=== PATIENT | male | born 1955 | race Hispanic/Latino ===

== ENCOUNTER 2020-07-13 09:53 | Outpatient (CLI) | payer MEDICARE, SELFPAY ==
--- NOTE | 2020-07-13 14:58 | P.NEURO_ITS ---
Neurology EEG Report General Information Date of Study: 07/13/20 TEST eeg DIAGNOSIS ataxia CONDITION OF RECORDING awake drowsy and sleep EEG NUMBER [id number] CLINICAL HISTORY patient reported he has been having issues with talking walking and dizziness. He is a diabetic % and had blood workup done sodium potassium at [facility] lytes were messed up but those back to normal range and has noted significant improvement in symptomatology. He does have a history of cerebral bleed that affected his l eft arm and left leg EEG DESCRIPTION basic resting occipital frequency consists of large amount of well-organized low to medium voltage 8 to 9 hertz per second alpha admixed with low-voltage 15 to 18 hertz per 2nd beta. Bilateral symmetrical sleep activity seen during sleep. hyperventilation not done. Photic stimulation produced normal drive. No n paroxysmal, nonfocal ,nonlateralizing. IMPRESSION No significant abnormalities no
== END 2020-07-13 09:54 | disposition home or self-care (01) ==
PROVIDERS: PCP Family Medicine; Visit Provider Psychiatry & Neurology Neurology
DX: R27.0 Ataxia, unspecified (principal)
CPT/HCPCS: 95816

== ENCOUNTER 2020-07-17 09:34 | Outpatient (CLI) | payer MEDICARE, SELFPAY ==
--- NOTE | ~2020-07-17 | MR_ITS ---
EXAMINATION: MR brain/brain stem wo con DATE: 07/17/2020 12:05 INDICATION: Ataxia. TECHNIQUE: Magnetic resonance imaging (MRI) of the brain and brainstem was performed without intraven ous contrast. Sequences included sagittal and axial T1-weighted FSE, axial diffusion-weighted FS EPI, axial T2*-weighted GRE, axial T2-weighted FLAIR Propeller, and axial T2-weighted Propeller. Apparent diffusion coefficient (ADC) maps were created. COMPARISON: Brain MRI 07/21/2005, head CT 10/27/2013 FINDINGS: There is a mass of mixed signal intensity with chronic encephalomalacia and old blood produ cts involving right temporal lobe. There is chronic encephalomalacia with blood products in the adjac ent right insula and right lentiform nucleus. There is volume loss and increased T2-weighted signal i ntensity in the marybel on the right, consistent with chronic Wallerian degeneration. There are scattere d areas of nonspecific increased T2-weighted signal intensity in the cerebral white matter. There is a small area of chronic cystic encephalomalacia in the right frontoparietal deep white matter. There is an old lacunar infarct in the left caudate nucleus. There is no acute ischemic infarct. The ventri cles are normal in size. The orbits are normal. There is mild mucosal thickening in the ethmoid sinus es. The mastoid air cells are normal. There is a lipoma in right frontal scalp. IMPRESSION: 1. Chronic ill-defined mass in right temporal lobe, consistent with an arteriovenous malformation. 2. Chronic encephalomalacia with old blood products in the right temporal lobe and adjacent right ins keara and right lentiform nucleus. 3. Old lacunar infarct in left caudate nucleus. 4. Moderate nonspecific cerebral white matter disease, which likely represents chronic small vessel i schemic disease. Reviewed, dictated and finalized at location A. IMPRESSION: 1. Chronic ill-defined mass in right temporal lobe, consistent with an arteriov enous malformation. 2. Chronic encephalomalacia with old blood products in the right temporal lobe and adjacent right insula and right lentiform nucleus. 3. Old lacunar infarct in left caudate nucleus. 4. Moderate nonspecific cerebral white matter disease, which likely represents chronic small vessel ischemic disease.
== END 2020-07-17 09:35 | disposition home or self-care (01) ==
PROVIDERS: PCP Family Medicine; Visit Provider Psychiatry & Neurology Neurology
DX: R27.0 Ataxia, unspecified (principal); R93.0 Abnormal findings on diagnostic imaging of skull and head, not elsewhere classified
CPT/HCPCS: 70551

== ENCOUNTER 2022-02-16 20:32 | Inpatient (IN) | payer MEDICARE, MEDICAID, SELFPAY ==
[2022-02-16] VITALS (10 sets, daily range): BP systolic 163–196; BP diastolic 75–120; PULSE 59–79; RESP 13–23; TEMP 36.5; O2SAT 96–100
--- NOTE | ~2022-02-16 | CT_ITS ---
EXAMINATION: CT brain wo con DATE: 02/20/2022 12:45 INDICATION: Increasing weakness TECHNIQUE: Computed tomography (CT) of the head was performed without intravenous contrast. Sagittal and coronal reconstructions were performed. The mA was adjusted according to patient size. Iterative reconstruction technique was employed. The dose-length product was 605.33 mGy-cm. COMPARISON: head CT dated 10/27/2013 and MRI dated 07/17/2020 FINDINGS: Chronic 2.1 cm calcified mass in the right temporal lobe consistent with an arteriovenous malformatio n. Small regions of chronic encephalomalacia in the adjacent more anterior right temporal lobe and at the posterior insula and right lentiform nucleus where there was previously a small intraparenchymal hematoma. Again seen is asymmetric mild atrophy of the right cerebral peduncle and marybel likely repre senting secondary wallerian degeneration. A couple additional small old lacunar infarcts at the left thalamus and left caudate nucleus. There is moderate scattered white matter hypoattenuation consisten t with chronic small vessel ischemic disease. No acute intracranial hemorrhage, acute infarction or abnormal extra axial fluid collection. Ventricles are normal and symmetric accounting for mild to mod erate age-appropriate diffuse volume loss. 2.4 x 2.1 x 1.0 cm lipoma in the right frontal scalp. No o ther masses identified. The orbits, paranasal sinuses and mastoid air cells are normal. IMPRESSION: 1. No significant change in a 2.1 cm calcified mass in the right temporal lobe most likely representi ng an arteriovenous malformation. 2. Chronic encephalomalacia in the adjacent right temporal lobe, right insula and lentiform nucleus, the latter two at the site of an earlier intraparenchymal hemorrhage. 3. Couple small old lacunar infarcts at the left caudate nucleus and left thalamus. 4. Age-related changes including mild to moderate diffuse volume loss and moderate scattered white ma tter hypoattenuation consistent with chronic small vessel ischemic disease. Reviewed, dictated and finalized at location A. IMPRESSION: 1. No significant change in a 2.1 cm calcified mass in the right temporal lobe most likely representing an arteriovenous malformation. 2. Chronic encephalomalacia in the adjacent right temporal lobe, right insula a nd lentiform nucleus, the latter two at the site of an earlier intraparenchymal hemorrhage. 3. Couple small old lacunar infarcts at the left caudate nucleus and left thala mus. 4. Age-related changes including mild to moderate diffuse volume loss and moder ate scattered white matter hypoattenuation consistent with chronic small vessel ischemic disease.
--- NOTE | ~2022-02-16 | XR_ITS ---
EXAMINATION: XR chest 1V portable DATE: 02/16/2022 23:39 INDICATION: Hyperglycemia. Fall. TECHNIQUE: frontal view of the chest was obtained. COMPARISON: Chest radiograph dated 03/08/2015 FINDINGS: New mild blunting at the left costophrenic and cardiophrenic angles consistent with small left pleura l effusion. No other airspace opacities, pulmonary edema, pneumothorax or right-sided pleural effusio n. Arch size is within normal limits for AP technique. Median sternotomy wires and mediastinal surgic al clips are seen, likely from prior coronary artery bypass grafting. There is also a cardiac valve r epair and a left atrial appendage clip. IMPRESSION: 1. Small left pleural effusion. Reviewed, dictated and finalized at location A.
--- NOTE | ~2022-02-16 | XR_ITS ---
EXAMINATION: XR shoulder LT min 2V, XR shoulder RT min 2V DATE: 02/19/2022 14:24 INDICATION: Generalized bilateral shoulder pain post fall TECHNIQUE: 1. AP internally and externally rotated, AP oblique externally rotated and transscapular Y views of t he left shoulder were obtained. 2. AP internally and externally rotated, AP oblique externally rotated and transscapular Y views of t he right shoulder were obtained. COMPARISON: None FINDINGS: Normal alignment at both shoulders. No fracture.Particular osteoarthritis at both shoulders, mild at the bilateral glenohumeral joints and mild at the right and moderate at the left acromioclavicular j oints. Moderate sized bilateral subacromial spurs. Visualized portions of the upper lungs are clear. Median sternotomy wires and mediastinal surgical clips are seen, likely from prior coronary artery by pass grafting. There has also been prior clipping of the left atrial appendage.. IMPRESSION: Mild to moderate polyarticular osteoarthritis at the bilateral shoulders. No acute osseous abnormalit y. Reviewed, dictated and finalized at location A. IMPRESSION: Mild to moderate polyarticular osteoarthritis at the bilateral shoulders. No ac ewiiaapaayp osseous abnormality.
--- NOTE | ~2022-02-16 | XR_ITS ---
EXAMINATION: XR lumbar spine 2-3V DATE: 02/19/2022 14:24 INDICATION: Low back pain. Fall. TECHNIQUE: 3 views of lumbar spine on 5 radiographs were obtained. COMPARISON: None. FINDINGS: Bone alignment is normal. Vertebral body heights and intervertebral disc heights are normal . There are endplate osteophytes at most levels. There is multilevel mild facet joint osteoarthritis. IMPRESSION: 1. Mild lumbar spondylosis. Reviewed, dictated and finalized at location B. IMPRESSION: 1. Mild lumbar spondylosis.
--- NOTE | ~2022-02-16 | XR_ITS ---
EXAMINATION: XR_CERV2-3V_CR DATE: 02/19/2022 14:24 INDICATION: Neck pain. Fall. TECHNIQUE: 4 views of cervical spine on 7 radiographs were obtained. COMPARISON: None. FINDINGS: The lower cervical spine is not well visualized on the lateral views. Bone alignment is nor mal. Vertebral body heights and intervertebral disc heights are normal. There is moderate to severe u ncovertebral joint osteoarthritis bilaterally at C5-C6 and C6-C7. The facet joints are unremarkable. No central canal stenosis or prevertebral soft tissue swelling. Median sternotomy wires and mediastin al surgical clips are seen, likely from prior coronary artery bypass grafting. There is a closure dev ice in the area of left atrial appendage. IMPRESSION: 1. Mild cervical spondylosis. Reviewed, dictated and finalized at location B.
[2022-02-16 20:53] LABS: Glucose Point of Care > 500 mg/dl (65-105)
--- NOTE | 2022-02-16 21:01 | ECG_ITS ---
Measurements Intervals [place] Rate: 60 P: 100 IA: 251 QRS: 3 QRSD: 112 T: 118 QT: 443 QTc: 444 Interpretive Statements RHYTHM INDETERMINATE LEFT VENTRICULAR HYPERTROPHY AND ST-T CHANGE [VOLTAGE CRITERIA PLUS ST/T ABNORMALITY] ABNORMAL EKG Electronically Signed On 02-17-2022 9:27:29 CDT by Lele Saunders M.D.
[2022-02-16 21:14] LABS: Basophils Absolute Auto 0.1 K/mm3 (0.0-0.1); Basophils Percent Auto 0.7 % (0.2-1.2); Eosinophils Absolute Auto 0.2 K/mm3 (0-0.3); Eosinophils Percent Auto 2.2 % (0-4.4); Hematocrit 34.1 % (42.0-52.0); Hemoglobin 10.7 g/dL (14.0-18.0); Immature Granulocyte Absolute 0.03 K/mm3 (0.00-0.031); Immature Granulocyte Percent A 0.4 % (0-0.5); Lymphocytes Absolute Auto 0.68 K/mm3 (0.9-3.2); Lymphocytes Percent Auto 9.1 % (18.3-44.2); Mean Corpuscular HGB Conc 31.4 g/dl (32-36); Mean Corpuscular Hemoglobin 26.3 pg (26-34); Mean Corpuscular Volume 83.8 fl (80-100); Monocytes Absolute Auto 0.7 K/mm3 (0.1-0.6); Monocytes Percent Auto 8.9 % (2.6-8.5); Neutrophils Absolute Auto 5.9 K/mm3 (1.3-6.7); Neutrophils Percent Auto 78.7 % (45.5-73.1); Platelet Count Result 297 k/mm3 (150-375); Red Blood Count 4.07 M/mm3 (4.6-6.20); Red Cell Distribution Width 14.9 % (11.5-14.5); White Blood Count 7.4 K/mm3 (4.5-10.0)
--- NOTE | 2022-02-16 22:09 | ED.RECABL ---
HPI - Recheck/Abnormal Lab/Rx General Chief Complaint: Recheck/Abnormal Lab/Rx Stated Complaint: High Blood Sugar, High BP, Edema Time Seen by Provider: 02/16/22 22:08 History of Present Illness HPI narrative: Patient is a 66-year-old male with a history of diabetes, CHF, hypertension, hypothyroidism presenting with multiple falls. Patient states that he has had several falls over the last several days. Today he was trembling all over and was unable to hold a glass of water so he came in for evaluation. Patient complains of chronic arthritis pain but denies any new pain. No headache, fevers, chest pain, shortness of breath, abdominal pain, vomiting, diarrhea, dysuria. Endorses chronic leg swelling. States he has been compliant with his Lasix. Related Data Home Medications Medication Instructions Recorded Confirmed atorvastatin 40 mg tablet 80 mg PO HS 03/24/19 02/17/22 carvedilol 25 mg tablet 25 mg PO Q12H 03/24/19 02/17/22 levothyroxine 125 mcg tablet 125 mcg PO DAILY 03/24/19 02/17/22 dulaglutide 1.5 mg/0.5 mL 1.5 mg subcut WEEKLY 01/20/22 02/17/22 subcutaneous pen injector (Trulicity) aspirin 81 mg chewable tablet 81 mg PO HS 02/17/22 02/17/22 escitalopram oxalate 20 mg tablet 20 mg PO DAILY 02/17/22 02/17/22 ferrous sulfate 325 mg (65 mg 325 mg PO EVERY OTHER DAY 02/17/22 02/17/22 iron) tablet furosemide 40 mg tablet 40 mg PO BID 02/17/22 02/17/22 gabapentin 800 mg tablet 800 mg PO QID 02/17/22 02/17/22 ibuprofen 800 mg tablet 800 mg PO TID PRN Mild Pain (Scale 02/17/22 02/17/22 Score 1-4) insulin lispro 100 unit/mL See Rx Instructions .Route .COMPLEX 02/17/22 02/17/22 subcutaneous solution (Humalog U-100 Insulin) lisinopril 30 mg tablet 30 mg PO DAILY 02/17/22 02/17/22 oxycodone-acetaminophen 5 mg-325 1 - 2 tablet PO Q6H PRN Pain 02/17/22 02/17/22 mg tablet (Scale Score 7-10) Allergies Allergy/AdvReac Type Severity Reaction Status Date / Time Gadolinium-Containing Allergy Unknown Vomiting Verified 02/17/22 02:08 Contrast Medi ioversol Allergy Unknown Vomiting Verified 02/17/22 02:08 Review of Systems Review of Systems: All systems reviewed & are unremarkable except as noted in HPI and below PMFSH Past Medical History Medical History (Updated 02/21/22 @ 17:03 by Crystal Aldrich MD) Atrial fibrillation/flutter Paroxysmal, history of DC cardioversion 2013, no longer on anticoagulation due to history of intercranial bleed CAD (coronary artery disease) (~2006) The patient had 3 cardiac stents placed between 2005 and 2012. He had a CABG in 2012 with a Saint Aleksey's ring placed on the mitral valve Cerebral arteriovenous malformation (AVM) Evaluated at [facility] in 1991 and 1997. He had bleeding from the AVM prior to 2005 CHF (congestive heart failure) Echocardiogram 07/2013: Left ventricular hypertrophy with mild dilatation, severe septal hypokinesis, EF 55-60, diastolic dysfunction, dilated left atrium Prior diagnosis of dilated cardiomyopathy CVA (cerebral vascular accident) (~2014) Hemorrhagic CVA 2013. MRI brain 07/2020 performed due to ataxia: Chronic ill-defined mass in the right temporal lobe consistent with AV malformation, chronic encephalomalacia with old blood product in the right temporal lobe and adjacent right insula and right lentiform nucleus, old lacunar infarct in the left caudate nucleus, moderate nonspecific cerebral white matter disease likely representing chronic small-vessel ischemic disease Depression Diabetes mellitus (~2002) uncontrolled with hemoglobin A1c 10.6 01/20/2022 Diabetic nephropathy with proteinuria Diabetic peripheral neuropathy HTN (hypertension) Hypothyroidism (~2009) Myocardial infarction Obstructive sleep apnea Polysomnogram 2014: Moderate obstructive sleep apnea improved with CPAP of 6 Rheumatoid arthritis Seizure disorder Surgical History Surgical History (Updated 02/17/22 @ 04:47 by Anne Bazzi, ) History of appendectomy Hx of CABG
[2022-02-16 22:16] LABS: Beta-Hydroxybutyrate/Acetoacetate 0.09 mmol/L (0.02-0.27)
[2022-02-16 22:32] LABS: Alanine Aminotransferase 16 U/L (6-50); Albumin Level 3.4 g/dL (3.5-5.1); Alkaline Phosphatase 133 U/L (38-126); Anion Gap 9 mmol/L (8-16); Aspartate Amino Transferase 21 U/L (17-59); Bilirubin,Total 0.3 mg/dL (0.2-1.3); Blood Urea Nitrogen 16 mg/dL (9-20); Calcium 8.9 mg/dL (8.4-10.2); Carbon Dioxide 32 mmol/L (22-30); Chloride 96 mmol/L (98-107); Estimated CRCL calculation 36 ml/min; Estimated Glomerular Filt Rate 43; Glucose 571 mg/dL (65-110); Magnesium 2.4 mg/dL (1.6-2.3); Phosphorus 3.5 mg/dL (2.5-4.5); Potassium 2.8 mmol/L (3.4-5.0); Sodium 137 mmol/L (137-145)
[2022-02-16] MEDS: POTASSIUM CHLORIDE INJ 40 MEQ in SODIUM CHLORIDE 0.9% IV 500 ML 130 MEQ IVPB (22:55)
[2022-02-16] MEDS: SODIUM CHLORIDE 0.9% IV 1,000 ML 999 ML IV CONT (22:55)
[2022-02-17] VITALS (29 sets, daily range): BP systolic 155–199; BP diastolic 58–101; PULSE 54–117; RESP 11–22; TEMP 36.5–36.9; O2SAT 95–100; BMI 28.5
[2022-02-17] MEDS: MORPHINE SULFATE (*CRX) 4 MG/ML INJ IV PUSH ×2 (00:10→11:57)
--- NOTE | 2022-02-17 00:44 | ECG_ITS ---
Measurements Intervals [place] Rate: 76 P: MI: 0 QRS: 1 QRSD: 108 T: 116 QT: 428 QTc: 483 Interpretive Statements ATRIAL FIBRILLATION POSSIBLE LEFT VENTRICULAR HYPERTROPHY [VOLTAGE CRITERIA PLUS LAE OR QRS WIDENING] ST DEVIATION AND MODERATE T-WAVE ABNORMALITY, CONSIDER LATERAL ISCHEMIA [-0.1+ mV T- WAVE IN I/aVL/V5/V6] ABNORMAL ECG Electronically Signed On 02-17-2022 9:29:19 CDT by Lele Saunders M.D.
[2022-02-17 01:01] LABS: Glucose Point of Care 363 mg/dl (65-105)
[2022-02-17] MEDS: carvediloL 25 MG TABLET PO ×3 (01:10→20:23)
[2022-02-17] MEDS: POTASSIUM CHLORIDE 20 MEQ TABLET 40 MEQ PO ×3 (01:11→12:26)
[2022-02-17 01:29] LABS: Add Urine Microscopic? YES; Appearance Urine Clear (Clear); Bilirubin Urine Negative (Negative); Blood Urine 1+ (Negative); Color Urine Straw (Yellow); Glucose Urine UA 3+ mg/dL (Negative); Ketones Urine Trace mg/dL (Negative); Leukocyte Esterase Ur Negative LEU/UL (Negative); Nitrate Urine Negative (Negative); Protein Urine 2+ mg/dL (Negative); RBC Urine 0-2 /hpf (0-2); Specific Grav Ur 1.018 (1.001-1.035); Urobilinogen Urine Negative mg/dL (<2.0)
--- NOTE | 2022-02-17 01:57 | PM.IMHP ---
H&P: HPI History of Present Illness Date/Time: 02/17/22 01:57 Chief Complaint: Multiple falls, high blood sugar Narrative: 66-year-old male with past medical history of prior CVA, essential hypertension, congestive heart failure and uncontrolled diabetes mellitus who presented from home after multiple falls. The patient was hospitalized for 3.5 weeks at [facility] approximately 6 weeks ago. It sounds as if the patient was likely having a CHF exacerbation as he stated his weight on admission to the hospital was 223 lb. On discharge he was around 180 lb. He reported multiple falls as the reason for that hospitalization as well. He was discharged to acute rehab for 3 weeks and then was discharged from there to home 3 weeks ago. He reports that for the last week he has had increasing weakness and multiple falls despite using his Rollator walker. He also reports muscle cramps over the last 3 days. And he has been having episodes of shaking so bad that he has been spilling is drink for the last 3 days. He states that he has not been checking his sugars lately. The patient is not the best historian and it sounds like it is been possibly several days since he checked his sugars. His glucose in the ER was 521. He fell on the evening of and struck the right-sided ribs on the table. He decided to come in for evaluation. In triage the patient was noted be hypertensive with blood pressures ranging between 163/75 up to 199/94. The patient had not received his evening Coreg prior to coming to the hospital. He denies any nausea or vomiting. He denies any increased urinary frequency or dysuria. He denies any shortness breath chest pain or palpitations. The patient reports that over the last year he has been having memory issues and his partner has been telling him that he is more forgetful. He is having difficulty recalling recent events more so than his past medical history. He does have some difficulty with word substitution due to his history of prior CVA. He denies any dizziness with standing but states that he simply has been falling because his legs give out. Patient is noted to be edematous in his left hand any reports deficits related to his prior CVA. He denies any cough or congestion. He was afebrile on arrival to the ER. Source of information is review of past medical records and patient report. The patient is a fair to poor historian. Review of Systems Review of Systems: 12 systems were reviewed with pertinent positives and negatives per HPI. Except as documented in the HPI, all other systems were reviewed and are negative. [facility] Past Medical History Medical History (Updated 02/17/22 @ 04:47 by Anne Bazzi, ) Atrial fibrillation/flutter Paroxysmal, history of DC cardioversion 2013, no longer on anticoagulation due to history of intercranial bleed CAD (coronary artery disease) (~2006) The patient had 3 cardiac stents placed between 2005 and 2012. He had a CABG in 2012 with a Saint Aleksey's ring placed on the mitral valve Cerebral arteriovenous malformation (AVM) Evaluated at [facility] in 1991 and 1997. He had bleeding from the AVM prior to 2005 CHF (congestive heart failure) Echocardiogram 07/2013: Left ventricular hypertrophy with mild dilatation, severe septal hypokinesis, EF 55-60, diastolic dysfunction, dilated left atrium Prior diagnosis of dilated cardiomyopathy CVA (cerebral vascular accident) (~2014) Hemorrhagic CVA 2013. MRI brain 07/2020 performed due to ataxia: Chronic ill-defined mass in the right temporal lobe consistent with AV malformation, chronic encephalomalacia with old blood product in the right temporal lobe and adjacent right insula and right lentiform nucleus, old lacunar infarct in the left caudate nucleus, moderate nonspecific cerebral white matter disease likely representing chronic small-vessel ischemic disease Depression Diabetes mellitus (~2002) uncontrolled with hemoglobin
--- NOTE | 2022-02-17 02:01 | ADMGEN ---
This patient, Romero Davis, was admitted to IMU Room 211-01 on 02/17/22 at 0126. Patient/family oriented to hospital policies and general routines including ID bracelet, bed and alarms, visiting hours, pain management, procedures, bathroom and other care routines, personal items, smoking policy, room service/diet, and visiting hours. Information on how to activate the Rapid Response Team has been discussed. Patient/Family are encouraged to report perceived risks to care and to ask questions if they do not understand what they are told or what they should do.
[2022-02-17 02:43] LABS: Troponin I 0.027 ng/mL (0.000-0.034)
[2022-02-17] MEDS: SODIUM CHLORIDE 0.9% IV 1,000 ML 100 ML IV CONT (03:42)
[2022-02-17] MEDS: hydrALAZINE HCL 20 MG/ML VIAL 10 MG IV PUSH (03:42)
[2022-02-17 03:55] LABS: Hematocrit 32.9 % (42.0-52.0); Hemoglobin 10.5 g/dL (14.0-18.0); Mean Corpuscular HGB Conc 31.9 g/dl (32-36); Mean Corpuscular Hemoglobin 26.7 pg (26-34); Mean Corpuscular Volume 83.7 fl (80-100); Platelet Count Result 275 k/mm3 (150-375); Red Blood Count 3.93 M/mm3 (4.6-6.20); White Blood Count 7.4 K/mm3 (4.5-10.0)
[2022-02-17 04:04] LABS: Anion Gap 5 mmol/L (8-16); Blood Urea Nitrogen 14 mg/dL (9-20); Calcium 8.6 mg/dL (8.4-10.2); Carbon Dioxide 32 mmol/L (22-30); Chloride 101 mmol/L (98-107); Estimated CRCL calculation 41 ml/min; Estimated Glomerular Filt Rate 50; Glucose 404 mg/dL (65-110); Potassium 3.1 mmol/L (3.4-5.0); Sodium 138 mmol/L (137-145)
[2022-02-17 04:16] LABS: Troponin I 0.028 ng/mL (0.000-0.034)
[2022-02-17] MEDS: INSULIN ASPART (*BKC) 100 UNITS/ML 12 UNITS SUB-Q (04:34)
[2022-02-17] MEDS: INSULIN GLARGINE (*BKC) 100 UNITS/ML 20 UNITS SUB-Q ×2 (04:34→20:24)
[2022-02-17 06:45] LABS: Glucose Point of Care 183 mg/dl (65-105)
[2022-02-17] MEDS: LEVOTHYROXINE SODIUM 125 MCG TABLET PO (07:38)
[2022-02-17] MEDS: INSULIN ASPART (*BKC) 100 UNITS/ML 7 UNITS SUB-Q ×3 (08:59→17:30)
[2022-02-17] MEDS: ESCITALOPRAM OXALATE 10 MG TABLET 20 MG PO (09:00)
[2022-02-17] MEDS: FERROUS SULFATE 324 MG TABLET PO (09:00)
[2022-02-17] MEDS: lisinopriL 10 MG TABLET 30 MG PO (09:01)
[2022-02-17] MEDS: GABAPENTIN 400 MG CAPSULE 800 MG PO ×3 (09:01→20:24)
[2022-02-17] MEDS: oxyCODONE/ACETAMINOPHEN (*CRX) 5-325 MG TABLET 1 TABLET PO (09:08)
[2022-02-17 09:20] LABS: Glucose Point of Care 83 mg/dl (65-105)
[2022-02-17 09:20] LABS: Glucose Point of Care 88 mg/dl (65-105)
[2022-02-17 12:01] LABS: Glucose Point of Care 97 mg/dl (65-105)
[2022-02-17] MEDS: SODIUM CHLORIDE 0.9% IV 1,000 ML 70 ML IV CONT (15:59)
[2022-02-17] MEDS: LIDOCAINE 5% PATCH 1 PATCH TRANSDERM (15:59)
[2022-02-17] MEDS: oxyCODONE HCL (*CRX) 5 MG TAB IR 10 MG PO (16:32)
[2022-02-17 17:01] LABS: Glucose Point of Care 145 mg/dl (65-105)
[2022-02-17 20:00] LABS: Glucose Point of Care 120 mg/dl (65-105)
[2022-02-17] MEDS: ASPIRIN 81 MG CHEWABLE TABLET PO (20:22)
[2022-02-17] MEDS: ATORVASTATIN 40 MG TABLET 80 MG PO (20:22)
[2022-02-18] VITALS (13 sets, daily range): BP systolic 161–193; BP diastolic 74–82; PULSE 59–88; RESP 14–20; TEMP 36.2–36.7; O2SAT 96–99
[2022-02-18] MEDS: SODIUM CHLORIDE 0.9% IV 1,000 ML 70 ML IV CONT ×2 (06:03→23:42)
[2022-02-18] MEDS: LEVOTHYROXINE SODIUM 125 MCG TABLET PO (06:03)
[2022-02-18] MEDS: lisinopriL 10 MG TABLET 30 MG PO (08:50)
[2022-02-18] MEDS: ESCITALOPRAM OXALATE 10 MG TABLET 20 MG PO (08:50)
[2022-02-18] MEDS: INSULIN ASPART (*BKC) 100 UNITS/ML 7 UNITS SUB-Q ×2 (08:51→12:45)
[2022-02-18] MEDS: carvediloL 25 MG TABLET PO ×2 (08:51→21:19)
[2022-02-18] MEDS: GABAPENTIN 400 MG CAPSULE 800 MG PO ×4 (08:51→21:19)
[2022-02-18] MEDS: LIDOCAINE 5% PATCH 1 PATCH TRANSDERM (08:52)
[2022-02-18 09:04] LABS: Glucose Point of Care 111 mg/dl (65-105)
--- NOTE | 2022-02-18 09:44 | PM.IMPN ---
Progress Note: A&P Assessment and Plan (1) Hyperosmolar hyperglycemic state (HHS): Code(s): E11.00 - Type 2 diabetes mellitus with hyperosmolarity without nonketotic hyperglycemic-hyperosmolar coma (NKHHC) Status: Acute Assessment and Plan: Resolved (2) Type 2 diabetes mellitus with hyperglycemia, with long-term current use of insulin: Code(s): E11.65 - Type 2 diabetes mellitus with hyperglycemia; Z79.4 - [facility] (current) use of insulin Status: Acute Assessment and Plan: Chronically uncontrolled. A1c was greater than 10 in December. Patient's goal A1c is 8 due to history of hypoglycemia unaware. (3) Hypothyroidism (acquired): Code(s): E03.9 - Hypothyroidism, unspecified Status: Acute Assessment and Plan: Continue home levothyroxine (4) Uncontrolled hypertension: Code(s): I10 - Essential (primary) hypertension Status: Acute Assessment and Plan: Continue home medications, monitor (5) Acute hypokalemia: Code(s): E87.6 - Hypokalemia Status: Acute Assessment and Plan: Worsened with insulin administration, will replete and recheck again today (6) Atrial flutter with rapid ventricular response: Code(s): I48.92 - Unspecified atrial flutter Status: Acute Assessment and Plan: Stable, rate controlled (7) Acute kidney injury: Code(s): N17.9 - Acute kidney failure, unspecified Status: Acute Assessment and Plan: Resolved, discontinue fluids (8) Ischemic cardiomyopathy: Code(s): I25.5 - Ischemic cardiomyopathy Status: Acute Assessment and Plan: Monitor fluid balance closely. Continue Coreg and lisinopril. (9) Memory loss: Code(s): R41.3 - Other amnesia Status: Acute Assessment and Plan: Sounds as if the patient is developing some symptoms of dementia. He would benefit from a more complete neuro cognitive evaluation as outpatient. The patient likely has some (10) Paroxysmal atrial fibrillation with RVR: Code(s): I48.0 - Paroxysmal atrial fibrillation Status: Acute Assessment and Plan: Will replace patient's potassium and continue home Coreg. Patient did have a transient episode of bradycardia lasting only about 30 seconds after he arrived to the IMU. The patient was asymptomatic. Plan DVT prophylaxis with SCDs GI prophylaxis not indicated Code status full code Subjective Date/time seen: 02/18/22 09:44 Interval history: No overnight events noted. No chest pain or shortness of breath. No nausea, vomiting or diarrhea. No fevers or chills. Patient is complaining of some pain from his fall. He also has a muscle spasm of his left leg. Review of Systems Review of Systems: 12 point review of systems was assessed and was negative except as noted in the HPI Exam Narrative: General: No acute distress, alert and oriented per baseline HEENT: Atraumatic, normocephalic, mucous membranes moist CV: Regular rate and rhythm, S1, S2 Lungs: Clear to auscultation bilaterally, no rales or crackles noted, no wheezes, good air entry Abdomen: Soft, nontender, nondistended Extremities: Normal to inspection Skin: No rashes noted, no lesions or wounds seen Psych: Euthymic, normal affect Objective Data Vital Signs Vital Signs: Vital Signs - 24 hr 02/17/22 09:59 02/17/22 11:54 02/17/22 12:00 Temperature 98.4 F Pulse Rate 64 62 Respiratory Rate 16 Blood Pressure 160/76 H Pulse Oximetry 100 Oxygen Delivery Room Air Fraction of Inspired Oxygen 02/17/22 12:00 02/17/22 10:00 02/17/22 14:00 Temperature Pulse Rate 62 73 60 Respiratory Rate 16 Blood Pressure Pulse Oximetry 100 Oxygen Delivery Room Air Fraction of Inspired Oxygen 02/17/22 16:00 02/17/22 16:00 02/17/22 16:00 Temperature 98.4 F Pulse Rate 74 82 Respiratory Rate 16 Blood Pressure 159/73 H Pulse Oxi
[2022-02-18 10:09] LABS: Basophils Percent Auto 0.6 % (0.2-1.2); Eosinophils Absolute Auto 0.3 K/mm3 (0-0.3); Eosinophils Percent Auto 4.3 % (0-4.4); Hematocrit 33.6 % (42.0-52.0); Hemoglobin 10.7 g/dL (14.0-18.0); Immature Granulocyte Absolute 0.03 K/mm3 (0.00-0.031); Immature Granulocyte Percent A 0.4 % (0-0.5); Lymphocytes Absolute Auto 0.92 K/mm3 (0.9-3.2); Lymphocytes Percent Auto 12.7 % (18.3-44.2); Mean Corpuscular HGB Conc 31.8 g/dl (32-36); Mean Corpuscular Hemoglobin 26.3 pg (26-34); Mean Corpuscular Volume 82.6 fl (80-100); Mean Platelet Volume 11.6 fl (7.4-10.4); Monocytes Absolute Auto 0.6 K/mm3 (0.1-0.6); Monocytes Percent Auto 8.5 % (2.6-8.5); Neutrophils Absolute Auto 5.4 K/mm3 (1.3-6.7); Neutrophils Percent Auto 73.5 % (45.5-73.1); Platelet Count Result 285 k/mm3 (150-375); Red Blood Count 4.07 M/mm3 (4.6-6.20); Red Cell Distribution Width 15.3 % (11.5-14.5); White Blood Count 7.3 K/mm3 (4.5-10.0)
[2022-02-18] MEDS: oxyCODONE HCL (*CRX) 5 MG TAB IR 10 MG PO ×2 (10:27→21:16)
[2022-02-18 10:40] LABS: Alanine Aminotransferase 13 U/L (6-50); Albumin Level 3.3 g/dL (3.5-5.1); Alkaline Phosphatase 98 U/L (38-126); Anion Gap 8 mmol/L (8-16); Aspartate Amino Transferase 22 U/L (17-59); Bilirubin,Total 0.3 mg/dL (0.2-1.3); Blood Urea Nitrogen 11 mg/dL (9-20); Calcium 8.8 mg/dL (8.4-10.2); Carbon Dioxide 29 mmol/L (22-30); Chloride 103 mmol/L (98-107); Estimated CRCL calculation 44 ml/min; Estimated Glomerular Filt Rate 55; Glucose 91 mg/dL (65-110); Potassium 2.7 mmol/L (3.4-5.0); Sodium 140 mmol/L (137-145)
[2022-02-18] MEDS: POTASSIUM CHLORIDE 20 MEQ TABLET 60 MEQ PO (10:57)
[2022-02-18] MEDS: POTASSIUM CHLORIDE INJ 40 MEQ in SODIUM CHLORIDE 0.9% IV 500 ML 130 MEQ IVPB (11:50)
[2022-02-18 12:01] LABS: Glucose Point of Care 95 mg/dl (65-105)
[2022-02-18 15:11] LABS: Anion Gap 7 mmol/L (8-16); Blood Urea Nitrogen 12 mg/dL (9-20); Calcium 8.1 mg/dL (8.4-10.2); Carbon Dioxide 29 mmol/L (22-30); Chloride 104 mmol/L (98-107); Estimated CRCL calculation 44 ml/min; Estimated Glomerular Filt Rate 55; Glucose 73 mg/dL (65-110); Potassium 3.3 mmol/L (3.4-5.0); Sodium 140 mmol/L (137-145)
[2022-02-18] MEDS: POTASSIUM CHLORIDE 20 MEQ TABLET 40 MEQ PO (16:36)
[2022-02-18] MEDS: hydrALAZINE HCL 20 MG/ML VIAL 10 MG IV PUSH (17:05)
[2022-02-18 17:26] LABS: Glucose Point of Care 81 mg/dl (65-105)
[2022-02-18] MEDS: CYCLOBENZAPRINE HCL 5 MG TABLET PO (18:09)
[2022-02-18 20:37] LABS: Glucose Point of Care 132 mg/dl (65-105)
[2022-02-18] MEDS: ASPIRIN 81 MG CHEWABLE TABLET PO (21:09)
[2022-02-18] MEDS: ATORVASTATIN 40 MG TABLET 80 MG PO (21:20)
[2022-02-18] MEDS: INSULIN GLARGINE (*BKC) 100 UNITS/ML 20 UNITS SUB-Q (21:24)
[2022-02-19] VITALS (11 sets, daily range): BP systolic 140–215; BP diastolic 60–81; PULSE 60–92; RESP 16–18; TEMP 36.4–36.8; O2SAT 91–98
--- NOTE | 2022-02-19 00:40 | PC.NURSE ---
Romero Davis was transferred from room 211 to room 245 on 02/19/22 at 0010.
[2022-02-19] MEDS: HYDROcodone/acetaminophen (*CRX) 5-325 MG TABLET 1 TAB PO ×2 (01:15→05:55)
[2022-02-19 05:49] LABS: Basophils Percent Auto 0.7 % (0.2-1.2); Eosinophils Absolute Auto 0.4 K/mm3 (0-0.3); Eosinophils Percent Auto 6.7 % (0-4.4); Hematocrit 30.4 % (42.0-52.0); Hemoglobin 9.4 g/dL (14.0-18.0); Immature Granulocyte Absolute 0.02 K/mm3 (0.00-0.031); Immature Granulocyte Percent A 0.3 % (0-0.5); Lymphocytes Absolute Auto 1.06 K/mm3 (0.9-3.2); Lymphocytes Percent Auto 17.4 % (18.3-44.2); Mean Corpuscular HGB Conc 30.9 g/dl (32-36); Mean Corpuscular Hemoglobin 26.6 pg (26-34); Mean Corpuscular Volume 86.1 fl (80-100); Mean Platelet Volume 11.6 fl (7.4-10.4); Monocytes Absolute Auto 0.8 K/mm3 (0.1-0.6); Neutrophils Absolute Auto 3.8 K/mm3 (1.3-6.7); Neutrophils Percent Auto 61.9 % (45.5-73.1); Platelet Count Result 245 k/mm3 (150-375); Red Blood Count 3.53 M/mm3 (4.6-6.20); Red Cell Distribution Width 15.9 % (11.5-14.5); White Blood Count 6.1 K/mm3 (4.5-10.0)
[2022-02-19] MEDS: LEVOTHYROXINE SODIUM 125 MCG TABLET PO (05:55)
[2022-02-19] MEDS: hydrALAZINE HCL 20 MG/ML VIAL 10 MG IV PUSH (05:55)
[2022-02-19 06:05] LABS: Alanine Aminotransferase 11 U/L (6-50); Albumin Level 2.8 g/dL (3.5-5.1); Alkaline Phosphatase 85 U/L (38-126); Anion Gap 4 mmol/L (8-16); Aspartate Amino Transferase 18 U/L (17-59); Bilirubin,Total 0.2 mg/dL (0.2-1.3); Blood Urea Nitrogen 14 mg/dL (9-20); Calcium 8.4 mg/dL (8.4-10.2); Carbon Dioxide 26 mmol/L (22-30); Chloride 109 mmol/L (98-107); Estimated CRCL calculation 49 ml/min; Estimated Glomerular Filt Rate 50; Glucose 64 mg/dL (65-110); Potassium 3.2 mmol/L (3.4-5.0); Sodium 139 mmol/L (137-145)
[2022-02-19 08:45] LABS: Glucose Point of Care 62 mg/dl (65-105)
[2022-02-19] MEDS: carvediloL 25 MG TABLET PO ×2 (09:14→21:15)
[2022-02-19] MEDS: GABAPENTIN 400 MG CAPSULE 800 MG PO ×4 (09:14→21:15)
[2022-02-19] MEDS: ESCITALOPRAM OXALATE 10 MG TABLET 20 MG PO (09:14)
[2022-02-19] MEDS: lisinopriL 10 MG TABLET 30 MG PO (09:15)
[2022-02-19] MEDS: POTASSIUM CHLORIDE 20 MEQ TABLET 40 MEQ PO (09:15)
[2022-02-19 10:14] LABS: Glucose Point of Care 128 mg/dl (65-105)
[2022-02-19 12:05] LABS: Glucose Point of Care 194 mg/dl (65-105)
[2022-02-19] MEDS: INSULIN ASPART (*BKC) 100 UNITS/ML 7 UNITS SUB-Q (12:13)
[2022-02-19] MEDS: oxyCODONE HCL (*CRX) 5 MG TAB IR 10 MG PO ×3 (12:54→21:17)
--- NOTE | 2022-02-19 13:28 | PM.IMPN ---
Progress Note: A&P Assessment and Plan (1) Hyperosmolar hyperglycemic state (HHS): Code(s): E11.00 - Type 2 diabetes mellitus with hyperosmolarity without nonketotic hyperglycemic-hyperosmolar coma (NKHHC) Status: Acute Assessment and Plan: Hyperglycemic on admission in 500s He uses insulin pump at home. Reviewed his home he has used pump for several weeks now. Likely pump He is going to follow-up with his doctor of nursing practice later this month. He has been switched to Lantus and this probe. Hypoglycemic this morning adjust dose as needed. Plan to send him home on Lantus and lispro and follow-up with the doctor of nursing practice to adjust his pump Pump setting reviewed his basal rate is 18 units per day With bolus of 4-6 units per meal History of hypoglycemia unawareness Plan for Dexcom with his new doctor of nursing practice. (2) Type 2 diabetes mellitus with hyperglycemia, with long-term current use of insulin: Code(s): E11.65 - Type 2 diabetes mellitus with hyperglycemia; Z79.4 - exterminator termite (current) use of insulin Status: Acute Assessment and Plan: Chronically uncontrolled. A1c was greater than 10 in December. Patient's goal A1c is 8 due to history of hypoglycemia unaware. (3) Hypothyroidism (acquired): Code(s): E03.9 - Hypothyroidism, unspecified Status: Acute Assessment and Plan: Continue home levothyroxine (4) Uncontrolled hypertension: Code(s): I10 - Essential (primary) hypertension Status: Acute Assessment and Plan: Continue home medications, monitor (5) Acute hypokalemia: Code(s): E87.6 - Hypokalemia Status: Acute Assessment and Plan: Replace (6) Atrial flutter with rapid ventricular response: Code(s): I48.92 - Unspecified atrial flutter Status: Acute Assessment and Plan: Stable, rate controlled (7) Acute kidney injury: Code(s): N17.9 - Acute kidney failure, unspecified Status: Acute Assessment and Plan: Resolved, discontinue fluids (8) Ischemic cardiomyopathy: Code(s): I25.5 - Ischemic cardiomyopathy Status: Acute Assessment and Plan: Monitor fluid balance closely. Continue Coreg and lisinopril. (9) Memory loss: Code(s): R41.3 - Other amnesia Status: Acute Assessment and Plan: Sounds as if the patient is developing some symptoms of dementia. He would benefit from a more complete neuro cognitive evaluation as outpatient. The patient likely has some dementia (10) Paroxysmal atrial fibrillation with RVR: Code(s): I48.0 - Paroxysmal atrial fibrillation Status: Acute Assessment and Plan: Will replace patient's potassium and continue home Coreg. Patient did have a transient episode of bradycardia lasting only about 30 seconds after he arrived to the IMU. The patient was asymptomatic. Plan Fall: Prior to admission. Shoulder pain with get x-rays Back pain to get x-rays PT OT to evaluate Prophylaxis with SCDs GI prophylaxis not indicated Code status full code Subjective Date/time seen: 02/19/22 13:28 Interval history: No overnight events noted. Complains of shortness in is back and is both shoulder. He had a fall before he came to the hospital. Review of Systems Review of Systems: All systems reviewed & are unremarkable except as noted in HPI and below Exam Narrative: General: No acute distress, alert and oriented per baseline HEENT: Atraumatic, normocephalic, mucous membranes moist CV: Regular rate and rhythm, S1, S2 Lungs: Clear to auscultation bilaterally, no rales or crackles noted, no wheezes, good air entry Abdomen: Soft, nontender, nondistended Extremities: Normal to inspection 1+ edema bilateral lower extremity noted Skin: No rashes noted, no lesions or wounds seen Psych: Euthymic, normal affect Objective Data Vital Signs Vital Signs: Vital Signs - 24 hr 02/18/22 16:00 02/18/22
--- NOTE | 2022-02-19 15:04 | PCOTNOTE ---
Assisted patient back to bed before lunch. Was going to attempt to complete additional interventions for OT session this PM, as patient reported his pain 10/10 and was unwilling to participate more at that time. Later, when attempted to see patient, patient unavailable - in x-ray. Will continue OT plan of care as appropriate.
[2022-02-19] MEDS: INSULIN ASPART (*BKC) 100 UNITS/ML SUB-Q (17:36)
[2022-02-19 17:51] LABS: Glucose Point of Care 175 mg/dl (65-105)
[2022-02-19] MEDS: ASPIRIN 81 MG CHEWABLE TABLET PO (21:16)
[2022-02-19] MEDS: ATORVASTATIN 40 MG TABLET 80 MG PO (21:17)
[2022-02-19] MEDS: INSULIN GLARGINE (*BKC) 100 UNITS/ML 15 UNITS SUB-Q (21:35)
[2022-02-19 21:50] LABS: Glucose Point of Care 201 mg/dl (65-105)
[2022-02-20] VITALS (16 sets, daily range): BP systolic 137–168; BP diastolic 57–86; PULSE 51–84; RESP 16–20; TEMP 36.4–37.2; O2SAT 95–100; BMI 10.0
[2022-02-20] MEDS: LEVOTHYROXINE SODIUM 125 MCG TABLET PO (05:29)
[2022-02-20 06:08] LABS: Basophils Percent Auto 0.5 % (0.2-1.2); Eosinophils Absolute Auto 0.3 K/mm3 (0-0.3); Eosinophils Percent Auto 5.1 % (0-4.4); Hematocrit 27.8 % (42.0-52.0); Hemoglobin 8.7 g/dL (14.0-18.0); Immature Granulocyte Absolute 0.03 K/mm3 (0.00-0.031); Immature Granulocyte Percent A 0.5 % (0-0.5); Lymphocytes Absolute Auto 0.98 K/mm3 (0.9-3.2); Lymphocytes Percent Auto 14.8 % (18.3-44.2); Mean Corpuscular HGB Conc 31.3 g/dl (32-36); Mean Corpuscular Hemoglobin 26.2 pg (26-34); Mean Corpuscular Volume 83.7 fl (80-100); Mean Platelet Volume 11.8 fl (7.4-10.4); Monocytes Absolute Auto 0.9 K/mm3 (0.1-0.6); Neutrophils Absolute Auto 4.3 K/mm3 (1.3-6.7); Neutrophils Percent Auto 65.1 % (45.5-73.1); Platelet Count Result 225 k/mm3 (150-375); Red Blood Count 3.32 M/mm3 (4.6-6.20); Red Cell Distribution Width 15.9 % (11.5-14.5); White Blood Count 6.6 K/mm3 (4.5-10.0)
[2022-02-20 06:20] LABS: Alanine Aminotransferase 10 U/L (6-50); Albumin Level 2.7 g/dL (3.5-5.1); Alkaline Phosphatase 76 U/L (38-126); Anion Gap 3 mmol/L (8-16); Aspartate Amino Transferase 15 U/L (17-59); Bilirubin,Total 0.3 mg/dL (0.2-1.3); Blood Urea Nitrogen 17 mg/dL (9-20); Calcium 8.2 mg/dL (8.4-10.2); Carbon Dioxide 26 mmol/L (22-30); Chloride 105 mmol/L (98-107); Estimated CRCL calculation 44 ml/min; Estimated Glomerular Filt Rate 43; Glucose 163 mg/dL (65-110); Potassium 3.8 mmol/L (3.4-5.0); Sodium 134 mmol/L (137-145)
[2022-02-20 08:50] LABS: Glucose Point of Care 147 mg/dl (65-105)
[2022-02-20] MEDS: INSULIN ASPART (*BKC) 100 UNITS/ML SUB-Q ×3 (09:07→17:40)
[2022-02-20] MEDS: GABAPENTIN 400 MG CAPSULE 800 MG PO ×4 (09:07→21:03)
[2022-02-20] MEDS: ESCITALOPRAM OXALATE 10 MG TABLET 20 MG PO (09:08)
[2022-02-20] MEDS: LIDOCAINE 5% PATCH 1 PATCH TRANSDERM (09:08)
[2022-02-20] MEDS: carvediloL 25 MG TABLET PO ×2 (09:12→21:04)
[2022-02-20] MEDS: lisinopriL 10 MG TABLET 30 MG PO (09:12)
[2022-02-20] MEDS: oxyCODONE HCL (*CRX) 5 MG TAB IR 10 MG PO (09:16)
[2022-02-20] MEDS: hydrALAZINE HCL 20 MG/ML VIAL 10 MG IV PUSH (09:16)
[2022-02-20 13:20] LABS: Glucose Point of Care 147 mg/dl (65-105)
--- NOTE | 2022-02-20 13:35 | PC.NURSE ---
On 02/20/22, the student, [Kimberli Walter], provided care and completed [facility] documentation on this patient. I have reviewed the student's documentation and agree with the findings.
--- NOTE | 2022-02-20 14:38 | PM.IMPN ---
Progress Note: A&P Assessment and Plan (1) Hyperosmolar hyperglycemic state (HHS): Code(s): E11.00 - Type 2 diabetes mellitus with hyperosmolarity without nonketotic hyperglycemic-hyperosmolar coma (NKHHC) Status: Acute Assessment and Plan: Hyperglycemic on admission in 500s He uses insulin pump at home. Reviewed his home he has used pump for several weeks now. Likely pump He is going to follow-up with his orchard worker later this month. He has been switched to Lantus and this probe. Hypoglycemic this morning adjust dose as needed. Plan to send him home on Lantus and lispro and follow-up with the orchard worker to adjust his pump Pump setting reviewed his basal rate is 18 units per day With bolus of 4-6 units per meal History of hypoglycemia unawareness Plan for Dexcom with his new orchard worker. (2) Type 2 diabetes mellitus with hyperglycemia, with long-term current use of insulin: Code(s): E11.65 - Type 2 diabetes mellitus with hyperglycemia; Z79.4 - joint terminal attack controller (current) use of insulin Status: Acute Assessment and Plan: Chronically uncontrolled. A1c was greater than 10 in December. Patient's goal A1c is 8 due to history of hypoglycemia unaware. (3) Hypothyroidism (acquired): Code(s): E03.9 - Hypothyroidism, unspecified Status: Acute Assessment and Plan: Continue home levothyroxine (4) Uncontrolled hypertension: Code(s): I10 - Essential (primary) hypertension Status: Acute Assessment and Plan: Continue home medications, monitor (5) Acute hypokalemia: Code(s): E87.6 - Hypokalemia Status: Acute Assessment and Plan: Replace (6) Atrial flutter with rapid ventricular response: Code(s): I48.92 - Unspecified atrial flutter Status: Acute Assessment and Plan: Stable, rate controlled (7) Acute kidney injury: Code(s): N17.9 - Acute kidney failure, unspecified Status: Acute Assessment and Plan: Resolved, discontinue fluids (8) Ischemic cardiomyopathy: Code(s): I25.5 - Ischemic cardiomyopathy Status: Acute Assessment and Plan: Monitor fluid balance closely. Continue Coreg and lisinopril. (9) Memory loss: Code(s): R41.3 - Other amnesia Status: Acute Assessment and Plan: Sounds as if the patient is developing some symptoms of dementia. He would benefit from a more complete neuro cognitive evaluation as outpatient. The patient likely has some dementia (10) Paroxysmal atrial fibrillation with RVR: Code(s): I48.0 - Paroxysmal atrial fibrillation Status: Acute Assessment and Plan: continue home Coreg. Patient did have a transient episode of bradycardia lasting only about 30 seconds after he arrived to the IMU. The patient was asymptomatic. Plan Fall: Prior to admission. Shoulder pain x-rays with arthritis, no acute fracture dislocation Back pain with arthritis no acute fracture dislocation PT OT to evaluate. Now agreeable for rehab placement Prophylaxis with SCDs GI prophylaxis not indicated Code status full code Subjective Date/time seen: 02/20/22 14:38 Interval history: feels tired. Did not work with therapy today. Weakness on right side noted by the nursing staff. With there is also increased pain associated. No facial asymmetry Review of Systems Review of Systems: All systems reviewed & are unremarkable except as noted in HPI and below Exam Narrative: General: No acute distress, alert and oriented at baseline tired looking HEENT: Atraumatic, normocephalic, mucous membranes moist CV: Regular rate and rhythm, S1, S2 Lungs: diminished breath sounds to auscultation bilaterally, no rales or crackles noted, no wheezes, good air entry Abdomen: Soft, nontender, nondistended Extremities: Normal to inspection 1+ edema bilateral lower extremity noted Skin: No rashes noted, no lesions or wounds
--- NOTE | 2022-02-20 14:46 | PCOTNOTE ---
Attempted to see patient twice this date. First attempt, patient was sleeping soundly and did not disturb. Second attempt, patient was with physical therapy.
--- NOTE | 2022-02-20 15:54 | PCSTNOTE ---
Please refer to the Bedside Swallow Evaluation in the EMR. Please note, silent aspiration cannot be ruled out at bedside.
[2022-02-20 17:19] LABS: Glucose Point of Care 131 mg/dl (65-105)
[2022-02-20] MEDS: ASPIRIN 81 MG CHEWABLE TABLET PO (21:03)
[2022-02-20] MEDS: ATORVASTATIN 40 MG TABLET 80 MG PO (21:03)
[2022-02-20] MEDS: INSULIN GLARGINE (*BKC) 100 UNITS/ML 7 UNITS SUB-Q (21:45)
[2022-02-20 21:54] LABS: Glucose Point of Care 95 mg/dl (65-105)
[2022-02-21] VITALS (11 sets, daily range): BP systolic 143–178; BP diastolic 59–92; PULSE 61–91; RESP 14–20; TEMP 36.5–37.2; O2SAT 96–100
[2022-02-21 05:56] LABS: Basophils Percent Auto 0.5 % (0.2-1.2); Eosinophils Absolute Auto 0.2 K/mm3 (0-0.3); Hematocrit 27.8 % (42.0-52.0); Hemoglobin 8.6 g/dL (14.0-18.0); Immature Granulocyte Absolute 0.02 K/mm3 (0.00-0.031); Immature Granulocyte Percent A 0.3 % (0-0.5); Lymphocytes Percent Auto 12.2 % (18.3-44.2); Mean Corpuscular HGB Conc 30.9 g/dl (32-36); Mean Corpuscular Hemoglobin 26.5 pg (26-34); Mean Corpuscular Volume 85.5 fl (80-100); Mean Platelet Volume 11.8 fl (7.4-10.4); Monocytes Absolute Auto 0.8 K/mm3 (0.1-0.6); Monocytes Percent Auto 12.8 % (2.6-8.5); Neutrophils Absolute Auto 4.7 K/mm3 (1.3-6.7); Neutrophils Percent Auto 71.2 % (45.5-73.1); Platelet Count Result 217 k/mm3 (150-375); Red Blood Count 3.25 M/mm3 (4.6-6.20); Red Cell Distribution Width 15.9 % (11.5-14.5); White Blood Count 6.6 K/mm3 (4.5-10.0)
[2022-02-21 06:04] LABS: Alanine Aminotransferase 9 U/L (6-50); Albumin Level 2.6 g/dL (3.5-5.1); Alkaline Phosphatase 70 U/L (38-126); Anion Gap 8 mmol/L (8-16); Aspartate Amino Transferase 15 U/L (17-59); Bilirubin,Total 0.4 mg/dL (0.2-1.3); Blood Urea Nitrogen 16 mg/dL (9-20); Calcium 8.2 mg/dL (8.4-10.2); Carbon Dioxide 26 mmol/L (22-30); Chloride 103 mmol/L (98-107); Estimated CRCL calculation 46 ml/min; Estimated Glomerular Filt Rate 47; Glucose 111 mg/dL (65-110); Magnesium 2.1 mg/dL (1.6-2.3); Potassium 3.7 mmol/L (3.4-5.0); Sodium 137 mmol/L (137-145)
[2022-02-21] MEDS: LEVOTHYROXINE SODIUM 125 MCG TABLET PO (06:23)
[2022-02-21 08:43] LABS: Glucose Point of Care 115 mg/dl (65-105)
[2022-02-21] MEDS: INSULIN ASPART (*BKC) 100 UNITS/ML SUB-Q ×3 (09:29→18:00)
[2022-02-21] MEDS: oxyCODONE HCL (*CRX) 5 MG TAB IR 10 MG PO ×2 (09:30→20:30)
[2022-02-21] MEDS: GABAPENTIN 400 MG CAPSULE 800 MG PO ×4 (09:30→20:29)
[2022-02-21] MEDS: carvediloL 25 MG TABLET PO ×2 (09:31→20:29)
[2022-02-21] MEDS: FERROUS SULFATE 324 MG TABLET PO (09:32)
[2022-02-21] MEDS: lisinopriL 10 MG TABLET 30 MG PO (09:32)
[2022-02-21] MEDS: ESCITALOPRAM OXALATE 10 MG TABLET 20 MG PO (09:32)
[2022-02-21] MEDS: FUROSEMIDE 40 MG TABLET PO (10:11)
[2022-02-21 11:59] LABS: Glucose Point of Care 171 mg/dl (65-105)
--- NOTE | 2022-02-21 13:08 | PC.NURSE ---
On 02/21/22, the student, [Lin Carnes], provided care and completed [facility] documentation on this patient. I have reviewed the student's documentation and agree with the findings.
--- NOTE | 2022-02-21 13:50 | PC.NURSE ---
On 02/21/22, the student, [Kenia Peter], provided care and completed [facility] documentation on this patient. I have reviewed the student's documentation and agree with the findings.
--- NOTE | 2022-02-21 15:47 | PM.IMPN ---
Progress Note: A&P Assessment and Plan (1) Hyperosmolar hyperglycemic state (HHS): Code(s): E11.00 - Type 2 diabetes mellitus with hyperosmolarity without nonketotic hyperglycemic-hyperosmolar coma (NKHHC) Status: Acute Assessment and Plan: Hyperglycemic on admission in 500s He uses insulin pump at home. Reviewed his home he has used pump for several weeks now. Likely pump He is going to follow-up with his finishing range feeder later this month. He has been switched to Lantus and this probe. Hypoglycemic this morning adjust dose as needed. Plan to send him home on Lantus and lispro and follow-up with the finishing range feeder to adjust his pump Pump setting reviewed his basal rate is 18 units per day With bolus of 4-6 units per meal History of hypoglycemia unawareness Plan for Dexcom with his new finishing range feeder At follow-up. (2) Type 2 diabetes mellitus with hyperglycemia, with long-term current use of insulin: Code(s): E11.65 - Type 2 diabetes mellitus with hyperglycemia; Z79.4 - halfway (current) use of insulin Status: Acute Assessment and Plan: Chronically uncontrolled. A1c was greater than 10 in December. Patient's goal A1c is 8 due to history of hypoglycemia unaware. (3) Hypothyroidism (acquired): Code(s): E03.9 - Hypothyroidism, unspecified Status: Acute Assessment and Plan: Continue home levothyroxine (4) Uncontrolled hypertension: Code(s): I10 - Essential (primary) hypertension Status: Acute Assessment and Plan: Continue home medications, monitor (5) Acute hypokalemia: Code(s): E87.6 - Hypokalemia Status: Acute Assessment and Plan: Replace (6) Atrial flutter with rapid ventricular response: Code(s): I48.92 - Unspecified atrial flutter Status: Acute Assessment and Plan: Stable, rate controlled (7) Acute kidney injury: Code(s): N17.9 - Acute kidney failure, unspecified Status: Acute Assessment and Plan: Resolved, discontinue fluids (8) Ischemic cardiomyopathy: Code(s): I25.5 - Ischemic cardiomyopathy Status: Acute Assessment and Plan: Monitor fluid balance closely. Continue Coreg and lisinopril. (9) Memory loss: Code(s): R41.3 - Other amnesia Status: Acute Assessment and Plan: Sounds as if the patient is developing some symptoms of dementia. He would benefit from a more complete neuro cognitive evaluation as outpatient. The patient likely has some dementia (10) Paroxysmal atrial fibrillation with RVR: Code(s): I48.0 - Paroxysmal atrial fibrillation Status: Acute Assessment and Plan: continue home Coreg. Patient did have a transient episode of bradycardia lasting only about 30 seconds after he arrived to the IMU. The patient was asymptomatic. Plan rheumatoid arthritis: Follow-up with supervisor type photography as an outpatient after discharge for further evaluation management. Fall: Prior to admission. Shoulder pain x-rays with arthritis, no acute fracture dislocation Back pain with arthritis no acute fracture dislocation PT OT to evaluate. Now agreeable for rehab placement Prophylaxis with SCDs GI prophylaxis not indicated Code status full code Subjective Date/time seen: 02/21/22 15:47 Interval history: Complains of soreness in both pains. He has diagnosis rheumatoid arthritis. He has not followed up with Flight Instructor. No other complaints. He is planned to go to rehab facility from here. Review of Systems Review of Systems: All systems reviewed & are unremarkable except as noted in HPI and below Exam Narrative: General: No acute distress, alert and oriented at baseline tired looking HEENT: Atraumatic, normocephalic, mucous membranes moist CV: Regular rate and rhythm, S1, S2 Lungs: diminished breath sounds to auscultation bilaterally, no rales or crackles noted, no wheezes, good air entr
[2022-02-21 17:10] LABS: Glucose Point of Care 146 mg/dl (65-105)
[2022-02-21] MEDS: ATORVASTATIN 40 MG TABLET 80 MG PO (20:29)
[2022-02-21] MEDS: ASPIRIN 81 MG CHEWABLE TABLET PO (20:30)
[2022-02-21] MEDS: INSULIN GLARGINE (*BKC) 100 UNITS/ML 15 UNITS SUB-Q (20:33)
[2022-02-21 22:25] LABS: Glucose Point of Care 175 mg/dl (65-105)
[2022-02-22] VITALS (10 sets, daily range): BP systolic 130–177; BP diastolic 52–76; PULSE 67–94; RESP 15–20; TEMP 36.6–36.9; O2SAT 95–98
[2022-02-22] MEDS: LEVOTHYROXINE SODIUM 125 MCG TABLET PO (05:47)
[2022-02-22 05:50] LABS: Basophils Percent Auto 0.3 % (0.2-1.2); Eosinophils Absolute Auto 0.3 K/mm3 (0-0.3); Eosinophils Percent Auto 4.7 % (0-4.4); Hematocrit 26.8 % (42.0-52.0); Hemoglobin 8.4 g/dL (14.0-18.0); Immature Granulocyte Absolute 0.02 K/mm3 (0.00-0.031); Immature Granulocyte Percent A 0.3 % (0-0.5); Lymphocytes Absolute Auto 0.75 K/mm3 (0.9-3.2); Lymphocytes Percent Auto 12.6 % (18.3-44.2); Mean Corpuscular HGB Conc 31.3 g/dl (32-36); Mean Corpuscular Hemoglobin 26.7 pg (26-34); Mean Corpuscular Volume 85.1 fl (80-100); Mean Platelet Volume 11.9 fl (7.4-10.4); Monocytes Absolute Auto 0.8 K/mm3 (0.1-0.6); Monocytes Percent Auto 13.9 % (2.6-8.5); Neutrophils Absolute Auto 4.1 K/mm3 (1.3-6.7); Neutrophils Percent Auto 68.2 % (45.5-73.1); Platelet Count Result 218 k/mm3 (150-375); Red Blood Count 3.15 M/mm3 (4.6-6.20); Red Cell Distribution Width 15.8 % (11.5-14.5)
[2022-02-22 06:03] LABS: Alanine Aminotransferase 9 U/L (6-50); Albumin Level 2.7 g/dL (3.5-5.1); Alkaline Phosphatase 71 U/L (38-126); Anion Gap 12 mmol/L (8-16); Aspartate Amino Transferase 17 U/L (17-59); Bilirubin,Total 0.3 mg/dL (0.2-1.3); Blood Urea Nitrogen 21 mg/dL (9-20); Carbon Dioxide 26 mmol/L (22-30); Chloride 101 mmol/L (98-107); Estimated CRCL calculation 45 ml/min; Estimated Glomerular Filt Rate 47; Glucose 151 mg/dL (65-110); Potassium 3.4 mmol/L (3.4-5.0); Sodium 139 mmol/L (137-145)
[2022-02-22 08:51] LABS: Glucose Point of Care 133 mg/dl (65-105)
[2022-02-22] MEDS: INSULIN ASPART (*BKC) 100 UNITS/ML SUB-Q ×3 (09:33→17:17)
[2022-02-22] MEDS: GABAPENTIN 400 MG CAPSULE 800 MG PO ×4 (09:35→21:02)
[2022-02-22] MEDS: FUROSEMIDE 40 MG TABLET PO (09:35)
[2022-02-22] MEDS: carvediloL 25 MG TABLET PO ×2 (09:35→21:02)
[2022-02-22] MEDS: ESCITALOPRAM OXALATE 10 MG TABLET 20 MG PO (09:35)
[2022-02-22] MEDS: lisinopriL 10 MG TABLET 30 MG PO (09:36)
[2022-02-22] MEDS: LIDOCAINE 5% PATCH 1 PATCH TRANSDERM (09:36)
[2022-02-22] MEDS: oxyCODONE HCL (*CRX) 5 MG TAB IR 10 MG PO ×2 (09:37→21:01)
[2022-02-22] MEDS: hydrALAZINE HCL 20 MG/ML VIAL 10 MG IV PUSH (09:52)
[2022-02-22 12:04] LABS: Glucose Point of Care 161 mg/dl (65-105)
--- NOTE | 2022-02-22 15:02 | PM.IMPN ---
Progress Note: A&P Assessment and Plan (1) Hyperosmolar hyperglycemic state (HHS): Code(s): E11.00 - Type 2 diabetes mellitus with hyperosmolarity without nonketotic hyperglycemic-hyperosmolar coma (NKHHC) Status: Acute Assessment and Plan: Hyperglycemic on admission in 500s He uses insulin pump at home. Reviewed his home he has used pump for several weeks now. Likely pump He is going to follow-up with his change lead later this month. He has been switched to Lantus and this probe. Hypoglycemic this morning adjust dose as needed. Plan to send him home on Lantus and lispro and follow-up with the change lead to adjust his pump. Currently at 15 units Lantus at bedtime and 5 units t.i.d. with meal NovoLog Pump setting reviewed his basal rate is 18 units per day With bolus of 4-6 units per meal History of hypoglycemia unawareness Plan for Dexcom with his new change lead At follow-up. (2) Type 2 diabetes mellitus with hyperglycemia, with long-term current use of insulin: Code(s): E11.65 - Type 2 diabetes mellitus with hyperglycemia; Z79.4 - [facility] (current) use of insulin Status: Acute Assessment and Plan: Chronically uncontrolled. A1c was greater than 10 in December. Patient's goal A1c is 8 due to history of hypoglycemia unaware. (3) Hypothyroidism (acquired): Code(s): E03.9 - Hypothyroidism, unspecified Status: Acute Assessment and Plan: Continue home levothyroxine (4) Uncontrolled hypertension: Code(s): I10 - Essential (primary) hypertension Status: Acute Assessment and Plan: Continue home medications, monitor (5) Acute hypokalemia: Code(s): E87.6 - Hypokalemia Status: Acute Assessment and Plan: Replace (6) Atrial flutter with rapid ventricular response: Code(s): I48.92 - Unspecified atrial flutter Status: Acute Assessment and Plan: Stable, rate controlled (7) Acute kidney injury: Code(s): N17.9 - Acute kidney failure, unspecified Status: Acute Assessment and Plan: Resolved, discontinue fluids (8) Ischemic cardiomyopathy: Code(s): I25.5 - Ischemic cardiomyopathy Status: Acute Assessment and Plan: Monitor fluid balance closely. Continue Coreg and lisinopril. (9) Memory loss: Code(s): R41.3 - Other amnesia Status: Acute Assessment and Plan: Sounds as if the patient is developing some symptoms of dementia. He would benefit from a more complete neuro cognitive evaluation as outpatient. The patient likely has some dementia (10) Paroxysmal atrial fibrillation with RVR: Code(s): I48.0 - Paroxysmal atrial fibrillation Status: Acute Assessment and Plan: continue home Coreg. Patient did have a transient episode of bradycardia lasting only about 30 seconds after he arrived to the IMU. The patient was asymptomatic. Plan rheumatoid arthritis: Follow-up with yard hand as an outpatient after discharge for further evaluation management. Fall: Prior to admission. Shoulder pain x-rays with arthritis, no acute fracture dislocation Back pain with arthritis no acute fracture dislocation PT OT to evaluate. Now agreeable for rehab placement. Await insurance authorization Prophylaxis with SCDs GI prophylaxis not indicated Code status full code Subjective Date/time seen: 02/22/22 15:02 Interval history: No overnight events. Patient feels better. Pain is better. No chest pain or shortness of breath. Still awaiting insurance authorization for rehab placement Review of Systems Review of Systems: All systems reviewed & are unremarkable except as noted in HPI and below Exam Narrative: General: No acute distress, alert and oriented at baseline tired looking HEENT: Atraumatic, normocephalic, mucous membranes moist CV: Regular rate and rhythm, S1, S2 Lungs: diminished breath sounds to ausc
[2022-02-22 17:17] LABS: Glucose Point of Care 148 mg/dl (65-105)
[2022-02-22] MEDS: ASPIRIN 81 MG CHEWABLE TABLET PO (21:01)
[2022-02-22] MEDS: ATORVASTATIN 40 MG TABLET 80 MG PO (21:02)
[2022-02-22] MEDS: INSULIN GLARGINE (*BKC) 100 UNITS/ML 15 UNITS SUB-Q (21:06)
[2022-02-22 22:08] LABS: Glucose Point of Care 163 mg/dl (65-105)
[2022-02-23 02:00] VITALS: BP 132/43; PULSE 60; RESP 12; TEMP 36.4; O2SAT 94
[2022-02-23 03:00] VITALS: PULSE 60; RESP 12; O2SAT 94
[2022-02-23 05:27] LABS: Basophils Percent Auto 0.5 % (0.2-1.2); Eosinophils Absolute Auto 0.3 K/mm3 (0-0.3); Eosinophils Percent Auto 4.7 % (0-4.4); Hematocrit 27.1 % (42.0-52.0); Hemoglobin 8.4 g/dL (14.0-18.0); Immature Granulocyte Absolute 0.02 K/mm3 (0.00-0.031); Immature Granulocyte Percent A 0.3 % (0-0.5); Lymphocytes Absolute Auto 0.89 K/mm3 (0.9-3.2); Lymphocytes Percent Auto 15.3 % (18.3-44.2); Mean Corpuscular Hemoglobin 26.3 pg (26-34); Mean Platelet Volume 11.3 fl (7.4-10.4); Monocytes Absolute Auto 0.7 K/mm3 (0.1-0.6); Monocytes Percent Auto 12.8 % (2.6-8.5); Neutrophils Absolute Auto 3.9 K/mm3 (1.3-6.7); Neutrophils Percent Auto 66.4 % (45.5-73.1); Platelet Count Result 243 k/mm3 (150-375); Red Blood Count 3.19 M/mm3 (4.6-6.20); Red Cell Distribution Width 15.3 % (11.5-14.5); White Blood Count 5.8 K/mm3 (4.5-10.0)
[2022-02-23 05:46] LABS: Alanine Aminotransferase 10 U/L (6-50); Albumin Level 2.7 g/dL (3.5-5.1); Alkaline Phosphatase 77 U/L (38-126); Anion Gap 7 mmol/L (8-16); Aspartate Amino Transferase 18 U/L (17-59); Bilirubin,Total 0.2 mg/dL (0.2-1.3); Blood Urea Nitrogen 22 mg/dL (9-20); Calcium 8.1 mg/dL (8.4-10.2); Carbon Dioxide 26 mmol/L (22-30); Chloride 102 mmol/L (98-107); Estimated CRCL calculation 45 ml/min; Estimated Glomerular Filt Rate 47; Glucose 153 mg/dL (65-110); Magnesium 2.2 mg/dL (1.6-2.3); Potassium 3.6 mmol/L (3.4-5.0); Sodium 135 mmol/L (137-145)
[2022-02-23 05:54] VITALS: BP 147/71; PULSE 78; RESP 12; TEMP 36.5; O2SAT 95
[2022-02-23] MEDS: LEVOTHYROXINE SODIUM 125 MCG TABLET PO (06:18)
[2022-02-23 08:32] LABS: Glucose Point of Care 119 mg/dl (65-105)
[2022-02-23] MEDS: carvediloL 25 MG TABLET PO (09:37)
[2022-02-23] MEDS: lisinopriL 10 MG TABLET 30 MG PO (09:37)
[2022-02-23] MEDS: ESCITALOPRAM OXALATE 10 MG TABLET 20 MG PO (09:38)
[2022-02-23] MEDS: FERROUS SULFATE 324 MG TABLET PO (09:38)
[2022-02-23] MEDS: INSULIN ASPART (*BKC) 100 UNITS/ML SUB-Q ×2 (09:39→12:09)
[2022-02-23] MEDS: FUROSEMIDE 40 MG TABLET PO (09:40)
[2022-02-23] MEDS: GABAPENTIN 400 MG CAPSULE 800 MG PO ×2 (10:13→14:25)
--- NOTE | 2022-02-23 10:48 | PM.IMPN ---
Progress Note: A&P Assessment and Plan (1) Hyperosmolar hyperglycemic state (HHS): Code(s): E11.00 - Type 2 diabetes mellitus with hyperosmolarity without nonketotic hyperglycemic-hyperosmolar coma (NKHHC) Status: Acute Assessment and Plan: Hyperglycemic on admission in 500s He uses insulin pump at home. Reviewed his home he has used pump for several weeks now. Likely pump He is going to follow-up with his blanket cutting machine operator later this month. He has been switched to Lantus and this probe. Hypoglycemic this morning adjust dose as needed. Plan to send him home on Lantus and lispro and follow-up with the blanket cutting machine operator to adjust his pump. Currently at 15 units Lantus at bedtime and 5 units t.i.d. with meal NovoLog Pump setting reviewed his basal rate is 18 units per day With bolus of 4-6 units per meal History of hypoglycemia unawareness Plan for Dexcom with his new blanket cutting machine operator At follow-up. (2) Type 2 diabetes mellitus with hyperglycemia, with long-term current use of insulin: Code(s): E11.65 - Type 2 diabetes mellitus with hyperglycemia; Z79.4 - prison (current) use of insulin Status: Acute Assessment and Plan: Chronically uncontrolled. A1c was greater than 10 in December. Patient's goal A1c is 8 due to history of hypoglycemia unaware. (3) Hypothyroidism (acquired): Code(s): E03.9 - Hypothyroidism, unspecified Status: Acute Assessment and Plan: Continue home levothyroxine (4) Uncontrolled hypertension: Code(s): I10 - Essential (primary) hypertension Status: Acute Assessment and Plan: Continue home medications, monitor (5) Acute hypokalemia: Code(s): E87.6 - Hypokalemia Status: Acute Assessment and Plan: Replace (6) Atrial flutter with rapid ventricular response: Code(s): I48.92 - Unspecified atrial flutter Status: Acute Assessment and Plan: Stable, rate controlled (7) Acute kidney injury: Code(s): N17.9 - Acute kidney failure, unspecified Status: Acute Assessment and Plan: Resolved, discontinue fluids (8) Ischemic cardiomyopathy: Code(s): I25.5 - Ischemic cardiomyopathy Status: Acute Assessment and Plan: Monitor fluid balance closely. Continue Coreg and lisinopril. (9) Memory loss: Code(s): R41.3 - Other amnesia Status: Acute Assessment and Plan: Sounds as if the patient is developing some symptoms of dementia. He would benefit from a more complete neuro cognitive evaluation as outpatient. The patient likely has some dementia (10) Paroxysmal atrial fibrillation with RVR: Code(s): I48.0 - Paroxysmal atrial fibrillation Status: Acute Assessment and Plan: continue home Coreg. Patient did have a transient episode of bradycardia lasting only about 30 seconds after he arrived to the IMU. The patient was asymptomatic. Plan Rheumatoid arthritis: Follow-up with fuel quality tech as an outpatient after discharge for further evaluation management. Fall: Prior to admission. Shoulder pain x-rays with arthritis, no acute fracture dislocation Back pain with arthritis no acute fracture dislocation PT OT to evaluate. Now agreeable for rehab placement. Await insurance authorization Prophylaxis with SCDs GI prophylaxis not indicated Code status full code Subjective Date/time seen: 02/23/22 10:48 Interval history: no new complaints. Right shoulder pain Which is chronic. Blood sugar reviewed. Awaiting insurance authorization for rehab placement. Review of Systems Review of Systems: All systems reviewed & are unremarkable except as noted in HPI and below Exam Narrative: General: No acute distress, alert and oriented at baseline tired looking HEENT: Atraumatic, normocephalic, mucous membranes moist CV: Regular rate and rhythm, S1, S2 Lungs: diminished breath sounds to auscultation bilaterally, no rales
--- NOTE | 2022-02-23 11:24 | PM.DS ---
DS: Admitting Diagnosis Discharge Date 02/23/2022 Admitting Diagnosis hyperglycemia DS: Discharge Diagnosis Discharge Diagnosis (1) Hyperosmolar hyperglycemic state (HHS): Code(s): E11.00 - Type 2 diabetes mellitus with hyperosmolarity without nonketotic hyperglycemic-hyperosmolar coma (NKHHC) Status: Acute (2) Type 2 diabetes mellitus with hyperglycemia, with long-term current use of insulin: Code(s): E11.65 - Type 2 diabetes mellitus with hyperglycemia; Z79.4 - termite inspector (current) use of insulin Status: Acute (3) Hypothyroidism (acquired): Code(s): E03.9 - Hypothyroidism, unspecified Status: Acute (4) Uncontrolled hypertension: Code(s): I10 - Essential (primary) hypertension Status: Acute (5) Acute hypokalemia: Code(s): E87.6 - Hypokalemia Status: Acute (6) Atrial flutter with rapid ventricular response: Code(s): I48.92 - Unspecified atrial flutter Status: Acute (7) Acute kidney injury: Code(s): N17.9 - Acute kidney failure, unspecified Status: Acute (8) Ischemic cardiomyopathy: Code(s): I25.5 - Ischemic cardiomyopathy Status: Acute (9) Memory loss: Code(s): R41.3 - Other amnesia Status: Acute (10) Paroxysmal atrial fibrillation with RVR: Code(s): I48.0 - Paroxysmal atrial fibrillation Status: Acute DS: Summary Hospital Course Hospital Course: # Hyperosmolar hyperglycemic state (HHS): Hyperglycemic on admission in 500s He uses insulin pump at home.? Reviewed his home pump and he has not used pump for several weeks now.? Likely pump failure. He is going to follow-up with his cement conveyor operator later this month.? He has been switched to Lantus and novolog. adjusted dose durin the hospital stay. he will go on lantus 15 units daily and novolog 5 units tid withe meals. History of hypoglycemia unawareness Plan for Dexcom with his new cement conveyor operator? At follow-up. # Type 2 diabetes mellitus with hyperglycemia, with long-term current use of insulin: Chronically uncontrolled.? A1c was greater than 10 in December.? Patient's goal A1c is 8 due to history of hypoglycemia unaware. # Hypothyroidism (acquired): Continue home levothyroxine # Uncontrolled hypertension: Continue home medications, monitor # Acute hypokalemia: Replace # Atrial flutter with rapid ventricular response: Stable, rate controlled # Acute kidney injury: Resolved, discontinue fluids # Ischemic cardiomyopathy: Monitor fluid balance closely.? Continue Coreg and lisinopril. # Memory loss: Sounds as if the patient is developing some symptoms of dementia.? He would benefit from a more complete neuro cognitive evaluation as outpatient.? The patient likely has some dementia # Paroxysmal atrial fibrillation with RVR: continue home Coreg.? Patient did have a transient episode of bradycardia lasting only about 30 seconds after he arrived to the IMU.? The patient was asymptomatic. # Rheumatoid arthritis:? Follow-up with pl sql programmer as an outpatient after discharge for further evaluation management. # Fall:? Prior to admission. # Shoulder pain? x-rays? with arthritis, no acute fracture dislocation # Back pain with arthritis no acute fracture dislocation PT OT to evaluate.? Now agreeable for rehab placement.? Await insurance authorization # Prophylaxis with SCDs # GI prophylaxis not indicated # Code status full code Time Spent with Patient Time attestation: Total time spent providing and/or coordinating discharge services:45 mins Exam Narrative: General: No acute distress, alert and oriented at baseline tired looking HEENT: Atraumatic, normocephalic, mucous membranes moist CV: Regular rate and rhythm, S1, S2 Lungs: diminished breath sounds to auscultation bilaterally, no rales or crackles noted, no wheezes, good air entry Abdomen: Soft, nontender, nondistended Extremities: Normal to inspection 1+ edema bilater
[2022-02-23 12:07] LABS: Glucose Point of Care 162 mg/dl (65-105)
[2022-02-23 12:40] LABS: EDCOVIDSCREEN Positive (Negative)
[2022-02-23 13:49] LABS: SARS-CoV-2 RNA PCR Negative
[2022-02-23 13:55] VITALS: BP 158/74; PULSE 68; RESP 16; TEMP 36.4; O2SAT 99
[2022-02-23 16:43] LABS: Glucose Point of Care 161 mg/dl (65-105)
== END 2022-02-23 16:45 | DRG 637 ==
LOC: ANHED 22:24 → ANHIMU 02-17 01:28 → ANH2MED 02-19 02:10
PROVIDERS: Emergency Medicine; Student in an Organized Health Care Education/Training Program; Admitting Provider Internal Medicine; Emergency Provider Emergency Medicine; PCP Family Medicine; Visit Provider Internal Medicine
DX: E11.00 Type 2 diabetes mellitus with hyperosmolarity without nonketotic hyperglycemic-hyperosmolar coma (NKHHC) (principal); Q28.2 Arteriovenous malformation of cerebral vessels; I43 Cardiomyopathy in diseases classified elsewhere; I48.92 Unspecified atrial flutter; N17.9 Acute kidney failure, unspecified; I50.32 Chronic diastolic (congestive) heart failure; Z20.822 Contact with and (suspected) exposure to COVID-19; I11.0 Hypertensive heart disease with heart failure; I48.0 Paroxysmal atrial fibrillation; E11.65 Type 2 diabetes mellitus with hyperglycemia; E11.649 Type 2 diabetes mellitus with hypoglycemia without coma; E11.40 Type 2 diabetes mellitus with diabetic neuropathy, unspecified; E03.9 Hypothyroidism, unspecified; E87.6 Hypokalemia; F32.A Depression, unspecified; F03.90 Unspecified dementia, unspecified severity, without behavioral disturbance, psychotic disturbance, mood disturbance, and anxiety; G47.33 Obstructive sleep apnea (adult) (pediatric); I69.328 Other speech and language deficits following cerebral infarction; I25.10 Atherosclerotic heart disease of native coronary artery without angina pectoris; I25.2 Old myocardial infarction; M06.9 Rheumatoid arthritis, unspecified; R29.6 Repeated falls; W19.XXXA Unspecified fall, initial encounter; Z79.4 Long term (current) use of insulin; Z96.41 Presence of insulin pump (external) (internal); Z90.49 Acquired absence of other specified parts of digestive tract; Z87.891 Personal history of nicotine dependence; Z95.1 Presence of aortocoronary bypass graft; Z79.82 Long term (current) use of aspirin; Z91.81 History of falling
CPT/HCPCS: 36415; 70450; 71045; 72040; 72100; 73030; 80048; 80053; 81001; 82010; 82948; 83735; 84100; 84484; 85025; 85027; 87426; 92610; 93005; 94660; 96361; 96365; 96366; 96368; 96375; 96376; 97110; 97116; 97161; 97165; 97530; 97535; 99285; A9270; C9803; G0378; J0131; J0360; J1815; J2270; J3480; J7030; J7040; U0003; U0005

== ENCOUNTER 2022-09-04 18:04 | Observation (INO) | payer MEDICARE, MEDICAID, SELFPAY ==
[2022-09-04] VITALS (17 sets, daily range): BP systolic 151–177; BP diastolic 78–114; PULSE 65–134; RESP 14–24; TEMP 36.3–37; O2SAT 95–100; BMI 25.4
--- NOTE | ~2022-09-04 | CT_ITS ---
EXAMINATION: CT brain wo con DATE: 09/04/2022 19:41 INDICATION: ams, noncompliance with meds . TECHNIQUE: Computed tomography (CT) of the head was performed without intravenous contrast. The mA wa s adjusted according to patient size. Iterative reconstruction technique was employed. The dose-lengt h product was 605.33 mGy-cm. COMPARISON: 02/20/2022. FINDINGS: No acute intracranial hemorrhage or extra-axial fluid collection. No hydrocephalus, mass, or herniation. No acute ischemic infarct. Unremarkable dural venous sinus attenuation. No acute osseous abnormality. The aerated spaces are clear. Moderate atrophy and chronic white matter change. Atherosclerotic intracranial calcification. Chronic encephalomalacia in the right temporal lobe, right insula, and right lentiform nucleus. Chronic left basal ganglia and left thalamic lacunar infarcts. Stable 2.1 cm focus of coarse calcification in the right temporal lobe, possible AVM. Right frontal scalp lipoma, stable. IMPRESSION: No acute intracranial process. Reviewed, dictated and finalized at location K.
--- NOTE | ~2022-09-04 | XR_ITS ---
EXAMINATION: XR chest 2V Exam Date/Time: 09/04/2022 19:30 CDT HISTORY: not taking meds, elev BNP Comparison: 02/16/2022, 03/08/2015. RESULT: Lines, tubes, and devices: Intact sternotomy wires. Atrial occlusion device. Cardiac valve replaceme nt. Mediastinal vascular clips. Lungs and pleura: Segmental left lower lobe airspace disease. Subsegmental right medial basal opacit ies. Mild bilateral costophrenic angle blunting. Diffuse reticular opacities with indistinct vessels. Cardiomediastinal silhouette: Stable. Other: No acute osseous or upper abdominal finding. IMPRESSION: Bilateral lobe airspace disease may represent atelectasis, edema, or the consolidation of pneumonia. Small left pleural effusion. Interstitial edema. Reviewed, dictated and finalized at location K. IMPRESSION: Bilateral lobe airspace disease may represent atelectasis, edema, or the consol idation of pneumonia. Small left pleural effusion. Interstitial edema.
--- NOTE | 2022-09-04 18:27 | ECG_ITS ---
Measurements Intervals [place] Rate: 132 P: [place]: 0 QRS: -6 QRSD: 90 T: 102 QT: 302 QTc: 449 Interpretive Statements ATRIAL FLUTTER/TACHYCARDIA WITH RAPID VENTRICULAR RESPONSE DELAYED PRECORDIAL R/S TRANSITION LEFT VENTRICULAR HYPERTROPHY AND ST-T CHANGE BASELINE ARTIFACT- I, II, AVR, V6 ABNORMAL ECG COMPARED TO ECG 02/17/2022 00:49:27 HEART RATE HAS INCREASED Electronically Signed On 09-04-2022 18:47:16 CDT by Gustavo Gavin D.O.
--- NOTE | 2022-09-04 18:27 | ED.RECABL ---
HPI - Recheck/Abnormal Lab/Rx General Chief Complaint: Recheck/Abnormal Lab/Rx <OSMAN Muhammad Last Filed: 09/04/22 20:34> Stated Complaint: noncompliant with meds <OSMAN Muhammad Last Filed: 09/04/22 20:34> Time Seen by Provider: 09/04/22 18:26 <OSMAN Muhammad Last Filed: 09/04/22 20:34> Source: patient and old records reviewed <OSMAN Muhammad Last Filed: 09/04/22 20:34> Mode of arrival: EMS <OSMAN Muhammad Last Filed: 09/04/22 20:34> Limitations: no limitations <OSMAN Muhammad Last Filed: 09/04/22 20:34> History of Present Illness HPI narrative: Patient is a 66 y/o male, with PMH of AFIB, CAD s/p CABG, 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 Patient reports he has not been taking any of his home medications for the last few days. When asked why he has not been taking his medications, he reports because I am stupid. He states his home health care worker came to his house today and noted his blood pressure to be elevated. EMS was then called. Patient denies any chest pain or shortness of breath currently. Denies abdominal pain, nausea, vomiting, headache, weakness. He does report residual left-sided weakness of his left arm and leg due to a previous CVA. <OSMAN Muhammad Last Filed: 09/04/22 20:34> Related Data Home Medications: Home Medications Medication Instructions Recorded Confirmed atorvastatin 40 mg tablet 80 mg PO HS 03/24/19 04/17/22 carvedilol 25 mg tablet 25 mg PO Q12H 03/24/19 04/17/22 levothyroxine 125 mcg tablet 125 mcg PO DAILY 03/24/19 04/17/22 dulaglutide 1.5 mg/0.5 mL 1.5 mg subcut WEEKLY 01/20/22 04/17/22 subcutaneous pen injector (Trulicity) aspirin 81 mg chewable tablet 81 mg PO HS 02/17/22 04/17/22 escitalopram oxalate 20 mg tablet 20 mg PO DAILY 02/17/22 04/17/22 ferrous sulfate 325 mg (65 mg 325 mg PO EVERY OTHER DAY 02/17/22 04/17/22 iron) tablet gabapentin 800 mg tablet 800 mg PO QID 02/17/22 04/17/22 lisinopril 30 mg tablet 30 mg PO DAILY 02/17/22 04/17/22 oxycodone-acetaminophen 5 mg-325 1 - 2 tablet PO Q6H PRN Pain 02/17/22 04/17/22 mg tablet (Scale Score 7-10) <Dora Taylor PA-C - Last Filed: 09/04/22 20:34> Allergies/Adverse Reactions: Allergies Allergy/AdvReac Type Severity Reaction Status Date / Time Gadolinium-Containing Allergy Unknown Vomiting Verified 07/29/22 14:25 Contrast Medi ioversol Allergy Unknown Vomiting Verified 07/29/22 14:25 <Dora Taylor PA-C - Last Filed: 09/04/22 20:34> Review of Systems Review of Systems: CONSTITUTIONAL: Denies fever, chills, or sweats. CARDIOVASCULAR: Denies chest pain, palpitations, or edema. RESPIRATORY: Denies cough or dyspnea. GASTROINTESTINAL: Denies abdominal pain, nausea, vomiting. GENITOURINARY: Denies dysuria or hematuria. SKIN: Denies rash or itching. MUSCULOSKELETAL: Denies back pain, joint pain, or myalgia. NEUROLOGIC: Denies headache, numbness, or weakness. <Dora Taylor PA-C - Last Filed: 09/04/22 20:34> All systems reviewed & are unremarkable except as noted in HPI and below <Dora Taylor PA-C - Last Filed: 09/04/22 20:34> [facility] Past Medical History Medical History: Medical History Anemia Atrial fibrillation/flutter Paroxysmal, history of DC cardioversion 2013, no longer on anticoagulation due to history of intercranial bleed CAD (coronary artery disease) (~2006) The patient had 3 cardiac stents placed between 2005 and 2012. He had a CABG in 2012 with a Saint Aleksey's ring placed on the mitral valve Cerebral arteriovenous malformation (AVM) Evaluated at [facility] in 1991 and 1997. He had bleeding from the AVM prior to 2005 CHF (congestive heart failure) Echocardiogram 07/2013: Left ventricular
[2022-09-04 18:50] LABS: Basophils Percent Auto 0.6 % (0.2-1.2); Eosinophils Absolute Auto 0.1 K/mm3 (0-0.3); Eosinophils Percent Auto 2.1 % (0-4.4); Hematocrit 33.9 % (42.0-52.0); Hemoglobin 10.6 g/dL (14.0-18.0); Immature Granulocyte Absolute 0.02 K/mm3 (0.00-0.031); Immature Granulocyte Percent A 0.3 % (0-0.5); Lymphocytes Absolute Auto 0.76 K/mm3 (0.9-3.2); Lymphocytes Percent Auto 11.5 % (18.3-44.2); Mean Corpuscular HGB Conc 31.3 g/dl (32-36); Mean Corpuscular Hemoglobin 25.5 pg (26-34); Mean Corpuscular Volume 81.5 fl (80-100); Mean Platelet Volume 12.2 fl (7.4-10.4); Monocytes Absolute Auto 0.5 K/mm3 (0.1-0.6); Neutrophils Absolute Auto 5.1 K/mm3 (1.3-6.7); Neutrophils Percent Auto 77.5 % (45.5-73.1); Platelet Count Result 236 k/mm3 (150-375); Red Blood Count 4.16 M/mm3 (4.6-6.20); Red Cell Distribution Width 16.4 % (11.5-14.5); White Blood Count 6.6 K/mm3 (4.5-10.0)
[2022-09-04 19:00] LABS: Alanine Aminotransferase 21 U/L (6-50); Albumin Level 3.7 g/dL (3.5-5.1); Alkaline Phosphatase 118 U/L (38-126); Anion Gap 6 mmol/L (8-16); Aspartate Amino Transferase 23 U/L (17-59); Bilirubin,Total 0.6 mg/dL (0.2-1.3); Blood Urea Nitrogen 16 mg/dL (9-20); Calcium 8.8 mg/dL (8.4-10.2); Carbon Dioxide 25 mmol/L (22-30); Chloride 108 mmol/L (98-107); Estimated CRCL calculation 42 ml/min; Estimated Glomerular Filt Rate 47; Glucose 147 mg/dL (65-110); Magnesium 2.5 mg/dL (1.6-2.3); Potassium 3.7 mmol/L (3.4-5.0); Sodium 139 mmol/L (137-145)
[2022-09-04] MEDS: METOPROLOL TARTRATE INJ 5 MG/5 ML VIAL IV PUSH (19:05)
[2022-09-04] MEDS: SODIUM CHLORIDE 0.9% IV 1,000 ML 999 ML IV CONT (19:15)
[2022-09-04 19:17] LABS: NT Pro B Type Natriuretic Pept 27200 pg/mL (19.9-100); Troponin I 0.048 ng/mL (0.000-0.034)
--- NOTE | 2022-09-04 19:24 | ECG_ITS ---
Measurements Intervals [place] Rate: 72 P: [place]: 0 QRS: 3 QRSD: 92 T: 85 QT: 404 QTc: 442 Interpretive Statements ATRIAL FLUTTER/TACHYCARDIA DELAYED PRECORDIAL R/S TRANSITION LEFT VENTRICULAR HYPERTROPHY WITH ST-T CHANGE BASELINE ARTIFACT- I, II, AVR, V2 ABNORMAL ECG COMPARED TO ECG 09/04/2022 18:38:47 HEART RATE HAS DECREASED Electronically Signed On 09-05-2022 10:07:21 CDT by Gustavo Gavin D.O.
[2022-09-04] MEDS: FUROSEMIDE INJ 40 MG/4 ML VIAL IV PUSH (19:54)
--- NOTE | 2022-09-04 20:25 | PC.NURSE ---
At 1920 patients fluids were discontinued by EDP due to elevated BNP
[2022-09-04] MEDS: carvediloL 12.5 MG TABLET PO (20:27)
--- NOTE | 2022-09-04 21:42 | PM.IMHP ---
H&P: HPI History of Present Illness Date/Time: 09/04/22 21:42 Chief Complaint: Uncontrolled hypertension Narrative: This is a 66-year-old male with past medical history significant for hypertension, dyslipidemia, type 2 diabetes mellitus, hypothyroidism, hypertension, atrial flutter, congestive heart failure, obstructive sleep apnea, rheumatoid arthritis, seizure disorder. Patient was brought to the emergency room due to uncontrolled blood pressure he confesses to not taking his medications not been compliant with his medications and home health nurse checked his vitals noted that his blood pressure was elevated which prompted coming to the emergency room. In the emergency room patient denies any shortness of breath, palpitations, chest pain, PND, orthopnea, leg swelling, pedal swelling, abdominal pain, nausea, vomiting, no headaches, no vision changes, no fevers no rigors no chills. Preliminary workup was significant for a brain natriuretic peptide 27,200, creatinine 1.5. In emergency room patient was found to have atrial flutter with rapid ventricular response which responded to single dose of metoprolol. An EKG was reported as: EKG ATRIAL FLUTTER/TACHYCARDIA WITH RAPID VENTRICULAR RESPONSE DELAYED PRECORDIAL R/S TRANSITION LEFT VENTRICULAR HYPERTROPHY AND ST-T CHANGE? BASELINE ARTIFACT- I, II, AVR, V6 ABNORMAL ECG COMPARED TO ECG 02/17/2022 00:49:27 HEART RATE HAS INCREASED EXAMINATION:? XR chest 2V Exam Date/Time:? 09/04/2022 19:30 CDT HISTORY: not taking meds, elev BNP ? Comparison:? 02/16/2022, 03/08/2015. RESULT: Lines, tubes, and devices:? Intact sternotomy wires. Atrial occlusion device. Cardiac valve replacement. Mediastinal vascular clips. Lungs and pleura:? Segmental left lower lobe airspace disease. Subsegmental right medial basal opacities. Mild bilateral costophrenic angle blunting. Diffuse reticular opacities with indistinct vessels. Cardiomediastinal silhouette:? Stable. Other:? No acute osseous or upper abdominal finding. ? IMPRESSION: Bilateral lobe airspace disease may represent atelectasis, edema, or the consolidation of pneumonia. Small left pleural effusion. Interstitial edema. EXAMINATION: CT brain wo con DATE: 09/04/2022 19:41 INDICATION: ams, noncompliance with meds . TECHNIQUE: Computed tomography (CT) of the head was performed without intravenous contrast. The mA was adjusted according to patient size. Iterative reconstruction technique was employed. The dose-length product was 605.33 mGy-cm. COMPARISON: 02/20/2022. FINDINGS: No acute intracranial hemorrhage or extra-axial fluid collection. No hydrocephalus, mass, or herniation. No acute ischemic infarct. Unremarkable dural venous sinus attenuation. No acute osseous abnormality. The? aerated spaces are clear. Moderate atrophy and chronic white matter change. Atherosclerotic intracranial calcification. Chronic encephalomalacia in the right temporal lobe, right insula, and right lentiform nucleus. Chronic left basal ganglia and left thalamic lacunar infarcts. Stable 2.1 cm focus of coarse calcification in the right temporal lobe, possible AVM. Right frontal scalp lipoma, stable. IMPRESSION:? No acute intracranial process. Patient is been admitted for further evaluation management and treatment Review of Systems Review of Systems: I am here because I do not take my medication and my blood pressure has been high Constitutional: Constitutional: Denies chills, Denies fatigue, Denies fever(s), Denies lethargy, Denies malaise, Denies night sweats, Denies poor appetite and Denies weakness Eyes: Eyes: Denies change in vision ENT: Denies dysphagia, Denies vertigo, Denies dizziness, Denies nasal congestion, Denies nasal discharge and Denies odynophagia Cardiovascular: Cardiovascular: Denies chest pain, Denies pedal edema, Denies irregular heart rhythm, Denies leg edema and Denies palpitations Respiratory: Respiratory: Denies cough
--- NOTE | 2022-09-04 23:35 | ADMGEN ---
This patient, Romero Davis, was admitted to IMU Room 214-01 at 2330. Patient/family oriented to hospital policies and general routines including ID bracelet, bed and alarms, visiting hours, pain management, procedures, bathroom and other care routines, personal items, smoking policy, room service/diet, and visiting hours. Information on how to activate the Rapid Response Team has been discussed. Patient/Family are encouraged to report perceived risks to care and to ask questions if they do not understand what they are told or what they should do.
[2022-09-05] VITALS (17 sets, daily range): BP systolic 129–176; BP diastolic 69–104; PULSE 49–105; RESP 18–20; TEMP 35.5–36.4; O2SAT 94–100; BMI 26.6
--- NOTE | 2022-09-05 | ECHO_ITS ---
Patient Info Name: Romero Davis Age: 66 years : 1955 Gender: Male Ht: 68 in Wt: 167 lbs BSA: 1.92 m2 HR: 68 bpm BP: 152 / 94 mmHg Heart Rhythm: Atrial Fibrillation Exam Date: 09/05/2022 10:42 AM Exam Location: [facility] Patient Status: Inpatient Admit Date: 09/04/2022 Staff Ordering Physician: Dora Taylor PA-C Physicians Assistant: Tiara Pena RDCS Attending Provider: Debra Chamorro MD Exam Type: CA echo dop color flow w con Study Info Indications - Elevated bnp Complete two-dimensional, color flow and Doppler transthoracic echocardiogram is performed with contrast to opacify the left ventricle and to improve the deliniation of the left ventricle endocardial borders. Contrast/Agitated Saline Contrast/Ag. Saline: Definity Amount: 3.00 ml Administered By: Tiara Pena RDCS Summary 1. Left ventricular enlargement with severe systolic dysfunction. 2. Severe left atrial enlargement. 3. Mitral valve annuloplasty with mild residual MR. 4. Normal aortic valve. 5. Atrial fibrillation. Left Ventricle Left ventricular chamber dimension is moderately enlarged. Left ventricular systolic function is severely reduced, estimated at 30-35%. The left ventricular diastolic function is indeterminate. Right Ventricle Right ventricular chamber dimension is mildly enlarged. Left Atria Left atrial chamber dimension is severely enlarged. Right Atria Right atrial chamber dimension is mildly enlarged. Aortic Valve The aortic valve is normal. Pulmonic Valve The pulmonic valve is normal. Mitral Valve The annuloplasty ring prosthetic mitral valve leaflefts are Empty. There is mild regurgitation of the annuloplasty ring prosthetic mitral valve. Tricuspid Valve The tricuspid valve leaflets are normal. Pericardium/Pleural The pericardium appears normal. Aorta The aortic root size at the sinus of Valsalva is normal. Left Ventricular Outflow Tract Name Value Normal LVOT 2D LVOT Diameter 2.40 cm LVOT Doppler LVOT Peak Gradient 1 mmHg LVOT Mean Gradient 1 mmHg LVOT VTI 10.33 cm LVOT VTI/AV VTI Ratio 0.53 LVOT Stroke Volume 46.68 ml LVOT CO 2.71 l/min LVOT CI 1.41 L/min/m2 Pulmonic Valve Name Value Normal RVOT Doppler RVOT Peak Gradient 2 mmHg PV Doppler PV Peak Gradient 5 mmHg Mitral Valve Name Value Normal MV Doppler MV P
[2022-09-05] MEDS: cefTRIAXone 2 GM/NS 100 ML 2 GM/100 ML BAG IVPB ×2 (01:18→12:15)
[2022-09-05] MEDS: ENOXAPARIN 80 MG/0.8 ML SYRINGE 77 MG SUB-Q (01:26)
--- NOTE | 2022-09-05 08:06 | PM.IMPN ---
Progress Note: A&P Assessment and Plan (1) Atrial flutter with rapid ventricular response: Code(s): I48.92 - Unspecified atrial flutter Status: Acute Assessment and Plan: Restart carvedilol History of atrial fibrillation paroxysmal in the past Lovenox therapeutic dose however is not on anticoagulation due to history of brain bleed will stop therapeutic dose Cardiology consult (2) Elevated troponin: Code(s): R77.8 - Other specified abnormalities of plasma proteins Status: Acute Assessment and Plan: Reorder her troponin this morning Chest pain-free EKG reviewed (3) Acute exacerbation of CHF (congestive heart failure): Qualifiers: Heart failure type: combined systolic and diastolic Qualified Code(s): I50.43 - Acute on chronic combined systolic (congestive) and diastolic (congestive) heart failure Code(s): I50.9 - Heart failure, unspecified Status: Acute Assessment and Plan: Diuresis with Lasix 40 mg IV b.i.d. Echocardiogram in a.m. 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 WBC count is normal. Empirically started on Rocephin and Zithromax Cultures in progress Chest x-ray bilateral lobe airspace disease which may represent atelectasis, edema, consolidation of pneumonia small left pleural effusion and interstitial [place] [id number] no prior levels available Plan CKD stage 3 creatinine stable History of CVA hemorrhagic 2013 related to AV malformation Diabetic neuropathy Hypertension Hypothyroidism Obstructive sleep apnea on CPAP Moderate arthritis Paroxysmal atrial fibrillation history of cardioversion in 2013 no longer on anticoagulation due to intracranial bleed in the past Coronary artery disease status post stents in 2005 and 2012. Status post CABG in 2012 Saint Aleksey string placed in mitral valve Seizure disorder DVT prophylaxis on Lovenox Subjective Date/time seen: 09/05/22 08:06 Interval history: Chart reviewed. Presented with high blood pressure. Been noncompliant with his medication. No chest pain or shortness of breath. Was noted to be tachycardic in 110s to 130s arrival to the ED. EKG showed atrial flutter/tachycardia with rapid ventricular response. currently in sinus rhythm Review of Systems Review of Systems: All systems reviewed & are unremarkable except as noted in HPI and below Exam Narrative: GENERAL: Chronically ill appearing, well-nourished, non-toxic, in no acute distress. HEAD: Normocephalic, atraumatic. ENT: Dentures in place. NECK: Supple. No adenopathy, no masses. RESPIRATORY: Airway patent, respirations nonlabored, course breath sound bilaterally no wheezes CARDIOVASCULAR: Intermittently tachycardic with irregular rhythm without murmurs, rubs, or gallops. Peripheral pulses 2+ and equal bilaterally. ABDOMINAL: Soft, nontender, nondistended, no hepatosplenomegaly. Normoactive BS. MUSCULOSKELETAL: Moves all extremities. Strength/ROM intact without gross deformities.? Trace pedal edema bilaterally, nontender. SKIN: Warm, dry, normal color. No rashes.? Small scabbed wounds to left lower leg.? No signs of bleeding or drainage. NEURO: A&O X2-3, Speech clear. Cranial nerves II-XII grossly intact. Steady gait. No ataxic mov
--- NOTE | 2022-09-05 08:08 | ECG_ITS ---
Measurements Intervals [place] Rate: 86 P: 87 MT: 231 QRS: 195 QRSD: 111 T: 80 QT: 370 QTc: 445 Interpretive Statements ATRIAL FLUTTER/TACHYCARDIA WITH VARIABLE BLOCK LIMB LEAD REVERSAL INTRAVENTRICULAR CONDUCTION DELAY DELAYED PRECORDIAL R/S TRANSITION POSSIBLE LEFT VENTRICULAR HYPERTROPHY BASELINE ARTIFACT- I, II, III, AVL, AVF, V1, V4 ABNORMAL ECG COMPARED TO ECG 09/04/2022 19:24:33 NO SIGNIFICANT CHANGES Electronically Signed On 09-05-2022 8:37:54 CDT by Gustavo Gavin D.O.
[2022-09-05 08:35] LABS: Glucose Point of Care 105 mg/dl (65-105)
[2022-09-05 08:57] LABS: Troponin I 0.154 ng/mL (0.000-0.034)
[2022-09-05] MEDS: GABAPENTIN 300 MG CAPSULE PO ×2 (09:13→16:47)
[2022-09-05] MEDS: ESCITALOPRAM OXALATE 10 MG TABLET 20 MG PO (09:13)
[2022-09-05] MEDS: carvediloL 25 MG TABLET PO ×2 (09:13→21:55)
[2022-09-05] MEDS: lisinopriL 10 MG TABLET 30 MG PO (09:14)
[2022-09-05] MEDS: HYDROXYCHLOROQUINE SULFATE 200 MG TABLET 400 MG PO (09:14)
[2022-09-05] MEDS: FUROSEMIDE INJ 40 MG/4 ML VIAL IV PUSH ×2 (09:40→21:49)
[2022-09-05] MEDS: PERFLUTREN LIPID MICROSPHERES 1.5 ML VIAL DILUTED TO 10 ML TOTAL VOLUME IV PUSH (11:15)
--- NOTE | 2022-09-05 12:38 | PC.NURSE ---
Bedside glucose of 155. Per the MAR, pt has two orders for insulin. insulin 4units TID with meals and insulin 5 units TID with meals. Notified MD Yuval regarding order clarification. Per , pt to receive 4units TID with meals NOT 5units with meals.
[2022-09-05] MEDS: INSULIN ASPART (*BKC) 100 UNITS/ML SUB-Q ×2 (12:42→16:47)
[2022-09-05 14:14] LABS: Glucose Point of Care 155 mg/dl (65-105)
[2022-09-05 15:11] LABS: Troponin I 0.111 ng/mL (0.000-0.034)
--- NOTE | 2022-09-05 15:30 | PM.CNCAR ---
Assessment and Plan Assessment and plan (1) Atrial flutter with rapid ventricular response: Code(s): I48.92 - Unspecified atrial flutter <RAFA Oneill - Last Filed: 09/05/22 17:28> Status: Acute <RAFA Oneill - Last Filed: 09/05/22 17:28> Assessment and Plan: History of persistent atrial flutter also with history Maze procedure and ligation of the left atrial appendage. He had atrial fibrillation with rapid ventricular response noted on telemetry earlier today. Currently, he is in normal sinus rhythm. Continue Coreg. Continue to monitor on telemetry. He is not on anticoagulation because of history of hemorrhagic stroke, he also has a history of ligation of his left atrial appendage. Cardiology will follow on an as-needed basis. Please call with questions. <RAFA Oneill - Last Filed: 09/05/22 17:28> (2) Elevated troponin: Code(s): R77.8 - Other specified abnormalities of plasma proteins <RAFA Oneill - Last Filed: 09/05/22 17:28> Status: Acute <RAFA Oneill - Last Filed: 09/05/22 17:28> Assessment and Plan: Probably secondary to tachycardia and hypertension. He denies having any chest pain. No ischemic workup is recommended at this time. <RAFA Oneill - Last Filed: 09/05/22 17:28> (3) Acute exacerbation of CHF (congestive heart failure): Qualifiers: Heart failure type: combined systolic and diastolic Qualified Code(s): I50.43 - Acute on chronic combined systolic (congestive) and diastolic (congestive) heart failure <RAFA Oneill - Last Filed: 09/05/22 17:28> Code(s): I50.9 - Heart failure, unspecified <RAFA Oneill - Last Filed: 09/05/22 17:28> Status: Acute <RAFA Oneill - Last Filed: 09/05/22 17:28> Assessment and Plan: he has a history of heart failure but does not have any signs or symptoms of decompensated heart failure on exam currently. Echocardiogram is pending. <RAFA Oneill - Last Filed: 09/05/22 17:28> (4) Hypertensive urgency: Code(s): I16.0 - Hypertensive urgency <RAFA Oneill - Last Filed: 09/05/22 17:28> Status: Acute <RAFA Oneill - Last Filed: 09/05/22 17:28> Assessment and Plan: Secondary to medication noncompliance. Blood pressure remains above goal but is better controlled. He may require additional antihypertensive added to his regimen. <RAFA Oneill - Last Filed: 09/05/22 17:28> (5) Noncompliance with medication regimen: Code(s): Z91.148 - Patient's other noncompliance with medication regimen for other reason <RAFA Oneill - Last Filed: 09/05/22 17:28> Status: Acute <RAFA Oneill - Last Filed: 09/05/22 17:28> Assessment and Plan: Medication compliance encouraged. <RAFA Oneill - Last Filed: 09/05/22 17:28> Assessment and Plan: Attending addendum: I agree with the above documentation and plan of care as outlined. <Sunny Kaur MD - Last Filed: 09/05/22 17:42> History of Present Illness History of Present Illness Consult date/time: 09/05/22 15:30 <RAFA Oneill - Last Filed: 09/05/22 17:28> Requesting physician: Clinton Barakat MD <RAFA Oneill - Last Filed: 09/05/22 17:28> Consult reason: atrial fibrillation <RAFA Oneill - Last Filed: 09/05/22 17:28> Reason For Visit: Aflutter w/RVR,CHF Exacerbation,Elev Trop,Med nonc <RAFA Oneill - Last Filed: 09/05/22 17:28> Narrative: Mr. Davis is a 58-year-old male with coronary artery disease (history of TN in 2006, status post stenting and subsequent CABG in 2012 at a hospital in [place]). He also has atrial fibrillation status post Maze procedure and ligation of left atrial appendage. He is also status post mitral ring repair in 2013. This is a patient who wa
[2022-09-05 17:06] LABS: Glucose Point of Care 150 mg/dl (65-105)
[2022-09-05] MEDS: INSULIN GLARGINE (*BKC) 100 UNITS/ML 15 UNITS SUB-Q (17:48)
[2022-09-05 19:46] LABS: Glucose Point of Care 118 mg/dl (65-105)
[2022-09-05] MEDS: ATORVASTATIN 40 MG TABLET 80 MG PO (21:48)
[2022-09-05] MEDS: ASPIRIN 81 MG CHEWABLE TABLET PO (21:48)
[2022-09-06] VITALS (14 sets, daily range): BP systolic 124–137; BP diastolic 67–82; PULSE 61–69; RESP 16–21; TEMP 36.1–36.4; O2SAT 97–100
[2022-09-06] MEDS: cefTRIAXone 2 GM/NS 100 ML 2 GM/100 ML BAG IVPB ×2 (02:09→13:15)
[2022-09-06 03:54] LABS: Basophils Absolute Auto 0.1 K/mm3 (0.0-0.1); Basophils Percent Auto 1.2 % (0.2-1.2); Eosinophils Absolute Auto 0.3 K/mm3 (0-0.3); Eosinophils Percent Auto 5.7 % (0-4.4); Hematocrit 31.4 % (42.0-52.0); Immature Granulocyte Absolute 0.01 K/mm3 (0.00-0.031); Immature Granulocyte Percent A 0.2 % (0-0.5); Lymphocytes Absolute Auto 0.86 K/mm3 (0.9-3.2); Mean Corpuscular HGB Conc 31.8 g/dl (32-36); Mean Corpuscular Hemoglobin 25.8 pg (26-34); Mean Corpuscular Volume 80.9 fl (80-100); Mean Platelet Volume 11.9 fl (7.4-10.4); Monocytes Absolute Auto 0.5 K/mm3 (0.1-0.6); Monocytes Percent Auto 9.5 % (2.6-8.5); Neutrophils Absolute Auto 3.4 K/mm3 (1.3-6.7); Neutrophils Percent Auto 66.4 % (45.5-73.1); Platelet Count Result 220 k/mm3 (150-375); Red Blood Count 3.88 M/mm3 (4.6-6.20); Red Cell Distribution Width 15.9 % (11.5-14.5); White Blood Count 5.1 K/mm3 (4.5-10.0)
[2022-09-06 04:41] LABS: Alanine Aminotransferase 16 U/L (6-50); Albumin Level 2.9 g/dL (3.5-5.1); Alkaline Phosphatase 87 U/L (38-126); Anion Gap 5 mmol/L (8-16); Aspartate Amino Transferase 21 U/L (17-59); Bilirubin,Total 0.3 mg/dL (0.2-1.3); Blood Urea Nitrogen 18 mg/dL (9-20); Calcium 8.1 mg/dL (8.4-10.2); Carbon Dioxide 30 mmol/L (22-30); Chloride 103 mmol/L (98-107); Estimated CRCL calculation 35 ml/min; Estimated Glomerular Filt Rate 40; Glucose 88 mg/dL (65-110); Potassium 3.1 mmol/L (3.4-5.0); Sodium 138 mmol/L (137-145)
--- NOTE | 2022-09-06 04:51 | PC.NURSE ---
This patient, Romero Davis, was transferred to [facility] on 09/06/22 at 0451. Personal belongings sent with patient. Report given to August . Appropriate documentation sent with patient.
--- NOTE | 2022-09-06 05:00 | ADMGEN ---
This patient, Romero Davis, was admitted to Medical Room 251-01. Patient/family oriented to hospital policies and general routines including ID bracelet, bed and alarms, visiting hours, pain management, procedures, bathroom and other care routines, personal items, smoking policy, room service/diet, and visiting hours. Information on how to activate the Rapid Response Team has been discussed. Patient/Family are encouraged to report perceived risks to care and to ask questions if they do not understand what they are told or what they should do.
[2022-09-06] MEDS: LEVOTHYROXINE SODIUM 125 MCG TABLET PO (05:41)
[2022-09-06 07:47] LABS: Glucose Point of Care 167 mg/dl (65-105)
[2022-09-06] MEDS: POTASSIUM CHLORIDE 20 MEQ TABLET 40 MEQ PO (08:41)
[2022-09-06 08:42] LABS: Glucose Point of Care 77 mg/dl (65-105)
[2022-09-06 08:42] LABS: Glucose Point of Care 73 mg/dl (65-105)
[2022-09-06] MEDS: ESCITALOPRAM OXALATE 10 MG TABLET 20 MG PO (08:54)
[2022-09-06] MEDS: HYDROXYCHLOROQUINE SULFATE 200 MG TABLET 400 MG PO (08:54)
[2022-09-06] MEDS: lisinopriL 10 MG TABLET 30 MG PO (08:58)
[2022-09-06] MEDS: carvediloL 25 MG TABLET PO ×2 (08:59→22:19)
[2022-09-06] MEDS: GABAPENTIN 300 MG CAPSULE PO ×3 (08:59→17:05)
[2022-09-06] MEDS: FUROSEMIDE INJ 40 MG/4 ML VIAL IV PUSH (08:59)
[2022-09-06 11:35] LABS: Glucose Point of Care 162 mg/dl (65-105)
[2022-09-06] MEDS: INSULIN ASPART (*BKC) 100 UNITS/ML SUB-Q ×2 (11:46→17:07)
--- NOTE | 2022-09-06 13:47 | PM.IMPN ---
Progress Note: A&P Assessment and Plan (1) Atrial flutter with rapid ventricular response: Code(s): I48.92 - Unspecified atrial flutter Status: Acute Assessment and Plan: Restart carvedilol History of atrial fibrillation paroxysmal in the past Lovenox therapeutic dose however is not on anticoagulation due to history of brain bleed will stop therapeutic dose Cardiology consulted Appreciate the recommendation (2) Elevated troponin: Code(s): R77.8 - Other specified abnormalities of plasma proteins Status: Acute Assessment and Plan: Reorder troponin elevated but remained flat Chest pain-free EKG reviewed (3) Acute exacerbation of CHF (congestive heart failure): Qualifiers: Heart failure type: combined systolic and diastolic Qualified Code(s): I50.43 - Acute on chronic combined systolic (congestive) and diastolic (congestive) heart failure Code(s): I50.9 - Heart failure, unspecified Status: Acute Assessment and Plan: Diuresis with Lasix 40 mg IV b.i.d. was switched to oral diuretic today Echocardiogram pending Daily Strict intake and output (4) Rheumatoid arthritis without rheumatoid factor, multiple sites: Code(s): M06.09 - Rheumatoid arthritis without rheumatoid factor, multiple sites Status: Acute Assessment and Plan: Follow-up in outpatient setting Stable (5) Type 2 diabetes mellitus with hyperglycemia, with long-term current use of insulin: Code(s): E11.65 - Type 2 diabetes mellitus with hyperglycemia; Z79.4 - [facility] (current) use of insulin Status: Acute Assessment and Plan: Accu-Cheks AC and HS Insulin sliding scale Restart home meds (6) Community acquired pneumonia: Code(s): J18.9 - Pneumonia, unspecified organism Status: Acute Assessment and Plan: Possible pneumonia. WBC count is normal. Empirically started on Rocephin and Zithromax will continue same. Cultures in progress Chest x-ray bilateral lobe airspace disease which may represent atelectasis, edema, consolidation of pneumonia small left pleural effusion and interstitial 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 Status post CABG in 2013 Saint Aleksey string placed in mitral valve Seizure disorder DVT prophylaxis on Lovenox Subjective Date/time seen: 09/06/22 13:47 Interval history: No overnight events. Telemetry reviewed. Denies any shortness of breath or chest pain. Review of Systems Review of Systems: All systems reviewed & are unremarkable except as noted in HPI and below Exam Narrative: GENERAL: Chronically ill appearing, well-nourished, non-toxic, in no acute distress. HEAD: Normocephalic, atraumatic. ENT: Dentures in place. NECK: Supple. No adenopathy, no masses. RESPIRATORY: Airway patent, respirations nonlabored, course breath sound bilaterally no wheezes CARDIOVASCULAR: Rate controlled irregular rhythm without murmurs, rubs, or gallops. Peripheral pulses 2+ and equal bilaterally. ABDOMINAL: Soft, nontender, nondistended, no hepatosplenomegaly. Normoactive BS. MUSCULOSKELETAL: Moves all extremities. Strength/ROM intact without gross deformities.? Trace pedal edema bilaterally, nontender. SKIN: Warm, dry, normal color. No rashes.? Small scabbed wounds to left lower leg.? No signs of bleeding or drainage. NEURO: A&O X2-3, Speech clear. Cranial nerves II-XII grossly intact. Steady gait. No ataxic movements.? Able to move all extremities, but weakness of left arm and leg noted, which patient reports is chronic from previou
[2022-09-06 16:40] LABS: Glucose Point of Care 131 mg/dl (65-105)
[2022-09-06] MEDS: INSULIN GLARGINE (*BKC) 100 UNITS/ML 12 UNITS SUB-Q (17:06)
[2022-09-06 22:14] LABS: Glucose Point of Care 83 mg/dl (65-105)
[2022-09-06] MEDS: ATORVASTATIN 40 MG TABLET 80 MG PO (22:19)
[2022-09-06] MEDS: ASPIRIN 81 MG CHEWABLE TABLET PO (22:19)
[2022-09-07] VITALS (10 sets, daily range): BP systolic 111–153; BP diastolic 67–78; PULSE 61–63; RESP 18–21; TEMP 36.1–36.8; O2SAT 95–100
[2022-09-07] MEDS: cefTRIAXone 2 GM/NS 100 ML 2 GM/100 ML BAG IVPB ×2 (01:38→12:42)
[2022-09-07] MEDS: LEVOTHYROXINE SODIUM 125 MCG TABLET PO (05:41)
[2022-09-07 05:45] LABS: Basophils Absolute Auto 0.1 K/mm3 (0.0-0.1); Eosinophils Absolute Auto 0.3 K/mm3 (0-0.3); Eosinophils Percent Auto 4.8 % (0-4.4); Hematocrit 31.1 % (42.0-52.0); Hemoglobin 9.5 g/dL (14.0-18.0); Immature Granulocyte Absolute 0.02 K/mm3 (0.00-0.031); Immature Granulocyte Percent A 0.3 % (0-0.5); Lymphocytes Absolute Auto 0.94 K/mm3 (0.9-3.2); Lymphocytes Percent Auto 15.7 % (18.3-44.2); Mean Corpuscular HGB Conc 30.5 g/dl (32-36); Mean Corpuscular Hemoglobin 25.2 pg (26-34); Mean Corpuscular Volume 82.5 fl (80-100); Mean Platelet Volume 12.4 fl (7.4-10.4); Monocytes Absolute Auto 0.5 K/mm3 (0.1-0.6); Monocytes Percent Auto 8.9 % (2.6-8.5); Neutrophils Absolute Auto 4.1 K/mm3 (1.3-6.7); Neutrophils Percent Auto 69.3 % (45.5-73.1); Platelet Count Result 207 k/mm3 (150-375); Red Blood Count 3.77 M/mm3 (4.6-6.20); Red Cell Distribution Width 15.7 % (11.5-14.5)
[2022-09-07 06:02] LABS: Alanine Aminotransferase 17 U/L (6-50); Alkaline Phosphatase 87 U/L (38-126); Anion Gap 5 mmol/L (8-16); Aspartate Amino Transferase 24 U/L (17-59); Bilirubin,Total 0.3 mg/dL (0.2-1.3); Blood Urea Nitrogen 21 mg/dL (9-20); Calcium 8.1 mg/dL (8.4-10.2); Carbon Dioxide 30 mmol/L (22-30); Chloride 103 mmol/L (98-107); Estimated CRCL calculation 35 ml/min; Estimated Glomerular Filt Rate 40; Glucose 81 mg/dL (65-110); Magnesium 2.1 mg/dL (1.6-2.3); Potassium 3.5 mmol/L (3.4-5.0); Sodium 138 mmol/L (137-145)
[2022-09-07 08:06] LABS: Glucose Point of Care 71 mg/dl (65-105)
[2022-09-07] MEDS: carvediloL 25 MG TABLET PO (08:34)
[2022-09-07] MEDS: GABAPENTIN 300 MG CAPSULE PO ×3 (08:35→16:56)
[2022-09-07] MEDS: ESCITALOPRAM OXALATE 10 MG TABLET 20 MG PO (08:35)
[2022-09-07] MEDS: HYDROXYCHLOROQUINE SULFATE 200 MG TABLET 400 MG PO (08:35)
[2022-09-07] MEDS: lisinopriL 10 MG TABLET 30 MG PO (08:35)
[2022-09-07] MEDS: FUROSEMIDE 40 MG TABLET PO (08:36)
[2022-09-07 11:32] LABS: Glucose Point of Care 164 mg/dl (65-105)
[2022-09-07] MEDS: INSULIN ASPART (*BKC) 100 UNITS/ML SUB-Q (11:52)
--- NOTE | 2022-09-07 12:21 | PM.DS ---
DS: Admitting Diagnosis Discharge Date 09/07/2022 Admitting Diagnosis shortness of breath DS: Discharge Diagnosis Discharge Diagnosis (1) Atrial flutter with rapid ventricular response: Code(s): I48.92 - Unspecified atrial flutter Status: Acute (2) Elevated troponin: Code(s): R77.8 - Other specified abnormalities of plasma proteins Status: Acute (3) Acute exacerbation of CHF (congestive heart failure): Qualifiers: Heart failure type: combined systolic and diastolic Qualified Code(s): I50.43 - Acute on chronic combined systolic (congestive) and diastolic (congestive) heart failure Code(s): I50.9 - Heart failure, unspecified Status: Acute (4) Rheumatoid arthritis without rheumatoid factor, multiple sites: Code(s): M06.09 - Rheumatoid arthritis without rheumatoid factor, multiple sites Status: Acute (5) Type 2 diabetes mellitus with hyperglycemia, with long-term current use of insulin: Code(s): E11.65 - Type 2 diabetes mellitus with hyperglycemia; Z79.4 - prison (current) use of insulin Status: Acute (6) Community acquired pneumonia: Code(s): J18.9 - Pneumonia, unspecified organism Status: Acute DS: Summary Hospital Course Hospital Course: # Atrial flutter with rapid ventricular response: He has been noncompliant with his medications. Restarted his usual home medication. Restart carvedilol History of atrial fibrillation paroxysmal in the past Lovenox therapeutic dose however is not on anticoagulation due to history of brain bleed will stop therapeutic dose Cardiology consulted Appreciate the recommendation. 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 Rate controlled by the time of discharge # elevated troponin: Reorder troponin elevated but remained flat Chest pain-free EKG reviewed # acute on chronic combined systolic and diastolic congestive heart failure: He was started on diuresis with Lasix IV which was switched to oral Echocardiogram follow-up as an outpatient Daily Strict intake and output # rheumatoid arthritis: Follow-up in outpatient setting Stable #Type 2 diabetes mellitus with hyperglycemia, with long-term current use of insulin: Accu-Cheks AC and HS Insulin sliding scale Restart home meds # community acquired pneumonia: Possible pneumonia.? WBC count is normal. Empirically started on Rocephin and Zithromax will continue same. Cultures in progress Chest x-ray bilateral lobe airspace disease which may represent atelectasis, edema, consolidation of pneumonia small left pleural effusion and interstitial [place] [address] no prior levels available Complete antibiotics as an outpatient basis oral # cKD stage 3 creatinine stable # history of CVA hemorrhagic 2013 related to AV malformation # diabetic neuropathy # hypertension # hypothyroidism # obstructive sleep apnea on CPAP # Paroxysmal atrial fibrillation history of cardioversion in 2013 no longer on anticoagulation due to intracranial bleed in the past # coronary artery disease status post stents in 2005 and 2012.? Status post CABG in 2012 # saint Aleksey string placed in mitral valve # seizure disorder # dVT prophylaxis on Lovenox Time Spent with Patient Time attestation: Total time spent providing and/or coordinating discharge services: 40 minutes Exam Narrative: GENERAL: Chronically ill appearing, well-nourished, non-toxic, in no acute distress. HEAD: Normocephalic, atraumatic. ENT: Dentures in place. NECK: Supple. No adenopathy, no masses. RESPIRATORY: Airway patent, respirations nonlabored, course breath sound bilaterally no wheezes CARDIOVASCULAR: Rate controlled irregular rhythm without murmurs, rubs, or gallops. Peripheral pulses 2+ and equal bilaterally. ABDOMINAL: Soft, nontender, nondistended, no hepatosplenomegaly. Normoactive BS. MUSCULOSKELET
[2022-09-07 17:04] LABS: Glucose Point of Care 84 mg/dl (65-105)
== END 2022-09-07 18:10 | disposition home health service (06) ==
LOC: ANHED 20:19 → ANHIMU 09-05 08:03 → ANH2MED 09-07 12:21 → ANHIMU 09-08 14:26
PROVIDERS: Admitting Provider Internal Medicine; Emergency Provider Physician Assistant; PCP Family Medicine; Visit Provider Internal Medicine
DX: I48.92 Unspecified atrial flutter (principal); R77.8 Other specified abnormalities of plasma proteins; I11.0 Hypertensive heart disease with heart failure; I50.43 Acute on chronic combined systolic (congestive) and diastolic (congestive) heart failure; M06.9 Rheumatoid arthritis, unspecified; E11.65 Type 2 diabetes mellitus with hyperglycemia; J18.9 Pneumonia, unspecified organism; I16.0 Hypertensive urgency; R00.0 Tachycardia, unspecified; Z91.148 Patient's other noncompliance with medication regimen for other reason; R79.89 Other specified abnormal findings of blood chemistry; R41.82 Altered mental status, unspecified; E03.9 Hypothyroidism, unspecified; I25.10 Atherosclerotic heart disease of native coronary artery without angina pectoris; I69.359 Hemiplegia and hemiparesis following cerebral infarction affecting unspecified side; D64.9 Anemia, unspecified; R94.31 Abnormal electrocardiogram [ECG] [EKG]; Z95.1 Presence of aortocoronary bypass graft; F32.A Depression, unspecified; E11.21 Type 2 diabetes mellitus with diabetic nephropathy; R80.9 Proteinuria, unspecified; G62.9 Polyneuropathy, unspecified; R70.0 Elevated erythrocyte sedimentation rate; I25.2 Old myocardial infarction; G47.33 Obstructive sleep apnea (adult) (pediatric); Z99.89 Dependence on other enabling machines and devices; R56.9 Unspecified convulsions; Z87.891 Personal history of nicotine dependence; Z79.85 Long-term (current) use of injectable non-insulin antidiabetic drugs; Z79.4 Long term (current) use of insulin; Z79.82 Long term (current) use of aspirin; Z79.891 Long term (current) use of opiate analgesic
CPT/HCPCS: 36415; 70450; 71046; 80053; 82948; 83735; 83880; 84484; 85025; 87040; 93005; 93306; 96361; 96365; 96366; 96368; 96372; 96375; 96376; 97161; 97165; 99285; A9270; C8929; G0378; J0456; J0696; J1650; J1815; J1940; J7030; Q9957

== ENCOUNTER 2022-09-10 15:47 | Inpatient (IN) | payer MEDICARE, MEDICAID, SELFPAY ==
--- NOTE | ~2022-09-10 | CT_ITS ---
EXAMINATION: CT abdomen pelvis wo con DATE: 09/10/2022 21:56 INDICATION: Nausea vomiting and diarrhea, abdominal pain x3 days TECHNIQUE: Computed tomography (CT) of the abdomen and pelvis was performed without intravenous contr ast. Automated exposure control and iterative reconstruction technique were employed. The dose-length product was 588.41 mGy-cm. COMPARISON: None. FINDINGS: Lower thorax: Coronary artery calcification. Cardiomegaly. Interlobular septal thickening. Bilateral dependent atelectasis. Moderate bilateral effusions. Liver: Normal. Biliary/Gallbladder: Gallbladder is normal. No bile duct dilation. Pancreas: No mass or duct dilation. Spleen: Granulomas calcifications. Adrenals:No mass. Kidneys: No mass, stone, or hydronephrosis. GI tract: Loops of mildly dilated small bowel in the left upper abdomen, no interloop fluid or pneuma tosis. Transition point in the left upper abdomen (axial image 72/203). The rectum is dilated to 6.1 cm by formed stool, without significant wall thickening or surrounding inflammatory change. Appendix not visualized, likely surgically absent Mesentery/Peritoneum: No ascites, mass, or free air. Retroperitoneum: No mass. Atherosclerotic abdominal aortic and/or arterial calcifications. Pelvis: Mild wall thickening in a partially distended urinary bladder likely due to outlet compromise . Prostate enlargement. Soft Tissues: Soft tissues and body wall unremarkable. Bones: No acute osseous finding. IMPRESSION: Pulmonary edema. Moderate bilateral pleural effusions. Mild proximal small bowel dilation, transition point in the left upper quadrant, likely representing early or partial small bowel obstruction. Feca l impaction. No CT evidence of nephrolithiasis or obstructive uropathy. ... Reviewed, dictated and finalized at location K. IMPRESSION: Pulmonary edema. Moderate bilateral pleural effusions. Mild proximal small salty l dilation, transition point in the left upper quadrant, likely representing ea rly or partial small bowel obstruction. Fecal impaction. No CT evidence of neph rolithiasis or obstructive uropathy. ...
--- NOTE | ~2022-09-10 | XR_ITS ---
EXAM: XR abdomen/kub 1V DATE: 09/10/2022 18:00 HISTORY: abdominal pain . COMPARISON: None available. FINDINGS: Emphysematous and senescent change. Streaky bibasilar scarring. Subsegmental left basilar atelectasis/consolidation. Atrial occlusion device. Intact sternotomy wires. Cardiac valve replacemen t. Normal bowel gas pattern. No organomegaly. No abnormal abdominal calcification. Regional bones and soft tissues normal for age. IMPRESSION: No radiographic evidence of obstruction or ileus. Left basilar atelectasis/consolidation, with small left pleural effusion Reviewed, dictated and finalized at location K. IMPRESSION: No radiographic evidence of obstruction or ileus. Left basilar atel ectasis/consolidation, with small left pleural effusion
[2022-09-10 15:47] VITALS: BP 165/96; PULSE 104; RESP 20; TEMP 36.8; O2SAT 98
[2022-09-10] MEDS: DICYCLOMINE HCL INJ 20 MG/2 ML VIAL IM (16:18)
[2022-09-10 16:26] LABS: Basophils Absolute Auto 0.1 K/mm3 (0.0-0.1); Basophils Percent Auto 0.8 % (0.2-1.2); Eosinophils Absolute Auto 0.3 K/mm3 (0-0.3); Hematocrit 32.4 % (42.0-52.0); Hemoglobin 9.9 g/dL (14.0-18.0); Immature Granulocyte Absolute 0.02 K/mm3 (0.00-0.031); Immature Granulocyte Percent A 0.3 % (0-0.5); Lymphocytes Absolute Auto 0.58 K/mm3 (0.9-3.2); Mean Corpuscular HGB Conc 30.6 g/dl (32-36); Mean Corpuscular Hemoglobin 25.7 pg (26-34); Mean Corpuscular Volume 84.2 fl (80-100); Mean Platelet Volume 11.8 fl (7.4-10.4); Monocytes Absolute Auto 0.5 K/mm3 (0.1-0.6); Monocytes Percent Auto 8.3 % (2.6-8.5); Neutrophils Percent Auto 77.6 % (45.5-73.1); Platelet Count Result 235 k/mm3 (150-375); Red Blood Count 3.85 M/mm3 (4.6-6.20); Red Cell Distribution Width 16.2 % (11.5-14.5); White Blood Count 6.5 K/mm3 (4.5-10.0)
[2022-09-10 16:32] LABS: Alanine Aminotransferase 25 U/L (6-50); Albumin Level 3.5 g/dL (3.5-5.1); Alkaline Phosphatase 101 U/L (38-126); Anion Gap 4 mmol/L (8-16); Aspartate Amino Transferase 25 U/L (17-59); Bilirubin,Total 0.4 mg/dL (0.2-1.3); Blood Urea Nitrogen 27 mg/dL (9-20); Calcium 8.5 mg/dL (8.4-10.2); Carbon Dioxide 31 mmol/L (22-30); Chloride 108 mmol/L (98-107); Estimated CRCL calculation 43 ml/min; Estimated Glomerular Filt Rate 40; Glucose 152 mg/dL (65-110); Lipase 302 U/L (23-300); Potassium 4.3 mmol/L (3.4-5.0); Sodium 143 mmol/L (137-145)
--- NOTE | 2022-09-10 17:33 | ED.ABDPAIN ---
HPI - Abdominal Pain General Chief Complaint: Abdominal Pain <Juarez Mercedes MD - Last Filed: 09/10/22 19:12> Stated Complaint: asthma <Juarez Mercedes MD - Last Filed: 09/10/22 19:12> History of Present Illness HPI narrative: Patient is a 66-year-old male who presents ER with abdominal pain. Periumbilical. No radiation. Aching in nature. Ongoing for 3 days. Denies any diarrhea or constipation. Normal bowel movements with normal flatus. Denies abdominal distention. No fevers or chills or sweats. Patient recently admitted and treated for congestive heart failure. No orthopnea or increased edema. <Juarez Mercedes MD - Last Filed: 09/10/22 19:12> Related Data Home Medications: Home Medications Medication Instructions Recorded Confirmed atorvastatin 40 mg tablet 80 mg PO HS 03/24/19 09/05/22 carvedilol 25 mg tablet 25 mg PO Q12H 03/24/19 09/05/22 levothyroxine 125 mcg tablet 125 mcg PO DAILY 03/24/19 09/05/22 dulaglutide 1.5 mg/0.5 mL 1.5 mg subcut WEEKLY 01/20/22 09/05/22 subcutaneous pen injector (Trulicity) aspirin 81 mg chewable tablet 81 mg PO HS 02/17/22 09/05/22 escitalopram oxalate 20 mg tablet 20 mg PO DAILY 02/17/22 09/05/22 ferrous sulfate 325 mg (65 mg 325 mg PO EVERY OTHER DAY 02/17/22 09/05/22 iron) tablet lisinopril 30 mg tablet 30 mg PO DAILY 02/17/22 09/05/22 oxycodone-acetaminophen 5 mg-325 1 - 2 tablet PO Q6H PRN Pain 02/17/22 09/05/22 mg tablet (Scale Score 7-10) gabapentin 300 mg capsule 300 mg PO TID 09/05/22 09/05/22 <Juarez Mercedes MD - Last Filed: 09/10/22 19:12> Allergies/Adverse Reactions: Allergies Allergy/AdvReac Type Severity Reaction Status Date / Time Gadolinium-Containing Allergy Unknown Vomiting Verified 07/29/22 14:25 Contrast Medi ioversol Allergy Unknown Vomiting Verified 07/29/22 14:25 <Juarez Mercedes MD - Last Filed: 09/10/22 19:12> [facility] Past Medical History Medical History: Medical History Anemia Atrial fibrillation/flutter Paroxysmal, history of DC cardioversion 2013, no longer on anticoagulation due to history of intercranial bleed CAD (coronary artery disease) (~2006) The patient had 3 cardiac stents placed between 2005 and 2012. He had a CABG in 2012 with a Saint Aleksey's ring placed on the mitral valve Cerebral arteriovenous malformation (AVM) Evaluated at [facility] in 1991 and 1997. He had bleeding from the AVM prior to 2005 CHF (congestive heart failure) Echocardiogram 07/2013: Left ventricular hypertrophy with mild dilatation, severe septal hypokinesis, EF 55-60, diastolic dysfunction, dilated left atrium Prior diagnosis of dilated cardiomyopathy CVA (cerebral vascular accident) (~2014) Hemorrhagic CVA 2013. MRI brain 07/2020 performed due to ataxia: Chronic ill-defined mass in the right temporal lobe consistent with AV malformation, chronic encephalomalacia with old blood product in the right temporal lobe and adjacent right insula and right lentiform nucleus, old lacunar infarct in the left caudate nucleus, moderate nonspecific cerebral white matter disease likely representing chronic small-vessel ischemic disease Depression Diabetes mellitus (~2002) uncontrolled with hemoglobin A1c 10.6 01/20/2022 Diabetic nephropathy with proteinuria Diabetic peripheral neuropathy ESR raised HTN (hypertension) Hypothyroidism (~2009) Myocardial infarction Obstructive sleep apnea Polysomnogram 2013: Moderate obstructive sleep apnea improved with CPAP of 6 Rheumatoid arthritis Seizure disorder <Juarez Mercedes MD - Last Filed: 09/10/22 19:12> Surgical History Surgical History: Surgical History History of appendectomy Hx of CABG (~2013) 3 vessel CABG with placement of a Saint Aleksey's ring on the mitral valve <Juarez Mercedes MD - Last Filed: 09/10/22 19:12> Family History Family History:
--- NOTE | 2022-09-10 17:59 | PC.NURSE ---
Patient aware of the need for urine. patient states he does not need to urinate at this time and made aware of letting RN know when he does.
[2022-09-10 19:52] LABS: Appearance Urine Clear (Clear); Bacteria Urine None Seen /hpf; Bilirubin Urine Negative (Negative); Blood Urine 1+ (Negative); Color Urine Yellow (Yellow); Glucose Urine UA Trace mg/dL (Negative); Hyaline Casts Urine Present /lpf; Ketones Urine Negative (Negative); Leukocyte Esterase Ur Negative LEU/UL (Negative); Nitrate Urine Negative (Negative); Protein Urine 3+ mg/dL (Negative); RBC Urine 21-50 /hpf (0-2); Specific Grav Ur 1.024 (1.001-1.035); Squamous Epithelial Cell Urine None seen /hpf (Few); WBC Urine 0-5 /hpf
[2022-09-10 19:53] LABS: Add Urine Microscopic? YES
[2022-09-10 22:20] VITALS: BP 180/87; PULSE 79; RESP 18; O2SAT 97
--- NOTE | 2022-09-10 23:58 | PM.IMHP ---
H&P: HPI History of Present Illness Date/Time: 09/10/22 23:58 Chief Complaint: 66 years old male with past medical history of CHF AFib not on anticoagulation due to intracranial bleed diabetes mellitus recent pneumonia was recently admitted to the hospital for CHF exacerbation and pneumonia patient presented with abdominal pain mainly periumbilical area worsening gradually dull in nature aggravated with food CT scan of the abdomen concern for partial bowel obstruction patient failed conservative management in the ER patient will be admitted for further evaluation and treatment of partial bowel obstruction surgery was consulted Review of Systems Review of Systems: Twelve system review negative except above [facility] Past Medical History Medical History Anemia Atrial fibrillation/flutter Paroxysmal, history of DC cardioversion 2013, no longer on anticoagulation due to history of intercranial bleed CAD (coronary artery disease) (~2006) The patient had 3 cardiac stents placed between 2005 and 2012. He had a CABG in 2012 with a Saint Aleksey's ring placed on the mitral valve Cerebral arteriovenous malformation (AVM) Evaluated at [place] in 1991 and 1997. He had bleeding from the AVM prior to 2005 CHF (congestive heart failure) Echocardiogram 07/2013: Left ventricular hypertrophy with mild dilatation, severe septal hypokinesis, EF 55-60, diastolic dysfunction, dilated left atrium Prior diagnosis of dilated cardiomyopathy CVA (cerebral vascular accident) (~2014) Hemorrhagic CVA 2013. MRI brain 07/2020 performed due to ataxia: Chronic ill-defined mass in the right temporal lobe consistent with AV malformation, chronic encephalomalacia with old blood product in the right temporal lobe and adjacent right insula and right lentiform nucleus, old lacunar infarct in the left caudate nucleus, moderate nonspecific cerebral white matter disease likely representing chronic small-vessel ischemic disease Depression Diabetes mellitus (~2002) uncontrolled with hemoglobin A1c 10.6 01/20/2022 Diabetic nephropathy with proteinuria Diabetic peripheral neuropathy ESR raised HTN (hypertension) Hypothyroidism (~2009) Myocardial infarction Obstructive sleep apnea Polysomnogram 2013: Moderate obstructive sleep apnea improved with CPAP of 6 Rheumatoid arthritis Seizure disorder Surgical History Surgical History History of appendectomy Hx of CABG (~2013) 3 vessel CABG with placement of a Saint Aleksey's ring on the mitral valve Family History Family History Other Cerebrovascular accident Depression Diabetes mellitus Family history of aortic aneurysm Family history of atrial fibrillation Family history of congestive heart failure Hypertension Social History Social History Social History: Patient lives with his life partner of 17 years. He does not have any children. He ambulates with a rolling walker. He smoked 1-1.5 packs of cigarettes per day from the age of 14 until age 58. Code status: Full code Surrogate decision maker: John (spouse) Smoking packs per day: 1.5 Smoking cigarettes per day: 30.0 Years smoked: 44 Smoking pack-years: 66.00 Smoking status: Former smoker Second hand tobacco smoke exposure: No Smoking end date: 05/04/15 Alcohol intake: never Substance use: former Substance use type: marijuana Last use: 1971 Lack of Transportation: No Lack of Food: Never True Current Housing: I Have Housing Concerned About Future Housing: No Difficulty Paying Gas/Electric Bills: No Difficulty Paying for Meds: No Currently Unemployed: No Education: High School Diploma/GED Difficulty w/ Childcare or Family Care: No Gender identity (if verbalized by the patient): Male Spiritua
[2022-09-11] VITALS (10 sets, daily range): BP systolic 151–188; BP diastolic 66–83; PULSE 61–64; RESP 14–18; TEMP 36.5–36.8; O2SAT 97–100; BMI 27.5
--- NOTE | 2022-09-11 00:46 | PC.NURSE ---
Patient pulled NG tube out at this time
[2022-09-11 01:07] LABS: Glucose Point of Care 101 mg/dl (65-105)
--- NOTE | 2022-09-11 01:29 | ADMGEN ---
This patient, Romero Davis, was admitted to 2 Medical Room 256-. Patient/family oriented to hospital policies and general routines including ID bracelet, bed and alarms, visiting hours, pain management, procedures, bathroom and other care routines, personal items, smoking policy, room service/diet, and visiting hours. Information on how to activate the Rapid Response Team has been discussed. Patient/Family are encouraged to report perceived risks to care and to ask questions if they do not understand what they are told or what they should do.
[2022-09-11 06:05] LABS: Basophils Percent Auto 0.6 % (0.2-1.2); Eosinophils Absolute Auto 0.4 K/mm3 (0-0.3); Eosinophils Percent Auto 5.1 % (0-4.4); Hematocrit 30.6 % (42.0-52.0); Hemoglobin 9.4 g/dL (14.0-18.0); Immature Granulocyte Absolute 0.01 K/mm3 (0.00-0.031); Immature Granulocyte Percent A 0.1 % (0-0.5); Lymphocytes Absolute Auto 0.73 K/mm3 (0.9-3.2); Lymphocytes Percent Auto 10.7 % (18.3-44.2); Mean Corpuscular HGB Conc 30.7 g/dl (32-36); Mean Corpuscular Hemoglobin 25.8 pg (26-34); Mean Corpuscular Volume 83.8 fl (80-100); Mean Platelet Volume 11.8 fl (7.4-10.4); Monocytes Absolute Auto 0.5 K/mm3 (0.1-0.6); Monocytes Percent Auto 7.3 % (2.6-8.5); Neutrophils Absolute Auto 5.2 K/mm3 (1.3-6.7); Neutrophils Percent Auto 76.2 % (45.5-73.1); Platelet Count Result 221 k/mm3 (150-375); Red Blood Count 3.65 M/mm3 (4.6-6.20); Red Cell Distribution Width 16.1 % (11.5-14.5); White Blood Count 6.9 K/mm3 (4.5-10.0)
[2022-09-11 06:20] LABS: Alanine Aminotransferase 21 U/L (6-50); Alkaline Phosphatase 89 U/L (38-126); Anion Gap 2 mmol/L (8-16); Aspartate Amino Transferase 21 U/L (17-59); Bilirubin,Total 0.3 mg/dL (0.2-1.3); Blood Urea Nitrogen 22 mg/dL (9-20); Calcium 8.2 mg/dL (8.4-10.2); Carbon Dioxide 31 mmol/L (22-30); Chloride 109 mmol/L (98-107); Estimated CRCL calculation 41 ml/min; Estimated Glomerular Filt Rate 50; Glucose 142 mg/dL (65-110); Potassium 3.8 mmol/L (3.4-5.0); Sodium 142 mmol/L (137-145)
[2022-09-11 06:31] LABS: Glucose Point of Care 134 mg/dl (65-105)
[2022-09-11] MEDS: FUROSEMIDE INJ 40 MG/4 ML VIAL IV PUSH ×2 (08:18→17:38)
[2022-09-11 08:21] LABS: Glucose Point of Care 108 mg/dl (65-105)
[2022-09-11] MEDS: LIDOCAINE 5% PATCH 1 PATCH TRANSDERM (08:21)
[2022-09-11] MEDS: hydrALAZINE HCL 20 MG/ML VIAL 10 MG IV PUSH (08:26)
[2022-09-11] MEDS: PANTOPRAZOLE SODIUM IV 40 MG VIAL IV PUSH ×2 (08:32→20:00)
--- NOTE | 2022-09-11 11:11 | PM.CNGS ---
Assessment and Plan Assessment and plan (1) SBO (small bowel obstruction): Code(s): K56.609 - Unspecified intestinal obstruction, unspecified as to partial versus complete obstruction Status: Acute Assessment and Plan: CT reviewed and suggests possible early or partial small bowel obstruction and a fecal impaction. Patient is having some bowel function and his abdominal exam is benign. No peritoneal signs. No longer having any abdominal pain and not even any tenderness on exam. No evidence of a high-grade obstruction or indication for urgent surgical intervention. Will start clear liquids and advance diet as tolerated. Will start giving some enemas and continue to monitor. (2) Impacted stool in rectum: Code(s): K56.41 - Fecal impaction Status: Acute Assessment and Plan: Will start giving some enemas. He has a fecal impaction with a fair amount of stool throughout his colon on the CT. Would likely benefit from a bowel regimen on discharge to avoid constipation. (3) Chronic renal failure (CRF), stage 3 (moderate): Code(s): N18.30 - Chronic kidney disease, stage 3 unspecified Status: Acute (4) CHF (congestive heart failure): Code(s): I50.9 - Heart failure, unspecified Status: Acute (5) Paroxysmal A-fib: Code(s): I48.0 - Paroxysmal atrial fibrillation Status: Acute (6) Rheumatoid arthritis without rheumatoid factor, multiple sites: Code(s): M06.09 - Rheumatoid arthritis without rheumatoid factor, multiple sites Status: Acute (7) Type 2 diabetes mellitus with hyperglycemia, with long-term current use of insulin: Code(s): E11.65 - Type 2 diabetes mellitus with hyperglycemia; Z79.4 - long term care pharmacist (current) use of insulin Status: Acute Plan I have discussed the patient's case and plan of care with Dr. Gutierrez. Thank you for allowing us to see the patient in consultation and we will continue to follow along with you. History of Present Illness Consult details Consult date: 09/11/22 Reason for consult: other (Small bowel obstruction) Requesting physician: Max Molina MD Narrative: This is a 66-year-old man with multiple medical problems who presented to the ER yesterday with complaints of abdominal pain. He was recently discharged from the hospital on 09/07/2022, when he was treated for congestive heart failure. His abdominal pain has been going on a few days and is aching in nature. He describes this as periumbilical and right mid abdominal pain. No nausea, vomiting, or any other complaints. In the ER, labs showed a normal white blood cell count. He had a KUB that showed no evidence of an obstruction or ileus. He had a CT scan of the abdomen and pelvis that showed a fecal impaction, pulmonary edema, moderate bilateral pleural effusions, and mild proximal small-bowel dilation with a transition point in the left upper quadrant likely representing early or partial small bowel obstruction. The patient was admitted to the hospitalist service. There was an NG tube ordered, but he does not have one in place this morning. He states he pulled it out when they tried to place it. Per nursing, he has had 1 small bowel movement this morning. Our service has been consulted for the possible small bowel obstruction. His only previous abdominal surgery is an open appendectomy. He denies any previous bowel obstructions in the past. He denies any abdominal pain, nausea, vomiting, or bloating today. He is passing flatus. At this time, he endorses having a fall at home and thinks he may have hit his abdomen causing some soreness that he relates to his abdominal pain that he felt yesterday. No other complaints at this time. Review of Systems Review of Systems: All systems reviewed & are unremarkable except as noted in HPI and below [facility] Past Medical History Medical History Anemia Atrial fibrillation/flutt
[2022-09-11 11:57] LABS: Glucose Point of Care 248 mg/dl (65-105)
[2022-09-11] MEDS: INSULIN ASPART (*BKC) 100 UNITS/ML SUB-Q ×3 (12:15→17:37)
--- NOTE | 2022-09-11 14:06 | PM.IMCN ---
HPI Data of Consult Consult date: 09/11/22 Requesting Physician: Trena Beard MD Primary Care Provider: Amari Egan, Consult Narrative Narrative: Romero Davis is a 66 year old male [facility] Past Medical History Medical History Anemia Atrial fibrillation/flutter Paroxysmal, history of DC cardioversion 2013, no longer on anticoagulation due to history of intercranial bleed CAD (coronary artery disease) (~2006) The patient had 3 cardiac stents placed between 2005 and 2012. He had a CABG in 2012 with a Saint Aleksey's ring placed on the mitral valve Cerebral arteriovenous malformation (AVM) Evaluated at [place] in 1991 and 1997. He had bleeding from the AVM prior to 2005 CHF (congestive heart failure) Echocardiogram 07/2013: Left ventricular hypertrophy with mild dilatation, severe septal hypokinesis, EF 55-60, diastolic dysfunction, dilated left atrium Prior diagnosis of dilated cardiomyopathy CVA (cerebral vascular accident) (~2014) Hemorrhagic CVA 2013. MRI brain 07/2020 performed due to ataxia: Chronic ill-defined mass in the right temporal lobe consistent with AV malformation, chronic encephalomalacia with old blood product in the right temporal lobe and adjacent right insula and right lentiform nucleus, old lacunar infarct in the left caudate nucleus, moderate nonspecific cerebral white matter disease likely representing chronic small-vessel ischemic disease Depression Diabetes mellitus (~2002) uncontrolled with hemoglobin A1c 10.6 01/20/2022 Diabetic nephropathy with proteinuria Diabetic peripheral neuropathy ESR raised HTN (hypertension) Hypothyroidism (~2009) Myocardial infarction Obstructive sleep apnea Polysomnogram 2013: Moderate obstructive sleep apnea improved with CPAP of 6 Rheumatoid arthritis Seizure disorder Surgical History Surgical History History of appendectomy Hx of CABG (~2013) 3 vessel CABG with placement of a Saint Aleksey's ring on the mitral valve Family History Family History Other Cerebrovascular accident Depression Diabetes mellitus Family history of aortic aneurysm Family history of atrial fibrillation Family history of congestive heart failure Hypertension Social History Social History Social History: Patient lives with his life partner of 17 years. He does not have any children. He ambulates with a rolling walker. He smoked 1-1.5 packs of cigarettes per day from the age of 14 until age 58. Code status: Full code Surrogate decision maker: John (spouse) Smoking packs per day: 1.5 Smoking cigarettes per day: 30.0 Years smoked: 44 Smoking pack-years: 66.00 Smoking status: Former smoker Second hand tobacco smoke exposure: No Smoking end date: 05/04/15 Alcohol intake: former Substance use: former Substance use type: marijuana Last use: 1971 Lack of Transportation: No Lack of Food: Never True Current Housing: I Have Housing Concerned About Future Housing: No Difficulty Paying Gas/Electric Bills: No Difficulty Paying for Meds: No Currently Unemployed: No Education: High School Diploma/GED Difficulty w/ Childcare or Family Care: No Gender identity (if verbalized by the patient): Male Spiritual care concerns: No Meds Home Medications and Allergies Home Medications Medication Instructions Recorded Confirmed Type atorvastatin 40 mg tablet 80 mg PO HS 03/24/19 09/11/22 History carvedilol 25 mg tablet 25 mg PO Q12H 03/24/19 09/11/22 History levothyroxine 125 mcg tablet 125 mcg PO DAILY 03/24/19 09/11/22 History dulaglutide 1.5 mg/0.5 mL 1.5 mg subcut WEEKLY 01/20/22 09/11/22 History subcutaneous pen injector (Trulicity) aspirin 81 mg chewable tablet 81 mg PO HS 02/17
--- NOTE | 2022-09-11 14:06 | PM.IMPN ---
Progress Note: A&P Assessment and Plan (1) SBO (small bowel obstruction): Code(s): K56.609 - Unspecified intestinal obstruction, unspecified as to partial versus complete obstruction Status: Acute Assessment and Plan: CT abdomen pelvis suggest possible early small-bowel obstruction and fecal impaction. Surgery consulted And did not believe the patient would require surgical intervention at this time. Recommended patient advance diet as tolerated. No plan to give IV hydration due patient has history of CHF and currently has CHF exacerbation with pleural effusion and pulmonary edema monitor closely for fluid overload General surgery ordering Fleet enemas to possible help patient have bowel movement. Patient no longer having abdominal pain. (2) CHF (congestive heart failure): Code(s): I50.9 - Heart failure, unspecified Status: Acute Assessment and Plan: Complicated decision as patient also have bowel obstruction patient has pulmonary edema and bilateral pleural effusion will start diuresis as tolerated by blood pressure (3) Anemia: Code(s): D64.9 - Anemia, unspecified Status: Chronic Assessment and Plan: Workup as outpatient (4) Rheumatoid arthritis without rheumatoid factor, multiple sites: Code(s): M06.09 - Rheumatoid arthritis without rheumatoid factor, multiple sites Status: Chronic Assessment and Plan: Resume home medication (5) Paroxysmal A-fib: Code(s): I48.0 - Paroxysmal atrial fibrillation Status: Chronic Assessment and Plan: Patient not on anti colic ablation due to history of brain bleed pending home medication reconciliation (6) Hyperlipidemia LDL goal <70: Code(s): E78.5 - Hyperlipidemia, unspecified Status: Chronic Assessment and Plan: Continue home medication (7) Type 2 diabetes mellitus with hyperglycemia, with long-term current use of insulin: Code(s): E11.65 - Type 2 diabetes mellitus with hyperglycemia; Z79.4 - [facility]ent[facility] (current) use of insulin Status: Chronic Assessment and Plan: Hypoglycemic protocol, Insulin sliding scale (8) Chronic renal failure (CRF), stage 3 (moderate): Code(s): N18.30 - Chronic kidney disease, stage 3 unspecified Status: Chronic Assessment and Plan: Avoid nephrotoxic medication stable (9) Impacted stool in rectum: Code(s): K56.41 - Fecal impaction Status: Acute Assessment and Plan: Laxative for started Subjective Date/time seen: 09/11/22 14:06 Interval history: Patient doing well today and states that his abdominal pain has resolved. Patient has no complaints at this time. He denies chest pain, shortness a breath, nausea, vomiting, lower extremity swelling, cough, body aches and chills. Patient recently admitted due to CHF exacerbation. Patient has no signs of acute exacerbation at this time. Review of Systems Review of Systems: All systems reviewed & are unremarkable except as noted in HPI and below Exam Narrative: GENERAL: Comfortable, no acute distress HENMT: moist mucous membranes EYES: EOM intact b/l NECK: no lymphadenopathy RESPIRATORY: clear to auscultation CARDIO: RRR GI: soft, nontender, bowel sounds present SKIN: no rashes EXTREMITIES: no edema, redness or tenderness Objective Data Vital Signs Vital Signs: Vital Signs - 24 hr 09/10/22 15:47 09/10/22 22:20 09/11/22 01:34 Temperature 98.3 F 97.7 F Pulse Rate 104 H 79 63 Respiratory Rate 20 18 18 Blood Pressure 165/96 H 180/87 H 188/82 H Pulse Oximetry 98 97 100 Oxygen Delivery 09/11/22 04:00 09/11/22 08:43 09/11/22 08:20 Temperature Pulse Rate 63 63 Respiratory Rate 14 Blood Pressure 183/81 H Pulse Oximetry 97 Oxygen Delivery Room Air 09/11/22 08:00 09/11/22 12:00 09/11/22 13:17 Temperature 97.9 F Pulse Rate 62 63 64 Respiratory Rate 18 Blood Pressure 163/66 H Puls
[2022-09-11 17:20] LABS: Glucose Point of Care 121 mg/dl (65-105)
[2022-09-11] MEDS: BISACODYL 10 MG SUPPOSITORY RECTAL (17:38)
[2022-09-11] MEDS: INSULIN GLARGINE (*BKC) 100 UNITS/ML 15 UNITS SUB-Q (17:39)
[2022-09-11 20:33] LABS: Glucose Point of Care 88 mg/dl (65-105)
[2022-09-12] VITALS: PULSE 63
[2022-09-12 04:00] VITALS: PULSE 63
[2022-09-12 05:15] VITALS: BP 153/71; PULSE 61; RESP 18; TEMP 37; O2SAT 100
[2022-09-12 05:24] LABS: Basophils Absolute Auto 0.1 K/mm3 (0.0-0.1); Basophils Percent Auto 0.8 % (0.2-1.2); Eosinophils Absolute Auto 0.4 K/mm3 (0-0.3); Eosinophils Percent Auto 6.5 % (0-4.4); Hematocrit 32.5 % (42.0-52.0); Hemoglobin 10.2 g/dL (14.0-18.0); Lymphocytes Absolute Auto 0.98 K/mm3 (0.9-3.2); Lymphocytes Percent Auto 16.3 % (18.3-44.2); Mean Corpuscular HGB Conc 31.4 g/dl (32-36); Mean Corpuscular Hemoglobin 25.9 pg (26-34); Mean Corpuscular Volume 82.5 fl (80-100); Mean Platelet Volume 11.7 fl (7.4-10.4); Monocytes Absolute Auto 0.8 K/mm3 (0.1-0.6); Monocytes Percent Auto 12.6 % (2.6-8.5); Neutrophils Absolute Auto 3.8 K/mm3 (1.3-6.7); Neutrophils Percent Auto 63.8 % (45.5-73.1); Platelet Count Result 250 k/mm3 (150-375); Red Blood Count 3.94 M/mm3 (4.6-6.20); Red Cell Distribution Width 15.7 % (11.5-14.5)
[2022-09-12 05:52] LABS: Alanine Aminotransferase 18 U/L (6-50); Albumin Level 3.2 g/dL (3.5-5.1); Alkaline Phosphatase 80 U/L (38-126); Anion Gap 4 mmol/L (8-16); Aspartate Amino Transferase 19 U/L (17-59); Bilirubin,Total 0.6 mg/dL (0.2-1.3); Blood Urea Nitrogen 17 mg/dL (9-20); Calcium 8.3 mg/dL (8.4-10.2); Carbon Dioxide 32 mmol/L (22-30); Chloride 102 mmol/L (98-107); Estimated CRCL calculation 44 ml/min; Estimated Glomerular Filt Rate 55; Glucose 52 mg/dL (65-110); Sodium 138 mmol/L (137-145)
[2022-09-12 05:58] LABS: Glucose Point of Care 48 mg/dl (65-105)
[2022-09-12] MEDS: DEXTROSE 50% 25 GM/50 ML SYRINGE IV PUSH (05:59)
[2022-09-12 06:22] LABS: Glucose Point of Care 119 mg/dl (65-105)
[2022-09-12 08:00] VITALS: PULSE 62
[2022-09-12 08:04] LABS: Glucose Point of Care 69 mg/dl (65-105)
[2022-09-12] MEDS: PANTOPRAZOLE SODIUM IV 40 MG VIAL IV PUSH (08:30)
[2022-09-12] MEDS: FUROSEMIDE INJ 40 MG/4 ML VIAL IV PUSH (08:32)
[2022-09-12] MEDS: POTASSIUM CHLORIDE 20 MEQ PACKET (FOR LIQUID) 60 MEQ PO (08:32)
[2022-09-12 10:20] VITALS: BMI 27.5
--- NOTE | 2022-09-12 10:32 | P.CDI_ITS ---
CDI Query Clarification Request Documented history of CHF. CHF noted in the assessment and plan. Patient receiving IV Lasix. Furosemide is listed as a home medication. Abdominal CT on 09/10 notes Pulmonary edema Please specify type and acuity of heart failure if known. * Acute * Chronic * Acute on Chronic * Unknown * Systolic * Diastolic * Combined Systolic and Diastolic * Unknown
--- NOTE | 2022-09-12 11:23 | PC.NURSE ---
Patient refusing suppository this AM. Educated pt and notified provider. Bowel movement yesterday 09/11/22. Blood glucose 69 @ Breakfast, held scheduled 5 units of novolog.
--- NOTE | 2022-09-12 11:59 | PM.PNGS ---
Progress Note: A&P Assessment and Plan (1) SBO (small bowel obstruction): Code(s): K56.609 - Unspecified intestinal obstruction, unspecified as to partial versus complete obstruction Status: Acute Assessment and Plan: resolved, exam completely benign, roman diet, no acute surgical issues, will s/o, call c ?s, issues (2) Impacted stool in rectum: Code(s): K56.41 - Fecal impaction Status: Acute Assessment and Plan: cont bowel regimen, good result c enema Subjective Subjective Date/Time Seen: 09/12/22 11:59 feels good, +bowel fxn, no abd pain Review of Systems Review of Systems: All systems reviewed & are unremarkable except as noted in HPI and below Exam Const: General: cooperative, comfortable and no acute distress Resp: Auscultation: clear to auscultation bilaterally Cardio: Rate: regular rate Rhythm: regular rhythm GI: Inspection: normal to inspection and non-distended GI Palp: No abdominal tenderness, Yes Soft to palpation, No Tenderness to palpation present (GI), No Guarding due to palpation present (GI) and No Rigid due to palpation Objective Data Vital Signs Vital Signs: Vital Signs - 24 hr 09/11/22 12:00 09/11/22 13:17 09/11/22 16:00 Temperature 36.6 C Pulse Rate 63 64 63 Respiratory Rate 18 Blood Pressure 163/66 H Pulse Oximetry 99 Oxygen Delivery 09/11/22 18:07 09/11/22 20:50 09/11/22 20:00 Temperature 36.8 C Pulse Rate 63 61 63 Respiratory Rate 14 17 Blood Pressure 162/83 H 151/74 H Pulse Oximetry 97 100 Oxygen Delivery 09/12/22 00:00 09/12/22 04:00 09/12/22 05:15 Temperature 37.0 C Pulse Rate 63 63 61 Respiratory Rate 18 Blood Pressure 153/71 H Pulse Oximetry 100 Oxygen Delivery 09/12/22 08:00 09/12/22 08:00 Temperature Pulse Rate 62 Respiratory Rate Blood Pressure Pulse Oximetry Oxygen Delivery Room Air Intake/Output Intake/Output: Intake & Output 09/09/22 09/10/22 09/11/22 09/12/22 23:59 23:59 23:59 23:59 Intake Total 2590 540 Output Total 1700 300 Balance 890 240 Meds/Results Medications: Active Medications Generic Name Dose Route Start Last Admin Trade Name Freq PRN Reason Stop Dose Admin Bisacodyl 10 mg 09/11/22 14:55 09/12/22 08:31 Bisacodyl 10 Mg Suppository RECTAL Not Given QAM MARTA Dextrose 12.5 gm 09/10/22 23:57 09/12/22 05:59 Dextrose 50% 25 Gm/50 Ml Syringe IV PUSH 12.5 gm PRN PRN Administration Hypoglycemia Protocol Furosemide 40 mg 09/11/22 09:00 09/12/22 08:32 Furosemide Inj 40 Mg/4 Ml Vial IV PUSH 40 mg BID MARTA Administration Glucagon 1 mg 09/10/22 23:57 Glucagon For Inj 1 Mg Vial IM PRN PRN Hypoglycemia Protocol Hydralazine HCl 10 mg 09/10/22 23:56 09/11/22 08:26 Hydralazine Hcl 20 Mg/Ml Vial IV PUSH 10 mg Q6H PRN Administration Hypertension Dextrose 1,000 mls @ 100 mls/hr 09/10/22 23:57 Dextrose 5% 1,000 Ml IVPB PRN PRN Hypoglycemia Protocol Insulin Aspart 3 - 6 units 09/11/22 08:00 09/12/22 08:23 Insulin Aspart (*Bkc) 100 Units/Ml SUB-Q Not Given TIDWM [facility] Protocol Insulin Aspart 1 - 3 units 09/11/22 21:00 09/11/22 20:00 Insulin Aspart (*Bkc) 100 Units/Ml SUB-Q Not Given HS [facility] Protocol Insulin Aspart 5 units 09/11/22 08:00 09/12/22 08:23 Insulin Aspart (*Bkc) 100 Units/Ml SUB-Q Not Given TIDWM [facility] Insulin Glargine 15 units 09/11/22 18:00 09/11/22 17:39 Insulin Glargine (*Bkc) 100 Units/Ml SUB-Q 15 units QPM MARTA Administration Lidocaine 1 patch 09/11/22 09:00 09/12/22 08:31 Lidocaine 5% Patch TRANSDERM Not Given DAILY [facility] Miscellaneous Information 0 each 09/11/22 00:01 Lidocaine Patch - Please Add Application Site To Order XX 10/11/22 00:00 CLARIFY MARTA Morphine Sulfate 2 mg 09/10/22 23:56 Morphine Sulfate (*Crx) 2 Mg/Ml Inj IV PUSH Q4H PRN For p
[2022-09-12 12:00] VITALS: PULSE 77
[2022-09-12 12:05] LABS: Glucose Point of Care 101 mg/dl (65-105)
--- NOTE | 2022-09-12 12:34 | PM.DS ---
DS: Admitting Diagnosis Discharge Date 09/12/22 Admitting Diagnosis partial small-bowel obstruction DS: Discharge Diagnosis Discharge Diagnosis (1) SBO (small bowel obstruction): Code(s): K56.609 - Unspecified intestinal obstruction, unspecified as to partial versus complete obstruction Status: Acute Assessment and Plan: CT abdomen pelvis suggest possible early small-bowel obstruction and fecal impaction. Surgery consulted and did not believe the patient would require surgical intervention at this time. Patient's diet advanced as tolerated and doing well. No plan to give IV hydration due patient has history of CHF and currently has CHF exacerbation with pleural effusion and pulmonary edema monitor closely for fluid overload Patient had bowel movement with Fleet enema. Patient no longer having abdominal pain. (2) CHF (congestive heart failure): Code(s): I50.9 - Heart failure, unspecified Status: Acute Assessment and Plan: Complicated decision as patient also have bowel obstruction patient has pulmonary edema and bilateral pleural effusion will start diuresis as tolerated by blood pressure CHF type: chronic systolic failure (3) Anemia: Code(s): D64.9 - Anemia, unspecified Status: Chronic Assessment and Plan: Workup as outpatient (4) Rheumatoid arthritis without rheumatoid factor, multiple sites: Code(s): M06.09 - Rheumatoid arthritis without rheumatoid factor, multiple sites Status: Chronic Assessment and Plan: Resume home medication (5) Paroxysmal A-fib: Code(s): I48.0 - Paroxysmal atrial fibrillation Status: Chronic Assessment and Plan: Patient not on anti colic ablation due to history of brain bleed pending home medication reconciliation (6) Hyperlipidemia LDL goal <70: Code(s): E78.5 - Hyperlipidemia, unspecified Status: Chronic Assessment and Plan: Continue home medication (7) Type 2 diabetes mellitus with hyperglycemia, with long-term current use of insulin: Code(s): E11.65 - Type 2 diabetes mellitus with hyperglycemia; Z79.4 - jail (current) use of insulin Status: Chronic Assessment and Plan: Hypoglycemic protocol, Insulin sliding scale (8) Chronic renal failure (CRF), stage 3 (moderate): Code(s): N18.30 - Chronic kidney disease, stage 3 unspecified Status: Chronic Assessment and Plan: Avoid nephrotoxic medication stable (9) Impacted stool in rectum: Code(s): K56.41 - Fecal impaction Status: Acute Assessment and Plan: Laxative for started DS: Summary Hospital Course Hospital Course: 66-year-old male with a past medical history of CHF, AFib not on anticoagulation due to intracranial bleed, diabetes, and recently had a hospital stay for CHF exacerbation pneumonia that presented to the ED on 09/10/2022 due to abdominal pain in the periumbilical area. CT abdomen pelvis concern for partial bowel obstruction. General surgery consulted on patient. General surgery did not find it a a surgical case and would like patient to advance his diet as tolerated as well as getting Fleet enemas to aid patient and having bowel movement. On day of discharge patient did have bowel movement and abdominal pain has resolved. Per General surgery patient is okay to discharge. Patient with labs and vital signs stable and medically cleared for discharge. Time Spent with Patient Time attestation: Total time spent providing and/or coordinating discharge services: Exam Narrative: GENERAL: Comfortable, no acute distress HENMT: moist mucous membranes EYES: EOM intact b/l NECK: no lymphadenopathy RESPIRATORY: clear to auscultation CARDIO: RRR GI: soft, nontender, bowel sounds present SKIN: no rashes EXTREMITIES: no edema, redness or tenderness DS: Data Data Completed and Pending Labs on day of discharge: Labs from last 24 hours 09/01
--- NOTE | 2022-09-12 14:08 | PCDIET ---
Consult for dietitian: Pt with questions about food choices. Per coding educator, pt was questioning why he couldn't have a muffin at breakfast on consistent carb diet. When I visited, he denied any questions. Please call if any other issues. Lucie Musa RD LDN
== END 2022-09-12 15:35 | disposition home health service (06) | DRG 388 ==
LOC: ANHED 23:53 → ANH2MED 09-11 00:39
PROVIDERS: Admitting Provider Internal Medicine; Emergency Provider Emergency Medicine; PCP Family Medicine; Visit Provider Internal Medicine Critical Care Medicine
DX: K56.41 Fecal impaction (principal); Q28.2 Arteriovenous malformation of cerebral vessels; I13.0 Hypertensive heart and chronic kidney disease with heart failure and stage 1 through stage 4 chronic kidney disease, or unspecified chronic kidney disease; I50.22 Chronic systolic (congestive) heart failure; D64.9 Anemia, unspecified; M06.09 Rheumatoid arthritis without rheumatoid factor, multiple sites; I48.0 Paroxysmal atrial fibrillation; E78.5 Hyperlipidemia, unspecified; E11.65 Type 2 diabetes mellitus with hyperglycemia; E11.22 Type 2 diabetes mellitus with diabetic chronic kidney disease; N18.9 Chronic kidney disease, unspecified; E11.42 Type 2 diabetes mellitus with diabetic polyneuropathy; G47.33 Obstructive sleep apnea (adult) (pediatric); G40.909 Epilepsy, unspecified, not intractable, without status epilepticus; E03.9 Hypothyroidism, unspecified; Z79.4 Long term (current) use of insulin; I25.2 Old myocardial infarction; Z95.1 Presence of aortocoronary bypass graft; Z90.49 Acquired absence of other specified parts of digestive tract; Z87.891 Personal history of nicotine dependence; Z79.82 Long term (current) use of aspirin; Z86.73 Personal history of transient ischemic attack (TIA), and cerebral infarction without residual deficits
CPT/HCPCS: 36415; 74018; 74176; 80053; 81001; 82948; 83690; 85025; 96372; 99285; A9270; C9113; J0360; J0500; J1815; J1940

== ENCOUNTER 2022-09-17 14:40 | Emergency (ER) | payer MEDICARE, MEDICAID, SELFPAY ==
[2022-09-17] VITALS (7 sets, daily range): BP systolic 125–155; BP diastolic 75–88; PULSE 51–56; RESP 12–18; TEMP 36.3; O2SAT 100
--- NOTE | ~2022-09-17 | XR_ITS ---
EXAMINATION: XR chest 1V portable DATE: 09/17/2022 15:09 INDICATION: Cough. TECHNIQUE: A single frontal view of the chest was obtained on 2 radiographs. COMPARISON: Chest 2 views 09/04/2022, CT abdomen and pelvis 09/10/2022 FINDINGS: There is a small left pleural effusion. There are airspace opacities in the perihilar regio ns. No pneumothorax. Cardiomegaly is noted. There are changes of heart valve replacement. There is a closure device at left atrial appendage. IMPRESSION: 1. Airspace opacities in the perihilar regions, likely mild pulmonary edema. 2. Small left pleural effusion. 3. Cardiomegaly. Reviewed, dictated and finalized at location A.
--- NOTE | 2022-09-17 14:47 | ECG_ITS ---
Measurements Intervals [place] Rate: 55 P: [place]: 0 QRS: 8 QRSD: 97 T: 79 QT: 466 QTc: 449 Interpretive Statements ATRIAL FLUTTER/TACHYCARDIA WITH SLOW VENTRICULAR RESPONSE POSSIBLE LEFT VENTRICULAR HYPERTROPHY BORDERLINE ST-T WAVE ABNORMALITY- HIGH LATERAL LEADS ABNORMAL ECG COMPARED TO ECG 09/05/2022 08:30:38 HEART RATE HAS DECREASED Electronically Signed On 09-17-2022 15:23:17 CDT by Gustavo Gavin D.O.
--- NOTE | 2022-09-17 14:56 | ED.ARRPALP ---
HPI - Arrhythmia/Palpitations General Chief Complaint: Arrhythmia/Palpitations Stated Complaint: low heart rate Time Seen by Provider: 09/17/22 14:33 History of Present Illness HPI narrative: Patient is a 66-year-old male with a history of hypertension, CAD, hyperlipidemia, diabetes, hypothyroidism, A-fib not on anticoagulation due to hemorrhagic stroke presenting with low heart rate. Patient states that he was in his normal state of health today when his home health nurse came and visited and checked his vitals. She noted that his heart rate was low in the 40s to 50s so EMS was called. Patient denies any complaints at this time. States that he would not be here if she had not checked his heart rate. States that he thinks he needs a pacemaker. He denies any lightheadedness, shortness of breath, chest pain, new numbness or weakness, vomiting, leg swelling. Related Data Home Medications Medication Instructions Recorded Confirmed atorvastatin 40 mg tablet 80 mg PO HS 03/24/19 09/11/22 carvedilol 25 mg tablet 25 mg PO Q12H 03/24/19 09/11/22 levothyroxine 125 mcg tablet 125 mcg PO DAILY 03/24/19 09/11/22 dulaglutide 1.5 mg/0.5 mL 1.5 mg subcut WEEKLY 01/20/22 09/11/22 subcutaneous pen injector (Trulicity) aspirin 81 mg chewable tablet 81 mg PO HS 02/17/22 09/11/22 escitalopram oxalate 20 mg tablet 20 mg PO DAILY 02/17/22 09/11/22 ferrous sulfate 325 mg (65 mg 325 mg PO EVERY OTHER DAY 02/17/22 09/11/22 iron) tablet lisinopril 30 mg tablet 30 mg PO DAILY 02/17/22 09/11/22 oxycodone-acetaminophen 5 mg-325 1 - 2 tablet PO Q6H PRN Pain 02/17/22 09/11/22 mg tablet (Scale Score 7-10) gabapentin 300 mg capsule 300 mg PO TID 09/05/22 09/11/22 amlodipine 10 mg tablet 10 mg PO DAILY 09/11/22 09/11/22 aripiprazole 2 mg tablet 2 mg PO DAILY 09/11/22 09/11/22 ondansetron HCl 8 mg tablet 8 mg PO TID PRN Nausea And Vomiting 09/11/22 09/11/22 potassium chloride 10 mEq 10 meq PO DAILY 09/11/22 09/11/22 tablet,extended release Allergies Allergy/AdvReac Type Severity Reaction Status Date / Time Gadolinium-Containing Allergy Unknown Vomiting Verified 07/29/22 14:25 Contrast Medi ioversol Allergy Unknown Vomiting Verified 07/29/22 14:25 Review of Systems Review of Systems: All systems reviewed & are unremarkable except as noted in HPI and below PMFSH Past Medical History Medical History Anemia Atrial fibrillation/flutter Paroxysmal, history of DC cardioversion 2013, no longer on anticoagulation due to history of intercranial bleed CAD (coronary artery disease) (~2006) The patient had 3 cardiac stents placed between 2005 and 2012. He had a CABG in 2012 with a Saint Aleksey's ring placed on the mitral valve Cerebral arteriovenous malformation (AVM) Evaluated at [place] in 1991 and 1997. He had bleeding from the AVM prior to 2005 CHF (congestive heart failure) Echocardiogram 07/2013: Left ventricular hypertrophy with mild dilatation, severe septal hypokinesis, EF 55-60, diastolic dysfunction, dilated left atrium Prior diagnosis of dilated cardiomyopathy CVA (cerebral vascular accident) (~2014) Hemorrhagic CVA 2013. MRI brain 07/2020 performed due to ataxia: Chronic ill-defined mass in the right temporal lobe consistent with AV malformation, chronic encephalomalacia with old blood product in the right temporal lobe and adjacent right insula and right lentiform nucleus, old lacunar infarct in the left caudate nucleus, moderate nonspecific cerebral white matter disease likely representing chronic small-vessel ischemic disease Depression Diabetes mellitus (~2002) uncontrolled with hemoglobin A1c 10.6 01/20/2022 Diabetic nephropathy with proteinuria Diabetic peripheral neuropathy ESR raised HTN (hypertension) Hypothyroidism (~2009) Myocardial infarction Obstructive sleep apnea Polysomnogram 2014: Moderate obstructive sleep apnea improved with CPAP of 6 Rheumatoid arthritis Seizure
[2022-09-17 16:11] LABS: Basophils Absolute Auto 0.1 K/mm3 (0.0-0.1); Basophils Percent Auto 0.8 % (0.2-1.2); Eosinophils Absolute Auto 0.3 K/mm3 (0-0.3); Eosinophils Percent Auto 4.8 % (0-4.4); Hematocrit 31.5 % (42.0-52.0); Hemoglobin 9.5 g/dL (14.0-18.0); Immature Granulocyte Absolute 0.01 K/mm3 (0.00-0.031); Immature Granulocyte Percent A 0.2 % (0-0.5); Lymphocytes Absolute Auto 0.68 K/mm3 (0.9-3.2); Lymphocytes Percent Auto 10.8 % (18.3-44.2); Mean Corpuscular HGB Conc 30.2 g/dl (32-36); Mean Corpuscular Hemoglobin 25.3 pg (26-34); Mean Corpuscular Volume 83.8 fl (80-100); Mean Platelet Volume 12.1 fl (7.4-10.4); Monocytes Absolute Auto 0.5 K/mm3 (0.1-0.6); Monocytes Percent Auto 8.5 % (2.6-8.5); Neutrophils Absolute Auto 4.7 K/mm3 (1.3-6.7); Neutrophils Percent Auto 74.9 % (45.5-73.1); Platelet Count Result 217 k/mm3 (150-375); Red Blood Count 3.76 M/mm3 (4.6-6.20); Red Cell Distribution Width 15.9 % (11.5-14.5); White Blood Count 6.3 K/mm3 (4.5-10.0)
[2022-09-17 16:20] LABS: Prothrombin Time 13.3 Seconds (11.1-14.7)
[2022-09-17 16:21] LABS: Partial Thromboplastin Time 28.4 SECONDS (22.3-36.8)
[2022-09-17 16:30] LABS: Alanine Aminotransferase 16 U/L (6-50); Albumin Level 3.7 g/dL (3.5-5.1); Alkaline Phosphatase 108 U/L (38-126); Anion Gap 4 mmol/L (8-16); Aspartate Amino Transferase 20 U/L (17-59); Bilirubin,Total 0.3 mg/dL (0.2-1.3); Blood Urea Nitrogen 25 mg/dL (9-20); Calcium 8.4 mg/dL (8.4-10.2); Carbon Dioxide 28 mmol/L (22-30); Chloride 107 mmol/L (98-107); Estimated CRCL calculation 41 ml/min; Estimated Glomerular Filt Rate 50; Glucose 193 mg/dL (65-110); Magnesium 2.4 mg/dL (1.6-2.3); Potassium 4.5 mmol/L (3.4-5.0); Sodium 139 mmol/L (137-145)
[2022-09-17 16:41] LABS: NT Pro B Type Natriuretic Pept 9370 pg/mL (19.9-100); Troponin I 0.015 ng/mL (0.000-0.034)
--- NOTE | 2022-09-17 16:51 | ECG_ITS ---
Measurements Intervals [place] Rate: 57 P: [place]: 0 QRS: 14 QRSD: 105 T: 72 QT: 460 QTc: 451 Interpretive Statements ATRIAL FLUTTER/TACHYCARDIA WITH SLOW VENTRICULAR RESPONSE POSSIBLE LEFT VENTRICULAR HYPERTROPHY BORDERLINE ST-T WAVE ABNORMALITY- HIGH LATERAL LEADS BASELINE ARTIFACT- I, II, III, AVR, AVL, AVF, V1-V2 ABNORMAL ECG COMPARED TO ECG 09/17/2022 14:52:49 NO SIGNIFICANT CHANGES Electronically Signed On 09-17-2022 20:49:23 CDT by Gustavo Gavin D.O.
[2022-09-17 19:29] LABS: Troponin I 0.013 ng/mL (0.000-0.034)
== END 2022-09-17 20:41 | disposition home or self-care (01) ==
PROVIDERS: Emergency Provider Emergency Medicine; PCP Family Medicine
DX: I48.92 Unspecified atrial flutter (principal); R00.1 Bradycardia, unspecified; I25.10 Atherosclerotic heart disease of native coronary artery without angina pectoris; E78.5 Hyperlipidemia, unspecified; I11.0 Hypertensive heart disease with heart failure; I50.9 Heart failure, unspecified; E11.9 Type 2 diabetes mellitus without complications; E03.9 Hypothyroidism, unspecified; I48.19 Other persistent atrial fibrillation; Z86.73 Personal history of transient ischemic attack (TIA), and cerebral infarction without residual deficits; Z87.891 Personal history of nicotine dependence
CPT/HCPCS: 36415; 71045; 80053; 83735; 83880; 84484; 85025; 85610; 85730; 93005; 99284

== ENCOUNTER 2022-10-18 10:20 | Emergency (ER) | payer MEDICARE, MEDICAID, SELFPAY ==
--- NOTE | ~2022-10-18 | CT_ITS ---
EXAMINATION: CT abdomen pelvis wo con DATE: 10/18/2022 13:36 INDICATION: Hematuria. Multiple falls for past 2 days. TECHNIQUE: Computed tomography (CT) of the abdomen and pelvis was performed without intravenous contr ast. Automated exposure control and iterative reconstruction technique were employed. Exam dose: 512 .04 mGy-cm total exam DLP. COMPARISON: 09/10/2022 CT abdomen pelvis FINDINGS: Status post sternotomy/mitral valve replacement. Prominent cardiomegaly. No pericardial eff usion. Small bilateral pleural effusions, left greater than right. There is associated predominantly depende nt bilateral lower lobe atelectasis, left greater than right. Probable small calcified granuloma of the middle lobe. Calcified splenic granulomas. The liver, gallbladder, bile ducts, pancreas, pancreatic duct and spleen are otherwise unremarkable. Normal morphology of the adrenal glands. No renal mass lesion or urinary tract calculus or hydroureteronephrosis is detected. The urinary blad arely is unremarkable. Mild prostate enlargement. Bilateral vas deferens difference calcifications are noted, suggesting diabetes. Bilateral fat-containing inguinal hernias. Small fat-containing umbilical hernia. There is atherosclerotic calcification but normal caliber of the abdominal aorta and iliac and femora l arteries. No abdominal aortic aneurysm. No intraperitoneal or retroperitoneal or pelvic mass lesion or adenopathy or ascites. There is a prominent amount of fecal material in the rectum and colon but no bowel obstruction is rhina dent. No evidence of appendicitis. Degenerative changes of the thoracic and lumbar spine including severe degenerative disc disease and slight retrolisthesis at L5-S1. No suspicious osteolytic or osteoblastic lesions are noted. IMPRESSION: No urinary tract calculus or mass lesion or obstruction is identified Mild prostate enlargement Bilateral vas deference calcifications, suggesting diabetes Bilateral fat-containing inguinal hernias, small fat-containing umbilical hernia. Status post sternotomy and mitral valve replacement Small bilateral pleural effusions and bilateral lower lobe dependent atelectasis, left greater than r ight Reviewed, dictated and finalized at [facility]. Reviewed, dictated and finalized at [facility]. IMPRESSION: No urinary tract calculus or mass lesion or obstruction is identif ied Mild prostate enlargement Bilateral vas deference calcifications, suggesting diabetes Bilateral fat-containing inguinal hernias, small fat-containing umbilical herni a. Status post sternotomy and mitral valve replacement Small bilateral pleural effusions and bilateral lower lobe dependent atelectasi s, left greater than right
--- NOTE | ~2022-10-18 | CT_ITS ---
EXAMINATION: CT brain wo con DATE: 10/18/2022 10:58 INDICATION: Multiple falls over past 2 days. Weakness. Left hemiparesis from prior cerebrovascular ac cident. TECHNIQUE: Computed tomography (CT) of the head was performed without intravenous contrast. The mA wa s adjusted according to patient size. Iterative reconstruction technique was employed. Exam dose: 60 5.33 mGy-cm total exam DLP. COMPARISON: 09/04/2022 CT brain 07/17/2020 MRI brain/brainstem 10/27/2013 CT brain FINDINGS: There is prominent calcification of the dominant left vertebral artery, vertebrobasilar tor tuosity. Prominent bilateral carotid siphon internal carotid artery calcifications. Prominent right temporal lobe calcification reportedly associated with arteriovenous malformation. En cephalomalacia at right insula and lentiform nucleus consistent with prior cerebrovascular accident a nd/or hematomas. Chronic left colonic lacunar infarct. There is nonspecific diminished attenuation of the cerebral white matter, likely due to chronic small vessel ischemic changes. There is moderate central and cortical cerebral and cerebellar atrophy. No intracranial mass lesion or hemorrhage, midline shift or mass effect effect is evident. No subdura l or epidural hematoma is detected. No fracture or bone destruction of the cranial vault is noted. The mastoid air cells and paranasal sinuses are well aerated. IMPRESSION: No skull fracture or acute intracranial finding or significant change since 09/04/2022 Reviewed, dictated and finalized at [facility]. Reviewed, dictated and finalized at [facility]. IMPRESSION: No skull fracture or acute intracranial finding or significant krista nge since 09/04/2022
[2022-10-18 10:19] VITALS: BP 117/71; PULSE 62; RESP 20; TEMP 36.6; O2SAT 97
[2022-10-18 10:26] VITALS: PULSE 57
--- NOTE | 2022-10-18 10:55 | ED.GENADULT ---
HPI - General Adult General Chief complaint: Weakness Stated complaint: weakness History of Present Illness HPI narrative: 67-year-old male presented the emergency department for evaluation of generalized weakness has been worsening over the last few days. Patient states he has had frequent falls. Patient denies any injuries from these falls. Patient does have a prior history of CVA with some left-sided deficit. Patient denies any new focal weakness. Patient states he does live at home and does have multiple caregivers including a who helps take care of him. Patient reports he has had decreased p.o. intake but states he is still being provided food but this does not feel like he wants to eat. Patient is requesting food here. Related Data Home Medications Medication Instructions Recorded Confirmed atorvastatin 40 mg tablet 80 mg PO HS 03/24/19 09/11/22 carvedilol 25 mg tablet 25 mg PO Q12H 03/24/19 09/11/22 levothyroxine 125 mcg tablet 125 mcg PO DAILY 03/24/19 09/11/22 dulaglutide 1.5 mg/0.5 mL 1.5 mg subcut WEEKLY 01/20/22 09/11/22 subcutaneous pen injector (Trulicity) aspirin 81 mg chewable tablet 81 mg PO HS 02/17/22 09/11/22 escitalopram oxalate 20 mg tablet 20 mg PO DAILY 02/17/22 09/11/22 ferrous sulfate 325 mg (65 mg 325 mg PO EVERY OTHER DAY 02/17/22 09/11/22 iron) tablet lisinopril 30 mg tablet 30 mg PO DAILY 02/17/22 09/11/22 oxycodone-acetaminophen 5 mg-325 1 - 2 tablet PO Q6H PRN Pain 02/17/22 09/11/22 mg tablet (Scale Score 7-10) gabapentin 300 mg capsule 300 mg PO TID 09/05/22 09/11/22 amlodipine 10 mg tablet 10 mg PO DAILY 09/11/22 09/11/22 aripiprazole 2 mg tablet 2 mg PO DAILY 09/11/22 09/11/22 ondansetron HCl 8 mg tablet 8 mg PO TID PRN Nausea And Vomiting 09/11/22 09/11/22 potassium chloride 10 mEq 10 meq PO DAILY 09/11/22 09/11/22 tablet,extended release Allergies Allergy/AdvReac Type Severity Reaction Status Date / Time Gadolinium-Containing Allergy Unknown Vomiting Verified 10/18/22 10:28 Contrast Medi ioversol Allergy Unknown Vomiting Verified 10/18/22 10:28 Review of Systems Review of Systems: All systems reviewed & are unremarkable except as noted in HPI and below PMFSH Past Medical History Medical History Anemia Atrial fibrillation/flutter Paroxysmal, history of DC cardioversion 2013, no longer on anticoagulation due to history of intercranial bleed CAD (coronary artery disease) (~2006) The patient had 3 cardiac stents placed between 2005 and 2012. He had a CABG in 2012 with a Saint Aleksey's ring placed on the mitral valve Cerebral arteriovenous malformation (AVM) Evaluated at [place] in 1991 and 1997. He had bleeding from the AVM prior to 2005 CHF (congestive heart failure) Echocardiogram 07/2013: Left ventricular hypertrophy with mild dilatation, severe septal hypokinesis, EF 55-60, diastolic dysfunction, dilated left atrium Prior diagnosis of dilated cardiomyopathy CVA (cerebral vascular accident) (~2014) Hemorrhagic CVA 2013. MRI brain 07/2020 performed due to ataxia: Chronic ill-defined mass in the right temporal lobe consistent with AV malformation, chronic encephalomalacia with old blood product in the right temporal lobe and adjacent right insula and right lentiform nucleus, old lacunar infarct in the left caudate nucleus, moderate nonspecific cerebral white matter disease likely representing chronic small-vessel ischemic disease Depression Diabetes mellitus (~2002) uncontrolled with hemoglobin A1c 10.6 01/20/2022 Diabetic nephropathy with proteinuria Diabetic peripheral neuropathy ESR raised HTN (hypertension) Hypothyroidism (~2009) Myocardial infarction Obstructive sleep apnea Polysomnogram 2014: Moderate obstructive sleep apnea improved with CPAP of 6 Rheumatoid arthritis Seizure disorder Surgical History Surgical History History of appende
--- NOTE | 2022-10-18 11:11 | PC.NURSE ---
report received from Patty SUTHERLAND
[2022-10-18 11:31] LABS: Basophils Absolute Auto 0.1 K/mm3 (0.0-0.1); Basophils Percent Auto 0.6 % (0.2-1.2); Eosinophils Absolute Auto 0.2 K/mm3 (0-0.3); Eosinophils Percent Auto 2.7 % (0-4.4); Hematocrit 31.9 % (42.0-52.0); Hemoglobin 9.9 g/dL (14.0-18.0); Immature Granulocyte Absolute 0.02 K/mm3 (0.00-0.031); Immature Granulocyte Percent A 0.2 % (0-0.5); Lymphocytes Absolute Auto 0.72 K/mm3 (0.9-3.2); Lymphocytes Percent Auto 8.9 % (18.3-44.2); Mean Corpuscular Hemoglobin 25.3 pg (26-34); Mean Corpuscular Volume 81.4 fl (80-100); Mean Platelet Volume 12.1 fl (7.4-10.4); Monocytes Absolute Auto 0.9 K/mm3 (0.1-0.6); Monocytes Percent Auto 11.2 % (2.6-8.5); Neutrophils Absolute Auto 6.2 K/mm3 (1.3-6.7); Neutrophils Percent Auto 76.4 % (45.5-73.1); Platelet Count Result 216 k/mm3 (150-375); Red Blood Count 3.92 M/mm3 (4.6-6.20); Red Cell Distribution Width 15.7 % (11.5-14.5); White Blood Count 8.1 K/mm3 (4.5-10.0)
[2022-10-18 11:42] LABS: Alanine Aminotransferase 38 U/L (6-50); Albumin Level 3.7 g/dL (3.5-5.1); Alkaline Phosphatase 120 U/L (38-126); Anion Gap 5 mmol/L (8-16); Aspartate Amino Transferase 161 U/L (17-59); Bilirubin,Total 0.3 mg/dL (0.2-1.3); Blood Urea Nitrogen 24 mg/dL (9-20); Calcium 8.4 mg/dL (8.4-10.2); Carbon Dioxide 28 mmol/L (22-30); Chloride 107 mmol/L (98-107); Estimated CRCL calculation 33 ml/min; Estimated Glomerular Filt Rate 31; Glucose 108 mg/dL (65-110); Potassium 4.2 mmol/L (3.4-5.0); Sodium 140 mmol/L (137-145)
[2022-10-18 12:08] VITALS: BP 135/86; PULSE 66
[2022-10-18] MEDS: SODIUM CHLORIDE 0.9% IV 1,000 ML 999 ML IV CONT (12:23)
[2022-10-18 12:31] VITALS: BP 147/69; PULSE 83
[2022-10-18 12:34] VITALS: BP 148/81; PULSE 78
[2022-10-18 12:59] LABS: INR 1.1; Prothrombin Time 14.3 Seconds (11.1-14.7)
[2022-10-18 13:09] LABS: Appearance Urine Cloudy (Clear); Bacteria Urine None Seen /hpf; Bilirubin Urine Negative (Negative); Blood Urine 2+ (Negative); Calcium Oxalate Crystals Urine Present /hpf; Color Urine Yellow (Yellow); Glucose Urine UA Trace mg/dL (Negative); Ketones Urine Negative (Negative); Leukocyte Esterase Ur Negative LEU/UL (Negative); Nitrate Urine Negative (Negative); Protein Urine 3+ mg/dL (Negative); RBC Urine 21-50 /hpf (0-2); Specific Grav Ur 1.019 (1.001-1.035); Squamous Epithelial Cell Urine None seen /hpf (Few); WBC Urine 0-5 /hpf
[2022-10-18 13:10] LABS: Add Urine Microscopic? YES
--- NOTE | 2022-10-18 15:44 | PC.NURSE ---
Called patient's contact John at [phone] at this time. 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
== END 2022-10-18 16:31 | disposition home or self-care (01) ==
PROVIDERS: Emergency Provider Emergency Medicine; PCP Family Medicine
DX: N17.9 Acute kidney failure, unspecified (principal); R53.1 Weakness; I25.10 Atherosclerotic heart disease of native coronary artery without angina pectoris; I50.9 Heart failure, unspecified; I11.0 Hypertensive heart disease with heart failure; E11.42 Type 2 diabetes mellitus with diabetic polyneuropathy; E11.21 Type 2 diabetes mellitus with diabetic nephropathy; I48.0 Paroxysmal atrial fibrillation; G40.909 Epilepsy, unspecified, not intractable, without status epilepticus; I25.2 Old myocardial infarction; D64.9 Anemia, unspecified; E03.9 Hypothyroidism, unspecified; G47.33 Obstructive sleep apnea (adult) (pediatric); M06.9 Rheumatoid arthritis, unspecified; Z95.1 Presence of aortocoronary bypass graft; Z87.891 Personal history of nicotine dependence; Z79.82 Long term (current) use of aspirin; Z79.85 Long-term (current) use of injectable non-insulin antidiabetic drugs; Z79.4 Long term (current) use of insulin
CPT/HCPCS: 36415; 70450; 74176; 80053; 81001; 85025; 85610; 85730; 96360; 99284; J7030

== ENCOUNTER 2022-10-31 18:37 | Emergency (ER) | payer MEDICARE, MEDICAID, SELFPAY ==
--- NOTE | ~2022-10-31 | XR_ITS ---
EXAMINATION: XR chest 2V Exam Date/Time: 10/31/2022 19:00 CDT HISTORY: weakness Comparison: 09/17/2022. RESULT: Lines, tubes, and devices: Atrial occlusion device. Cardiac valve replacement. Intact median sternot annemarie wires. Lungs and pleura: Subsegmental left mid and lower lung opacities. Mild left lateral costophrenic ang le blunting. Cardiomediastinal silhouette: Stable. Other: No acute osseous or upper abdominal finding. IMPRESSION: Left lower lung atelectasis/consolidation. Small left pleural effusion. Reviewed, dictated and finalized at [facility].
--- NOTE | ~2022-10-31 | XR_ITS ---
EXAM: XR wrist RT min 3V DATE: 10/31/2022 19:34 HISTORY: fall w/ wrist trauma . COMPARISON: None available. FINDINGS: Decreased mineralization. No acute fracture or dislocation. No lytic or blastic lesion. Sc apholunate widening. Large subchondral geode in the distal radius. Scattered subchondral cysts throug hout the carpal bones. Scattered osteoarthritic type joint changes. No erosion or periosteal change. Soft tissues within normal limits. IMPRESSION: Scapholunate widening, indicating scapholunate ligament injury of uncertain age. Reviewed, dictated and finalized at [facility]. IMPRESSION: Scapholunate widening, indicating scapholunate ligament injury of u ncertain age.
[2022-10-31 18:35] VITALS: BP 157/80; PULSE 60; RESP 14; TEMP 36.4; O2SAT 97
[2022-10-31 18:42] VITALS: PULSE 60
--- NOTE | 2022-10-31 18:49 | ECG_ITS ---
Measurements Intervals [place] Rate: 58 P: RI: 0 QRS: 0 QRSD: 104 T: 68 QT: 472 QTc: 466 Interpretive Statements ATRIAL FLUTTER/TACHYCARDIA WITH SLOW VENTRICULAR RESPONSE POSSIBLE LEFT VENTRICULAR HYPERTROPHY WITH ST-T CHANGE BASELINE ARTIFACT- I, II, III, AVR, AVF, V4 ABNORMAL ECG COMPARED TO ECG 09/17/2022 18:04:01 NO SIGNIFICANT CHANGES Electronically Signed On 11-01-2022 7:23:15 CDT by Gustavo Gavin D.O.
[2022-10-31 19:02] LABS: Basophils Absolute Auto 0.1 K/mm3 (0.0-0.1); Basophils Percent Auto 0.6 % (0.2-1.2); Eosinophils Absolute Auto 0.4 K/mm3 (0-0.3); Eosinophils Percent Auto 4.8 % (0-4.4); Immature Granulocyte Absolute 0.03 K/mm3 (0.00-0.031); Immature Granulocyte Percent A 0.4 % (0-0.5); Lymphocytes Absolute Auto 0.61 K/mm3 (0.9-3.2); Lymphocytes Percent Auto 7.2 % (18.3-44.2); Mean Corpuscular HGB Conc 31.3 g/dl (32-36); Mean Corpuscular Hemoglobin 24.9 pg (26-34); Mean Corpuscular Volume 79.8 fl (80-100); Mean Platelet Volume 11.7 fl (7.4-10.4); Monocytes Absolute Auto 0.7 K/mm3 (0.1-0.6); Monocytes Percent Auto 7.9 % (2.6-8.5); Neutrophils Absolute Auto 6.7 K/mm3 (1.3-6.7); Neutrophils Percent Auto 79.1 % (45.5-73.1); Platelet Count Result 207 k/mm3 (150-375); Red Blood Count 4.01 M/mm3 (4.6-6.20); Red Cell Distribution Width 15.9 % (11.5-14.5); White Blood Count 8.5 K/mm3 (4.5-10.0)
[2022-10-31 19:17] LABS: Alanine Aminotransferase 18 U/L (6-50); Albumin Level 3.7 g/dL (3.5-5.1); Alkaline Phosphatase 127 U/L (38-126); Anion Gap 6 mmol/L (8-16); Aspartate Amino Transferase 29 U/L (17-59); Bilirubin,Total 0.4 mg/dL (0.2-1.3); Blood Urea Nitrogen 21 mg/dL (9-20); Calcium 8.8 mg/dL (8.4-10.2); Carbon Dioxide 29 mmol/L (22-30); Chloride 106 mmol/L (98-107); Estimated CRCL calculation 38 ml/min; Estimated Glomerular Filt Rate 38; Glucose 167 mg/dL (65-110); Potassium 4.2 mmol/L (3.4-5.0); Sodium 141 mmol/L (137-145)
--- NOTE | 2022-10-31 19:23 | ED.WEAKNESS ---
HPI - Weakness General Chief complaint: Weakness Stated complaint: generalized weaknessx 3 months fallx2 today Time Seen by Provider: 10/31/22 18:52 History of Present Illness HPI Narrative: 67-year-ol patient with history of CVA, A-fib, presents with fall. He has history of multiple falls, he states that over the last year, he has felt rubbery and he does use a walker at home. He is here today because he fell twice today, landed on outstretched hands. Denies any head trauma or pain anywhere other than slightly to his right wrist where he landed. Unable to be on blood thinners due to prior hemorrhagic stroke. Related Data Home Medications Medication Instructions Recorded Confirmed atorvastatin 40 mg tablet 80 mg PO HS 03/24/19 09/11/22 carvedilol 25 mg tablet 25 mg PO Q12H 03/24/19 09/11/22 levothyroxine 125 mcg tablet 125 mcg PO DAILY 03/24/19 09/11/22 dulaglutide 1.5 mg/0.5 mL 1.5 mg subcut WEEKLY 01/20/22 09/11/22 subcutaneous pen injector (Trulicity) aspirin 81 mg chewable tablet 81 mg PO HS 02/17/22 09/11/22 escitalopram oxalate 20 mg tablet 20 mg PO DAILY 02/17/22 09/11/22 ferrous sulfate 325 mg (65 mg 325 mg PO EVERY OTHER DAY 02/17/22 09/11/22 iron) tablet lisinopril 30 mg tablet 30 mg PO DAILY 02/17/22 09/11/22 oxycodone-acetaminophen 5 mg-325 1 - 2 tablet PO Q6H PRN Pain 02/17/22 09/11/22 mg tablet (Scale Score 7-10) gabapentin 300 mg capsule 300 mg PO TID 09/05/22 09/11/22 amlodipine 10 mg tablet 10 mg PO DAILY 09/11/22 09/11/22 aripiprazole 2 mg tablet 2 mg PO DAILY 09/11/22 09/11/22 ondansetron HCl 8 mg tablet 8 mg PO TID PRN Nausea And Vomiting 09/11/22 09/11/22 potassium chloride 10 mEq 10 meq PO DAILY 09/11/22 09/11/22 tablet,extended release Allergies Allergy/AdvReac Type Severity Reaction Status Date / Time Gadolinium-Containing Allergy Unknown Vomiting Verified 10/18/22 10:28 Contrast Medi ioversol Allergy Unknown Vomiting Verified 10/18/22 10:28 [facility] Past Medical History Medical History Anemia Atrial fibrillation/flutter Paroxysmal, history of DC cardioversion 2013, no longer on anticoagulation due to history of intercranial bleed CAD (coronary artery disease) (~2006) The patient had 3 cardiac stents placed between 2005 and 2012. He had a CABG in 2012 with a Saint Aleksey's ring placed on the mitral valve Cerebral arteriovenous malformation (AVM) Evaluated at [place] in 1991 and 1997. He had bleeding from the AVM prior to 2005 CHF (congestive heart failure) Echocardiogram 07/2013: Left ventricular hypertrophy with mild dilatation, severe septal hypokinesis, EF 55-60, diastolic dysfunction, dilated left atrium Prior diagnosis of dilated cardiomyopathy CVA (cerebral vascular accident) (~2014) Hemorrhagic CVA 2013. MRI brain 07/2020 performed due to ataxia: Chronic ill-defined mass in the right temporal lobe consistent with AV malformation, chronic encephalomalacia with old blood product in the right temporal lobe and adjacent right insula and right lentiform nucleus, old lacunar infarct in the left caudate nucleus, moderate nonspecific cerebral white matter disease likely representing chronic small-vessel ischemic disease Depression Diabetes mellitus (~2002) uncontrolled with hemoglobin A1c 10.6 01/20/2022 Diabetic nephropathy with proteinuria Diabetic peripheral neuropathy ESR raised HTN (hypertension) Hypothyroidism (~2009) Myocardial infarction Obstructive sleep apnea Polysomnogram 2013: Moderate obstructive sleep apnea improved with CPAP of 6 Rheumatoid arthritis Seizure disorder Surgical History Surgical History History of appendectomy Hx of CABG (~2013) 3 vessel CABG with placement of a Saint Aleksey's ring on the mitral valve Family History Family History Other Cerebrovascular accident Depression Diabetes mellitus Family
[2022-10-31 20:17] VITALS: BP 153/64; PULSE 60; RESP 12; O2SAT 99
[2022-10-31 21:41] LABS: Appearance Urine Clear (Clear); Bacteria Urine None Seen /hpf; Bilirubin Urine Negative (Negative); Blood Urine Negative (Negative); Color Urine Yellow (Yellow); Glucose Urine UA 1+ mg/dL (Negative); Ketones Urine Negative (Negative); Leukocyte Esterase Ur Negative LEU/UL (Negative); Need Manual Microscopic Reviewed; Nitrate Urine Negative (Negative); Non Pathogenic Casts >20; Protein Urine 3+ mg/dL (Negative); RBC Urine 0-2 /hpf (0-2); Specific Grav Ur 1.019 (1.001-1.035); Squamous Epithelial Cell Urine None seen /hpf (Few); WBC Urine 0-5 /hpf
[2022-10-31 21:42] LABS: Add Urine Microscopic? YES
[2022-10-31 23:07] VITALS: BP 156/62; PULSE 60; RESP 12; TEMP 36.7; O2SAT 96
--- NOTE | 2022-10-31 23:48 | PC.NURSE ---
Contacted the patient's life partner who said he will come get the patient.
[2022-11-01 00:44] VITALS: BP 159/67; PULSE 61; RESP 12; TEMP 36.6; O2SAT 97
== END 2022-11-01 00:45 | disposition home or self-care (01) ==
PROVIDERS: Emergency Medicine; Emergency Provider Emergency Medicine; PCP Family Medicine
DX: M25.531 Pain in right wrist (principal); I48.91 Unspecified atrial fibrillation; I25.10 Atherosclerotic heart disease of native coronary artery without angina pectoris; I11.0 Hypertensive heart disease with heart failure; I50.9 Heart failure, unspecified; I25.2 Old myocardial infarction; Z86.73 Personal history of transient ischemic attack (TIA), and cerebral infarction without residual deficits; Z87.891 Personal history of nicotine dependence; W19.XXXA Unspecified fall, initial encounter
CPT/HCPCS: 36415; 71046; 73110; 80053; 81001; 85025; 93005; 99284

== ENCOUNTER 2022-11-14 20:06 | Inpatient (IN) | payer MEDICARE, MEDICAID, SELFPAY ==
--- NOTE | ~2022-11-14 | XR_ITS ---
Portable chest x-ray Comparison: 11/14/2022 Clinical History: PICC line placement Findings: Right-sided PICC line is present, tip in the SVC. Possible minimal pulmonary edema pattern . Probable small left pleural effusion. Cardiomediastinal silhouette is stable status post mitral va lve replacement. Bones and soft tissues are unremarkable. Impression: Right-sided PICC line in satisfactory position. Old minimal pulmonary edema and small left pleural effusion. Status post mitral valve replacement. Reviewed, dictated and finalized at location . Impression: Right-sided PICC line in satisfactory position. Old minimal pulmonary edema and small left pleural effusion. Status post mitral valve replacement.
--- NOTE | ~2022-11-14 | US_ITS ---
EXAMINATION: US venous doppler [facility] DATE: 11/14/2022 21:32 INDICATION: Lower limb edema. TECHNIQUE: Grayscale ultrasound images without and with compression and Doppler ultrasound images of the bilateral lower extremity veins were obtained. COMPARISON: None. FINDINGS: The visualized portions of right common femoral vein, profunda (deep) femoral vein, femoral vein, pop liteal vein, peroneal veins, posterior tibial veins, and greater saphenous vein outflow are patent. The visualized portions of left common femoral vein, profunda femoral vein, femoral vein, popliteal v ein, peroneal veins, posterior tibial veins, and greater saphenous vein outflow are patent. IMPRESSION: 1. No deep venous thrombosis. Reviewed, dictated and finalized at location E.
--- NOTE | ~2022-11-14 | XR_ITS ---
EXAMINATION: XR chest 1V DATE: 11/14/2022 20:49 INDICATION: Congestive heart failure. TECHNIQUE: A single frontal view of the chest was obtained. COMPARISON: Chest 2 views 10/31/2022 FINDINGS: There is a small left pleural effusion. There are airspace opacities at left lung base. No pneumothorax. Cardiomegaly is noted. There are changes of heart valve replacement. There is a closure device at left atrial appendage. IMPRESSION: 1. Stable small left pleural effusion. 2. Stable airspace opacities at left lung base, consistent with atelectasis versus pneumonia. 3. Cardiomegaly. Reviewed, dictated and finalized at location E. IMPRESSION: 1. Stable small left pleural effusion. 2. Stable airspace opacities at left lung base, consistent with atelectasis wilian deni pneumonia. 3. Cardiomegaly.
[2022-11-14 20:11] VITALS: BP 147/56; PULSE 59; RESP 20; TEMP 36.6; O2SAT 99
--- NOTE | 2022-11-14 20:14 | ECG_ITS ---
Measurements Intervals [place] Rate: 63 P: AR: 0 QRS: -6 QRSD: 106 T: 14 QT: 443 QTc: 457 Interpretive Statements ATRIAL FLUTTER/TACHYCARDIA WITH NORMAL VENTRICULAR RESPONSE DELAYED PRECORDIAL R/S TRANSITION LEFT VENTRICULAR HYPERTROPHY WITH ST-T CHANGE BORDERLINE T WAVE ABNORMALITY- INFERIOR LEADS BASELINE ARTIFACT- I, II, III, AVR, AVL, AVF, V1-V6 ABNORMAL ECG COMPARED TO ECG 10/31/2022 18:45:13 HEART RATE HAS INCREASED Electronically Signed On 11-14-2022 20:41:39 CDT by Gustavo Gavin D.O.
[2022-11-14 20:29] LABS: Basophils Absolute Auto 0.1 K/mm3 (0.0-0.1); Basophils Percent Auto 0.6 % (0.2-1.2); Eosinophils Absolute Auto 0.4 K/mm3 (0-0.3); Eosinophils Percent Auto 4.8 % (0-4.4); Hematocrit 31.9 % (42.0-52.0); Hemoglobin 9.8 g/dL (14.0-18.0); Immature Granulocyte Absolute 0.03 K/mm3 (0.00-0.031); Immature Granulocyte Percent A 0.4 % (0-0.5); Lymphocytes Absolute Auto 0.64 K/mm3 (0.9-3.2); Lymphocytes Percent Auto 8.1 % (18.3-44.2); Mean Corpuscular HGB Conc 30.7 g/dl (32-36); Mean Corpuscular Volume 81.4 fl (80-100); Monocytes Absolute Auto 0.6 K/mm3 (0.1-0.6); Monocytes Percent Auto 7.2 % (2.6-8.5); Neutrophils Absolute Auto 6.2 K/mm3 (1.3-6.7); Neutrophils Percent Auto 78.9 % (45.5-73.1); Platelet Count Result 225 k/mm3 (150-375); Red Blood Count 3.92 M/mm3 (4.6-6.20); Red Cell Distribution Width 16.6 % (11.5-14.5); White Blood Count 7.9 K/mm3 (4.5-10.0)
[2022-11-14 20:44] LABS: Alanine Aminotransferase 16 U/L (6-50); Albumin Level 3.9 g/dL (3.5-5.1); Alkaline Phosphatase 125 U/L (38-126); Anion Gap 5 mmol/L (8-16); Aspartate Amino Transferase 21 U/L (17-59); Bilirubin,Total 0.3 mg/dL (0.2-1.3); Blood Urea Nitrogen 34 mg/dL (9-20); Calcium 8.8 mg/dL (8.4-10.2); Carbon Dioxide 28 mmol/L (22-30); Chloride 107 mmol/L (98-107); Estimated CRCL calculation 40 ml/min; Estimated Glomerular Filt Rate 38; Glucose 214 mg/dL (65-110); Potassium 4.5 mmol/L (3.4-5.0); Sodium 140 mmol/L (137-145)
[2022-11-14 20:52] LABS: NT Pro B Type Natriuretic Pept 6890 pg/mL (19.9-100)
--- NOTE | 2022-11-14 21:06 | ED.GENADULT ---
HPI - General Adult General Chief complaint: Weakness <Ana Bautista PA-C - Last Filed: 11/14/22 22:54> Stated complaint: pedal edema, weakness <Ana Bautista PA-C - Last Filed: 11/14/22 22:54> Time Seen by Provider: 11/14/22 20:20 <Ana Bautista PA-C - Last Filed: 11/14/22 22:54> History of Present Illness HPI narrative: 67 y/o M with a history of CHF, atrial fibrillation/flutter, hypertension, hyperlipidemia, insulin-dependent type 2 diabetes, hemorrhagic CVA with left-sided deficits reports for evaluation for bilateral lower extremity edema worsening over the past few weeks. Patient states his lower extremities have been slowly becoming more edematous, however he came into the ED today due to inability to ambulate secondary to the edema. States he cannot walk because it feels like he is walking with tree trunks . He denies leg pain, chest pain or shortness of breath, abdominal pain, nausea or vomiting, fever, cough or congestion. He has been taking 80 mg of Lasix daily and has not missed any doses. He is not anticoagulated secondary to prior hemorrhagic CVA. <Ana Bautista PA-C - Last Filed: 11/14/22 22:54> Related Data Home medications: Home Medications Medication Instructions Recorded Confirmed atorvastatin 40 mg tablet 80 mg PO DAILY 03/24/19 11/15/22 carvedilol 25 mg tablet 25 mg PO Q12H 03/24/19 11/15/22 levothyroxine 125 mcg tablet 125 mcg PO DAILY 03/24/19 11/15/22 dulaglutide 1.5 mg/0.5 mL 1.5 mg subcut WEEKLY 01/20/22 11/15/22 [facility] aspirin 81 mg chewable tablet 81 mg PO DAILY 02/17/22 11/15/22 escitalopram oxalate 20 mg tablet 20 mg PO DAILY 02/17/22 11/15/22 lisinopril 30 mg tablet 30 mg PO DAILY 02/17/22 11/15/22 oxycodone-acetaminophen 5 mg-325 1 - 2 tablet PO Q6H PRN Pain 02/17/22 11/15/22 mg tablet gabapentin 300 mg capsule 300 mg PO TID 09/05/22 11/15/22 amlodipine 10 mg tablet 10 mg PO DAILY 09/11/22 11/15/22 aripiprazole 2 mg tablet 2 mg PO DAILY 09/11/22 11/15/22 potassium chloride 10 mEq 10 meq PO DAILY 09/11/22 11/15/22 tablet,extended release furosemide 40 mg tablet 40 mg PO BID 11/15/22 11/15/22 <Ana Bautista PA-C - Last Filed: 11/14/22 22:54> Allergies/adverse reactions: Allergies Allergy/AdvReac Type Severity Reaction Status Date / Time Gadolinium-Containing Allergy Unknown Vomiting Verified 10/18/22 10:28 Contrast Medi ioversol Allergy Unknown Vomiting Verified 10/18/22 10:28 <Ana Bautista PA-C - Last Filed: 11/14/22 22:54> Review of Systems Review of Systems: CONSTITUTIONAL: Denies fever, chills EYES: Denies visual changes, redness, or discharge. ENT: Denies rhinorrhea, congestion, sore throat, or otalgia. CARDIOVASCULAR: See HPI RESPIRATORY: Denies cough or dyspnea. GASTROINTESTINAL: Denies abdominal pain, nausea, vomiting, or diarrhea. GENITOURINARY: Denies dysuria or hematuria. SKIN: Denies rash or itching. MUSCULOSKELETAL: Denies back pain, joint pain, or myalgia. NEUROLOGIC: Denies headache, numbness, dizziness, or weakness. PSYCHIATRIC: Denies anxiety or depression. <Ana Bautista PA-C - Last Filed: 11/14/22 22:54> [facility] Past Medical History Medical History: Medical History (Updated 11/14/22 @ 23:51 by Debra Chamorro MD) Anemia Atrial fibrillation/flutter Paroxysmal, history of DC cardioversion 2013, no longer on anticoagulation due to history of intercranial bleed CAD (coronary artery disease) (~2006) The patient had 3 cardiac stents placed between 2005 and 2012. He had a CABG in 2012 with a Saint Aleksey's ring placed on the mitral valve Cerebral arteriovenous malformation (AVM) Evaluated at [place] in 1991 and 1997. He had bleeding from the AVM prior to 2005 CHF (congestive heart failure) Echocardiogram 07/2013: Left ventricular hypertrophy with mild dilatation, severe septal hypokinesis, EF 55-60, diastolic dysfunction, dilated left atrium P
[2022-11-14 21:19] LABS: Troponin I < 0.012 ng/mL (0.000-0.034)
[2022-11-14] MEDS: FUROSEMIDE INJ 40 MG/4 ML VIAL IV PUSH (22:10)
[2022-11-14 22:13] VITALS: BP 148/64; PULSE 60; RESP 15; O2SAT 100
[2022-11-14 22:22] LABS: Appearance Urine Clear (Clear); Bacteria Urine None Seen /hpf; Bilirubin Urine Negative (Negative); Blood Urine Negative (Negative); Color Urine Yellow (Yellow); Glucose Urine UA Trace mg/dL (Negative); Ketones Urine Negative (Negative); Leukocyte Esterase Ur Negative LEU/UL (Negative); Need Manual Microscopic Reviewed; Nitrate Urine Negative (Negative); Protein Urine 3+ mg/dL (Negative); RBC Urine 0-2 /hpf (0-2); Specific Grav Ur 1.015 (1.001-1.035); Squamous Epithelial Cell Urine None seen /hpf (Few); WBC Urine 0-5 /hpf
[2022-11-14 22:24] LABS: Add Urine Microscopic? YES
--- NOTE | 2022-11-14 23:07 | PM.IMHP ---
H&P: HPI History of Present Illness Date/Time: 11/14/22 23:07 Chief Complaint: Worsening bilateral lower extremity Narrative: This is a 67-year-old male with past medical history significant for congestive heart failure, chronic kidney disease, type 2 diabetes mellitus, peripheral neuropathy, atrial fibrillation, obstructive sleep apnea, rheumatoid arthritis. Patient presents to the emergency room due to worsening bilateral lower extremity has become difficult for him to ambulate he usually uses a Rollator walker. Patient denies any falls, no shortness of breath, no cough, no sputum production, no fevers, no rigors, no chills, no chest pain, no palpitations, no nausea, no vomiting no abdominal pain, no diarrhea. Preliminary workup was significant for BNP upwards 6000, a chest x-ray was significant for infiltrates. EXAMINATION: US venous doppler LE BI DATE: 11/14/2022 21:32 INDICATION: Lower limb edema. TECHNIQUE: Grayscale ultrasound images without and with compression and Doppler ultrasound images of the bilateral lower extremity veins were obtained. COMPARISON: None. FINDINGS: The visualized portions of right common femoral vein, profunda (deep) femoral vein, femoral vein, popliteal vein, peroneal veins, posterior tibial veins, and greater saphenous vein outflow are patent. The visualized portions of left common femoral vein, profunda femoral vein, femoral vein, popliteal vein, peroneal veins, posterior tibial veins, and greater saphenous vein outflow are patent. IMPRESSION: 1.? No deep venous thrombosis. EXAMINATION: XR chest 1V DATE: 11/14/2022 20:49 INDICATION: Congestive heart failure. TECHNIQUE: A single frontal view of the chest was obtained. COMPARISON: Chest 2 views 10/31/2022 FINDINGS: There is a small left pleural effusion. There are airspace opacities at left lung base. No pneumothorax. Cardiomegaly is noted. There are changes of heart valve replacement. There is a closure device at left atrial appendage. IMPRESSION: 1. Stable small left pleural effusion. 2. Stable airspace opacities at left lung base, consistent with atelectasis versus pneumonia. 3. Cardiomegaly. PATIENT IS BEING ADMITTED FOR FURTHER EVALUATION MANAGEMENT AND TREATMENT. Review of Systems Review of Systems: Worsening bilateral lower extremity edema, difficulty ambulating. Constitutional: Constitutional: Denies chills, Denies fatigue, Denies fever(s), Denies frequent falls, Denies malaise, Denies poor appetite and Denies weakness Eyes: Eyes: Denies change in vision ENT: Denies dysphagia and Denies odynophagia Cardiovascular: Cardiovascular: Denies chest pain, Reports leg edema, Denies radiating jaw, neck or arm pain, Denies palpitations, Denies dyspnea on exertion, Denies orthopnea and Denies paroxysmal nocturnal dyspnea Respiratory: Respiratory: Denies chest congestion, Denies cough and Denies excessive phlegm production Gastrointestinal: Gastrointestinal: Denies abdominal pain, Denies dyspepsia, Denies heartburn, Denies diarrhea, Denies nausea and Denies vomiting Genitourinary: Genitourinary: Denies dysuria Musculoskeletal: Musculoskeletal: Denies back pain and Denies myalgias Integumentary/Breasts: Skin/Breast: Denies rash Neurologic: Denies focal weakness and Denies Sensory deficit (Neuro) Psychiatric: Psychiatric: Reports no additional psychiatric complaints and Reports as per HPI Endocrine: Endocrine: Denies cold intolerance, Denies flushing, Denies heat intolerance, Denies polyphagia, Denies polydipsia and Denies palpitations Hematologic/Lymphatic: Hematologic/Lymphatic: Reports no additional hematologic/lymphatic complaints and Reports as per HPI Allergic/Immunologic: Allergic/Immunologic: Reports no additional allergic/immunologic complaints and Reports as per HPI PMFSH Past Medical History Medical History (Updated 11/14/22 @ 23:51 by Debra Chamorro MD) Anemia Atrial fibrillation/flutter Paroxysma
[2022-11-15] VITALS (12 sets, daily range): BP systolic 140–173; BP diastolic 57–88; PULSE 55–78; RESP 16–18; TEMP 35.5–36.8; O2SAT 97–100
[2022-11-15] MEDS: VANCOMYCIN 1,250 MG/NS 250 ML 1,250 MG/250 ML BAG 166.67 MG IVPB ×2 (00:07→02:08)
[2022-11-15] MEDS: AZITHROMYCIN 500 MG/NS 250 ML 500 MG/250 ML BAG 250 MG IVPB ×2 (00:07→20:45)
--- NOTE | 2022-11-15 01:52 | ADMGEN ---
This patient, Romero Davis, was admitted to Medical Room 341-01 at 0045. Patient/family oriented to hospital policies and general routines including ID bracelet, bed and alarms, visiting hours, pain management, procedures, bathroom and other care routines, personal items, smoking policy, room service/diet, and visiting hours. Information on how to activate the Rapid Response Team has been discussed. Patient/Family are encouraged to report perceived risks to care and to ask questions if they do not understand what they are told or what they should do.
[2022-11-15 02:26] LABS: Glucose Point of Care 115 mg/dl (65-105)
[2022-11-15 06:44] LABS: Estimated CRCL calculation 42 ml/min; Estimated Glomerular Filt Rate 40
[2022-11-15 08:17] LABS: Glucose Point of Care 98 mg/dl (65-105)
[2022-11-15] MEDS: FUROSEMIDE INJ 40 MG/4 ML VIAL IV PUSH ×2 (09:06→20:45)
[2022-11-15 12:17] LABS: Glucose Point of Care 191 mg/dl (65-105)
--- NOTE | 2022-11-15 13:26 | PM.IMPN ---
Progress Note: A&P Assessment and Plan (1) Acute exacerbation of CHF (congestive heart failure): Qualifiers: Heart failure type: combined systolic and diastolic Qualified Code(s): I50.43 - Acute on chronic combined systolic (congestive) and diastolic (congestive) heart failure Code(s): I50.9 - Heart failure, unspecified Status: Acute Assessment and Plan: Admit to IMU Aggressive diuresis Daily intake and output Daily weights Free water restriction Supportive care Continue to monitor (2) Lung infiltrate: Code(s): R91.8 - Other nonspecific abnormal finding of lung field Status: Acute Assessment and Plan: Patient started on vancomycin cefepime and Zithromax Recent admission and discharge from the hospital Cultures in progress (3) CAD (coronary artery disease): Onset Date: ~2006 Code(s): I25.10 - Atherosclerotic heart disease of [place] coronary artery without angina pectoris Status: Acute Assessment and Plan: Chest pain-free Continue home meds Continue to monitor (4) Unstable gait: Code(s): R26.81 - Unsteadiness on feet Status: Acute Assessment and Plan: PT OT Up with assistance (5) Chronic renal failure (CRF), stage 3 (moderate): Code(s): N18.30 - Chronic kidney disease, stage 3 unspecified Status: Chronic Assessment and Plan: Continue to monitor BUN and creatinine Daily BMP (6) Obstructive sleep apnea: Code(s): G47.33 - Obstructive sleep apnea (adult) (pediatric) Status: Acute Assessment and Plan: Continue CPAP (7) Rheumatoid arthritis without rheumatoid factor, multiple sites: Code(s): M06.09 - Rheumatoid arthritis without rheumatoid factor, multiple sites Status: Chronic Assessment and Plan: Continue hydroxychloroquine (8) Paroxysmal A-fib: Code(s): I48.0 - Paroxysmal atrial fibrillation Status: Chronic Assessment and Plan: Rate controlled Plan 11/15/2022: 67-year-old with past medical history of CHF atrial fibrillation/flutter hypertension hyperlipidemia 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 Was not able to ambulate because of edema. He takes Lasix regularly has not missed a dose. Not on anticoagulation secondary to prior hemorrhagic CVA. He has underlying CKD stage 3 peripheral neuropathy obstructive sleep apnea rheumatoid arthritis. Workup with BNP more than 6000. History of ligation of the left atrial appendage. Combined systolic and diastolic congestive heart failure. 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 Diabetic neuropathy. History of cardioversion in 2013. Coronary artery disease status post stents in 2005 and 2012. Status post CABG in 2012. Saint Aleksey string placed in mitral valve/seizure disorder. Obstructive sleep apnea on CPAP. Subjective Date/time seen: 11/15/22 13:26 Interval history: 67-year-old with past medical history of CHF atrial fibrillation/flutter hypertension hyperlipidemia 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 Was not able to ambulate because of edema. He takes Lasix regularly has not missed a dose. Not on anticoagulation secondary to prior hemorrhagic CVA. He has underlying CKD stage 3 peripheral neuropathy obstructive sleep apnea rheumatoid arthritis. Workup with BNP more than 6000. History of ligation of the left atrial appendage. Combined systolic and diastolic congestive heart failure. 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 Diabetic neuropathy. History of cardioversion in 2013. Coronary artery disease status post stents in 2005 and
[2022-11-15 16:13] LABS: Hemoglobin A1C 7.5 % (<5.7)
[2022-11-15 17:02] LABS: Glucose Point of Care 192 mg/dl (65-105)
[2022-11-15 23:22] LABS: Glucose Point of Care 197 mg/dl (65-105)
[2022-11-16] VITALS (12 sets, daily range): BP systolic 136–166; BP diastolic 56–67; PULSE 58–79; RESP 16–18; TEMP 36.6–36.9; O2SAT 96–100
[2022-11-16 06:15] LABS: Basophils Absolute Auto 0.1 K/mm3 (0.0-0.1); Basophils Percent Auto 0.8 % (0.2-1.2); Eosinophils Absolute Auto 0.6 K/mm3 (0-0.3); Eosinophils Percent Auto 7.4 % (0-4.4); Hematocrit 30.9 % (42.0-52.0); Hemoglobin 9.7 g/dL (14.0-18.0); Immature Granulocyte Absolute 0.02 K/mm3 (0.00-0.031); Immature Granulocyte Percent A 0.3 % (0-0.5); Lymphocytes Absolute Auto 0.73 K/mm3 (0.9-3.2); Lymphocytes Percent Auto 9.7 % (18.3-44.2); Mean Corpuscular HGB Conc 31.4 g/dl (32-36); Mean Corpuscular Volume 79.6 fl (80-100); Mean Platelet Volume 11.8 fl (7.4-10.4); Monocytes Absolute Auto 0.9 K/mm3 (0.1-0.6); Monocytes Percent Auto 11.5 % (2.6-8.5); Neutrophils Absolute Auto 5.3 K/mm3 (1.3-6.7); Neutrophils Percent Auto 70.3 % (45.5-73.1); Platelet Count Result 224 k/mm3 (150-375); Red Blood Count 3.88 M/mm3 (4.6-6.20); White Blood Count 7.6 K/mm3 (4.5-10.0)
[2022-11-16 06:25] LABS: Alanine Aminotransferase 15 U/L (6-50); Albumin Level 3.2 g/dL (3.5-5.1); Alkaline Phosphatase 97 U/L (38-126); Anion Gap 6 mmol/L (8-16); Aspartate Amino Transferase 20 U/L (17-59); Bilirubin,Total 0.3 mg/dL (0.2-1.3); Blood Urea Nitrogen 29 mg/dL (9-20); Calcium 8.6 mg/dL (8.4-10.2); Carbon Dioxide 30 mmol/L (22-30); Chloride 102 mmol/L (98-107); Estimated CRCL calculation 45 ml/min; Estimated Glomerular Filt Rate 43; Glucose 113 mg/dL (65-110); Magnesium 1.9 mg/dL (1.6-2.3); Potassium 3.4 mmol/L (3.4-5.0); Sodium 138 mmol/L (137-145)
[2022-11-16 08:02] LABS: Glucose Point of Care 124 mg/dl (65-105)
[2022-11-16] MEDS: FUROSEMIDE INJ 40 MG/4 ML VIAL IV PUSH ×2 (09:03→21:08)
--- NOTE | 2022-11-16 11:54 | PM.IMPN ---
Progress Note: A&P Assessment and Plan (1) Acute exacerbation of CHF (congestive heart failure): Qualifiers: Heart failure type: combined systolic and diastolic Qualified Code(s): I50.43 - Acute on chronic combined systolic (congestive) and diastolic (congestive) heart failure Code(s): I50.9 - Heart failure, unspecified Status: Acute (2) Lung infiltrate: Code(s): R91.8 - Other nonspecific abnormal finding of lung field Status: Acute (3) CAD (coronary artery disease): Onset Date: ~2006 Code(s): I25.10 - Atherosclerotic heart disease of [place] coronary artery without angina pectoris Status: Acute (4) Unstable gait: Code(s): R26.81 - Unsteadiness on feet Status: Acute (5) Chronic renal failure (CRF), stage 3 (moderate): Code(s): N18.30 - Chronic kidney disease, stage 3 unspecified Status: Chronic (6) Obstructive sleep apnea: Code(s): G47.33 - Obstructive sleep apnea (adult) (pediatric) Status: Acute (7) Rheumatoid arthritis without rheumatoid factor, multiple sites: Code(s): M06.09 - Rheumatoid arthritis without rheumatoid factor, multiple sites Status: Chronic (8) Paroxysmal A-fib: Code(s): I48.0 - Paroxysmal atrial fibrillation Status: Chronic Plan 11/15/2022: 67-year-old with past medical history of CHF atrial fibrillation/flutter hypertension hyperlipidemia 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 Was not able to ambulate because of edema. He takes Lasix regularly has not missed a dose. Not on anticoagulation secondary to prior hemorrhagic CVA. He has underlying CKD stage 3 peripheral neuropathy obstructive sleep apnea rheumatoid arthritis. Workup with BNP more than 6000. History of ligation of the left atrial appendage. Combined systolic and diastolic congestive heart failure. 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 Diabetic neuropathy. History of cardioversion in 2013. Coronary artery disease status post stents in 2005 and 2012. Status post CABG in 2012. Saint Aleksey string placed in mitral valve/seizure disorder. Obstructive sleep apnea on CPAP. 11/16/2022: 67-year-old with past medical history of CHF atrial fibrillation/flutter hypertension hyperlipidemia 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 Was not able to ambulate because of edema. He takes Lasix regularly has not missed a dose. Not on anticoagulation secondary to prior hemorrhagic CVA. He has underlying CKD stage 3 peripheral neuropathy obstructive sleep apnea rheumatoid arthritis. Workup with BNP more than 6000. History of ligation of the left atrial appendage. Combined systolic and diastolic congestive heart failure. 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 Diabetic neuropathy. History of cardioversion in 2013. Coronary artery disease status post stents in 2005 and 2012. Status post CABG in 2012. Saint Aleksey string placed in mitral valve/seizure disorder. Obstructive sleep apnea on CPAP. Renal failure stable. Continue IV diuresis as ordered. Will stop vancomycin IV Subjective Date/time seen: 11/16/22 11:54 Interval history: 67-year-old with past medical history of CHF atrial fibrillation/flutter hypertension hyperlipidemia 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 Was not able to ambulate because of edema. He takes Lasix regularly has not missed a dose. Not on anticoagulation secondary to prior hemorrhagic CVA. He has underlying CKD stage 3 peripheral neuropathy obst
[2022-11-16 12:07] LABS: Glucose Point of Care 183 mg/dl (65-105)
[2022-11-16] MEDS: INSULIN ASPART (*BKC) 100 UNITS/ML SUB-Q ×2 (12:59→17:39)
[2022-11-16] MEDS: HYDROXYCHLOROQUINE SULFATE 200 MG TABLET 400 MG PO (13:02)
[2022-11-16] MEDS: ARIPiprazole 2 MG TABLET PO ×2 (13:02→13:06)
[2022-11-16] MEDS: lisinopriL 10 MG TABLET 30 MG PO (13:05)
[2022-11-16] MEDS: GABAPENTIN 300 MG CAPSULE PO ×2 (13:06→17:38)
[2022-11-16] MEDS: ASPIRIN 81 MG CHEWABLE TABLET PO (13:06)
[2022-11-16 14:41] LABS: Glucose Point of Care 146 mg/dl (65-105)
[2022-11-16 17:15] LABS: Glucose Point of Care 172 mg/dl (65-105)
[2022-11-16 20:47] LABS: Glucose Point of Care 140 mg/dl (65-105)
[2022-11-16] MEDS: AZITHROMYCIN 500 MG/NS 250 ML 500 MG/250 ML BAG 250 MG IVPB (21:07)
[2022-11-16] MEDS: carvediloL 25 MG TABLET PO (21:13)
[2022-11-17] VITALS (12 sets, daily range): BP systolic 141–170; BP diastolic 64–68; PULSE 53–79; RESP 16–20; TEMP 36.5–37.1; O2SAT 98–100
--- NOTE | 2022-11-17 | ECHOL_ITS ---
Patient Info Name: Romero Davis Age: 67 years : 1955 Gender: Male Ht: 66 in Wt: 233 lbs BSA: 2.27 m2 HR: 57 bpm BP: 170 / 68 mmHg Technical Quality: Good Exam Date: 11/17/2022 3:22 PM Site Location: 68 Exam Location: [facility] Patient Status: Inpatient Admit Date: 11/16/2022 Staff Ordering Physician: Clinton Barakat MD [employer] Operator: Ruby Unger RDCS Attending Provider: Debra Chamorro MD Exam Type: CA echo limited Study Info Indications - BACTEREMIA - CHECK VALVES R/O VEGETATIONS Limited two-dimensional transthoracic echocardiogram is performed. Summary 1. Limited echo performed in the setting of CHF and bacteremia. Mild LV enlargement, moderate LVH, moderate global LV systolic dysfunction, ejection fraction about 35-40%. Moderate to severe left atrial enlargement. Mitral valve annuloplasty with trivial to mild residual mitral regurgitation. Normal aortic, tricuspid valve structure. Consider SHOAIB if clinical suspicion of endocarditis. Left Ventricle Left ventricular chamber dimension is mildly enlarged. Left ventricular systolic function is moderately reduced, estimated at 35-40%. There is moderately increased left ventricular wall thickness. Right Ventricle Right ventricular chamber dimension is normal. Right ventricular systolic function is normal. Left Atria Left atrial chamber dimension is moderately enlarged. Right Atria Right atrial chamber dimension is normal. Aortic Valve The aortic valve is normal. There is no aortic valve stenosis. Pulmonic Valve The pulmonic valve is normal. Mitral Valve There is mild regurgitation of the annuloplasty ring prosthetic mitral valve. Tricuspid Valve The tricuspid valve leaflets are normal. Pericardium/Pleural The pericardium appears normal. Aorta The aortic root size at the sinus of Valsalva is normal. Report Signatures
[2022-11-17 00:08] LABS: Vancomycin Trough 18.6 ug/mL (10.0-20.0)
[2022-11-17] MEDS: LEVOTHYROXINE SODIUM 125 MCG TABLET PO (05:51)
[2022-11-17 06:03] LABS: Basophils Absolute Auto 0.1 K/mm3 (0.0-0.1); Basophils Percent Auto 0.6 % (0.2-1.2); Eosinophils Absolute Auto 0.5 K/mm3 (0-0.3); Eosinophils Percent Auto 5.6 % (0-4.4); Hematocrit 31.7 % (42.0-52.0); Hemoglobin 10.1 g/dL (14.0-18.0); Immature Granulocyte Absolute 0.02 K/mm3 (0.00-0.031); Immature Granulocyte Percent A 0.2 % (0-0.5); Lymphocytes Absolute Auto 0.93 K/mm3 (0.9-3.2); Lymphocytes Percent Auto 10.8 % (18.3-44.2); Mean Corpuscular HGB Conc 31.9 g/dl (32-36); Mean Corpuscular Hemoglobin 25.4 pg (26-34); Mean Corpuscular Volume 79.6 fl (80-100); Mean Platelet Volume 11.6 fl (7.4-10.4); Monocytes Absolute Auto 1.1 K/mm3 (0.1-0.6); Monocytes Percent Auto 12.5 % (2.6-8.5); Neutrophils Percent Auto 70.3 % (45.5-73.1); Platelet Count Result 222 k/mm3 (150-375); Red Blood Count 3.98 M/mm3 (4.6-6.20); Red Cell Distribution Width 15.9 % (11.5-14.5); White Blood Count 8.6 K/mm3 (4.5-10.0)
[2022-11-17 06:23] LABS: Alanine Aminotransferase 14 U/L (6-50); Albumin Level 3.5 g/dL (3.5-5.1); Alkaline Phosphatase 106 U/L (38-126); Anion Gap 6 mmol/L (8-16); Aspartate Amino Transferase 18 U/L (17-59); Bilirubin,Total 0.3 mg/dL (0.2-1.3); Blood Urea Nitrogen 27 mg/dL (9-20); Calcium 8.7 mg/dL (8.4-10.2); Carbon Dioxide 28 mmol/L (22-30); Chloride 103 mmol/L (98-107); Estimated CRCL calculation 42 ml/min; Estimated Glomerular Filt Rate 40; Glucose 111 mg/dL (65-110); Potassium 3.1 mmol/L (3.4-5.0); Sodium 137 mmol/L (137-145)
[2022-11-17 08:13] LABS: Glucose Point of Care 115 mg/dl (65-105)
[2022-11-17] MEDS: lisinopriL 10 MG TABLET 30 MG PO (08:58)
[2022-11-17] MEDS: ASPIRIN 81 MG CHEWABLE TABLET PO (08:58)
[2022-11-17] MEDS: POTASSIUM CHLORIDE 10 MEQ ER TABLET PO (08:58)
[2022-11-17] MEDS: ESCITALOPRAM OXALATE 10 MG TABLET 20 MG PO (08:58)
[2022-11-17] MEDS: ATORVASTATIN 40 MG TABLET 80 MG PO (08:59)
[2022-11-17] MEDS: HYDROXYCHLOROQUINE SULFATE 200 MG TABLET 400 MG PO (08:59)
[2022-11-17] MEDS: carvediloL 25 MG TABLET PO ×2 (08:59→20:47)
[2022-11-17] MEDS: amLODIPine BESYLATE 5 MG TABLET 10 MG PO (08:59)
[2022-11-17] MEDS: GABAPENTIN 300 MG CAPSULE PO ×3 (09:00→17:02)
[2022-11-17] MEDS: FUROSEMIDE 20 MG TABLET 60 MG PO ×2 (09:00→17:02)
[2022-11-17] MEDS: INSULIN ASPART (*BKC) 100 UNITS/ML SUB-Q ×3 (09:02→17:52)
[2022-11-17] MEDS: POTASSIUM CHLORIDE 20 MEQ ER TABLET 40 MEQ PO (09:05)
[2022-11-17 12:17] LABS: Glucose Point of Care 161 mg/dl (65-105)
--- NOTE | 2022-11-17 13:18 | PCPTNOTE ---
On 11/17/22, the student, NEVA Yeung, provided care and completed [facility] documentation on this patient. I have reviewed the student's documentation and agree with the findings.
--- NOTE | 2022-11-17 14:54 | PM.IMPN ---
Progress Note: A&P Assessment and Plan (1) Acute exacerbation of CHF (congestive heart failure): Qualifiers: Heart failure type: combined systolic and diastolic Qualified Code(s): I50.43 - Acute on chronic combined systolic (congestive) and diastolic (congestive) heart failure Code(s): I50.9 - Heart failure, unspecified Status: Acute (2) Lung infiltrate: Code(s): R91.8 - Other nonspecific abnormal finding of lung field Status: Acute (3) CAD (coronary artery disease): Onset Date: ~2006 Code(s): I25.10 - Atherosclerotic heart disease of [place] coronary artery without angina pectoris Status: Acute (4) Unstable gait: Code(s): R26.81 - Unsteadiness on feet Status: Acute (5) Chronic renal failure (CRF), stage 3 (moderate): Code(s): N18.30 - Chronic kidney disease, stage 3 unspecified Status: Chronic (6) Obstructive sleep apnea: Code(s): G47.33 - Obstructive sleep apnea (adult) (pediatric) Status: Acute (7) Rheumatoid arthritis without rheumatoid factor, multiple sites: Code(s): M06.09 - Rheumatoid arthritis without rheumatoid factor, multiple sites Status: Chronic (8) Paroxysmal A-fib: Code(s): I48.0 - Paroxysmal atrial fibrillation Status: Chronic Plan 11/15/2022: 67-year-old with past medical history of CHF atrial fibrillation/flutter hypertension hyperlipidemia 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 Was not able to ambulate because of edema. He takes Lasix regularly has not missed a dose. Not on anticoagulation secondary to prior hemorrhagic CVA. He has underlying CKD stage 3 peripheral neuropathy obstructive sleep apnea rheumatoid arthritis. Workup with BNP more than 6000. History of ligation of the left atrial appendage. Combined systolic and diastolic congestive heart failure. 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 Diabetic neuropathy. History of cardioversion in 2013. Coronary artery disease status post stents in 2005 and 2012. Status post CABG in 2012. Saint Aleksey string placed in mitral valve/seizure disorder. Obstructive sleep apnea on CPAP. 11/16/2022: 67-year-old with past medical history of CHF atrial fibrillation/flutter hypertension hyperlipidemia 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 Was not able to ambulate because of edema. He takes Lasix regularly has not missed a dose. Not on anticoagulation secondary to prior hemorrhagic CVA. He has underlying CKD stage 3 peripheral neuropathy obstructive sleep apnea rheumatoid arthritis. Workup with BNP more than 6000. History of ligation of the left atrial appendage. Combined systolic and diastolic congestive heart failure. 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 Diabetic neuropathy. History of cardioversion in 2013. Coronary artery disease status post stents in 2005 and 2012. Status post CABG in 2012. Saint Aleksey string placed in mitral valve/seizure disorder. Obstructive sleep apnea on CPAP. Renal failure stable. Continue IV diuresis as ordered. Will stop vancomycin IV 11/17/2022: 67-year-old with past medical history of CHF atrial fibrillation/flutter hypertension hyperlipidemia 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 Was not able to ambulate because of edema. He takes Lasix regularly has not missed a dose. Not on anticoagulation secondary to prior hemorrhagic CVA. He has underlying CKD stage 3 peripheral neuropathy obstructive sleep apnea rheumatoid arthritis. Workup with
[2022-11-17 17:29] LABS: Glucose Point of Care 194 mg/dl (65-105)
[2022-11-18] VITALS (10 sets, daily range): BP systolic 119–138; BP diastolic 59–69; PULSE 56–110; RESP 16–18; TEMP 36.8–36.9; O2SAT 98–100
[2022-11-18 06:01] LABS: Basophils Absolute Auto 0.1 K/mm3 (0.0-0.1); Basophils Percent Auto 0.6 % (0.2-1.2); Eosinophils Absolute Auto 0.4 K/mm3 (0-0.3); Eosinophils Percent Auto 4.5 % (0-4.4); Hemoglobin 9.6 g/dL (14.0-18.0); Immature Granulocyte Absolute 0.04 K/mm3 (0.00-0.031); Immature Granulocyte Percent A 0.5 % (0-0.5); Lymphocytes Absolute Auto 0.83 K/mm3 (0.9-3.2); Lymphocytes Percent Auto 10.2 % (18.3-44.2); Mean Corpuscular Volume 80.7 fl (80-100); Monocytes Absolute Auto 1.1 K/mm3 (0.1-0.6); Neutrophils Absolute Auto 5.8 K/mm3 (1.3-6.7); Neutrophils Percent Auto 71.2 % (45.5-73.1); Platelet Count Result 211 k/mm3 (150-375); Red Blood Count 3.84 M/mm3 (4.6-6.20); Red Cell Distribution Width 16.2 % (11.5-14.5); White Blood Count 8.2 K/mm3 (4.5-10.0)
[2022-11-18 06:07] LABS: Alanine Aminotransferase 15 U/L (6-50); Albumin Level 3.4 g/dL (3.5-5.1); Alkaline Phosphatase 94 U/L (38-126); Anion Gap 6 mmol/L (8-16); Aspartate Amino Transferase 20 U/L (17-59); Bilirubin,Total 0.4 mg/dL (0.2-1.3); Blood Urea Nitrogen 32 mg/dL (9-20); Calcium 8.6 mg/dL (8.4-10.2); Carbon Dioxide 28 mmol/L (22-30); Chloride 103 mmol/L (98-107); Estimated CRCL calculation 36 ml/min; Estimated Glomerular Filt Rate 33; Glucose 133 mg/dL (65-110); Magnesium 2.2 mg/dL (1.6-2.3); Potassium 3.4 mmol/L (3.4-5.0); Sodium 137 mmol/L (137-145)
[2022-11-18] MEDS: LEVOTHYROXINE SODIUM 125 MCG TABLET PO (06:51)
[2022-11-18 08:18] LABS: Glucose Point of Care 126 mg/dl (65-105)
[2022-11-18] MEDS: ATORVASTATIN 40 MG TABLET 80 MG PO (09:38)
[2022-11-18] MEDS: HYDROXYCHLOROQUINE SULFATE 200 MG TABLET 400 MG PO (09:38)
[2022-11-18] MEDS: ESCITALOPRAM OXALATE 10 MG TABLET 20 MG PO (09:38)
[2022-11-18] MEDS: ARIPiprazole 2 MG TABLET PO (09:38)
[2022-11-18] MEDS: GABAPENTIN 300 MG CAPSULE PO ×3 (09:39→17:42)
[2022-11-18] MEDS: carvediloL 25 MG TABLET PO ×2 (09:39→20:42)
[2022-11-18] MEDS: ASPIRIN 81 MG CHEWABLE TABLET PO (09:39)
[2022-11-18] MEDS: POTASSIUM CHLORIDE 10 MEQ ER TABLET PO (09:39)
[2022-11-18] MEDS: INSULIN ASPART (*BKC) 100 UNITS/ML SUB-Q ×3 (09:39→17:42)
[2022-11-18] MEDS: amLODIPine BESYLATE 5 MG TABLET 10 MG PO (09:39)
[2022-11-18 12:01] LABS: Glucose Point of Care 184 mg/dl (65-105)
[2022-11-18 12:26] LABS: Vancomycin Trough 19.7 ug/mL (10.0-20.0)
[2022-11-18 17:09] LABS: Glucose Point of Care 143 mg/dl (65-105)
[2022-11-18 21:10] LABS: Glucose Point of Care 142 mg/dl (65-105)
[2022-11-19 04:40] VITALS: BP 157/70; PULSE 55; RESP 18; TEMP 37; O2SAT 99
[2022-11-19] MEDS: LEVOTHYROXINE SODIUM 125 MCG TABLET PO (05:21)
[2022-11-19 05:54] LABS: Basophils Percent Auto 0.5 % (0.2-1.2); Eosinophils Absolute Auto 0.6 K/mm3 (0-0.3); Eosinophils Percent Auto 7.8 % (0-4.4); Hematocrit 28.9 % (42.0-52.0); Immature Granulocyte Absolute 0.02 K/mm3 (0.00-0.031); Immature Granulocyte Percent A 0.3 % (0-0.5); Lymphocytes Absolute Auto 0.82 K/mm3 (0.9-3.2); Lymphocytes Percent Auto 10.9 % (18.3-44.2); Mean Corpuscular HGB Conc 31.1 g/dl (32-36); Mean Corpuscular Volume 80.3 fl (80-100); Mean Platelet Volume 11.8 fl (7.4-10.4); Monocytes Percent Auto 12.6 % (2.6-8.5); Neutrophils Absolute Auto 5.1 K/mm3 (1.3-6.7); Neutrophils Percent Auto 67.9 % (45.5-73.1); Platelet Count Result 191 k/mm3 (150-375); Red Cell Distribution Width 15.9 % (11.5-14.5); White Blood Count 7.5 K/mm3 (4.5-10.0)
[2022-11-19 06:09] LABS: Alanine Aminotransferase 21 U/L (6-50); Albumin Level 3.2 g/dL (3.5-5.1); Alkaline Phosphatase 86 U/L (38-126); Anion Gap 7 mmol/L (8-16); Aspartate Amino Transferase 26 U/L (17-59); Bilirubin,Total 0.2 mg/dL (0.2-1.3); Blood Urea Nitrogen 41 mg/dL (9-20); Calcium 8.3 mg/dL (8.4-10.2); Carbon Dioxide 27 mmol/L (22-30); Chloride 103 mmol/L (98-107); Estimated CRCL calculation 35 ml/min; Estimated Glomerular Filt Rate 31; Glucose 137 mg/dL (65-110); Magnesium 2.3 mg/dL (1.6-2.3); Potassium 3.3 mmol/L (3.4-5.0); Sodium 137 mmol/L (137-145)
[2022-11-19 08:41] LABS: Glucose Point of Care 153 mg/dl (65-105)
[2022-11-19] MEDS: ASPIRIN 81 MG CHEWABLE TABLET PO (08:58)
[2022-11-19 08:59] VITALS: PULSE 68
[2022-11-19] MEDS: POTASSIUM CHLORIDE 10 MEQ ER TABLET PO (08:59)
[2022-11-19] MEDS: HYDROXYCHLOROQUINE SULFATE 200 MG TABLET 400 MG PO (08:59)
[2022-11-19] MEDS: carvediloL 25 MG TABLET PO ×2 (08:59→21:02)
[2022-11-19] MEDS: GABAPENTIN 300 MG CAPSULE PO ×3 (08:59→17:47)
[2022-11-19] MEDS: ARIPiprazole 2 MG TABLET PO (08:59)
[2022-11-19 09:00] VITALS: PULSE 68; RESP 18; O2SAT 99
[2022-11-19] MEDS: ATORVASTATIN 40 MG TABLET 80 MG PO (09:00)
[2022-11-19] MEDS: amLODIPine BESYLATE 5 MG TABLET 10 MG PO (09:00)
[2022-11-19] MEDS: ESCITALOPRAM OXALATE 10 MG TABLET 20 MG PO (09:01)
[2022-11-19] MEDS: INSULIN ASPART (*BKC) 100 UNITS/ML SUB-Q ×4 (09:01→17:48)
[2022-11-19 12:14] LABS: Glucose Point of Care 201 mg/dl (65-105)
[2022-11-19 12:22] LABS: Vancomycin Trough 22.1 ug/mL (10.0-20.0)
[2022-11-19 14:16] VITALS: BP 118/54; PULSE 56; RESP 18; TEMP 37; O2SAT 100
--- NOTE | 2022-11-19 15:39 | PM.IMPN ---
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 Was not able to ambulate because of edema. Saint Aleksey string placed in mitral valve/seizure disorder. He takes Lasix regularly has not missed a dose. Workup with BNP more than 6000. History of ligation of the left atrial appendage. Combined systolic and diastolic congestive heart failure. IV Lasix b.i.d. initiated. (2) CAD (coronary artery disease): Onset Date: ~2006 Code(s): I25.10 - Atherosclerotic heart disease of [place] coronary artery without angina pectoris Status: Acute Assessment and Plan: Coronary artery disease status post stents in 2005 and 2012. Status post CABG in 2013. (3) Unstable gait: Code(s): R26.81 - Unsteadiness on feet Status: Acute Assessment and Plan: Patient has history of CVA and has not had a stable gait since then. Gait worsened once his lower extremity edema began. (4) Chronic renal failure (CRF), stage 3 (moderate): Code(s): N18.30 - Chronic kidney disease, stage 3 unspecified Status: Chronic Assessment and Plan: Continue to monitor. (5) Obstructive sleep apnea: Code(s): G47.33 - Obstructive sleep apnea (adult) (pediatric) Status: Acute Assessment and Plan: CPAP provided if patient does not bring 1 from home. (6) Paroxysmal A-fib: Code(s): I48.0 - Paroxysmal atrial fibrillation Status: Chronic Assessment and Plan: Rate controlled. History of cardioversion in 2013. (7) Positive blood cultures: Code(s): R78.81 - Bacteremia Status: Acute Assessment and Plan: patient had blood cultures drawn on arrival. Blood cultures came back positive for MRSA and Staph epidermis. Vancomycin was started. Echocardiogram ( TTE ) see did not reveal any vegetations on his valves. Etiology of bacteremia is unknown. Given patient's history of mitral valve replacement Cardiology consulted for SHOAIB. Repeat blood cultures on 11/17/2022 No growth to date. He will need IV antibiotics at home. Will consult care coordination. Subjective Date/time seen: 11/19/22 15:39 Interval history: According to the nurse that has been with the patient for several days his lower extremity edema has massively improved. Patient does have chronic gait instability due to previous CVA. He has been working with PT and OT and he states that he is getting much better. His plans to continue working with PT and OT at home. I would like to rule out endocarditis before patient can be discharged. Cardiology consulted for SHOAIB. he will need IV antibiotics at home and care coordination will be consulted for this. Review of Systems Review of Systems: All systems reviewed & are unremarkable except as noted in HPI and below Exam Narrative: GENERAL: Comfortable, no acute distress HENMT: moist mucous membranes EYES: EOM intact b/l NECK: no lymphadenopathy RESPIRATORY: clear to auscultation CARDIO: Irregular rhythm rate controlled GI: soft, nontender, bowel sounds present SKIN: no rashes EXTREMITIES: no edema, redness or tenderness Objective Data Vital Signs Vital Signs: Vital Signs - 24 hr 11/18/22 16:00 11/18/22 20:38 11/18/22 20:42 Temperature 98.4 F Pulse Rate 56 L 57 L 57 L Respiratory Rate 16 Blood Pressure 119/69 Pulse Oxim
[2022-11-19 17:21] LABS: Glucose Point of Care 138 mg/dl (65-105)
[2022-11-19] MEDS: VANCOMYCIN 1,000 MG/NS 250 ML 1,000 MG/250 ML BAG 250 MG IVPB (17:47)
[2022-11-19 21:02] VITALS: BP 130/52; PULSE 55; RESP 16; TEMP 37.1; O2SAT 100
[2022-11-19] MEDS: diphenhydrAMINE HCl CAP 25 MG CAPSULE PO (21:02)
[2022-11-19 21:24] LABS: Glucose Point of Care 133 mg/dl (65-105)
[2022-11-20] VITALS (15 sets, daily range): BP systolic 137–178; BP diastolic 51–80; PULSE 54–77; RESP 12–20; TEMP 36.6–37.2; O2SAT 96–100
[2022-11-20] MEDS: diphenhydrAMINE HCl CAP 25 MG CAPSULE PO ×3 (01:01→18:07)
[2022-11-20] MEDS: LEVOTHYROXINE SODIUM 125 MCG TABLET PO (04:59)
[2022-11-20 05:52] LABS: Basophils Percent Auto 0.6 % (0.2-1.2); Eosinophils Absolute Auto 0.6 K/mm3 (0-0.3); Eosinophils Percent Auto 8.1 % (0-4.4); Hematocrit 27.6 % (42.0-52.0); Hemoglobin 8.7 g/dL (14.0-18.0); Immature Granulocyte Absolute 0.03 K/mm3 (0.00-0.031); Immature Granulocyte Percent A 0.4 % (0-0.5); Lymphocytes Absolute Auto 0.75 K/mm3 (0.9-3.2); Lymphocytes Percent Auto 10.6 % (18.3-44.2); Mean Corpuscular HGB Conc 31.5 g/dl (32-36); Mean Corpuscular Hemoglobin 25.2 pg (26-34); Mean Platelet Volume 11.4 fl (7.4-10.4); Monocytes Absolute Auto 0.8 K/mm3 (0.1-0.6); Monocytes Percent Auto 11.9 % (2.6-8.5); Neutrophils Absolute Auto 4.8 K/mm3 (1.3-6.7); Neutrophils Percent Auto 68.4 % (45.5-73.1); Platelet Count Result 185 k/mm3 (150-375); Red Blood Count 3.45 M/mm3 (4.6-6.20); White Blood Count 7.1 K/mm3 (4.5-10.0)
[2022-11-20 06:04] LABS: Alanine Aminotransferase 19 U/L (6-50); Albumin Level 3.2 g/dL (3.5-5.1); Alkaline Phosphatase 92 U/L (38-126); Anion Gap 5 mmol/L (8-16); Aspartate Amino Transferase 23 U/L (17-59); Bilirubin,Total 0.2 mg/dL (0.2-1.3); Blood Urea Nitrogen 39 mg/dL (9-20); Calcium 8.4 mg/dL (8.4-10.2); Carbon Dioxide 25 mmol/L (22-30); Chloride 108 mmol/L (98-107); Estimated CRCL calculation 35 ml/min; Estimated Glomerular Filt Rate 31; Glucose 99 mg/dL (65-110); Potassium 3.4 mmol/L (3.4-5.0); Sodium 138 mmol/L (137-145)
[2022-11-20 08:27] LABS: Glucose Point of Care 101 mg/dl (65-105)
--- NOTE | 2022-11-20 09:03 | PM.CNCAR ---
Assessment and Plan Assessment and plan (1) Positive blood cultures: Code(s): R78.81 - Bacteremia Status: Acute Assessment and Plan: Multiple cultures positive for Staph epidermidis. Reasonable given his previous cardiac history of valve replacement to pursue SHOAIB. Will keep NPO and schedule SHOAIB for later today. He has no contraindication to transesophageal echocardiogram. (2) CAD (coronary artery disease): Onset Date: ~2006 Code(s): I25.10 - Atherosclerotic heart disease of [place] coronary artery without angina pectoris Status: Acute Assessment and Plan: Continue aspirin, statin, carvedilol, lisinopril and encouraged compliance (3) CHF (congestive heart failure): Code(s): I50.9 - Heart failure, unspecified Status: Acute Assessment and Plan: Continue diuresis. Potassium is low and will replace with additional 40 mEq potassium chloride p.o. x1 (4) Ischemic cardiomyopathy: Code(s): I25.5 - Ischemic cardiomyopathy Status: Acute Assessment and Plan: Moderate by most recent echo with EF of 35-40% History of Present Illness History of Present Illness Consult date/time: 11/20/22 09:03 Requesting physician: Madai Allred PA-C Consult reason: Other (Bacteremia, evaluate for transesophageal echocardiogram) Reason For Visit: CHF exacerbation Narrative: Date of service 11/20/2022 Reason consultation: Bacteremia, evaluate for SHOAIB Requesting provider: Madai Allred History: Patient is a 67-year-old malewith coronary artery disease (history of NH in 2006, status post stenting and subsequent CABG in 2013 at a hospital in [place]).? He also has atrial fibrillation status post Maze procedure and ligation of left atrial appendage.? He is also status post mitral ring repair in 2013. Came to hospital because of shortness of breath. Blood cultures were also drawn which were positive for Staph epidermidis. These were multiple cultures however. Patient does have history of mitral ring is detailed above in due to bacteremia, transesophageal echocardiogram was ordered. Standard TTE was ordered as detailed below but with poor echocardiographic windows. No obvious vegetation was seen however. Patient does have LV dysfunction. He currently denies any chest pain, shortness of breath, syncope, presyncope, paroxysmal nocturnal dyspnea, orthopnea, palpitations. He did have significant lower extremity swelling whenever he was brought to the hospital but this has since improved with diuresis. His no trouble swallowing no history of GI bleeding. Review of Systems Review of Systems: All systems reviewed & are unremarkable except as noted in HPI and below Constitutional: Constitutional: Denies body ache(s) Eyes: Eyes: Denies blurry vision ENT: Reports Normal hearing present Cardiovascular: Cardiovascular: Denies chest pain and Reports leg edema Respiratory: Respiratory: Denies dyspnea Gastrointestinal: Gastrointestinal: Denies abdominal pain Genitourinary: Genitourinary: Denies hematuria Musculoskeletal: Musculoskeletal: Denies back pain Integumentary/Breasts: Skin/Breast: Denies skin pain Neurologic: Denies Abnormal speech present Psychiatric: Psychiatric: Denies behavioral changes Endocrine: Endocrine: Denies excessive sweating Hematologic/Lymphatic: Hematologic/Lymphatic: Denies easy bleeding Allergic/Immunologic: Allergic/Immunologic: Denies GI upset with certain foods PMFSH Past Medical History Medical History Anemia Atrial fibrillation/flutter Paroxysmal, history of [place] cardioversion 2013, no longer on anticoagulation due to history of intercranial bleed CAD (coronary artery disease) (~2006) The patient had 3 cardiac stents placed between 2005 and 2012. He had a CABG in 2012 with a Saint Aleksey's ring placed on the mitral valve Cerebral arteriovenous malformation (AVM) Evaluated at [facility]
--- NOTE | 2022-11-20 09:54 | WPDMODSED ---
Moderate Sedation Note-Pt Data Patient Data Diagnosis: Bacteremia, mitral valve repair Present Complaint: bacteremia, mitral valve repair Procedure to be performed/Plan: multiplanar transesophageal echocardiography color-flow pulse-wave Doppler moderate sedation Allergies Allergy/AdvReac Type Severity Reaction Status Date / Time Gadolinium-Containing AdvReac Unknown Vomiting Verified 11/15/22 07:19 Contrast Medi ioversol AdvReac Unknown Vomiting Verified 11/15/22 07:19 Home Medications Medication Instructions Recorded Confirmed Type atorvastatin 40 mg tablet 80 mg PO DAILY 03/24/19 11/15/22 History carvedilol 25 mg tablet 25 mg PO Q12H 03/24/19 11/15/22 History levothyroxine 125 mcg tablet 125 mcg PO DAILY 03/24/19 11/15/22 History dulaglutide 1.5 mg/0.5 mL 1.5 mg subcut WEEKLY 01/20/22 11/15/22 History subcutaneous pen injector (Trulicity) aspirin 81 mg chewable tablet 81 mg PO DAILY 02/17/22 11/15/22 History escitalopram oxalate 20 mg tablet 20 mg PO DAILY 02/17/22 11/15/22 History lisinopril 30 mg tablet 30 mg PO DAILY 02/17/22 11/15/22 History oxycodone-acetaminophen 5 mg-325 1 - 2 tablet PO Q6H PRN Pain 02/17/22 11/15/22 History mg tablet insulin aspart U-100 100 unit/mL 5 unit (0.05 mL) subcut TIDWM #10 02/21/22 11/15/22 Rx subcutaneous solution (Novolog mL U-100 Insulin aspart) hydroxychloroquine 200 mg tablet 400 mg PO DAILY #180 tabs 07/29/22 11/15/22 Rx (Plaquenil) gabapentin 300 mg capsule 300 mg PO TID 09/05/22 11/15/22 History amlodipine 10 mg tablet 10 mg PO DAILY 09/11/22 11/15/22 History aripiprazole 2 mg tablet 2 mg PO DAILY 09/11/22 11/15/22 History potassium chloride 10 mEq 10 meq PO DAILY 09/11/22 11/15/22 History tablet,extended release furosemide 40 mg tablet 40 mg PO BID 11/15/22 11/15/22 History Current Medications: Active Medications Amlodipine Besylate (Amlodipine Besylate 5 Mg Tablet) 10 mg PO DAILY MARTA Last Admin: 11/19/22 09:00 Dose: 10 mg Aripiprazole (Aripiprazole 2 Mg Tablet) 2 mg PO DAILY [facility] Last Admin: 11/19/22 08:59 Dose: 2 mg Aspirin (Aspirin 81 Mg Chewable Tablet) 81 mg PO DAILY [facility] Last Admin: 11/19/22 08:58 Dose: 81 mg Atorvastatin Calcium (Atorvastatin 40 Mg Tablet) 80 mg PO DAILY [facility] Last Admin: 11/19/22 09:00 Dose: 80 mg Carvedilol (Carvedilol 25 Mg Tablet) 25 mg PO Q12HR [facility] Last Admin: 11/19/22 21:02 Dose: 25 mg Dextrose (Dextrose 50% 25 Gm/50 Ml Syringe) 12.5 gm IV PUSH PRN PRN; Protocol PRN Reason: Hypoglycemia Diphenhydramine HCl (Diphenhydramine Hcl Cap 25 Mg Capsule) 25 mg PO Q4H PRN PRN Reason: Itching Last Admin: 11/20/22 04:58 Dose: 25 mg Escitalopram Oxalate (Escitalopram Oxalate 10 Mg Tablet) 20 mg PO DAILY [facility] Last Admin: 11/19/22 09:01 Dose: 20 mg Furosemide (Furosemide 20 Mg Tablet) 60 mg PO BID [facility] Last Admin: 11/17/22 17:02 Dose: 60 mg Gabapentin (Gabapentin 300 Mg Capsule) 300 mg PO TID [facility] Last Admin: 11/19/22 17:47 Dose: 300 mg Glucagon (Glucagon For Inj 1 Mg Vial) 1 mg IM PRN PRN; Protocol PRN Reason: Hypoglycemia Glucose (Glucose Oral Gel 15 Gm Of Glucse In 37.5 Gm Tube) 15 gm PO PRN PRN; Protocol PRN Reason: Hypoglycemia Hydroxychloroquine Sulfate (Hydroxychloroquine Sulfate 200 Mg Tablet) 400 mg PO DAILY [facility] Last Admin: 11/19/22 08:59 Dose: 400 mg Dextrose (Dextrose 5% 1,000 Ml) 1,000 mls @ 100 mls/hr IVPB PRN PRN; Protocol PRN Reason: Hypoglycemia Vancomycin HCl (Vancomycin 1,000 Mg/Ns 250 Ml) 1,000 mg in 250 mls @ 250 mls/hr IVPB Q24H [facility] Last Admin: 11/19/22 17:47 Dose: 250 mls/hr Insulin Aspart (Insulin Aspart (*Bkc) 100 Units/Ml) 2 - 5 units SUB-Q TIDWM [facility]; Protocol Last Admin: 11/19/22 17:48 Dose: Not Given Insulin Aspart (Insulin Aspart (*Bkc) 100 Units/Ml) 5 units SUB-Q TIDWM [facility] Last Admin: 11/19/22 17:48 Dose: 5 units Levothyroxine Sodium (Levothyroxine Sodium 125 Mcg Tablet) 125 mcg PO DAILY@0630 [facility] Last Admin: 11/20/22 04:59 D
--- NOTE | 2022-11-20 10:15 | P.PCNTEE_ITS ---
SHOAIB TransEsophageal Echocardiogram Date of procedure: 11/20/22 Procedure Type: 1. Multiplanar transesophageal echocardiography with color-flow Doppler 2. moderate sedation Diagnosis: bacteremia, mitral valve repair Indications: bacteremia and previous mitral valve repair Image Quality: good Findings: after discussing the risks, benefits alternatives of the procedure patient agreeable via verbal and written informed consent. Risks discussed included septal rupture perforation, adverse reaction to anesthesia, , surgery, bleeding pain infection, sore throat. After establishing continuous playground monitor, pulse oxygenation serial blood pressure assessments, time-out was taken and procedure was started. Procedure start time 9:57 a.m. Procedure stop time 10:15 a.m. Complications: None Blood loss: None A total of 3 mg of Versed and 50 mcg of fentanyl were given in divided dosages. Medications were administered and patient was monitored by Ruby Conteh RN findings: Mild left ventricular enlargement with [id number] reduction of ejection fraction of around 40%. Normal right ventricular size and function. mild right atrial enlargement. Severe left atrial enlargement. Left atrial appendage has been previously ligated. Atrial septum is intact without color flow evidence of shunting. Aortic root measures 3.3 cm at the sinus of Valsalva. No pericardial effusion. Previous mitral valve repair /annuloplasty ring noted with still significant mitral regurgitation which is at least moderate. Aortic valve is trileaflet and trivial aortic insufficiency. Tricuspid valve is normal with out vegetation. Mild tricuspid regurgitation. Pulmonic valve is not well visualized but is grossly normal without significant pulmonic insufficiency. No clear evidence of masses or hypermobile structures to correlate with vegetation or endocarditis. Conclusions: 1. Mild left ventricular enlargement with ejection fraction 40% 2. Mild right atrial enlargement and severe left atrial enlargement 3. Previous mitral valve repair / annuloplasty ring is noted with moderate residual mitral regurgitation. No obvious vegetation is seen. 4. Mild tricuspid regurgitation but valve is otherwise normal without obvious vegetation. 5. Normal appearance of the aortic valve without obvious vegetation in the pulmonic valve is not well visualized but is grossly normal. 6. Moderate sedation
[2022-11-20] MEDS: ATORVASTATIN 40 MG TABLET 80 MG PO (11:07)
[2022-11-20] MEDS: ESCITALOPRAM OXALATE 10 MG TABLET 20 MG PO (11:08)
[2022-11-20] MEDS: POTASSIUM CHLORIDE 10 MEQ ER TABLET PO (11:08)
[2022-11-20] MEDS: carvediloL 25 MG TABLET PO ×2 (11:08→21:36)
[2022-11-20] MEDS: ASPIRIN 81 MG CHEWABLE TABLET PO (11:09)
[2022-11-20] MEDS: ARIPiprazole 2 MG TABLET PO (11:09)
[2022-11-20] MEDS: HYDROXYCHLOROQUINE SULFATE 200 MG TABLET 400 MG PO (11:09)
[2022-11-20] MEDS: amLODIPine BESYLATE 5 MG TABLET 10 MG PO (11:09)
--- NOTE | 2022-11-20 12:41 | PM.DS ---
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 Was not able to ambulate because of edema. Saint Aleksey string placed in mitral valve/seizure disorder. He takes Lasix regularly has not missed a dose. Workup with BNP more than 6000. History of ligation of the left atrial appendage. Combined systolic and diastolic congestive heart failure. IV Lasix b.i.d. initiated. (2) CAD (coronary artery disease): Onset Date: ~2006 Code(s): I25.10 - Atherosclerotic heart disease of [place] coronary artery without angina pectoris Status: Acute Assessment and Plan: Coronary artery disease status post stents in 2005 and 2012. Status post CABG in 2013. (3) Unstable gait: Code(s): R26.81 - Unsteadiness on feet Status: Acute Assessment and Plan: Patient has history of CVA and has not had a stable gait since then. Gait worsened once his lower extremity edema began. (4) Chronic renal failure (CRF), stage 3 (moderate): Code(s): N18.30 - Chronic kidney disease, stage 3 unspecified Status: Chronic (5) Obstructive sleep apnea: Code(s): G47.33 - Obstructive sleep apnea (adult) (pediatric) Status: Acute Assessment and Plan: CPAP provided if patient does not bring 1 from home. (6) Paroxysmal A-fib: Code(s): I48.0 - Paroxysmal atrial fibrillation Status: Chronic Assessment and Plan: Rate controlled. History of cardioversion in 2013. (7) Positive blood cultures: Code(s): R78.81 - Bacteremia Status: Acute Assessment and Plan: patient had blood cultures drawn on arrival. Blood cultures came back positive for MRSA and Staph epidermis. Vancomycin was started. Echocardiogram ( TTE ) see did not reveal any vegetations on his valves. Etiology of bacteremia is unknown. Given patient's history of mitral valve replacement Cardiology consulted for JOSE. Repeat blood cultures on 11/17/2022 No growth to date. He will need IV antibiotics at home. Will consult care coordination. DS: Summary Hospital Course Hospital Course: This is a 67-year-old with a past medical history of CHF, CKD, diabetes, peripheral neuropathy, AFib, SYEDA, rheumatoid arthritis who presented to the ED on 11/14/2022 with chief complaint of worsening bilateral lower extremity edema, difficulty ambulating and dyspnea. BNP was elevated at 6000 and chest x-ray significant for infiltrates. Bilateral lower extremity ultrasound negative for DVT. Patient was aggressively diuresed, daily intake and outputs, daily weights and water restriction initiated. He was found to have a lung infiltrate and was started on vancomycin cefepime azithromycin. Blood cultures were drawn. Antibiotics were discontinued the next day due to infiltrate likely being more related to his CHF. The next day patient's blood culture came back positive for Gram-positive clusters and vancomycin was restarted. Blood cultures became positive for Staph epidermidis MRSA. He does have a history of mitral valve repair and echocardiogram (TTE) was performed not revealing any vegetations. Jose ordered to rule out endocarditis. Jose did not reveal any vegetations on the heart. Unable to determine the [facility]
[2022-11-20 12:46] LABS: Glucose Point of Care 206 mg/dl (65-105)
[2022-11-20] MEDS: GABAPENTIN 300 MG CAPSULE PO ×2 (13:07→17:19)
[2022-11-20] MEDS: INSULIN ASPART (*BKC) 100 UNITS/ML SUB-Q ×3 (13:07→17:41)
[2022-11-20] MEDS: POTASSIUM CHLORIDE 20 MEQ ER TABLET 40 MEQ PO (13:07)
--- NOTE | 2022-11-20 16:28 | PM.IMPN ---
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 Was not able to ambulate because of edema. Saint Aleksey string placed in mitral valve/seizure disorder. He takes Lasix regularly has not missed a dose. Workup with BNP more than 6000. History of ligation of the left atrial appendage. Combined systolic and diastolic congestive heart failure. IV Lasix b.i.d. initiated on admission and discontinued on 11/18/2022 due to ELIZABETH. (2) Positive blood cultures: Code(s): R78.81 - Bacteremia Status: Acute Assessment and Plan: patient had blood cultures drawn on arrival. Blood cultures came back positive for MRSA and Staph epidermis. Vancomycin was started. Echocardiogram ( TTE ) see did not reveal any vegetations on his valves. Etiology of bacteremia is unknown. Given patient's history of mitral valve replacement Cardiology consulted for SHOAIB. Repeat blood cultures on 11/17/2022 No growth to date. He will need IV antibiotics at home. Will consult care coordination. Antibiotics to be continued through 12/01/2022 (3) CAD (coronary artery disease): Onset Date: ~2006 Code(s): I25.10 - Atherosclerotic heart disease of [place] coronary artery without angina pectoris Status: Acute Assessment and Plan: Coronary artery disease status post stents in 2005 and 2012. Status post CABG in 2013. (4) Unstable gait: Code(s): R26.81 - Unsteadiness on feet Status: Acute Assessment and Plan: Patient has history of CVA and has not had a stable gait since then. Gait worsened once his lower extremity edema began. Working with PT and OT (5) Chronic renal failure (CRF), stage 3 (moderate): Code(s): N18.30 - Chronic kidney disease, stage 3 unspecified Status: Chronic Assessment and Plan: Continue to monitor. (6) Obstructive sleep apnea: Code(s): G47.33 - Obstructive sleep apnea (adult) (pediatric) Status: Acute Assessment and Plan: CPAP provided if patient does not bring 1 from home. (7) Paroxysmal A-fib: Code(s): I48.0 - Paroxysmal atrial fibrillation Status: Chronic Assessment and Plan: Rate controlled. History of cardioversion in 2013. Subjective Date/time seen: 11/20/22 16:28 Interval history: Patient and exam bed doing. He has no new complaints and feeling back to himself. He is ambulating better and continued work with PT and OT. Currently still waiting on home health approval and PICC line to be placed. likely plan for discharge tomorrow. Review of Systems Review of Systems: All systems reviewed & are unremarkable except as noted in HPI and below Exam Narrative: GENERAL: Comfortable, no acute distress HENMT: moist mucous membranes EYES: EOM intact b/l NECK: no lymphadenopathy RESPIRATORY: clear to auscultation CARDIO: Irregular rhythm rate controlled GI: soft, nontender, bowel sounds present SKIN: no rashes EXTREMITIES: no edema, redness or tenderness Objective Data Vital Signs Vital Signs: Vital Signs - 24 hr 11/19/22 21:02 11/19/22 21:02 11/20/22 04:09 Temperature 98.7 F 98.9 F Pulse Rate 55 L 55 L 59 L Respiratory Rate 16 16 Blood Pressure 130/52 L 149/51 H Pulse Oximetry 100 100 Oxygen Delivery Oxygen Flow Rate 11/20/22 09:37 11/20/22 09:45 11/20/22 10:20 Temper
[2022-11-20 17:52] LABS: Glucose Point of Care 115 mg/dl (65-105)
[2022-11-20] MEDS: VANCOMYCIN 1,000 MG/NS 250 ML 1,000 MG/250 ML BAG 250 MG IVPB (18:01)
[2022-11-20 20:52] LABS: Glucose Point of Care 83 mg/dl (65-105)
[2022-11-21 07:20] LABS: Basophils Absolute Auto 0.1 K/mm3 (0.0-0.1); Basophils Percent Auto 0.7 % (0.2-1.2); Eosinophils Absolute Auto 0.6 K/mm3 (0-0.3); Eosinophils Percent Auto 8.7 % (0-4.4); Hematocrit 27.3 % (42.0-52.0); Hemoglobin 8.4 g/dL (14.0-18.0); Immature Granulocyte Absolute 0.02 K/mm3 (0.00-0.031); Immature Granulocyte Percent A 0.3 % (0-0.5); Lymphocytes Absolute Auto 0.65 K/mm3 (0.9-3.2); Lymphocytes Percent Auto 9.5 % (18.3-44.2); Mean Corpuscular HGB Conc 30.8 g/dl (32-36); Mean Corpuscular Hemoglobin 24.9 pg (26-34); Mean Corpuscular Volume 80.8 fl (80-100); Mean Platelet Volume 12.5 fl (7.4-10.4); Monocytes Absolute Auto 0.7 K/mm3 (0.1-0.6); Neutrophils Absolute Auto 4.9 K/mm3 (1.3-6.7); Neutrophils Percent Auto 70.8 % (45.5-73.1); Platelet Count Result 208 k/mm3 (150-375); Red Blood Count 3.38 M/mm3 (4.6-6.20); Red Cell Distribution Width 16.1 % (11.5-14.5); White Blood Count 6.9 K/mm3 (4.5-10.0)
[2022-11-21 07:30] VITALS: O2SAT 99
[2022-11-21 07:46] LABS: Alanine Aminotransferase 18 U/L (6-50); Albumin Level 3.1 g/dL (3.5-5.1); Alkaline Phosphatase 88 U/L (38-126); Anion Gap 11 mmol/L (8-16); Aspartate Amino Transferase 25 U/L (17-59); Bilirubin,Total 0.2 mg/dL (0.2-1.3); Blood Urea Nitrogen 36 mg/dL (9-20); Calcium 8.3 mg/dL (8.4-10.2); Carbon Dioxide 21 mmol/L (22-30); Chloride 106 mmol/L (98-107); Estimated CRCL calculation 40 ml/min; Estimated Glomerular Filt Rate 38; Glucose 117 mg/dL (65-110); Potassium 3.7 mmol/L (3.4-5.0); Sodium 138 mmol/L (137-145)
[2022-11-21 08:08] VITALS: PULSE 63
[2022-11-21] MEDS: ASPIRIN 81 MG CHEWABLE TABLET PO (08:08)
[2022-11-21] MEDS: ARIPiprazole 2 MG TABLET PO (08:08)
[2022-11-21] MEDS: carvediloL 25 MG TABLET PO (08:08)
[2022-11-21] MEDS: ATORVASTATIN 40 MG TABLET 80 MG PO (08:08)
[2022-11-21] MEDS: amLODIPine BESYLATE 5 MG TABLET 10 MG PO (08:08)
[2022-11-21 08:13] LABS: Glucose Point of Care 108 mg/dl (65-105)
[2022-11-21] MEDS: diphenhydrAMINE HCl CAP 25 MG CAPSULE PO (08:13)
[2022-11-21] MEDS: POTASSIUM CHLORIDE 10 MEQ ER TABLET PO (08:13)
[2022-11-21] MEDS: HYDROXYCHLOROQUINE SULFATE 200 MG TABLET 400 MG PO (08:13)
[2022-11-21] MEDS: GABAPENTIN 300 MG CAPSULE PO ×3 (08:13→17:34)
[2022-11-21] MEDS: ESCITALOPRAM OXALATE 10 MG TABLET 20 MG PO (08:13)
[2022-11-21] MEDS: INSULIN ASPART (*BKC) 100 UNITS/ML SUB-Q ×2 (09:31→12:44)
--- NOTE | 2022-11-21 10:22 | VASCRN ---
Order received for: picc line insertion After review of the chart and the patient assessment, patient is not a candidate for the following reason(s): I spoke with Madai Allred PA-C re: GFR below 45. Yelena thinks this is an acute kidney injury and should continue to improve and wants picc placed for discharge home on IV vancomycin for 10 more days. Provider notified:Madai Allerd PA-C
[2022-11-21 11:51] LABS: Glucose Point of Care 121 mg/dl (65-105)
[2022-11-21 14:00] VITALS: BP 152/65; PULSE 100; RESP 16; TEMP 36.4; O2SAT 61
[2022-11-21 16:59] LABS: Glucose Point of Care 154 mg/dl (65-105)
[2022-11-21] MEDS: CENTRAL LINE FLUSH 10 ML IV PUSH (17:13)
[2022-11-21 18:48] LABS: Vancomycin Trough 18.1 ug/mL (10.0-20.0)
--- NOTE | 2022-11-25 09:41 | PC.NURSE ---
Blood cultures from 7/17 are negative.
== END 2022-11-21 17:56 | disposition home or self-care (01) | DRG 291 ==
LOC: ANHED 20:24 → ANH3MED 11-15 00:06
PROVIDERS: Emergency Medicine; Internal Medicine; Internal Medicine Cardiovascular Disease; Admitting Provider Internal Medicine; Emergency Provider Physician Assistant; PCP Family Medicine; Visit Provider Internal Medicine Critical Care Medicine
PROC: B24BZZ4 Ultrasonography of Heart with Aorta, Transesophageal (ICD-10-PCS; CPT 93312; principal; 2022-11-20 09:30)
DX: I13.0 Hypertensive heart and chronic kidney disease with heart failure and stage 1 through stage 4 chronic kidney disease, or unspecified chronic kidney disease (principal); I50.43 Acute on chronic combined systolic (congestive) and diastolic (congestive) heart failure; Q28.2 Arteriovenous malformation of cerebral vessels; R78.81 Bacteremia; I69.354 Hemiplegia and hemiparesis following cerebral infarction affecting left non-dominant side; B95.62 Methicillin resistant Staphylococcus aureus infection as the cause of diseases classified elsewhere; B95.7 Other staphylococcus as the cause of diseases classified elsewhere; E11.22 Type 2 diabetes mellitus with diabetic chronic kidney disease; E11.42 Type 2 diabetes mellitus with diabetic polyneuropathy; E78.5 Hyperlipidemia, unspecified; E03.9 Hypothyroidism, unspecified; F32.A Depression, unspecified; G47.33 Obstructive sleep apnea (adult) (pediatric); G40.909 Epilepsy, unspecified, not intractable, without status epilepticus; I48.0 Paroxysmal atrial fibrillation; I25.2 Old myocardial infarction; I25.10 Atherosclerotic heart disease of native coronary artery without angina pectoris; I25.5 Ischemic cardiomyopathy; M06.9 Rheumatoid arthritis, unspecified; N18.30 Chronic kidney disease, stage 3 unspecified; Z95.4 Presence of other heart-valve replacement; Z90.49 Acquired absence of other specified parts of digestive tract; Z95.1 Presence of aortocoronary bypass graft; Z95.5 Presence of coronary angioplasty implant and graft; Z99.89 Dependence on other enabling machines and devices; Z79.4 Long term (current) use of insulin; Z79.82 Long term (current) use of aspirin; Z87.891 Personal history of nicotine dependence
CPT/HCPCS: 36415; 36569; 71045; 80053; 80202; 81001; 82565; 82948; 83036; 83735; 83880; 84484; 85025; 87040; 87077; 87081; 87186; 93005; 93308; 93312; 93320; 93325; 93970; 96366; 96375; 96376; 97110; 97116; 97161; 97165; 97530; 97535; 99285; A9270; C1751; G0378; J0456; J0696; J1815; J1940; J2250; J3010; J3370; J7040

== ENCOUNTER 2022-11-22 16:09 | Observation (INO) | payer MEDICARE, MEDICAID, SELFPAY ==
[2022-11-22] VITALS (13 sets, daily range): BP systolic 154–176; BP diastolic 67–81; PULSE 58–61; RESP 11–20; TEMP 36.6–36.7; O2SAT 97–100; BMI 27.6
--- NOTE | ~2022-11-22 | XR_ITS ---
XR humerus LT 11/23/2022 13:25 INDICATION: Left arm pain after multiple falls PROCEDURE: 2 views left humerus COMPARISON: No prior studies for comparison. FINDINGS: Fracture, dislocation or subluxation is not identified. The soft tissues appear within norm al limits. No foreign bodies are identified. IMPRESSION: 1: NO ACUTE BONE OR JOINT ABNORMALITY IDENTIFIED. Reviewed, dictated and finalized at location A.
--- NOTE | ~2022-11-22 | XR_ITS ---
XR chest PICC line 11/23/2022 13:26 Indication: PICC line placement Procedure: AP portable chest Comparison: Comparison to multiple prior studies sequentially, with oldest reviewed study dated 11/14. Findings: Status post median sternotomy for CABG. Cardiomegaly. There is a prosthetic aortic valve. T here is mild interstitial edema. Small left pleural effusion. Impression: 1: Mild interstitial edema with small left pleural effusion. Reviewed, dictated and finalized at location A. Impression: 1: Mild interstitial edema with small left pleural effusion.
--- NOTE | ~2022-11-22 | XR_ITS ---
EXAMINATION: XR chest 1V portable DATE: 11/27/2022 15:44 INDICATION: Increasing cough and congestion TECHNIQUE: frontal view of the chest was obtained. COMPARISON: Chest radiograph dated 11/23/2022 FINDINGS: Resolution of prior opacities in the right upper lung zone. Decreasing opacities left lower lung zone with persistent blunting at the left costophrenic angle consistent with a residual small left pleura l effusion. No pneumothorax or right-sided pleural effusion. Cardiomegaly. Median sternotomy wires a nd mediastinal surgical clips are seen, likely from prior coronary artery bypass grafting. Mitral bao ve repair. Left atrial appendage clip. Right upper extremity peripherally inserted central venous cat heter (PICC) tip at the superior cavoatrial junction. IMPRESSION: 1. Persistent small left pleural effusion with decreasing opacities in the left lower lung zone which could represent improving atelectasis or pneumonia. 2. Cardiomegaly. Reviewed, dictated and finalized at location A.
--- NOTE | ~2022-11-22 | XR_ITS ---
EXAMINATION: XR chest 2V Exam Date/Time: 11/22/2022 18:05 CDT HISTORY: CHF exacerbation Comparison: 11/21/2022 and 10/31/2022. RESULT: Lines, tubes, and devices: Right upper extremity PICC terminating in the inferior right atrium. Atri al occlusion device. Cardiac valve replacement. Mediastinal surgical clips. Intact sternotomy wires. Lungs and pleura: Mild diffuse interstitial pattern. Unchanged mild left costophrenic angle blunting . Streaky bibasilar atelectasis/scar. Cardiomediastinal silhouette: Stable. Cardiomegaly Other: No acute osseous or upper abdominal finding. IMPRESSION: The right upper extremity PICC terminates in the inferior right atrium, consider retracting by 7 cm. Mild interstitial edema. Small left pleural effusion versus chronic pleural parenchymal scarring. Reviewed, dictated and finalized at [facility]. IMPRESSION: The right upper extremity PICC terminates in the inferior right atrium, conside r retracting by 7 cm. Mild interstitial edema. Small left pleural effusion versus chronic pleural par enchymal scarring.
--- NOTE | ~2022-11-22 | XR_ITS ---
XR chest 1V portable 11/23/2022 11:11 Indication: PICC line placement. Procedure: AP portable chest Comparison: 11/22/2022 Findings: Interval retraction of right subclavian PICC line, now coiled in the subclavian vein. Statu s post median sternotomy for CABG. Moderate cardiomegaly. Small left pleural effusion. Impression: 1: PICC line coiled in the right subclavian vein. 2: Small left pleural effusion. Reviewed, dictated and finalized at location A. Impression: 1: PICC line coiled in the right subclavian vein. 2: Small left pleural effusion.
--- NOTE | 2022-11-22 16:46 | ECG_ITS ---
Measurements Intervals [place] Rate: 52 P: IN: 0 QRS: 9 QRSD: 106 T: 32 QT: 471 QTc: 439 Interpretive Statements ATRIAL FIBRILLATION WITH SLOW VENTRICULAR RESPONSE BORDERLINE ST-T WAVE ABNORMALITY- HIGH LAT LEADS BASELINE ARTIFACT- I, II, III, AVF ABNORMAL ECG COMPARED TO ECG 11/14/2022 20:27:16 ATRIAL FIBRILLATION NOW PRESENT Electronically Signed On 11-22-2022 21:58:25 CDT by Gustavo Gavin D.O.
--- NOTE | 2022-11-22 16:48 | ED.GENADULT ---
HPI - General Adult General Chief complaint: Extremity Injury, Upper Stated complaint: R arm pain x 1 week Time Seen by Provider: 11/22/22 16:30 History of Present Illness HPI narrative: 67M h/o CHF, CAD s/p CABG, CVA with left sided residual weakness presented with whole body weakness. Per patient, he was just discharged from the hospital two days ago, attempted to ambulate, however felt weak all over, and fell when attempting to use his walker. Presented to the ED for further evaluation. Denied chest pain, fevers/chills, headstrike, LOC, shortness of breath, abdominal pain, dysuria, diarrhea, sick contacts. Related Data Home Medications Medication Instructions Recorded Confirmed atorvastatin 40 mg tablet 80 mg PO DAILY 03/24/19 11/15/22 carvedilol 25 mg tablet 25 mg PO Q12H 03/24/19 11/15/22 levothyroxine 125 mcg tablet 125 mcg PO DAILY 03/24/19 11/15/22 dulaglutide 1.5 mg/0.5 mL 1.5 mg subcut WEEKLY 01/20/22 11/15/22 subcutaneous pen injector (Trulicity) aspirin 81 mg chewable tablet 81 mg PO DAILY 02/17/22 11/15/22 escitalopram oxalate 20 mg tablet 20 mg PO DAILY 02/17/22 11/15/22 lisinopril 30 mg tablet 30 mg PO DAILY 02/17/22 11/15/22 oxycodone-acetaminophen 5 mg-325 1 - 2 tablet PO Q6H PRN Pain 02/17/22 11/15/22 mg tablet gabapentin 300 mg capsule 300 mg PO TID 09/05/22 11/15/22 amlodipine 10 mg tablet 10 mg PO DAILY 09/11/22 11/15/22 aripiprazole 2 mg tablet 2 mg PO DAILY 09/11/22 11/15/22 potassium chloride 10 mEq 10 meq PO DAILY 09/11/22 11/15/22 tablet,extended release furosemide 40 mg tablet 40 mg PO BID 11/15/22 11/15/22 Allergies Allergy/AdvReac Type Severity Reaction Status Date / Time Gadolinium-Containing AdvReac Unknown Vomiting Verified 11/15/22 07:19 Contrast Medi ioversol AdvReac Unknown Vomiting Verified 11/15/22 07:19 Review of Systems Review of Systems: See HPI PMFSH Past Medical History Medical History Anemia Atrial fibrillation/flutter Paroxysmal, history of DC cardioversion 2013, no longer on anticoagulation due to history of intercranial bleed CAD (coronary artery disease) (~2006) The patient had 3 cardiac stents placed between 2005 and 2012. He had a CABG in 2012 with a Saint Aleksey's ring placed on the mitral valve Cerebral arteriovenous malformation (AVM) Evaluated at [facility] in 1991 and 1997. He had bleeding from the AVM prior to 2005 CHF (congestive heart failure) Echocardiogram 07/2013: Left ventricular hypertrophy with mild dilatation, severe septal hypokinesis, EF 55-60, diastolic dysfunction, dilated left atrium Prior diagnosis of dilated cardiomyopathy CVA (cerebral vascular accident) (~2014) Hemorrhagic CVA 2013. MRI brain 07/2020 performed due to ataxia: Chronic ill-defined mass in the right temporal lobe consistent with AV malformation, chronic encephalomalacia with old blood product in the right temporal lobe and adjacent right insula and right lentiform nucleus, old lacunar infarct in the left caudate nucleus, moderate nonspecific cerebral white matter disease likely representing chronic small-vessel ischemic disease Depression Diabetes mellitus (~2002) uncontrolled with hemoglobin A1c 10.6 01/20/2022 Diabetic nephropathy with proteinuria Diabetic peripheral neuropathy ESR raised HTN (hypertension) Hypothyroidism (~2009) Myocardial infarction Obstructive sleep apnea Polysomnogram 2013: Moderate obstructive sleep apnea improved with CPAP of 6 Rheumatoid arthritis Seizure disorder Surgical History Surgical History History of appendectomy Hx of CABG (~2013) 3 vessel CABG with placement of a Saint Aleksey's ring on the mitral valve Family History Family History Other Cerebrovascular accident Depression Diabetes mellitus Family history of aortic aneurysm Family history of atrial fibrillatio
[2022-11-22 17:13] LABS: Basophils Absolute Auto 0.1 K/mm3 (0.0-0.1); Basophils Percent Auto 0.7 % (0.2-1.2); Eosinophils Absolute Auto 0.6 K/mm3 (0-0.3); Hematocrit 28.8 % (42.0-52.0); Hemoglobin 8.9 g/dL (14.0-18.0); Immature Granulocyte Absolute 0.01 K/mm3 (0.00-0.031); Immature Granulocyte Percent A 0.1 % (0-0.5); Lymphocytes Absolute Auto 0.56 K/mm3 (0.9-3.2); Mean Corpuscular HGB Conc 30.9 g/dl (32-36); Mean Corpuscular Hemoglobin 25.1 pg (26-34); Mean Corpuscular Volume 81.1 fl (80-100); Mean Platelet Volume 11.8 fl (7.4-10.4); Monocytes Absolute Auto 0.7 K/mm3 (0.1-0.6); Monocytes Percent Auto 9.4 % (2.6-8.5); Neutrophils Absolute Auto 5.2 K/mm3 (1.3-6.7); Neutrophils Percent Auto 73.8 % (45.5-73.1); Platelet Count Result 226 k/mm3 (150-375); Red Blood Count 3.55 M/mm3 (4.6-6.20); Red Cell Distribution Width 15.9 % (11.5-14.5)
[2022-11-22 17:34] LABS: Anion Gap 8 mmol/L (8-16); Blood Urea Nitrogen 34 mg/dL (9-20); Calcium 8.8 mg/dL (8.4-10.2); Carbon Dioxide 25 mmol/L (22-30); Chloride 109 mmol/L (98-107); Estimated CRCL calculation 42 ml/min; Estimated Glomerular Filt Rate 40; Glucose 202 mg/dL (65-110); Potassium 4.3 mmol/L (3.4-5.0); Sodium 142 mmol/L (137-145)
[2022-11-22 17:43] LABS: NT Pro B Type Natriuretic Pept 8250 pg/mL (19.9-100)
[2022-11-22 17:46] LABS: Troponin I < 0.012 ng/mL (0.000-0.034)
[2022-11-22 18:51] LABS: Appearance Urine Clear (Clear); Bacteria Urine None Seen /hpf; Bilirubin Urine Negative (Negative); Color Urine Yellow (Yellow); Glucose Urine UA Trace mg/dL (Negative); Ketones Urine Negative (Negative); Leukocyte Esterase Ur Negative LEU/UL (Negative); Nitrate Urine Negative (Negative); Protein Urine 3+ mg/dL (Negative); RBC Urine 0-2 /hpf (0-2); Specific Grav Ur 1.013 (1.001-1.035); Squamous Epithelial Cell Urine None seen /hpf (Few); Urobilinogen Urine 0.2 mg/dL (<2.0); WBC Urine 0-5 /hpf
[2022-11-22 18:59] LABS: Add Urine Microscopic? YES
--- NOTE | 2022-11-22 20:19 | ADMGEN ---
This patient, Romero Davis, was admitted to Medical Room 244-. Patient/family oriented to hospital policies and general routines including ID bracelet, bed and alarms, visiting hours, pain management, procedures, bathroom and other care routines, personal items, smoking policy, room service/diet, and visiting hours. Information on how to activate the Rapid Response Team has been discussed. Patient/Family are encouraged to report perceived risks to care and to ask questions if they do not understand what they are told or what they should do.
--- NOTE | 2022-11-22 20:49 | PM.IMHP ---
H&P: HPI History of Present Illness Date/Time: 11/22/22 20:49 Chief Complaint: Weakness Narrative: This is a 67-year-old male patient to resides with his partner. The patient was just discharged from this hospital on 11/20/2022. The patient had been treated for acute exacerbation of CHF. The patient stated that he is just been too weak and that he fell again and feels that he is not able to care for himself home. He has a history of coronary artery disease status post CABG and a CVA that has affected his left side. The patient attempted to ambulate today and felt very weak all over and he fell while using his walker. The patient denies any fever chills. His H&H is 8.9 and 28.8 which is his baseline. His creatinine is 1.7 which is his baseline as well. His blood sugars to 202. BNP is 8250. Chest x-ray was read as the followingThe right upper extremity PICC terminates in the inferior right atrium, consider retracting by 7 cm. Mild interstitial edema. Small left pleural effusion versus chronic pleural parenchymal scarring. The patient is being admitted to observation status on the date of service is 11/22/2022. Review of Systems Review of Systems: All systems reviewed & are unremarkable except as noted in HPI and below Constitutional: Constitutional: Reports as per HPI and Reports no additional constitutional complaints Eyes: Eyes: Reports as per HPI and Reports no additional eye complaints ENT: Reports system reviewed and no additional complaints, except as documented and Reports Normal hearing present Cardiovascular: Cardiovascular: Reports no additional cardiovascular complaints Respiratory: Respiratory: Reports no additional respiratory complaints and Reports no additional respiratory complaints Gastrointestinal: Gastrointestinal: Reports as per HPI and Reports no additional gastrointestinal complaints Musculoskeletal: Musculoskeletal: Reports no additional musculoskeletal complaints Integumentary/Breasts: Skin/Breast: Reports system reviewed and no additional complaints, except as docu and Reports as per HPI Neurologic: Reports system reviewed and no additional complaints, except as documented, Reports as per HPI and Reports Normal hearing present Psychiatric: Psychiatric: Reports no additional psychiatric complaints and Reports as per HPI Endocrine: Endocrine: Reports no additional endocrine complaints Hematologic/Lymphatic: Hematologic/Lymphatic: Reports no additional hematologic/lymphatic complaints Allergic/Immunologic: Allergic/Immunologic: Reports no additional allergic/immunologic complaints [facility] Past Medical History Medical History (Updated 11/22/22 @ 23:56 by Jerri Lyon NP) Anemia Atrial fibrillation/flutter Paroxysmal, history of DC cardioversion 2013, no longer on anticoagulation due to history of intercranial bleed CAD (coronary artery disease) (~2006) The patient had 3 cardiac stents placed between 2005 and 2012. He had a CABG in 2012 with a Saint Aleksey's ring placed on the mitral valve Cerebral arteriovenous malformation (AVM) Evaluated at [facility] in 1991 and 1997. He had bleeding from the AVM prior to 2005 CHF (congestive heart failure) Echocardiogram 07/2013: Left ventricular hypertrophy with mild dilatation, severe septal hypokinesis, EF 55-60, diastolic dysfunction, dilated left atrium Prior diagnosis of dilated cardiomyopathy CVA (cerebral vascular accident) (~2014) Hemorrhagic CVA 2013. MRI brain 07/2020 performed due to ataxia: Chronic ill-defined mass in the right temporal lobe consistent with AV malformation, chronic encephalomalacia with old blood product in the right temporal lobe and adjacent right insula and right lentiform nucleus, old lacunar infarct in the left caudate nucleus, moderate nonspecific cerebral white matter disease likely representing chronic small-vessel ischemic disease Depression Diabetes mellitus (~2002) uncontrolled with hemoglobin A1c 10.6 01/20/2022 Diab
--- NOTE | 2022-11-23 00:31 | PCRCNOTE ---
Pt refused CPAP says he has not worn his at home in a long time and does not feel like he needs one here
[2022-11-23] MEDS: VANCOMYCIN 1,250 MG/NS 250 ML 1,250 MG/250 ML BAG 166.67 MG IVPB (03:27)
[2022-11-23 06:00] VITALS: BP 166/83; PULSE 79; RESP 20; TEMP 36.6; O2SAT 97
[2022-11-23 06:02] LABS: Basophils Absolute Auto 0.1 K/mm3 (0.0-0.1); Basophils Percent Auto 0.8 % (0.2-1.2); Eosinophils Absolute Auto 0.6 K/mm3 (0-0.3); Eosinophils Percent Auto 8.6 % (0-4.4); Hematocrit 27.8 % (42.0-52.0); Hemoglobin 8.5 g/dL (14.0-18.0); Immature Granulocyte Absolute 0.01 K/mm3 (0.00-0.031); Immature Granulocyte Percent A 0.2 % (0-0.5); Lymphocytes Absolute Auto 0.72 K/mm3 (0.9-3.2); Lymphocytes Percent Auto 11.1 % (18.3-44.2); Mean Corpuscular HGB Conc 30.6 g/dl (32-36); Mean Corpuscular Hemoglobin 24.9 pg (26-34); Mean Corpuscular Volume 81.5 fl (80-100); Mean Platelet Volume 11.2 fl (7.4-10.4); Monocytes Absolute Auto 0.7 K/mm3 (0.1-0.6); Monocytes Percent Auto 10.8 % (2.6-8.5); Neutrophils Absolute Auto 4.5 K/mm3 (1.3-6.7); Neutrophils Percent Auto 68.5 % (45.5-73.1); Platelet Count Result 223 k/mm3 (150-375); Red Blood Count 3.41 M/mm3 (4.6-6.20); Red Cell Distribution Width 16.1 % (11.5-14.5); White Blood Count 6.5 K/mm3 (4.5-10.0)
[2022-11-23 06:12] LABS: Alanine Aminotransferase 18 U/L (6-50); Albumin Level 3.3 g/dL (3.5-5.1); Alkaline Phosphatase 95 U/L (38-126); Anion Gap 7 mmol/L (8-16); Aspartate Amino Transferase 22 U/L (17-59); Bilirubin,Total 0.2 mg/dL (0.2-1.3); Blood Urea Nitrogen 28 mg/dL (9-20); Calcium 8.6 mg/dL (8.4-10.2); Carbon Dioxide 25 mmol/L (22-30); Chloride 111 mmol/L (98-107); Estimated CRCL calculation 34 ml/min; Estimated Glomerular Filt Rate 40; Glucose 84 mg/dL (65-110); Magnesium 2.2 mg/dL (1.6-2.3); Potassium 3.7 mmol/L (3.4-5.0); Sodium 143 mmol/L (137-145)
[2022-11-23] MEDS: LEVOTHYROXINE SODIUM 125 MCG TABLET PO (06:26)
[2022-11-23 08:33] LABS: Glucose Point of Care 95 mg/dl (65-105)
[2022-11-23] MEDS: POTASSIUM CHLORIDE 10 MEQ ER TABLET PO (09:34)
[2022-11-23 09:35] VITALS: PULSE 76
[2022-11-23] MEDS: carvediloL 25 MG TABLET PO (09:35)
[2022-11-23] MEDS: ARIPiprazole 2 MG TABLET PO (09:35)
[2022-11-23] MEDS: ATORVASTATIN 40 MG TABLET 80 MG PO (09:35)
[2022-11-23] MEDS: amLODIPine BESYLATE 5 MG TABLET 10 MG PO (09:35)
[2022-11-23] MEDS: HYDROXYCHLOROQUINE SULFATE 200 MG TABLET 400 MG PO (09:37)
[2022-11-23] MEDS: FUROSEMIDE 40 MG TABLET PO ×2 (09:37→17:33)
[2022-11-23] MEDS: lisinopriL 10 MG TABLET 30 MG PO (09:37)
[2022-11-23] MEDS: ASPIRIN 81 MG CHEWABLE TABLET PO (09:37)
[2022-11-23] MEDS: ESCITALOPRAM OXALATE 10 MG TABLET 20 MG PO (09:37)
[2022-11-23] MEDS: GABAPENTIN 300 MG CAPSULE PO ×3 (09:37→17:33)
--- NOTE | 2022-11-23 10:49 | PM.IMPN ---
Progress Note: A&P Assessment and Plan (1) Unstable gait: Code(s): R26.81 - Unsteadiness on feet Status: Acute Assessment and Plan: PT OT evaluation greatly be appreciated. clinical coordinator consult was greatly be appreciated. The patient stated that he is going to rehab in the past and has not like most of the nursing homes. However the patient was just discharged 2 days ago and is now complaining of weakness and feels that he cannot take care of himself at home. Patient refusing to go to senior care/ rehab. Patient was denied by all home health agencies. His only option would be to return home if he will not go to rehab facility. He is alert oriented and medically capable of making decisions for himself. (2) Positive blood cultures: Code(s): R78.81 - Bacteremia Status: Acute Assessment and Plan: The patient was discharged on vancomycin IV. However it is recommended that his PICC line be pulled back 7 cm. Vascular was called out to the hospital and his PICC line was evaluated , new PICC line had to be placed. Continue IV vancomycin through 12/01/2022 (3) Obstructive sleep apnea: Code(s): G47.33 - Obstructive sleep apnea (adult) (pediatric) Status: Acute Assessment and Plan: Continue with CPAP with home settings. (4) CAD (coronary artery disease): Onset Date: ~2006 Code(s): I25.10 - Atherosclerotic heart disease of [place] coronary artery without angina pectoris Status: Acute Assessment and Plan: Continue with aspirin Coreg and atorvastatin. (5) Anemia: Code(s): D64.9 - Anemia, unspecified Status: Chronic Assessment and Plan: The patient is at his baseline. (6) Paroxysmal A-fib: Code(s): I48.0 - Paroxysmal atrial fibrillation Status: Chronic Assessment and Plan: The patient was noted to be in AFib with slow ventricular response on the EKG today. Continue with Coreg (7) Type 2 diabetes mellitus with hyperglycemia, with long-term current use of insulin: Code(s): E11.65 - Type 2 diabetes mellitus with hyperglycemia; Z79.4 - exterminator (current) use of insulin Status: Chronic Assessment and Plan: Accu-Cheks AC and HS with sliding scale insulin. (8) CHF (congestive heart failure): Code(s): I50.9 - Heart failure, unspecified Status: Acute Assessment and Plan: Continue lisinopril, Coreg, and Lasix. (9) Hypothyroidism: Onset Date: ~2009 Code(s): E03.9 - Hypothyroidism, unspecified Status: Acute Assessment and Plan: Continue with levothyroxine and check thyroid level. Subjective Date/time seen: 11/23/22 10:49 Interval history: Patient admitted back into the hospital due to progressive weakness and inability to walk as well as having a fall at home. It was explained to the patient last time use admitted that it was [place] for him to be placed into rehab but he refused at that time. Patient stated that he will not be going to a senior care for rehab and if that is his only option he will return home once again. I explained to him that this is very dangerous and could lead to more severe injury such as hip fracture , although patient stated he does not care. Exam Narrative: GENERAL: Comfortable, no acute distress HENMT: moist mucous membranes EYES: EOM intact b/l NECK: no lymphadenopathy RESPIRATORY: clear to auscultation CARDIO: RRR GI: soft, nontender, bowel sounds present SKIN: no rashes EXTREMITIES: no edema, redness or tenderness Objective Data Vital Signs Vital Signs: Vital Signs - 24 hr 11/22/22 16:09 11/22/22 17:02 11/22/22 17:08 Temperature 97.8 F Pulse Rate 61 Respiratory Rate 14 15 13 Blood Pressure 157/72 H 176/74 H Pulse Oximetry 100 100 Oxygen Delivery Room Air 11/22/22 17:15 11/22/22 17:17 11/22/22 17:30 Temperature Pulse Rate Respiratory Rate 15 14 B
[2022-11-23 11:11] VITALS: O2SAT 99
[2022-11-23 12:11] LABS: Glucose Point of Care 165 mg/dl (65-105)
[2022-11-23 14:02] VITALS: BP 132/67; PULSE 55; RESP 16; TEMP 36.4; O2SAT 100
[2022-11-23] MEDS: FUROSEMIDE INJ 40 MG/4 ML VIAL IV PUSH (14:15)
--- NOTE | 2022-11-23 14:57 | PC.NURSE ---
At [address] Woodward to have PICC line placement chest xray to confirm location. Provider wrote addendum in report to include placement verification.
[2022-11-23 17:14] LABS: Glucose Point of Care 97 mg/dl (65-105)
[2022-11-23 17:33] VITALS: BP 137/55; PULSE 54
[2022-11-23 20:28] VITALS: BP 151/64; PULSE 57; RESP 20; TEMP 36.6; O2SAT 99
[2022-11-23 21:21] LABS: Glucose Point of Care 106 mg/dl (65-105)
[2022-11-23] MEDS: CENTRAL LINE FLUSH 10 ML IV PUSH (21:56)
[2022-11-24] VITALS (10 sets, daily range): BP systolic 153–179; BP diastolic 62–70; PULSE 42–74; RESP 14–20; TEMP 36.4–36.7; O2SAT 98–100
[2022-11-24] MEDS: VANCOMYCIN 1,250 MG/NS 250 ML 1,250 MG/250 ML BAG 166.67 MG IVPB (00:30)
[2022-11-24 05:24] LABS: Hemoglobin 9.1 g/dL (14.0-18.0); Mean Corpuscular HGB Conc 31.4 g/dl (32-36); Mean Corpuscular Hemoglobin 24.9 pg (26-34); Mean Corpuscular Volume 79.2 fl (80-100); Mean Platelet Volume 11.2 fl (7.4-10.4); Platelet Count Result 215 k/mm3 (150-375); Red Blood Count 3.66 M/mm3 (4.6-6.20); Red Cell Distribution Width 15.9 % (11.5-14.5); White Blood Count 6.2 K/mm3 (4.5-10.0)
[2022-11-24 05:40] LABS: Anion Gap 9 mmol/L (8-16); Blood Urea Nitrogen 26 mg/dL (9-20); Calcium 8.6 mg/dL (8.4-10.2); Carbon Dioxide 25 mmol/L (22-30); Chloride 105 mmol/L (98-107); Estimated CRCL calculation 34 ml/min; Estimated Glomerular Filt Rate 40; Glucose 89 mg/dL (65-110); Potassium 3.3 mmol/L (3.4-5.0); Sodium 139 mmol/L (137-145)
[2022-11-24] MEDS: LEVOTHYROXINE SODIUM 125 MCG TABLET PO (06:30)
[2022-11-24] MEDS: CENTRAL LINE FLUSH 10 ML IV PUSH ×3 (06:32→21:40)
[2022-11-24 08:20] LABS: Glucose Point of Care 86 mg/dl (65-105)
[2022-11-24] MEDS: ARIPiprazole 2 MG TABLET PO (09:53)
[2022-11-24] MEDS: POTASSIUM CHLORIDE 20 MEQ PACKET (FOR LIQUID) 40 MEQ PO (09:53)
[2022-11-24] MEDS: lisinopriL 10 MG TABLET 30 MG PO (09:53)
[2022-11-24] MEDS: ASPIRIN 81 MG CHEWABLE TABLET PO (09:56)
[2022-11-24] MEDS: carvediloL 25 MG TABLET PO (09:56)
[2022-11-24] MEDS: GABAPENTIN 300 MG CAPSULE PO ×3 (09:56→17:13)
[2022-11-24] MEDS: POTASSIUM CHLORIDE 10 MEQ ER TABLET PO (09:57)
[2022-11-24] MEDS: FUROSEMIDE 40 MG TABLET PO ×2 (09:57→17:13)
[2022-11-24] MEDS: ATORVASTATIN 40 MG TABLET 80 MG PO (09:57)
[2022-11-24] MEDS: ESCITALOPRAM OXALATE 10 MG TABLET 20 MG PO (09:57)
[2022-11-24] MEDS: HYDROXYCHLOROQUINE SULFATE 200 MG TABLET 400 MG PO (09:57)
[2022-11-24] MEDS: amLODIPine BESYLATE 5 MG TABLET 10 MG PO (09:57)
--- NOTE | 2022-11-24 10:32 | PM.IMPN ---
Progress Note: A&P Assessment and Plan (1) Unstable gait: Code(s): R26.81 - Unsteadiness on feet Status: Acute Assessment and Plan: PT OT evaluation greatly be appreciated. operations manager/coordinator consult was greatly be appreciated. The patient stated that he is going to rehab in the past and has not like most of the nursing homes. However the patient was just discharged 2 days ago and is now complaining of weakness and feels that he cannot take care of himself at home. after long conversation with the patient he is willing to go to a rehab. [facility] has accepted him and awaiting insurance authorization. (2) Positive blood cultures: Code(s): R78.81 - Bacteremia Status: Acute Assessment and Plan: The patient was discharged on vancomycin IV. However it is recommended that his PICC line be pulled back 7 cm. Vascular was called out to the hospital and his PICC line was evaluated , new PICC line had to be placed. Continue IV vancomycin through 12/01/2022 (3) Obstructive sleep apnea: Code(s): G47.33 - Obstructive sleep apnea (adult) (pediatric) Status: Acute Assessment and Plan: Continue with CPAP with home settings. (4) CAD (coronary artery disease): Onset Date: ~2006 Code(s): I25.10 - Atherosclerotic heart disease of [place] coronary artery without angina pectoris Status: Acute Assessment and Plan: Continue with aspirin Coreg and atorvastatin. (5) Anemia: Code(s): D64.9 - Anemia, unspecified Status: Chronic Assessment and Plan: The patient is at his baseline. (6) Paroxysmal A-fib: Code(s): I48.0 - Paroxysmal atrial fibrillation Status: Chronic Assessment and Plan: The patient was noted to be in AFib with slow ventricular response on the EKG today. Continue with Coreg (7) Type 2 diabetes mellitus with hyperglycemia, with long-term current use of insulin: Code(s): E11.65 - Type 2 diabetes mellitus with hyperglycemia; Z79.4 - websphere commerce developer (current) use of insulin Status: Chronic Assessment and Plan: Accu-Cheks AC and HS with sliding scale insulin. (8) CHF (congestive heart failure): Code(s): I50.9 - Heart failure, unspecified Status: Acute Assessment and Plan: Continue lisinopril, Coreg, and Lasix. (9) Hypothyroidism: Onset Date: ~2009 Code(s): E03.9 - Hypothyroidism, unspecified Status: Acute Assessment and Plan: Continue with levothyroxine and check thyroid level. Subjective Date/time seen: 11/24/22 10:32 Interval history: Patient doing well today with no new complaints at this time. Waiting insurance authorization for rehab. Review of Systems Review of Systems: All systems reviewed & are unremarkable except as noted in HPI and below Exam Narrative: GENERAL: Comfortable, no acute distress HENMT: moist mucous membranes EYES: EOM intact b/l NECK: no lymphadenopathy RESPIRATORY: clear to auscultation CARDIO: RRR GI: soft, nontender, bowel sounds present SKIN: no rashes EXTREMITIES: no edema, redness or tenderness Objective Data Vital Signs Vital Signs: Vital Signs - 24 hr 11/23/22 11:11 11/23/22 14:02 11/23/22 15:01 Temperature 97.5 F L Pulse Rate 55 L Respiratory Rate 16 Blood Pressure 132/67 Pulse Oximetry 99 100 Oxygen Delivery Room Air Room Air 11/23/22 17:33 11/23/22 20:28 11/23/22 20:00 Temperature 98 F Pulse Rate 54 L 57 L Respiratory Rate 20 Blood Pressure 137/55 L 151/64 H Pulse Oximetry 99 Oxygen Delivery Room Air 11/24/22 00:00 11/24/22 04:00 11/24/22 06:00 Temperature 97.6 F Pulse Rate 56 L 57 L 56 L Respiratory Rate 20 Blood Pressure 179/66 H Pulse Oximetry 100 Oxygen Delivery 11/24/22 09:56 Temperature Pulse Rate 74 Respiratory Rate Blood Pressure Pulse Oximetry Oxygen Delivery Intake/Output Intake/Out
[2022-11-24 12:06] LABS: Glucose Point of Care 140 mg/dl (65-105)
[2022-11-24 17:10] LABS: Glucose Point of Care 121 mg/dl (65-105)
[2022-11-24 20:32] LABS: Glucose Point of Care 126 mg/dl (65-105)
[2022-11-25] VITALS (9 sets, daily range): BP systolic 141–156; BP diastolic 62–74; PULSE 37–85; RESP 16–20; TEMP 36.7–36.9; O2SAT 96–100
[2022-11-25] MEDS: VANCOMYCIN 1,250 MG/NS 250 ML 1,250 MG/250 ML BAG 166.67 MG IVPB (02:10)
[2022-11-25 05:34] LABS: Hematocrit 27.7 % (42.0-52.0); Hemoglobin 8.8 g/dL (14.0-18.0); Mean Corpuscular HGB Conc 31.8 g/dl (32-36); Mean Corpuscular Hemoglobin 25.4 pg (26-34); Mean Corpuscular Volume 79.8 fl (80-100); Mean Platelet Volume 11.3 fl (7.4-10.4); Platelet Count Result 208 k/mm3 (150-375); Red Blood Count 3.47 M/mm3 (4.6-6.20); Red Cell Distribution Width 15.9 % (11.5-14.5); White Blood Count 6.8 K/mm3 (4.5-10.0)
[2022-11-25 05:36] LABS: Potassium 3.4 mmol/L (3.4-5.0)
[2022-11-25 05:38] LABS: Anion Gap 7 mmol/L (8-16); Blood Urea Nitrogen 23 mg/dL (9-20); Calcium 8.4 mg/dL (8.4-10.2); Carbon Dioxide 26 mmol/L (22-30); Chloride 105 mmol/L (98-107); Estimated CRCL calculation 36 ml/min; Estimated Glomerular Filt Rate 43; Glucose 99 mg/dL (65-110); Sodium 138 mmol/L (137-145)
[2022-11-25] MEDS: CENTRAL LINE FLUSH 10 ML IV PUSH ×3 (06:09→21:14)
[2022-11-25] MEDS: LEVOTHYROXINE SODIUM 125 MCG TABLET PO (06:09)
[2022-11-25] MEDS: ARIPiprazole 2 MG TABLET PO (08:07)
[2022-11-25] MEDS: ESCITALOPRAM OXALATE 10 MG TABLET 20 MG PO (08:07)
[2022-11-25] MEDS: amLODIPine BESYLATE 5 MG TABLET 10 MG PO (08:07)
[2022-11-25] MEDS: HYDROXYCHLOROQUINE SULFATE 200 MG TABLET 400 MG PO (08:07)
[2022-11-25] MEDS: POTASSIUM CHLORIDE 10 MEQ ER TABLET PO (08:07)
[2022-11-25] MEDS: lisinopriL 10 MG TABLET 30 MG PO (08:07)
[2022-11-25] MEDS: ATORVASTATIN 40 MG TABLET 80 MG PO (08:08)
[2022-11-25] MEDS: ASPIRIN 81 MG CHEWABLE TABLET PO (08:08)
[2022-11-25] MEDS: FUROSEMIDE 40 MG TABLET PO ×2 (08:08→16:51)
[2022-11-25] MEDS: oxyCODONE/ACETAMINOPHEN (*CRX) 5-325 MG TABLET PO (08:19)
[2022-11-25 08:22] LABS: Glucose Point of Care 93 mg/dl (65-105)
[2022-11-25] MEDS: GABAPENTIN 300 MG CAPSULE PO ×3 (09:17→16:50)
[2022-11-25 11:57] LABS: Glucose Point of Care 147 mg/dl (65-105)
--- NOTE | 2022-11-25 13:38 | PM.IMPN ---
Progress Note: A&P Assessment and Plan (1) Unstable gait: Code(s): R26.81 - Unsteadiness on feet Status: Acute Assessment and Plan: PT OT evaluation greatly be appreciated. venue coordinator consult was greatly be appreciated. The patient stated that he is going to rehab in the past and has not like most of the nursing homes. However the patient was just discharged 2 days ago and is now complaining of weakness and feels that he cannot take care of himself at home. after long conversation with the patient he is willing to go to a rehab. [facility] has accepted him and awaiting insurance authorization. (2) Positive blood cultures: Code(s): R78.81 - Bacteremia Status: Acute Assessment and Plan: The patient was discharged on vancomycin IV. However it is recommended that his PICC line be pulled back 7 cm. Vascular was called out to the hospital and his PICC line was evaluated , new PICC line had to be placed. Continue IV vancomycin through 12/01/2022 (3) Obstructive sleep apnea: Code(s): G47.33 - Obstructive sleep apnea (adult) (pediatric) Status: Acute Assessment and Plan: Continue with CPAP with home settings. (4) CAD (coronary artery disease): Onset Date: ~2006 Code(s): I25.10 - Atherosclerotic heart disease of [place] coronary artery without angina pectoris Status: Acute Assessment and Plan: Continue with aspirin Coreg and atorvastatin. Coreg as heart rate allows. (5) Anemia: Code(s): D64.9 - Anemia, unspecified Status: Chronic Assessment and Plan: The patient is at his baseline. (6) Paroxysmal A-fib: Code(s): I48.0 - Paroxysmal atrial fibrillation Status: Chronic Assessment and Plan: The patient was noted to be in AFib with slow ventricular response on the EKG today. Continue with Coreg (7) Type 2 diabetes mellitus with hyperglycemia, with long-term current use of insulin: Code(s): E11.65 - Type 2 diabetes mellitus with hyperglycemia; Z79.4 - [facility] (current) use of insulin Status: Chronic Assessment and Plan: Accu-Cheks AC and HS with sliding scale insulin. (8) CHF (congestive heart failure): Code(s): I50.9 - Heart failure, unspecified Status: Acute Assessment and Plan: Continue lisinopril, Coreg, and Lasix. (9) Hypothyroidism: Onset Date: ~2009 Code(s): E03.9 - Hypothyroidism, unspecified Status: Acute Assessment and Plan: Continue with levothyroxine and check thyroid level. Subjective Date/time seen: 11/25/22 13:38 Interval history: No new complaints at this time. Waiting insurance authorization for rehab. Review of Systems Review of Systems: All systems reviewed & are unremarkable except as noted in HPI and below Exam Narrative: GENERAL: Comfortable, no acute distress HENMT: moist mucous membranes EYES: EOM intact b/l NECK: no lymphadenopathy RESPIRATORY: clear to auscultation CARDIO: RRR GI: soft, nontender, bowel sounds present SKIN: no rashes EXTREMITIES: no edema, redness or tenderness Objective Data Vital Signs Vital Signs: Vital Signs - 24 hr 11/24/22 14:25 11/24/22 16:00 11/24/22 20:00 Temperature 98.0 F Pulse Rate 48 L 50 L Respiratory Rate 14 Blood Pressure 153/70 H Pulse Oximetry 100 Oxygen Delivery Room Air 11/24/22 20:00 11/24/22 22:00 11/25/22 04:41 Temperature 98.1 F 98.1 F Pulse Rate 42 L 56 L 60 Respiratory Rate 16 16 Blood Pressure 159/62 H 156/62 H Pulse Oximetry 98 100 Oxygen Delivery 11/25/22 00:00 11/25/22 04:00 11/25/22 08:00 Temperature Pulse Rate 56 L 57 L 37 L Respiratory Rate Blood Pressure Pulse Oximetry Oxygen Delivery 11/25/22 12:00 11/25/22 13:20 Temperature 98.4 F Pulse Rate 85 51 L Respiratory Rate 20 Blood Pressure 144/74 H Pulse Oximetry 100 Oxygen Delivery
[2022-11-25 17:00] LABS: Glucose Point of Care 103 mg/dl (65-105)
[2022-11-25 20:48] LABS: Glucose Point of Care 143 mg/dl (65-105)
[2022-11-25 23:47] LABS: Vancomycin Trough 20.2 ug/mL (10.0-20.0)
[2022-11-26] VITALS (10 sets, daily range): BP systolic 128–139; BP diastolic 57–62; PULSE 53–78; RESP 14–16; TEMP 36.4–37.1; O2SAT 100
--- NOTE | 2022-11-26 00:08 | PC.NURSE ---
Addendum entered by Rosie Rosas RN 11/26/22 00:46: Spoke with pharmacist, to clarify if the new order for vancomycin to be given at 0200 was okay to give and tailored to recent trough. Per pharmacist, vancomycin was adjusted to trough and okay to give at 0200 tonight. Original Note: Vancomycin for 0000 not given due to trough level coming back as 20.2.
[2022-11-26] MEDS: VANCOMYCIN 1,000 MG/NS 250 ML 1,000 MG/250 ML BAG 250 MG IVPB (01:25)
[2022-11-26 05:39] LABS: Hematocrit 27.7 % (42.0-52.0); Hemoglobin 8.6 g/dL (14.0-18.0); Mean Corpuscular Hemoglobin 24.6 pg (26-34); Mean Corpuscular Volume 79.4 fl (80-100); Mean Platelet Volume 11.3 fl (7.4-10.4); Platelet Count Result 219 k/mm3 (150-375); Red Blood Count 3.49 M/mm3 (4.6-6.20); Red Cell Distribution Width 15.9 % (11.5-14.5); White Blood Count 8.8 K/mm3 (4.5-10.0)
[2022-11-26] MEDS: LEVOTHYROXINE SODIUM 125 MCG TABLET PO (05:42)
[2022-11-26] MEDS: CENTRAL LINE FLUSH 10 ML IV PUSH ×3 (05:42→21:55)
[2022-11-26 05:58] LABS: Anion Gap 7 mmol/L (8-16); Blood Urea Nitrogen 23 mg/dL (9-20); Calcium 8.2 mg/dL (8.4-10.2); Carbon Dioxide 25 mmol/L (22-30); Chloride 105 mmol/L (98-107); Estimated CRCL calculation 34 ml/min; Estimated Glomerular Filt Rate 40; Glucose 100 mg/dL (65-110); Potassium 3.9 mmol/L (3.4-5.0); Sodium 137 mmol/L (137-145)
[2022-11-26] MEDS: GABAPENTIN 300 MG CAPSULE PO ×3 (08:04→17:18)
[2022-11-26] MEDS: ATORVASTATIN 40 MG TABLET 80 MG PO (08:04)
[2022-11-26] MEDS: POTASSIUM CHLORIDE 10 MEQ ER TABLET PO (08:04)
[2022-11-26] MEDS: HYDROXYCHLOROQUINE SULFATE 200 MG TABLET 400 MG PO (08:04)
[2022-11-26] MEDS: amLODIPine BESYLATE 5 MG TABLET 10 MG PO (08:04)
[2022-11-26] MEDS: lisinopriL 10 MG TABLET 30 MG PO (08:04)
[2022-11-26] MEDS: ESCITALOPRAM OXALATE 10 MG TABLET 20 MG PO (08:04)
[2022-11-26] MEDS: FUROSEMIDE 40 MG TABLET PO ×2 (08:04→17:18)
[2022-11-26] MEDS: ARIPiprazole 2 MG TABLET PO (08:04)
[2022-11-26] MEDS: ASPIRIN 81 MG CHEWABLE TABLET PO (08:05)
[2022-11-26 08:28] LABS: Glucose Point of Care 101 mg/dl (65-105)
--- NOTE | 2022-11-26 10:52 | P.PNIM_ITS ---
Progress Note: A&P Assessment and Plan (1) Unstable gait: Code(s): R26.81 - Unsteadiness on feet Status: Acute Assessment and Plan: * PT OT evaluation greatly be appreciated. * materials handling coordinator consult was greatly be appreciated. * Complaints of weakness and inability to be able to manage ADLs * After long conversation with the patient he is willing to go to a rehab. * [facility] has accepted him and awaiting insurance authorization. (2) Positive blood cultures: Code(s): R78.81 - Bacteremia Status: Acute Assessment and Plan: * Discharged on vancomycin IV. However it is recommended that his PICC line be pulled back 7 cm. * Vascular was called out to the hospital and his PICC line was evaluated , new PICC line had to be placed. * Continue IV vancomycin through 12/01/2022 (3) Obstructive sleep apnea: Code(s): G47.33 - Obstructive sleep apnea (adult) (pediatric) Status: Acute Assessment and Plan: * Continue with CPAP with home settings (4) CAD (coronary artery disease): Onset Date: ~2006 Qualifiers: Associated angina: without angina Coronary Disease-Associated Artery/Lesion type: [place] artery [place] vs. transplanted heart: [place] heart Qualified Code(s): I25.10 - Atherosclerotic heart disease of [place] coronary artery without angina pectoris Code(s): I25.10 - Atherosclerotic heart disease of [place] coronary artery without angina pectoris Status: Acute Assessment and Plan: * Continue with aspirin Coreg and atorvastatin. * Coreg as heart rate allows. (5) Anemia: Qualifiers: Anemia type: unspecified type Qualified Code(s): D64.9 - Anemia, unspecified Code(s): D64.9 - Anemia, unspecified Status: Chronic Assessment and Plan: * H/H 8.6/27.7, MCV 79.4 * Unknown type * Anemia labs in the am if still here * Supplement as indicated (6) Paroxysmal A-fib: Code(s): I48.0 - Paroxysmal atrial fibrillation Status: Chronic Assessment and Plan: * Noted to be in AFib with slow ventricular response on the EKG * Continue with Coreg * Stable * HR stable (7) Type 2 diabetes mellitus with hyperglycemia, with long-term current use of insulin: Code(s): E11.65 - Type 2 diabetes mellitus with hyperglycemia; Z79.4 - ext js developer (current) use of insulin Status: Chronic Assessment and Plan: * Glucose 100 * Accu-Cheks AC and HS * sliding scale insulin. * Trend glucose * Adjust therapy as indicated (8) CHF (congestive heart failure): Qualifiers: Heart failure chronicity: chronic Heart failure type: combined systolic and diastolic Qualified Code(s): I50.42 - Chronic combined systolic (congestive) and diastolic (congestive) heart failure Code(s): I50.9 - Heart failure, unspecified Status: Acute Assessment and Plan: * Appears to be a combined chronic systolic and diastolic heart failure not in exacerbation * EF of 35-40%, global diastolic dysfunction * Continue lisinopril, Coreg, and Lasix. * Daily weights * Trend urine output (9) Hypothyroidism: Onset Date: ~2009 Qualifiers: Hypothyroidism type: acquired Qualified Code(s): E03.9 - Hypothyroidism, unspecified Code(s): E03.9 - Hypothyroidism, unspecified
--- NOTE | 2022-11-26 10:52 | PM.IMPN ---
Progress Note: A&P Assessment and Plan (1) Unstable gait: Code(s): R26.81 - Unsteadiness on feet Status: Acute Assessment and Plan: PT OT evaluation greatly be appreciated. appeals coordinator consult was greatly be appreciated. Complaints of weakness and inability to be able to manage ADLs After long conversation with the patient he is willing to go to a rehab. [facility] has accepted him and awaiting insurance authorization. (2) Positive blood cultures: Code(s): R78.81 - Bacteremia Status: Acute Assessment and Plan: Discharged on vancomycin IV. However it is recommended that his PICC line be pulled back 7 cm. Vascular was called out to the hospital and his PICC line was evaluated , new PICC line had to be placed. Continue IV vancomycin through 12/01/2022 (3) Obstructive sleep apnea: Code(s): G47.33 - Obstructive sleep apnea (adult) (pediatric) Status: Acute Assessment and Plan: Continue with CPAP with home settings (4) CAD (coronary artery disease): Onset Date: ~2006 Qualifiers: Associated angina: without angina Coronary Disease-Associated Artery/Lesion type: [place] artery [place] vs. transplanted heart: [place] heart Qualified Code(s): I25.10 - Atherosclerotic heart disease of [place] coronary artery without angina pectoris Code(s): I25.10 - Atherosclerotic heart disease of [place] coronary artery without angina pectoris Status: Acute Assessment and Plan: Continue with aspirin Coreg and atorvastatin. Coreg as heart rate allows. (5) Anemia: Qualifiers: Anemia type: unspecified type Qualified Code(s): D64.9 - Anemia, unspecified Code(s): D64.9 - Anemia, unspecified Status: Chronic Assessment and Plan: H/H 8.6/27.7, MCV 79.4 Unknown type Anemia labs in the am if still here Supplement as indicated (6) Paroxysmal A-fib: Code(s): I48.0 - Paroxysmal atrial fibrillation Status: Chronic Assessment and Plan: Noted to be in AFib with slow ventricular response on the EKG Continue with Coreg Stable HR stable (7) Type 2 diabetes mellitus with hyperglycemia, with long-term current use of insulin: Code(s): E11.65 - Type 2 diabetes mellitus with hyperglycemia; Z79.4 - terminal worker (current) use of insulin Status: Chronic Assessment and Plan: Glucose 100 Accu-Cheks AC and HS sliding scale insulin. Trend glucose Adjust therapy as indicated (8) CHF (congestive heart failure): Qualifiers: Heart failure chronicity: chronic Heart failure type: combined systolic and diastolic Qualified Code(s): I50.42 - Chronic combined systolic (congestive) and diastolic (congestive) heart failure Code(s): I50.9 - Heart failure, unspecified Status: Acute Assessment and Plan: Appears to be a combined chronic systolic and diastolic heart failure not in exacerbation EF of 35-40%, global diastolic dysfunction Continue lisinopril, Coreg, and Lasix. Daily weights Trend urine output (9) Hypothyroidism: Onset Date: ~2009 Qualifiers: Hypothyroidism type: acquired Qualified Code(s): E03.9 - Hypothyroidism, unspecified Code(s): E03.9 - Hypothyroidism, unspecified Status: Acute Assessment and Plan: Continue with levothyroxine thyroid level 2.090 Stable Time Spent With Patient Time: 36 minutes Time with patient: Greater than 35 minutes Subjective Date/time seen: 11/26/22 10:52 Interval history: Patient is in bed resting comfortably. He stated that he was not able to have a BM, But did state that he is having a lot of gas. He denies any chest pain, shortness of breath, nausea, vomiting, diarrhea, or constipation. He did also mention that his arms and legs have been feeling sore, whic
[2022-11-26 12:08] LABS: Glucose Point of Care 141 mg/dl (65-105)
[2022-11-26] MEDS: oxyCODONE/ACETAMINOPHEN (*CRX) 5-325 MG TABLET PO (12:26)
[2022-11-26 13:51] LABS: Creatine Kinase 47 U/L (55-170)
[2022-11-26] MEDS: polyethylene glycoL 3350 17 GM POWD.PACK PO (14:01)
[2022-11-26 17:21] LABS: Glucose Point of Care 119 mg/dl (65-105)
[2022-11-26 20:04] LABS: Glucose Point of Care 122 mg/dl (65-105)
[2022-11-27] VITALS (7 sets, daily range): BP systolic 152–154; BP diastolic 53–66; PULSE 53–62; RESP 16; TEMP 36.3–36.4; O2SAT 98–100
[2022-11-27] MEDS: VANCOMYCIN 1,000 MG/NS 250 ML 1,000 MG/250 ML BAG 250 MG IVPB (01:30)
[2022-11-27] MEDS: ALTEPLASE 2 MG VIAL (CATHFLO) IV PUSH (04:41)
[2022-11-27 06:01] LABS: Basophils Percent Auto 0.4 % (0.2-1.2); Eosinophils Absolute Auto 0.8 K/mm3 (0-0.3); Eosinophils Percent Auto 10.9 % (0-4.4); Hematocrit 29.5 % (42.0-52.0); Hemoglobin 8.9 g/dL (14.0-18.0); Immature Granulocyte Absolute 0.02 K/mm3 (0.00-0.031); Immature Granulocyte Percent A 0.3 % (0-0.5); Lymphocytes Absolute Auto 0.85 K/mm3 (0.9-3.2); Mean Corpuscular HGB Conc 30.2 g/dl (32-36); Mean Corpuscular Hemoglobin 24.5 pg (26-34); Mean Platelet Volume 11.4 fl (7.4-10.4); Monocytes Absolute Auto 0.9 K/mm3 (0.1-0.6); Monocytes Percent Auto 11.4 % (2.6-8.5); Neutrophils Absolute Auto 5.1 K/mm3 (1.3-6.7); Platelet Count Result 217 k/mm3 (150-375); Red Blood Count 3.64 M/mm3 (4.6-6.20); Red Cell Distribution Width 16.1 % (11.5-14.5); White Blood Count 7.7 K/mm3 (4.5-10.0)
[2022-11-27 06:09] LABS: Alanine Aminotransferase 16 U/L (6-50); Albumin Level 3.4 g/dL (3.5-5.1); Alkaline Phosphatase 97 U/L (38-126); Anion Gap 8 mmol/L (8-16); Aspartate Amino Transferase 22 U/L (17-59); Bilirubin,Total 0.3 mg/dL (0.2-1.3); Blood Urea Nitrogen 25 mg/dL (9-20); Calcium 8.5 mg/dL (8.4-10.2); Carbon Dioxide 26 mmol/L (22-30); Chloride 106 mmol/L (98-107); Estimated CRCL calculation 29 ml/min; Estimated Glomerular Filt Rate 33; Glucose 84 mg/dL (65-110); Magnesium 2.1 mg/dL (1.6-2.3); Potassium 3.6 mmol/L (3.4-5.0); Sodium 140 mmol/L (137-145)
[2022-11-27] MEDS: LEVOTHYROXINE SODIUM 125 MCG TABLET PO (06:18)
[2022-11-27 06:19] LABS: Transferrin 125 mg/dL (206-381)
[2022-11-27 06:20] LABS: Iron 33 ug/dL (49-181)
[2022-11-27 06:29] LABS: Percent Iron Saturation 14 % (20-50)
[2022-11-27] MEDS: CENTRAL LINE FLUSH 10 ML IV PUSH ×2 (06:40→13:06)
[2022-11-27 07:14] LABS: Folic Acid 8.5 ng/mL (2.76->20)
[2022-11-27 08:51] LABS: Glucose Point of Care 79 mg/dl (65-105)
[2022-11-27] MEDS: ARIPiprazole 2 MG TABLET PO (09:00)
[2022-11-27] MEDS: amLODIPine BESYLATE 5 MG TABLET 10 MG PO (09:00)
[2022-11-27] MEDS: ASPIRIN 81 MG CHEWABLE TABLET PO (09:00)
[2022-11-27] MEDS: ATORVASTATIN 40 MG TABLET 80 MG PO (09:00)
[2022-11-27] MEDS: ESCITALOPRAM OXALATE 10 MG TABLET 20 MG PO (09:00)
[2022-11-27] MEDS: HYDROXYCHLOROQUINE SULFATE 200 MG TABLET 400 MG PO (09:01)
[2022-11-27] MEDS: GABAPENTIN 300 MG CAPSULE PO ×3 (09:01→17:30)
[2022-11-27] MEDS: FUROSEMIDE 40 MG TABLET PO ×2 (09:01→17:30)
[2022-11-27] MEDS: lisinopriL 10 MG TABLET 30 MG PO (09:01)
[2022-11-27] MEDS: POTASSIUM CHLORIDE 10 MEQ ER TABLET PO (09:01)
[2022-11-27] MEDS: polyethylene glycoL 3350 17 GM POWD.PACK PO (09:11)
--- NOTE | 2022-11-27 11:15 | P.PNIM_ITS ---
Progress Note: A&P Assessment and Plan (1) Unstable gait: Code(s): R26.81 - Unsteadiness on feet Status: Acute Assessment and Plan: * PT OT evaluation greatly be appreciated. * drug coordinator consult was greatly be appreciated. * Complaints of weakness and inability to be able to manage ADLs * After long conversation with the patient he is willing to go to a rehab. * [facility] has accepted him and awaiting insurance authorization. * Continue with current plan (2) Positive blood cultures: Code(s): R78.81 - Bacteremia Status: Acute Assessment and Plan: * Continue vancomycin per other discharge . * PICC line in place * Continue IV vancomycin through 12/01/2022 (3) Obstructive sleep apnea: Code(s): G47.33 - Obstructive sleep apnea (adult) (pediatric) Status: Acute Assessment and Plan: * Continue with CPAP with home settings (4) CAD (coronary artery disease): Onset Date: ~2006 Qualifiers: Coronary Disease-Associated Artery/Lesion type: [place] artery [place] vs. transplanted heart: [place] heart Associated angina: without angina Qualified Code(s): I25.10 - Atherosclerotic heart disease of [place] coronary artery without angina pectoris Code(s): I25.10 - Atherosclerotic heart disease of [place] coronary artery without angina pectoris Status: Acute Assessment and Plan: * Continue with aspirin Coreg and atorvastatin. * Coreg continued * Heart rate is stable at 62 (5) Anemia: Qualifiers: Anemia type: unspecified type Qualified Code(s): D64.9 - Anemia, unspecified Code(s): D64.9 - Anemia, unspecified Status: Chronic Assessment and Plan: * H/H 8.9/29.5, MCV 81.0 * Unknown type * Anemia labs iron 33, TIBC 336, % sat 14, Ferritin 159, B12 385, Folate 8.5, Transferrin 125 * Supplement with Iron 325mg PO BID * Add miralax and colace * Supplement as indicated (6) Paroxysmal A-fib: Code(s): I48.0 - Paroxysmal atrial fibrillation Status: Chronic Assessment and Plan: * Noted to be in AFib with slow ventricular response on the EKG * Continue with Coreg * Stable * HR stable in the 60s (7) Type 2 diabetes mellitus with hyperglycemia, with long-term current use of insulin: Code(s): E11.65 - Type 2 diabetes mellitus with hyperglycemia; Z79.4 - remote computer terminal operator (current) use of insulin Status: Chronic Assessment and Plan: * Glucose 84 * Accu-Cheks AC and HS * sliding scale insulin. * Trend glucose * Adjust therapy as indicated (8) CHF (congestive heart failure): Qualifiers: Heart failure chronicity: chronic Heart failure type: combined systolic and diastolic Qualified Code(s): I50.42 - Chronic combined systolic (congestive) and diastolic (congestive) heart failure Code(s): I50.9 - Heart failure, unspecified Status: Acute Assessment and Plan: * Appears to be a combined chronic systolic and diastolic heart failure not in exacerbation * EF of 35-40%, global diastolic dysfunction * Continue lisinopril, Coreg, and Lasix. * Daily weights * Trend urine output (9) Hypothyroidism: Onset Date: ~2009 Qualifiers: Hypothyroidism type: acquired Qualified Code(s): E03.9 - Hypothyroidism, unspecified Code(
--- NOTE | 2022-11-27 11:15 | PM.IMPN ---
Progress Note: A&P Assessment and Plan (1) Unstable gait: Code(s): R26.81 - Unsteadiness on feet Status: Acute Assessment and Plan: PT OT evaluation greatly be appreciated. computer security coordinator consult was greatly be appreciated. Complaints of weakness and inability to be able to manage ADLs After long conversation with the patient he is willing to go to a rehab. [facility] has accepted him and awaiting insurance authorization. Continue with current plan (2) Positive blood cultures: Code(s): R78.81 - Bacteremia Status: Acute Assessment and Plan: Continue vancomycin per other discharge . PICC line in place Continue IV vancomycin through 12/01/2022 (3) Obstructive sleep apnea: Code(s): G47.33 - Obstructive sleep apnea (adult) (pediatric) Status: Acute Assessment and Plan: Continue with CPAP with home settings (4) CAD (coronary artery disease): Onset Date: ~2006 Qualifiers: Coronary Disease-Associated Artery/Lesion type: [place] artery [place] vs. transplanted heart: [place] heart Associated angina: without angina Qualified Code(s): I25.10 - Atherosclerotic heart disease of [place] coronary artery without angina pectoris Code(s): I25.10 - Atherosclerotic heart disease of [place] coronary artery without angina pectoris Status: Acute Assessment and Plan: Continue with aspirin Coreg and atorvastatin. Coreg continued Heart rate is stable at 62 (5) Anemia: Qualifiers: Anemia type: unspecified type Qualified Code(s): D64.9 - Anemia, unspecified Code(s): D64.9 - Anemia, unspecified Status: Chronic Assessment and Plan: H/H 8.9/29.5, MCV 81.0 Unknown type Anemia labs iron 33, TIBC 336, % sat 14, Ferritin 159, B12 385, Folate 8.5, Transferrin 125 Supplement with Iron 325mg PO BID Add miralax and colace Supplement as indicated (6) Paroxysmal A-fib: Code(s): I48.0 - Paroxysmal atrial fibrillation Status: Chronic Assessment and Plan: Noted to be in AFib with slow ventricular response on the EKG Continue with Coreg Stable HR stable in the 60s (7) Type 2 diabetes mellitus with hyperglycemia, with long-term current use of insulin: Code(s): E11.65 - Type 2 diabetes mellitus with hyperglycemia; Z79.4 - jail (current) use of insulin Status: Chronic Assessment and Plan: Glucose 84 Accu-Cheks AC and HS sliding scale insulin. Trend glucose Adjust therapy as indicated (8) CHF (congestive heart failure): Qualifiers: Heart failure chronicity: chronic Heart failure type: combined systolic and diastolic Qualified Code(s): I50.42 - Chronic combined systolic (congestive) and diastolic (congestive) heart failure Code(s): I50.9 - Heart failure, unspecified Status: Acute Assessment and Plan: Appears to be a combined chronic systolic and diastolic heart failure not in exacerbation EF of 35-40%, global diastolic dysfunction Continue lisinopril, Coreg, and Lasix. Daily weights Trend urine output (9) Hypothyroidism: Onset Date: ~2009 Qualifiers: Hypothyroidism type: acquired Qualified Code(s): E03.9 - Hypothyroidism, unspecified Code(s): E03.9 - Hypothyroidism, unspecified Status: Acute Assessment and Plan: Continue with levothyroxine thyroid level 2.090 Stable Time Spent With Patient Time: 38 minutes Time with patient: Greater than 35 minutes Subjective Date/time seen: 11/27/22 11:15 Interval history: Patient is doing ok. He is sitting in the chair. He denies any chest pain, shortness of breath, nausea, vomiting, diarrhea, constipation. Iron is noted to be low. Supplementation has been added. Still awaiting for word about insurance auth. Review of Sy
[2022-11-27] MEDS: oxyCODONE/ACETAMINOPHEN (*CRX) 5-325 MG TABLET PO (11:16)
[2022-11-27 11:51] LABS: Glucose Point of Care 157 mg/dl (65-105)
--- NOTE | 2022-11-27 15:26 | P.DS_ITS ---
DS: Admitting Diagnosis Discharge Date 11/27/22 Admitting Diagnosis Generalized weakness DS: Discharge Diagnosis Discharge Diagnosis (1) Unstable gait: Code(s): R26.81 - Unsteadiness on feet Status: Acute Assessment and Plan: * PT OT evaluation greatly be appreciated. * nursing project coordinator consult was greatly be appreciated. * Complaints of weakness and inability to be able to manage ADLs * After long conversation with the patient he is willing to go to a rehab. * [facility] has accepted him and awaiting insurance authorization. * Continue with current plan (2) Positive blood cultures: Code(s): R78.81 - Bacteremia Status: Acute Assessment and Plan: * Continue vancomycin per other discharge . * PICC line in place * Continue IV vancomycin through 12/01/2022 (3) Obstructive sleep apnea: Code(s): G47.33 - Obstructive sleep apnea (adult) (pediatric) Status: Acute Assessment and Plan: * Continue with CPAP with home settings (4) CAD (coronary artery disease): Onset Date: ~2006 Qualifiers: Coronary Disease-Associated Artery/Lesion type: [place] artery [place] vs. transplanted heart: [place] heart Associated angina: without angina Qualified Code(s): I25.10 - Atherosclerotic heart disease of [place] coronary artery without angina pectoris Code(s): I25.10 - Atherosclerotic heart disease of [place] coronary artery without angina pectoris Status: Acute Assessment and Plan: * Continue with aspirin Coreg and atorvastatin. * Coreg continued * Heart rate is stable at 62 (5) Anemia: Qualifiers: Anemia type: unspecified type Qualified Code(s): D64.9 - Anemia, unspecified Code(s): D64.9 - Anemia, unspecified Status: Chronic Assessment and Plan: * H/H 8.9/29.5, MCV 81.0 * Unknown type * Anemia labs iron 33, TIBC 336, % sat 14, Ferritin 159, B12 385, Folate 8.5, Transferrin 125 * Supplement with Iron 325mg PO BID * Add miralax and colace * Supplement as indicated (6) Paroxysmal A-fib: Code(s): I48.0 - Paroxysmal atrial fibrillation Status: Chronic Assessment and Plan: * Noted to be in AFib with slow ventricular response on the EKG * Continue with Coreg * Stable * HR stable in the 60s (7) Type 2 diabetes mellitus with hyperglycemia, with long-term current use of insulin: Code(s): E11.65 - Type 2 diabetes mellitus with hyperglycemia; Z79.4 - terminal carman (current) use of insulin Status: Chronic Assessment and Plan: * Glucose 84 * Accu-Cheks AC and HS * sliding scale insulin. * Trend glucose * Adjust therapy as indicated (8) CHF (congestive heart failure): Qualifiers: Heart failure chronicity: chronic Heart failure type: combined systolic and diastolic Qualified Code(s): I50.42 - Chronic combined systolic (congestive) and diastolic (congestive) heart failure Code(s): I50.9 - Heart failure, unspecified Status: Acute Assessment and Plan: * Appears to be a combined chronic systolic and diastolic heart failure not in exacerbation * EF of 35-40%, global diastolic dysfunction * Continue lisinopril, Coreg, and Lasix. * Daily weights * Trend urine output (9) Hypothyroidism: Onset Date: ~2009 Qualif
--- NOTE | 2022-11-27 15:26 | PM.DS ---
DS: Admitting Diagnosis Discharge Date 11/27/22 Admitting Diagnosis Generalized weakness DS: Discharge Diagnosis Discharge Diagnosis (1) Unstable gait: Code(s): R26.81 - Unsteadiness on feet Status: Acute Assessment and Plan: PT OT evaluation greatly be appreciated. post adoption coordinator consult was greatly be appreciated. Complaints of weakness and inability to be able to manage ADLs After long conversation with the patient he is willing to go to a rehab. [facility] has accepted him and awaiting insurance authorization. Continue with current plan (2) Positive blood cultures: Code(s): R78.81 - Bacteremia Status: Acute Assessment and Plan: Continue vancomycin per other discharge . PICC line in place Continue IV vancomycin through 12/01/2022 (3) Obstructive sleep apnea: Code(s): G47.33 - Obstructive sleep apnea (adult) (pediatric) Status: Acute Assessment and Plan: Continue with CPAP with home settings (4) CAD (coronary artery disease): Onset Date: ~2006 Qualifiers: Coronary Disease-Associated Artery/Lesion type: [place] artery [place] vs. transplanted heart: [place] heart Associated angina: without angina Qualified Code(s): I25.10 - Atherosclerotic heart disease of [place] coronary artery without angina pectoris Code(s): I25.10 - Atherosclerotic heart disease of [place] coronary artery without angina pectoris Status: Acute Assessment and Plan: Continue with aspirin Coreg and atorvastatin. Coreg continued Heart rate is stable at 62 (5) Anemia: Qualifiers: Anemia type: unspecified type Qualified Code(s): D64.9 - Anemia, unspecified Code(s): D64.9 - Anemia, unspecified Status: Chronic Assessment and Plan: H/H 8.9/29.5, MCV 81.0 Unknown type Anemia labs iron 33, TIBC 336, % sat 14, Ferritin 159, B12 385, Folate 8.5, Transferrin 125 Supplement with Iron 325mg PO BID Add miralax and colace Supplement as indicated (6) Paroxysmal A-fib: Code(s): I48.0 - Paroxysmal atrial fibrillation Status: Chronic Assessment and Plan: Noted to be in AFib with slow ventricular response on the EKG Continue with Coreg Stable HR stable in the 60s (7) Type 2 diabetes mellitus with hyperglycemia, with long-term current use of insulin: Code(s): E11.65 - Type 2 diabetes mellitus with hyperglycemia; Z79.4 - assisted (current) use of insulin Status: Chronic Assessment and Plan: Glucose 84 Accu-Cheks AC and HS sliding scale insulin. Trend glucose Adjust therapy as indicated (8) CHF (congestive heart failure): Qualifiers: Heart failure chronicity: chronic Heart failure type: combined systolic and diastolic Qualified Code(s): I50.42 - Chronic combined systolic (congestive) and diastolic (congestive) heart failure Code(s): I50.9 - Heart failure, unspecified Status: Acute Assessment and Plan: Appears to be a combined chronic systolic and diastolic heart failure not in exacerbation EF of 35-40%, global diastolic dysfunction Continue lisinopril, Coreg, and Lasix. Daily weights Trend urine output (9) Hypothyroidism: Onset Date: ~2009 Qualifiers: Hypothyroidism type: acquired Qualified Code(s): E03.9 - Hypothyroidism, unspecified Code(s): E03.9 - Hypothyroidism, unspecified Status: Acute Assessment and Plan: Continue with levothyroxine thyroid level 2.090 Stable DS: Summary Hospital Course Hospital Course: Patient is a 67-year-old male with a past medical history CHF, bacteremia, CABG, CVA who presented to the ED with complaints of generalized weakness and frequent falls. Patient was recently discharged from the hospital on 11/20/2022 for bacteremia. It was noted that
[2022-11-27 17:10] LABS: Glucose Point of Care 128 mg/dl (65-105)
[2022-11-27 17:20] LABS: SARS-CoV-2 RNA PCR Negative (Negative)
[2022-11-27] MEDS: FERROUS SULFATE LIQUID 325 MG/7.4 ML ELIXIR 324 MG PO (17:30)
--- NOTE | 2022-11-27 20:03 | PC.NURSE ---
Called pt's contact lens blocker, John Strickland to notify that pt is now leaving to [facility] via [facility].
== END 2022-11-27 20:01 ==
LOC: ANHED 17:51 → ANH2MED 19:37
PROVIDERS: Internal Medicine Critical Care Medicine; Nurse Practitioner; Admitting Provider Internal Medicine; Emergency Provider Emergency Medicine; PCP Family Medicine; Visit Provider Chiropractor
DX: R26.81 Unsteadiness on feet (principal); W19.XXXA Unspecified fall, initial encounter; R78.81 Bacteremia; G47.33 Obstructive sleep apnea (adult) (pediatric); I25.10 Atherosclerotic heart disease of native coronary artery without angina pectoris; Z95.1 Presence of aortocoronary bypass graft; D64.9 Anemia, unspecified; I48.0 Paroxysmal atrial fibrillation; E11.65 Type 2 diabetes mellitus with hyperglycemia; I11.0 Hypertensive heart disease with heart failure; I50.42 Chronic combined systolic (congestive) and diastolic (congestive) heart failure; E03.9 Hypothyroidism, unspecified; Z20.822 Contact with and (suspected) exposure to COVID-19; Q28.2 Arteriovenous malformation of cerebral vessels; Z95.9 Presence of cardiac and vascular implant and graft, unspecified; I69.354 Hemiplegia and hemiparesis following cerebral infarction affecting left non-dominant side; I25.2 Old myocardial infarction; E11.21 Type 2 diabetes mellitus with diabetic nephropathy; G40.909 Epilepsy, unspecified, not intractable, without status epilepticus; M06.9 Rheumatoid arthritis, unspecified; R70.0 Elevated erythrocyte sedimentation rate; J84.9 Interstitial pulmonary disease, unspecified; R79.89 Other specified abnormal findings of blood chemistry; R80.9 Proteinuria, unspecified; R94.31 Abnormal electrocardiogram [ECG] [EKG]; Z99.89 Dependence on other enabling machines and devices; Z87.891 Personal history of nicotine dependence; Z79.4 Long term (current) use of insulin; Z79.85 Long-term (current) use of injectable non-insulin antidiabetic drugs; Z79.82 Long term (current) use of aspirin; Z79.891 Long term (current) use of opiate analgesic; Z79.899 Other long term (current) drug therapy; Z82.49 Family history of ischemic heart disease and other diseases of the circulatory system
CPT/HCPCS: 36415; 36569; 71045; 71046; 73060; 80048; 80053; 80202; 81001; 82550; 82607; 82728; 82746; 82948; 83540; 83550; 83735; 83880; 84443; 84466; 84484; 85025; 85027; 87635; 93005; 96365; 96366; 96375; 97110; 97161; 97165; 97530; 97535; 99285; A9270; C1751; G0378; J1940; J2997; J3370

== ENCOUNTER 2023-03-02 19:11 | Emergency (ER) | payer MEDICARE, MEDICAID, SELFPAY ==
[2023-03-02 19:23] VITALS: BP 145/87; PULSE 58; RESP 20; TEMP 36.6; O2SAT 100
[2023-03-03 01:12] VITALS: BP 140/59; PULSE 61; RESP 18; O2SAT 100
--- NOTE | 2023-03-03 01:36 | ED.MALEGU ---
HPI - Male Genitourinary General Chief complaint: Urogenital-Male <Ana Bautista PA-C - Last Filed: 03/03/23 02:55> Stated complaint: bleeding from penis <Ana Bautista PA-C - Last Filed: 03/03/23 02:55> Time Seen by Provider: 03/03/23 01:12 <Ana Bautista PA-C - Last Filed: 03/03/23 02:55> History of Present Illness HPI Narrative: 67-year-old male with a history of hemorrhagic CVA with residual left-sided deficits in 2015 and most recent recurrence of a hemorrhagic CVA with residual right-sided deficits that occurred 4 weeks ago. Patient was hospitalized at [facility] and was discharged home around February 12. Patient states he had a Rinaldi catheter placed during his stay at [facility] which was removed on February 19. States he developed excoriations to his scrotum secondary to the catheter while he was at [facility]. He was provided with a cream and powder which he has been using with some improvement. He came to the ED today to have the lesions looked at due to concern for infection given his history of diabetes. He states the lesions can be very itchy and bleed after he itches them. He does not know the name of the cream or powder he was prescribed. He denies fever, abdominal pain, nausea or vomiting. He denies dysuria and hematuria but states his urethra is irritated when he urinates since the catheter was removed. He has an appointment with his PCP in 2 days. <Ana Bautista PA-C - Last Filed: 03/03/23 02:55> Related Data Home medications: Home Medications Medication Instructions Recorded Confirmed atorvastatin 40 mg tablet 80 mg PO DAILY 03/24/19 11/22/22 carvedilol 25 mg tablet 25 mg PO Q12H 03/24/19 11/22/22 levothyroxine 125 mcg tablet 125 mcg PO DAILY 03/24/19 11/22/22 dulaglutide 1.5 mg/0.5 mL 1.5 mg subcut WEEKLY 01/20/22 11/22/22 [facility] aspirin 81 mg chewable tablet 81 mg PO DAILY 02/17/22 11/22/22 escitalopram oxalate 20 mg tablet 20 mg PO DAILY 02/17/22 11/22/22 gabapentin 300 mg capsule 300 mg PO TID 09/05/22 11/22/22 amlodipine 10 mg tablet 10 mg PO DAILY 09/11/22 11/22/22 aripiprazole 2 mg tablet 2 mg PO DAILY 09/11/22 11/22/22 potassium chloride 10 mEq 10 meq PO DAILY 09/11/22 11/22/22 tablet,extended release furosemide 40 mg tablet 40 mg PO BID 11/15/22 11/22/22 <Ana Bautista PA-C - Last Filed: 03/03/23 02:55> Allergies/Adverse reactions: Allergies Allergy/AdvReac Type Severity Reaction Status Date / Time Gadolinium-Containing AdvReac Unknown Vomiting Verified 03/03/23 01:15 Contrast Medi ioversol AdvReac Unknown Vomiting Verified 03/03/23 01:15 <Ana Bautista PA-C - Last Filed: 03/03/23 02:55> Review of Systems Review of Systems: CONSTITUTIONAL: Denies fever, chills EYES: Denies visual changes, redness, or discharge. ENT: Denies rhinorrhea, congestion, sore throat, or otalgia. CARDIOVASCULAR: Denies chest pain, palpitations, or edema. RESPIRATORY: Denies cough or dyspnea. GASTROINTESTINAL: Denies abdominal pain, nausea, vomiting, or diarrhea. GENITOURINARY: See HPI SKIN: Denies rash or itching. MUSCULOSKELETAL: Denies back pain, joint pain, or myalgia. NEUROLOGIC: Denies headache, numbness, dizziness, or weakness. PSYCHIATRIC: Denies anxiety or depression. <Ana Bautista PA-C - Last Filed: 03/03/23 02:55> [facility] Past Medical History Medical History: Medical History Anemia Atrial fibrillation/flutter Paroxysmal, history of DC cardioversion 2013, no longer on anticoagulation due to history of intercranial bleed CAD (coronary artery disease) (~2006) The patient had 3 cardiac stents placed between 2005 and 2012. He had a CABG in 2012 with a [place]'s ring placed on the mitral valve Cerebral arteriovenous malformation (AVM) Evaluated at [facility] in 1991 and 1997. He had bleeding from the AVM prior to 2005 CHF (congestive heart
[2023-03-03 03:02] VITALS: BP 160/63; PULSE 63; RESP 18; O2SAT 100
[2023-03-03 03:14] LABS: Appearance Urine Cloudy (Clear); Bacteria Urine None Seen /hpf; Bilirubin Urine Negative (Negative); Blood Urine Negative (Negative); Color Urine Yellow (Yellow); Glucose Urine UA Negative (Negative); Hyaline Casts Urine Present /lpf; Ketones Urine Trace mg/dL (Negative); Leukocyte Esterase Ur Negative LEU/UL (Negative); Need Manual Microscopic Reviewed; Nitrate Urine Negative (Negative); Non Pathogenic Casts >20; Protein Urine 3+ mg/dL (Negative); RBC Urine 0-2 /hpf (0-2); Specific Grav Ur 1.018 (1.001-1.035); Squamous Epithelial Cell Urine None seen /hpf (Few); WBC Urine 0-5 /hpf
[2023-03-03 03:15] LABS: Add Urine Microscopic? YES
[2023-03-03 05:45] VITALS: BP 154/83; PULSE 60; O2SAT 99
== END 2023-03-03 07:40 | disposition home or self-care (01) ==
PROVIDERS: Emergency Provider Physician Assistant; PCP Family Medicine
DX: S30.813A Abrasion of scrotum and testes, initial encounter (principal); I48.91 Unspecified atrial fibrillation; I11.0 Hypertensive heart disease with heart failure; I50.9 Heart failure, unspecified; E03.9 Hypothyroidism, unspecified; E11.9 Type 2 diabetes mellitus without complications; I25.2 Old myocardial infarction; Z87.891 Personal history of nicotine dependence; X58.XXXA Exposure to other specified factors, initial encounter
CPT/HCPCS: 81001; 99283

== ENCOUNTER 2023-07-31 06:20 | Observation (INO) | payer MEDICARE, MEDICAID, SELFPAY ==
[2023-07-31] VITALS (13 sets, daily range): BP systolic 114–165; BP diastolic 58–80; PULSE 57–74; RESP 16–20; TEMP 35.9–37.1; O2SAT 99–100; BMI 26.4
--- NOTE | ~2023-07-31 | CT_ITS ---
EXAMINATION: CT brain wo con INDICATION: Generalized weakness COMPARISON: 10/18/2022 TECHNIQUE: Standard unenhanced head CT. The dose-length product (DLP) was 1059.33 mGy-cm. The mA was adjusted according to patient size. Iterative reconstruction technique was employed. FINDINGS: No acute intraparenchymal hemorrhage. There is a chronic calcified mass of the right tempor al lobe, consistent with an arteriovenous malformation. No evidence of acute infarction. There is mil d periventricular and subcortical hypodensity probably related to small vessel ischemic disease. Ther e is mild prominence of the sulci and ventricles related to cerebral atrophy. Intracranial calcified cerebral atherosclerosis is noted. No extra-axial collections. No mass effect or midline shift. The o rbits and soft tissues are unremarkable. The visualized sinuses and mastoid air cells are well aerate d. IMPRESSION: 1. No acute intracranial abnormality. 2. Age related findings. Reviewed, dictated and finalized at location A.
--- NOTE | ~2023-07-31 | XR_ITS ---
XR shoulder LT min 2V DATE: 08/02/2023 11:44 INDICATION: Recent fall 2 days ago. Pain, limited motion TECHNIQUE: 3 views COMPARISON: None FINDINGS: Status post sternotomy and cardiac valve replacement. There is spur along the inferior aspect of the acromion process of the scapula. No fracture or dislocation, periosteal reaction or bone destruction of the left shoulder is evident. IMPRESSION: No fracture or dislocation Reviewed, dictated and finalized at location A. IMPRESSION: No fracture or dislocation
--- NOTE | ~2023-07-31 | XR_ITS ---
EXAMINATION: XR chest 1V portable INDICATION: Weakness TECHNIQUE: Portable AP chest at 0636 hours COMPARISON: 11/23/2022 FINDINGS: Cardiomegaly is noted. There is a mild diffuse interstitial pattern. There is a small chron ic left pleural effusion. No pneumothorax is identified. Changes of cardiac surgery are noted. IMPRESSION: 1. Cardiomegaly with mild pulmonary edema. Reviewed, dictated and finalized at location A.
--- NOTE | 2023-07-31 06:25 | ECG_ITS ---
Measurements Intervals [place] Rate: 72 P: 103 WI: 143 QRS: -4 QRSD: 101 T: 11 QT: 396 QTc: 436 Interpretive Statements ATRIAL FLUTTER/TACHYCARDIA WITH NORMAL VENTRICULAR RESPONSE DELAYED PRECORDIAL R/S TRANSITION LEFT VENTRICULAR HYPERTROPHY AND ST-T CHANGE BASELINE ARTIFACT- I, II, III, AVR, AVL, AVF, V1-V6 ABNORMAL ECG COMPARED TO ECG 11/22/2022 17:03:18 HEART RATE HAS INCREASED LEFT VENTRICULAR HYPERTROPHY NOW PRESENT Electronically Signed On 07-31-2023 7:12:08 CDT by Gustavo Gavin D.O.
[2023-07-31 06:39] LABS: Basophils Absolute Auto 0.1 K/mm3 (0.0-0.1); Basophils Percent Auto 0.4 % (0.2-1.2); Eosinophils Absolute Auto 0.9 K/mm3 (0-0.3); Eosinophils Percent Auto 8.1 % (0-4.4); Hematocrit 30.1 % (42.0-52.0); Hemoglobin 9.1 g/dL (14.0-18.0); Immature Granulocyte Absolute 0.04 K/mm3 (0.00-0.031); Immature Granulocyte Percent A 0.3 % (0-0.5); Lymphocytes Absolute Auto 0.84 K/mm3 (0.9-3.2); Lymphocytes Percent Auto 7.3 % (18.3-44.2); Mean Corpuscular HGB Conc 30.2 g/dl (32-36); Mean Corpuscular Hemoglobin 25.6 pg (26-34); Mean Corpuscular Volume 84.8 fl (80-100); Mean Platelet Volume 11.5 fl (7.4-10.4); Monocytes Absolute Auto 0.9 K/mm3 (0.1-0.6); Neutrophils Absolute Auto 8.7 K/mm3 (1.3-6.7); Neutrophils Percent Auto 75.9 % (45.5-73.1); Platelet Count Result 254 k/mm3 (150-375); Red Blood Count 3.55 M/mm3 (4.6-6.20); White Blood Count 11.4 K/mm3 (4.5-10.0)
--- NOTE | 2023-07-31 06:40 | PC.NURSE ---
patient states his right wrist is broke from his fall. Patient states that he went to [facility] for his wrist a couple of days ago.
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
[2023-07-31 06:48] LABS: Alanine Aminotransferase 13 U/L (6-50); Albumin Level 4.1 g/dL (3.5-5.1); Alkaline Phosphatase 93 U/L (38-126); Anion Gap 11 mmol/L (4-12); Aspartate Amino Transferase 15 U/L (17-59); Bilirubin,Total 0.3 mg/dL (0.2-1.3); Blood Urea Nitrogen 66 mg/dL (9-20); Calcium 9.6 mg/dL (8.4-10.2); Carbon Dioxide 19 mmol/L (22-30); Chloride 112 mmol/L (98-107); Estimated CRCL calculation 21 ml/min; Estimated Glomerular Filt Rate 23; Glucose 127 mg/dL (65-110); Potassium 5.2 mmol/L (3.4-5.0); Sodium 142 mmol/L (137-145)
[2023-07-31 07:06] LABS: NT Pro B Type Natriuretic Pept 1580 pg/mL (19.9-100)
--- NOTE | 2023-07-31 07:20 | PC.NURSE ---
waiting for urine specimen and pt reported he did not feel the urge to void. Bladder scanned and 270 mls reported by scanner. Straight cath inserted using sterile technique pt tolerated procedure well. 250ml pale yellow urine drained from bladder
[2023-07-31 08:39] LABS: Appearance Urine Cloudy (Clear); Bacteria Urine None Seen /hpf; Bilirubin Urine Negative (Negative); Blood Urine Negative (Negative); Color Urine Yellow (Yellow); Glucose Urine UA Negative (Negative); Ketones Urine Negative (Negative); Leukocyte Esterase Ur Negative LEU/UL (Negative); Nitrate Urine Negative (Negative); Non Pathogenic Casts 0-2; Protein Urine 2+ mg/dL (Negative); RBC Urine 0-2 /hpf (0-2); Specific Grav Ur 1.017 (1.001-1.035); Squamous Epithelial Cell Urine None Seen /hpf (Few); Urobilinogen Urine 0.2 mg/dL (<2.0); WBC Urine 0-5 /hpf (0-3)
[2023-07-31 08:49] LABS: Add Urine Microscopic? YES
--- NOTE | 2023-07-31 09:03 | ED.WEAKNESS ---
HPI - Weakness General Chief complaint: Weakness Stated complaint: increased weakness Time Seen by Provider: 07/31/23 07:00 History of Present Illness HPI Narrative: Patient presents with generalized weakness increasing last few days, he does have history of CHF, has been taking all his medications. Due to his weakness he actually fell a few days ago. Denies any recent fevers or chills, nausea, abdominal pain, chest pain, shortness of breath. Related Data Home Medications Medication Instructions Recorded Confirmed atorvastatin 40 mg tablet 40 mg PO DAILY 03/24/19 07/31/23 levothyroxine 125 mcg tablet 125 mcg PO DAILY 03/24/19 07/31/23 dulaglutide 1.5 mg/0.5 mL 3 mg subcut WEEKLY 01/20/22 07/31/23 [facility] aspirin 81 mg chewable tablet 81 mg PO HS 02/17/22 07/31/23 escitalopram oxalate 20 mg tablet 20 mg PO DAILY 02/17/22 07/31/23 gabapentin 300 mg capsule 600 mg PO TID 09/05/22 07/31/23 amlodipine 10 mg tablet 10 mg PO DAILY 09/11/22 07/31/23 aripiprazole 2 mg tablet 2 mg PO DAILY 09/11/22 07/31/23 potassium chloride 10 mEq 10 meq PO DAILY 09/11/22 07/31/23 tablet,extended release furosemide 40 mg tablet 40 mg PO BID 11/15/22 07/31/23 carvedilol 3.125 mg tablet 3.125 mg PO BIDWM 07/31/23 07/31/23 lisinopril 30 mg tablet 40 mg PO DAILY 07/31/23 07/31/23 metformin 500 mg tablet 500 mg PO BIDWM 07/31/23 07/31/23 nortriptyline 10 mg capsule 10 mg PO HS 07/31/23 07/31/23 oxycodone-acetaminophen 10 mg-325 1 tablet PO Q6H 07/31/23 07/31/23 mg tablet spironolactone 50 mg tablet 50 mg PO DAILY 07/31/23 07/31/23 tizanidine 2 mg tablet 2 mg PO BID PRN Muscle Spasm 07/31/23 07/31/23 Allergies Allergy/AdvReac Type Severity Reaction Status Date / Time Gadolinium-Containing AdvReac Unknown Vomiting Verified 03/03/23 01:15 Contrast Medi ioversol AdvReac Unknown Vomiting Verified 03/03/23 01:15 Review of Systems Review of Systems: CONST: Generalized weakness HEENT: No sore throat C/V: No chest pain RESP: No cough GI: No abdominal pain : No dysuria. M/S: No joint pain. SKIN: No rash. NEURO: [No headache or focal numbness or weakness] PSYCH: [No depression] [facility] Past Medical History Medical History Anemia Atrial fibrillation/flutter Paroxysmal, history of DC cardioversion 2013, no longer on anticoagulation due to history of intercranial bleed CAD (coronary artery disease) (~2006) The patient had 3 cardiac stents placed between 2005 and 2012. He had a CABG in 2012 with a [place]'s ring placed on the mitral valve Cerebral arteriovenous malformation (AVM) Evaluated at [place] in 1991 and 1997. He had bleeding from the AVM prior to 2005 CHF (congestive heart failure) Echocardiogram 07/2013: Left ventricular hypertrophy with mild dilatation, severe septal hypokinesis, EF 55-60, diastolic dysfunction, dilated left atrium Prior diagnosis of dilated cardiomyopathy CVA (cerebral vascular accident) (~2014) Hemorrhagic CVA 2013. MRI brain 07/2020 performed due to ataxia: Chronic ill-defined mass in the right temporal lobe consistent with AV malformation, chronic encephalomalacia with old blood product in the right temporal lobe and adjacent right insula and right lentiform nucleus, old lacunar infarct in the left caudate nucleus, moderate nonspecific cerebral white matter disease likely representing chronic small-vessel ischemic disease Depression Diabetes mellitus (~2002) uncontrolled with hemoglobin A1c 10.6 01/20/2022 Diabetic nephropathy with proteinuria Diabetic peripheral neuropathy ESR raised HTN (hypertension) Hypothyroidism (~2009) Myocardial infarction Obstructive sleep apnea Polysomnogram 2014: Moderate obstructive sleep apnea improved with CPAP of 6 Rheumatoid arthritis Seizure disorder Surgical History Surgical History History of appendectomy Hx of CABG
[2023-07-31] MEDS: LACTATED RINGERS 500 ML 999 ML IV CONT (09:52)
--- NOTE | 2023-07-31 10:17 | ADMGEN ---
This patient, Romero Davis, was admitted to [facility] Surg Room 306-02. Patient/family oriented to hospital policies and general routines including ID bracelet, bed and alarms, visiting hours, pain management, procedures, bathroom and other care routines, personal items, smoking policy, room service/diet, and visiting hours. Information on how to activate the Rapid Response Team has been discussed. Patient/Family are encouraged to report perceived risks to care and to ask questions if they do not understand what they are told or what they should do.
--- NOTE | 2023-07-31 13:09 | PM.IMHP ---
H&P: HPI History of Present Illness Date/Time: 07/31/23 13:09 Chief Complaint: Weakness Narrative: 67 y/o M presents here with generalized weakness with PMH of anemia, AFib (paroxysmal)/Aflutter, cerebral AVM, CHF, CVA (2, after 1st stroke his left side was weaker and after the second one his right side was weak, and swallow impairment), DM, depression, HTN, hypothyroidism, KS, SYEDA, RA, frequent falls, and seizures. Patient presents here from home via EMS for further evaluation of generalized weakness. First noted weakness after he sustained a fall on 07/27. Patient believes fall was mechanical but cannot currently recall events. Believes he fell onto his arms, reports they are currently sore but feeling better. Does not believe he had syncopal event or LOC. Not currently on anticoagulation. Currently lives at home with his partner who helps to care for him, also has an aid. Sought care today for further evaluation of weakness and body aches. Denies cough, shortness of breath, fever, chills, palpitations, sore throat, headache, dysuria, or urinary frequency. No diarrhea, constipation, or abdominal pain. Denying focal weakness, dysarthria, dysphagia, or numbness. Baseline orientation waxes and wanes, A/Ox1-3. Minimal use of his BUE. Initial VS at presentation: 97.8? F, HR 72, RR 17, 165/77, and 100% on RA. ED workup showed: WBC 11.4, Hgb 9.1 with mildly low MCHC, K 5.2, creatinine 2.8 (previously 2.0 on 11/27/2022), BNP 1580, and UA not consistent with UTI. Head CT showed no acute intracranial abnormality and age related findings. CXR showed cardiomegaly with mild pulmonary edema. Review of Systems Review of Systems: All systems reviewed & are unremarkable except as noted in HPI and below [facility] Past Medical History Medical History Anemia Atrial fibrillation/flutter Paroxysmal, history of DC cardioversion 2013, no longer on anticoagulation due to history of intercranial bleed CAD (coronary artery disease) (~2006) The patient had 3 cardiac stents placed between 2005 and 2012. He had a CABG in 2012 with a Saint Aleksey's ring placed on the mitral valve Cerebral arteriovenous malformation (AVM) Evaluated at [facility] in 1991 and 1997. He had bleeding from the AVM prior to 2005 CHF (congestive heart failure) Echocardiogram 07/2013: Left ventricular hypertrophy with mild dilatation, severe septal hypokinesis, EF 55-60, diastolic dysfunction, dilated left atrium Prior diagnosis of dilated cardiomyopathy CVA (cerebral vascular accident) (~2014) Hemorrhagic CVA 2013. MRI brain 07/2020 performed due to ataxia: Chronic ill-defined mass in the right temporal lobe consistent with AV malformation, chronic encephalomalacia with old blood product in the right temporal lobe and adjacent right insula and right lentiform nucleus, old lacunar infarct in the left caudate nucleus, moderate nonspecific cerebral white matter disease likely representing chronic small-vessel ischemic disease Depression Diabetes mellitus (~2002) uncontrolled with hemoglobin A1c 10.6 01/20/2022 Diabetic nephropathy with proteinuria Diabetic peripheral neuropathy ESR raised HTN (hypertension) Hypothyroidism (~2009) Myocardial infarction Obstructive sleep apnea Polysomnogram 2013: Moderate obstructive sleep apnea improved with CPAP of 6 Rheumatoid arthritis Seizure disorder Surgical History Surgical History History of appendectomy Hx of CABG (~2013) 3 vessel CABG with placement of a Saint Aleksey's ring on the mitral valve Family History Family History Other Cerebrovascular accident Depression Diabetes mellitus Family history of aortic aneurysm Family history of atrial fibrillation Family history of congestive heart failure Hypertension Social History Social History (Reviewed 08/01/23 @ 00:05 by Bailey
[2023-07-31 23:47] LABS: Influenza A QL RT-PCR Negative (Negative); Influenza B QL RT-PCR Negative (Negative); RSV RNA, RT-PCR Negative (Negative); SARS-CoV-2 RNA PCR Negative (Negative)
[2023-08-01] VITALS (13 sets, daily range): BP systolic 149–155; BP diastolic 65–75; PULSE 47–91; RESP 16–18; TEMP 36.4–36.9; O2SAT 96–100
[2023-08-01] MEDS: LEVOTHYROXINE SODIUM 125 MCG TABLET PO (05:40)
[2023-08-01 07:03] LABS: Basophils Percent Auto 0.4 % (0.2-1.2); Eosinophils Absolute Auto 0.6 K/mm3 (0-0.3); Eosinophils Percent Auto 7.2 % (0-4.4); Hematocrit 28.9 % (42.0-52.0); Hemoglobin 8.5 g/dL (14.0-18.0); Immature Granulocyte Absolute 0.04 K/mm3 (0.00-0.031); Immature Granulocyte Percent A 0.4 % (0-0.5); Lymphocytes Absolute Auto 0.96 K/mm3 (0.9-3.2); Lymphocytes Percent Auto 10.8 % (18.3-44.2); Mean Corpuscular HGB Conc 29.4 g/dl (32-36); Mean Corpuscular Hemoglobin 25.4 pg (26-34); Mean Corpuscular Volume 86.3 fl (80-100); Mean Platelet Volume 11.3 fl (7.4-10.4); Monocytes Absolute Auto 0.8 K/mm3 (0.1-0.6); Monocytes Percent Auto 9.3 % (2.6-8.5); Neutrophils Absolute Auto 6.4 K/mm3 (1.3-6.7); Neutrophils Percent Auto 71.9 % (45.5-73.1); Platelet Count Result 252 k/mm3 (150-375); Red Blood Count 3.35 M/mm3 (4.6-6.20); Red Cell Distribution Width 15.9 % (11.5-14.5); White Blood Count 8.9 K/mm3 (4.5-10.0)
[2023-08-01 07:19] LABS: Alanine Aminotransferase 12 U/L (6-50); Albumin Level 3.5 g/dL (3.5-5.1); Alkaline Phosphatase 87 U/L (38-126); Anion Gap 6 mmol/L (4-12); Aspartate Amino Transferase 16 U/L (17-59); Bilirubin,Total 0.3 mg/dL (0.2-1.3); Blood Urea Nitrogen 54 mg/dL (9-20); Calcium 9.1 mg/dL (8.4-10.2); Carbon Dioxide 18 mmol/L (22-30); Chloride 115 mmol/L (98-107); Estimated CRCL calculation 24 ml/min; Estimated Glomerular Filt Rate 27; Glucose 90 mg/dL (65-110); Potassium 4.9 mmol/L (3.4-5.0); Sodium 139 mmol/L (137-145)
[2023-08-01 07:42] LABS: Glucose Point of Care 89 mg/dl (65-105)
[2023-08-01 08:00] LABS: Hemoglobin A1C 5.8 % (<5.7)
[2023-08-01 08:06] LABS: Anisocytosis 1+; Hypochromasia 1+; Platelet Estimate Adequate (Adequate); Poikilocytosis 1+; Schistocytes Rare
[2023-08-01] MEDS: SPIRONOLACTONE 50 MG TABLET PO (09:48)
[2023-08-01] MEDS: GABAPENTIN 300 MG CAPSULE 600 MG PO ×3 (09:48→17:23)
[2023-08-01] MEDS: ATORVASTATIN 40 MG TABLET PO (09:48)
[2023-08-01] MEDS: ARIPiprazole 2 MG TABLET PO (09:48)
[2023-08-01] MEDS: amLODIPine BESYLATE 5 MG TABLET 10 MG PO (09:48)
[2023-08-01] MEDS: carvediloL 3.125 MG TABLET PO ×2 (09:48→17:23)
[2023-08-01] MEDS: polyethylene glycoL 3350 17 GM POWD.PACK PO (09:48)
[2023-08-01] MEDS: lisinopriL 20 MG TABLET 40 MG PO (09:49)
[2023-08-01] MEDS: ESCITALOPRAM OXALATE 10 MG TABLET 20 MG PO (09:49)
[2023-08-01] MEDS: POTASSIUM CHLORIDE 10 MEQ ER TABLET PO (09:49)
[2023-08-01] MEDS: FUROSEMIDE 40 MG TABLET PO ×2 (09:49→17:23)
[2023-08-01] MEDS: oxyCODONE/ACETAMINOPHEN (*CRX) 10-325 MG TABLET 1 TAB PO ×3 (09:51→20:25)
--- NOTE | 2023-08-01 11:41 | PCSTNOTE ---
Bedside swallowing evaluation completed. Per nurse, patient coughed when drinking water while taking meds. Cursory oral peripheral examination reveals oral mechanism structurally within functional limits. Mild right sided labial weakness and reduced range of motion but able to suck through straw. No anterior loss of liquid, pureed, or solids. Lingual movements symmetrical and tongue symmetrical at rest. Patient was positioned upright in bed with head of bed elevated. Leans toward right, pillow used for support and to help patient stay upright. Trials of thin liquid by straw, pureed consistency by spoon, and solid (sandwich) by hand. No signs of aspiration observed. Patient was wearing dentures that do not fit well and had no adhesive which he ordinarily uses. He was able to chew soft bites (sandwich) but was not asked to take bites from sandwich, so bites were torn from sandwich and given to patient. He did not assist in self feeding due to weak upper extremeties. Current diet texture is soft and bite sized (level 6) which is appropriate, and thin liquids (level 0) which is also appropriate. Swallowing precaution recommendations are posted in chart and include: small bites/sips, alternate solid/liquid bolus, upright positioning when eating or drinking and 30 minutes afterwards, place pills in applesauce, supervision (assist) at meals. No further speech therapy is recommended at this time. Please note that silent aspiration cannot be ruled out at bedside and can be evaluated with a modified barium swallow study if desired. Thank you for the referral of this patient.
[2023-08-01 11:43] LABS: Glucose Point of Care 119 mg/dl (65-105)
--- NOTE | 2023-08-01 11:48 | PM.IMPN ---
Progress Note: A&P Assessment and Plan (1) Weakness: Code(s): R53.1 - Weakness Status: Acute Assessment and Plan: 07/31/23: - no focal deficit on exam that is deviation from baseline - viral PCR added - head CT: No acute intracranial abnormality, age-related findings - CXR: cardiomegaly with mild pulmonary edema. - neuro checks QShift - BNP 1580, previously 8250 on 11/20/2021 and does not appear volume overloaded on exam. Does have crackles in left lung base. Monitor daily weights and I&Os. Add echo. Previous echo showed EF of 40%. - EKG, initial: Atrial flutter/tachycardia with normal ventricular response, delayed precordial RS transition, LV hypertrophy and ST-T change. When compared to EKG done on 11/22/2022, heart rate has increased and left ventricular hypertrophy now present. - UA: Cloudy, 2+ protein, otherwise unremarkable. - trend labs 08/01/2023: PT and OT ordered for evaluation treat Will likely need SNF placement (2) ELIZABETH (acute kidney injury): Code(s): N17.9 - Acute kidney failure, unspecified Status: Acute Assessment and Plan: 07/31/23: - creatinine 2.8, previously 2.0 on 11/27/2022 - GFR 23, previously 33 on 11/27/2022 - 500 mL bolus of LR given in ED - continue to trend renal function 08/01/2023: BUN 54, creatinine 2.4 which is down from previous read Baseline creatinine 1.6-2.0 Continue to trend (3) Type 2 diabetes mellitus with hyperglycemia, with long-term current use of insulin: Code(s): E11.65 - Type 2 diabetes mellitus with hyperglycemia; 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 Patient has had a recent fall on 07/28/2023. Workup in the hospital included a chest x-ray which showed mild pulmonary edema. Head CT was negative for any acute intracranial abnormality. Initial labs showed a white blood cell count of 11.4, hemoglobin 9.1, potassium 5.2, bicarb level 19, BUN 66, creatinine 2.8, EGFR 23, proBNP 15 80. Patient had a UA which showed 2+ urine protein, otherwise normal. Respiratory panel was negative for influenza a and B, RSV, COVID. On examination today patient is alert and oriented x3, lying in the bed. Patient denies any fever, chills, nausea, vomiting, diarrhea, abdominal pain, chest pain, shortness a breath. He states that he is feeling much better today. Labs today revealed hemoglobin 8.5, bicarb 18, BUN 54, creatinine 2.4, hemoglobin A1c 5.8. PT and OT worked with him today and he was pretty unsteady on his feet he may require SNF placement. Review of Systems Review of Systems: All systems reviewed & are unremarkable except as noted in HPI and below Constitutional: Constitutional: Reports as per HPI and Reports no additional constitutional complaints Eyes: Eyes: Reports as per HPI and Reports no additional eye complaints ENT: Reports system reviewed and no additional complaints, except as documented and Reports as per HPI Cardiovascular: Cardiovascular: Reports as per HPI and Reports no additional cardiovascular complaints Respiratory: Respiratory: Reports as per HPI and Reports no additional respiratory complaints Gastrointestinal: Gastrointestinal: Reports as per HPI and Reports no additional gastrointestinal complaints Genitourinary: Genitourinary: Reports no additional male genitourinary complaints and Reports as per HPI Musculoskeletal: Musculoskeletal
[2023-08-01 16:47] LABS: Glucose Point of Care 99 mg/dl (65-105)
[2023-08-01] MEDS: NORTRIPTYLINE HCL 10 MG CAPSULE PO (20:25)
[2023-08-01] MEDS: ASPIRIN 81 MG CHEWABLE TABLET PO (20:25)
[2023-08-01 21:40] LABS: Glucose Point of Care 113 mg/dl (65-105)
[2023-08-02] VITALS (10 sets, daily range): BP systolic 148–155; BP diastolic 59–68; PULSE 35–71; RESP 15–18; TEMP 36.2–36.6; O2SAT 94–100
[2023-08-02] MEDS: LEVOTHYROXINE SODIUM 125 MCG TABLET PO (06:26)
[2023-08-02 08:22] LABS: Albumin Level 3.7 g/dL (3.5-5.1); Anion Gap 6 mmol/L (4-12); Blood Urea Nitrogen 46 mg/dL (9-20); Calcium 9.3 mg/dL (8.4-10.2); Carbon Dioxide 21 mmol/L (22-30); Chloride 110 mmol/L (98-107); Estimated CRCL calculation 27 ml/min; Estimated Glomerular Filt Rate 31; Glucose 72 mg/dL (65-110); Magnesium 2.2 mg/dL (1.6-2.3); Phosphorus 4.3 mg/dL (2.5-4.5); Sodium 137 mmol/L (137-145)
[2023-08-02 08:23] LABS: Glucose Point of Care 63 mg/dl (65-105)
[2023-08-02] MEDS: ATORVASTATIN 40 MG TABLET PO (08:24)
[2023-08-02] MEDS: ARIPiprazole 2 MG TABLET PO (08:24)
[2023-08-02] MEDS: GABAPENTIN 300 MG CAPSULE 600 MG PO ×3 (08:24→16:47)
[2023-08-02] MEDS: POTASSIUM CHLORIDE 10 MEQ ER TABLET PO (08:24)
[2023-08-02] MEDS: carvediloL 3.125 MG TABLET PO (08:24)
[2023-08-02] MEDS: FUROSEMIDE 40 MG TABLET PO ×2 (08:24→16:47)
[2023-08-02] MEDS: amLODIPine BESYLATE 5 MG TABLET 10 MG PO (08:24)
[2023-08-02] MEDS: ESCITALOPRAM OXALATE 10 MG TABLET 20 MG PO (08:24)
[2023-08-02] MEDS: SPIRONOLACTONE 50 MG TABLET PO (08:24)
[2023-08-02 08:28] LABS: Hematocrit 31.2 % (42.0-52.0); Hemoglobin 9.4 g/dL (14.0-18.0); Mean Corpuscular HGB Conc 30.1 g/dl (32-36); Mean Corpuscular Hemoglobin 25.9 pg (26-34); Mean Platelet Volume 11.7 fl (7.4-10.4); Platelet Count Result 233 k/mm3 (150-375); Red Blood Count 3.63 M/mm3 (4.6-6.20); Red Cell Distribution Width 15.6 % (11.5-14.5)
[2023-08-02 08:48] LABS: Glucose Point of Care 59 mg/dl (65-105)
[2023-08-02 09:07] LABS: Glucose Point of Care 92 mg/dl (65-105)
[2023-08-02] MEDS: oxyCODONE/ACETAMINOPHEN (*CRX) 10-325 MG TABLET 1 TAB PO ×2 (10:18→16:47)
--- NOTE | 2023-08-02 11:46 | PM.IMPN ---
Progress Note: A&P Assessment and Plan (1) Weakness: Code(s): R53.1 - Weakness Status: Acute Assessment and Plan: 07/31/23: - no focal deficit on exam that is deviation from baseline - viral PCR added - head CT: No acute intracranial abnormality, age-related findings - CXR: cardiomegaly with mild pulmonary edema. - neuro checks QShift - BNP 1580, previously 8250 on 11/20/2021 and does not appear volume overloaded on exam. Does have crackles in left lung base. Monitor daily weights and I&Os. Add echo. Previous echo showed EF of 40%. - EKG, initial: Atrial flutter/tachycardia with normal ventricular response, delayed precordial RS transition, LV hypertrophy and ST-T change. When compared to EKG done on 11/22/2022, heart rate has increased and left ventricular hypertrophy now present. - UA: Cloudy, 2+ protein, otherwise unremarkable. - trend labs 08/01/2023: PT and OT ordered for evaluation treat Will likely need SNF placement 08/01: Patient with left-sided weakness status post CVA suffered a fall at home with a lot left shoulder pain. Shoulder x-ray is negative. Patient having trouble with mobilization with therapy. Will likely need SNF. (2) ELIZABETH (acute kidney injury): Code(s): N17.9 - Acute kidney failure, unspecified Status: Acute Assessment and Plan: 07/31/23: - creatinine 2.8, previously 2.0 on 11/27/2022 - GFR 23, previously 33 on 11/27/2022 - 500 mL bolus of LR given in ED - continue to trend renal function 08/01/2023: BUN 54, creatinine 2.4 which is down from previous read Baseline creatinine 1.6-2.0 Continue to trend 08/01: Creatinine 2.1, estimated GFR 31, still somewhat altered from baseline. Hold lisinopril. (3) Type 2 diabetes mellitus with hyperglycemia, with long-term current use of insulin: Code(s): E11.65 - Type 2 diabetes mellitus with hyperglycemia; Z79.4 - long-term (current) use of insulin Status: Chronic Assessment and Plan: 07/31/23: - hypoglycemia protocol - POC blood glucose ACHS - home medication held - metformin and Trulicity (NF) - correct regimen ordered - low dose TID and HS - A1C 7.5% in 11/2022, update 08/01/2023: Blood sugars ranging 89-119 Hemoglobin A1c 5.8 Continue with current treatment plan (4) Atrial fibrillation and flutter: Code(s): I48.91 - Unspecified atrial fibrillation; I48.92 - Unspecified atrial flutter Status: Acute Assessment and Plan: bus monitor shows atrial fibrillation slow ventricular rate 44-52 beats per minute. Hold Coreg. Patient is not anticoagulated due to prior hemorrhagic stroke and known cerebral AVM. Time Spent With Patient Time with patient: Greater than 35 minutes Subjective Date/time seen: 08/02/23 11:46 Interval history: 07/31: This is a 67-year-old male who presented on 07/31/2023 for evaluation of weakness and body aches. Patient has had a recent fall on 07/28/2023. Workup in the hospital included a chest x-ray which showed mild pulmonary edema. Head CT was negative for any acute intracranial abnormality. Initial labs showed a white blood cell count of 11.4, hemoglobin 9.1, potassium 5.2, bicarb level 19, BUN 66, creatinine 2.8, EGFR 23, proBNP 15 80. Patient had a UA which showed 2+ urine protein, otherwise normal. Respiratory panel was negative for influenza a and B, RSV, COVID. On examination today patient is alert and oriented x3, lying in the bed. Patient denies any fever, chills, nausea, vomiting, diarrhea, abdominal pain, chest pain, shortness a breath. He states that he is feeling much better today. Labs today revealed hemoglobin 8.5, bicarb 18, BUN 54, creatinine 2.4, hemoglobin A1c 5.8. PT and OT worked with him today and he was pretty unsteady on his feet he may require SNF placement. 08/01: Today patient complaining of significant left shoulder pain with decrease in ability to mobilize at the shoulder joint. Patient has had 2 strokes affecting
--- NOTE | 2023-08-02 11:47 | PM.IMPN ---
Subjective Date/time seen: 08/02/23 11:47 Objective Data Vital Signs Vital Signs: Vital Signs - 24 hr 08/01/23 12:00 08/01/23 14:00 08/01/23 17:23 Temperature 36.5 C Pulse Rate 70 76 57 L Respiratory Rate 18 Blood Pressure 155/75 H Pulse Oximetry 98 Oxygen Delivery 08/01/23 16:00 08/01/23 21:15 08/01/23 20:00 Temperature 36.4 C Pulse Rate 60 55 L 47 L Respiratory Rate 18 Blood Pressure 149/71 H Pulse Oximetry 100 Oxygen Delivery 08/01/23 20:00 08/02/23 00:00 08/02/23 04:00 Temperature Pulse Rate 35 L 43 L Respiratory Rate Blood Pressure Pulse Oximetry Oxygen Delivery Room Air 08/02/23 06:31 08/02/23 08:35 Temperature 36.4 C Pulse Rate 50 L Respiratory Rate 18 Blood Pressure 155/68 H Pulse Oximetry 100 Oxygen Delivery Room Air Intake/Output Intake/Output: Intake & Output 07/30/23 07/31/23 08/01/23 08/02/23 23:59 23:59 23:59 23:59 Intake Total 1580 1070 680 Output Total 250 1000 1200 Balance 1330 70 -520 Meds/Results Medications: Active Medications Generic Name Dose Route Start Last Admin Trade Name Freq PRN Reason Stop Dose Admin Amlodipine Besylate 10 mg 08/01/23 09:00 08/02/23 08:24 Amlodipine Besylate 5 Mg Tablet PO 10 mg DAILY MARTA Administration Aripiprazole 2 mg 08/01/23 09:00 08/02/23 08:24 Aripiprazole 2 Mg Tablet PO 2 mg DAILY MARTA Administration Aspirin 81 mg 08/01/23 21:00 08/01/23 20:25 Aspirin 81 Mg Chewable Tablet PO 81 mg HS MARTA Administration Atorvastatin Calcium 40 mg 08/01/23 09:00 08/02/23 08:24 Atorvastatin 40 Mg Tablet PO 40 mg DAILY MARTA Administration Carvedilol 3.125 mg 08/01/23 08:00 08/02/23 08:24 Carvedilol 3.125 Mg Tablet PO 3.125 mg BIDWM MARTA Administration Dextrose 12.5 gm 08/01/23 00:16 Dextrose 50% 25 Gm/50 Ml Syringe IV PUSH PRN PRN Hypoglycemia Protocol Escitalopram Oxalate 20 mg 08/01/23 09:00 08/02/23 08:24 Escitalopram Oxalate 10 Mg Tablet PO 20 mg DAILY MARTA Administration Furosemide 40 mg 08/01/23 09:00 08/02/23 08:24 Furosemide 40 Mg Tablet PO 40 mg BID MARTA Administration Gabapentin 600 mg 08/01/23 09:00 08/02/23 08:24 Gabapentin 300 Mg Capsule PO 600 mg TID MARTA Administration Glucagon 1 mg 08/01/23 00:16 Glucagon For Inj 1 Mg Vial IM PRN PRN Hypoglycemia Protocol Glucose 15 gm 08/01/23 00:16 Glucose Oral Gel 15 Gm Of Glucse In 37.5 Gm Tube PO PRN PRN Hypoglycemia Protocol Dextrose 1,000 mls @ 100 mls/hr 08/01/23 00:16 Dextrose 5% 1,000 Ml IVPB PRN PRN Hypoglycemia Protocol Insulin Aspart 2 - 5 units 08/01/23 08:00 08/02/23 08:24 Insulin Aspart (*Bkc) 100 Units/Ml SUB-Q Not Given TIDWM MARTA Protocol Insulin Aspart 1 - 2 units 08/01/23 21:00 08/01/23 20:23 Insulin Aspart (*Bkc) 100 Units/Ml SUB-Q Not Given HS MARTA Protocol Levothyroxine Sodium 125 mcg 08/01/23 06:30 08/02/23 06:26 Levothyroxine Sodium 125 Mcg Tablet PO 125 mcg DAILY@0630 MARTA Administration Lisinopril 40 mg 08/01/23 09:00 08/01/23 09:49 Lisinopril 20 Mg Tablet PO 40 mg DAILY MARTA Administration Nortriptyline HCl 10 mg 08/01/23 21:00 08/01/23 20:25 Nortriptyline Hcl 10 Mg Capsule PO 10 mg HS MARTA Administration Oxycodone/Acetaminophen 1 tab 07/31/23 22:40 08/02/23 10:18 Oxycodone/Acetaminophen (*Crx) 10-325 Mg Tablet PO 1 tab Q6H MARTA Administration Perflutren Lipid Microsphere 0 ml 08/02/23 07:32 Perflutren Lipid Microspheres 1.5 Ml Vial Diluted To 10 Ml Total Volume IV PUSH 08/05/23 07:32 ONCE PRN adequate visualization Protocol Polyethylene Glycol 17 gm 08/01/23 09:00 08/02/23 08:25 Polyethylene Glycol 3350 17 Gm Powd.Pack PO Not Given QAM MARTA Potassium Chloride 10 meq 08/01/23 09:00 08/02/23 08:24 Potassium Chloride 10 Meq Er Tab
[2023-08-02 12:05] LABS: Glucose Point of Care 135 mg/dl (65-105)
[2023-08-02 17:17] LABS: Glucose Point of Care 113 mg/dl (65-105)
[2023-08-02 20:06] LABS: Glucose Point of Care 160 mg/dl (65-105)
[2023-08-02] MEDS: NORTRIPTYLINE HCL 10 MG CAPSULE PO (20:53)
[2023-08-02] MEDS: ASPIRIN 81 MG CHEWABLE TABLET PO (20:53)
[2023-08-03] VITALS (12 sets, daily range): BP systolic 109–171; BP diastolic 65–82; PULSE 47–77; RESP 16–18; TEMP 36–36.5; O2SAT 95–100
--- NOTE | 2023-08-03 | ECHO_ITS ---
Patient Info Name: Romero Davis Age: 67 years : 1955 Gender: Male Ht: 66 in Wt: 164 lbs BSA: 1.88 m2 HR: 65 bpm BP: 171 / 84 mmHg Heart Rhythm: Sinus Rhythm Technical Quality: Fair Exam Date: 08/03/2023 1:09 PM Exam Location: Echo Lab Exam Room: 306 Patient Status: Inpatient Admit Date: 07/31/2023 Staff Ordering Physician: Vijay Madrigal APRN Building Operator: Sylvia Cohen RDCS Attending Provider: Ivy Nash MD Referring Physician: Rohan TORRES; Exam Type: CA echo doppler color flow Study Info Indications - cardiomegaly pulmonary edema hx/o MVR Complete two-dimensional, color flow and Doppler transthoracic echocardiogram is performed. Summary 1. Complete two-dimensional, color flow and Doppler transthoracic echocardiogram is performed. 2. Left ventricular chamber dimension is normal. 3. Left ventricular systolic function is normal, estimated at 55-60%. 4. There is mildly increased left ventricular wall thickness. 5. The left ventricular diastolic function is grade II diastolic dysfunction. 6. Left atrial chamber dimension is severely enlarged. 7. There is trace regurgitation of the annuloplasty ring prosthetic mitral valve. 8. Mitral valve annuloplasty ring present with mild thickening of the mitral leaflets. 9. There is mild tricuspid valve regurgitation. 10. No pulmonary hypertension, estimated pulmonary arterial systolic pressure is 30 mmHg. Left Ventricle Left ventricular chamber dimension is normal. Left ventricular systolic function is normal, estimated at 55-60%. There is mildly increased left ventricular wall thickness. The left ventricular diastolic function is grade II diastolic dysfunction. Right Ventricle Right ventricular chamber dimension is normal. Right ventricular systolic function is normal. Left Atria Left atrial chamber dimension is severely enlarged. Right Atria Right atrial chamber dimension is mildly enlarged. Aortic Valve The aortic valve is trileaflet. There is no aortic valve stenosis. There is no aortic valve regurgitation. Pulmonic Valve The pulmonic valve is normal. There is trace pulmonic regurgitation. Mitral Valve Mitral valve annuloplasty ring present with mild thickening of the mitral leaflets. There is trace regurgitation of the annuloplasty ring prosthetic mitral valve. Tricuspid Valve The tricuspid valve leaflets are normal. There is mild tricuspid valve regurgitation. No pulmonary hypertension, estimated pulmonary arterial systolic pressure is 30 mmHg. Pericardium/Pleural The pericardium appears normal. There is no pericardial effusion. Aorta The aortic root size at the sinus of Valsalva is normal. Left Ventricular Outflow Tract Name Value Normal LVOT 2D LVOT Diameter 2.1 cm LVOT Doppler LVOT Peak Gradient 4 mmHg LVOT Mean Gradient 2 mmHg LVOT VTI 16 cm LVOT VTI/AV VTI Ratio 1.0 LVOT Stroke Volume 53 ml LVOT CO 14.0 l/min LVOT CI 7.4 l/min/m2 Pulmonic Valve
[2023-08-03] MEDS: LEVOTHYROXINE SODIUM 125 MCG TABLET PO (05:46)
[2023-08-03 07:03] LABS: Basophils Percent Auto 0.5 % (0.2-1.2); Eosinophils Absolute Auto 0.9 K/mm3 (0-0.3); Eosinophils Percent Auto 10.4 % (0-4.4); Hematocrit 32.6 % (42.0-52.0); Immature Granulocyte Absolute 0.05 K/mm3 (0.00-0.031); Immature Granulocyte Percent A 0.6 % (0-0.5); Lymphocytes Absolute Auto 0.71 K/mm3 (0.9-3.2); Mean Corpuscular HGB Conc 30.7 g/dl (32-36); Mean Corpuscular Hemoglobin 25.5 pg (26-34); Mean Corpuscular Volume 83.2 fl (80-100); Mean Platelet Volume 11.3 fl (7.4-10.4); Monocytes Absolute Auto 0.7 K/mm3 (0.1-0.6); Monocytes Percent Auto 8.1 % (2.6-8.5); Neutrophils Absolute Auto 6.4 K/mm3 (1.3-6.7); Neutrophils Percent Auto 72.4 % (45.5-73.1); Platelet Count Result 259 k/mm3 (150-375); Red Blood Count 3.92 M/mm3 (4.6-6.20); Red Cell Distribution Width 15.2 % (11.5-14.5); White Blood Count 8.9 K/mm3 (4.5-10.0)
[2023-08-03 07:10] LABS: Albumin Level 3.8 g/dL (3.5-5.1); Anion Gap 5 mmol/L (4-12); Blood Urea Nitrogen 41 mg/dL (9-20); Calcium 9.3 mg/dL (8.4-10.2); Carbon Dioxide 27 mmol/L (22-30); Chloride 104 mmol/L (98-107); Estimated CRCL calculation 29 ml/min; Estimated Glomerular Filt Rate 33; Glucose 103 mg/dL (65-110); Magnesium 2.3 mg/dL (1.6-2.3); Phosphorus 4.5 mg/dL (2.5-4.5); Potassium 4.9 mmol/L (3.4-5.0); Sodium 136 mmol/L (137-145)
[2023-08-03 07:46] LABS: Glucose Point of Care 92 mg/dl (65-105)
[2023-08-03] MEDS: amLODIPine BESYLATE 5 MG TABLET 10 MG PO (08:15)
[2023-08-03] MEDS: ATORVASTATIN 40 MG TABLET PO (08:15)
[2023-08-03] MEDS: ESCITALOPRAM OXALATE 10 MG TABLET 20 MG PO (08:15)
[2023-08-03] MEDS: GABAPENTIN 300 MG CAPSULE 600 MG PO ×3 (08:15→16:59)
[2023-08-03] MEDS: POTASSIUM CHLORIDE 10 MEQ ER TABLET PO (08:16)
[2023-08-03] MEDS: FUROSEMIDE 40 MG TABLET PO ×2 (08:16→16:59)
[2023-08-03] MEDS: ARIPiprazole 2 MG TABLET PO (08:16)
[2023-08-03] MEDS: SPIRONOLACTONE 50 MG TABLET PO (08:16)
[2023-08-03] MEDS: oxyCODONE/ACETAMINOPHEN (*CRX) 10-325 MG TABLET 1 TAB PO ×2 (10:13→16:59)
--- NOTE | 2023-08-03 10:46 | PM.IMPN ---
Progress Note: A&P Assessment and Plan (1) Weakness: Code(s): R53.1 - Weakness Status: Acute Assessment and Plan: 07/31/23: - no focal deficit on exam that is deviation from baseline - viral PCR added - head CT: No acute intracranial abnormality, age-related findings - CXR: cardiomegaly with mild pulmonary edema. - neuro checks QShift - BNP 1580, previously 8250 on 11/20/2021 and does not appear volume overloaded on exam. Does have crackles in left lung base. Monitor daily weights and I&Os. Add echo. Previous echo showed EF of 40%. - EKG, initial: Atrial flutter/tachycardia with normal ventricular response, delayed precordial RS transition, LV hypertrophy and ST-T change. When compared to EKG done on 11/22/2022, heart rate has increased and left ventricular hypertrophy now present. - UA: Cloudy, 2+ protein, otherwise unremarkable. - trend labs 08/01/2023: PT and OT ordered for evaluation treat Will likely need SNF placement 08/01: Patient with left-sided weakness status post CVA suffered a fall at home with a lot left shoulder pain. Shoulder x-ray is negative. Patient having trouble with mobilization with therapy. Will likely need SNF. 08/03/23: Continue PT and OT Will discuss outpatient needs with case management for SNF placement (2) ELIZABETH (acute kidney injury): Code(s): N17.9 - Acute kidney failure, unspecified Status: Acute Assessment and Plan: 07/31/23: - creatinine 2.8, previously 2.0 on 11/27/2022 - GFR 23, previously 33 on 11/27/2022 - 500 mL bolus of LR given in ED - continue to trend renal function 08/01/2023: BUN 54, creatinine 2.4 which is down from previous read Baseline creatinine 1.6-2.0 Continue to trend 08/01: Creatinine 2.1, estimated GFR 31, still somewhat altered from baseline. Hold lisinopril. 08/03/23: Creatinine down to 2.0, EGFR 33 Continue to trend Continue to hold lisinopril (3) Type 2 diabetes mellitus with hyperglycemia, with long-term current use of insulin: Code(s): E11.65 - Type 2 diabetes mellitus with hyperglycemia; Z79.4 - resident associate (current) use of insulin Status: Chronic Assessment and Plan: 07/31/23: - hypoglycemia protocol - POC blood glucose ACHS - home medication held - metformin and Trulicity (NF) - correct regimen ordered - low dose TID and HS - A1C 7.5% in 11/2022, update 08/01/2023: Blood sugars ranging 89-119 Hemoglobin A1c 5.8 Continue with current treatment plan 08/03/23: Blood sugars ranging 92-160 Continue with current treatment plan (4) Atrial fibrillation and flutter: Code(s): I48.91 - Unspecified atrial fibrillation; I48.92 - Unspecified atrial flutter Status: Acute Assessment and Plan: manager monitoring shows atrial fibrillation slow ventricular rate 44-52 beats per minute. Hold Coreg. Patient is not anticoagulated due to prior hemorrhagic stroke and known cerebral AVM. Subjective Date/time seen: 08/03/23 10:46 Interval history: 07/31: This is a 67-year-old male who presented on 07/31/2023 for evaluation of weakness and body aches. Patient has had a recent fall on 07/28/2023. Workup in the hospital included a chest x-ray which showed mild pulmonary edema. Head CT was negative for any acute intracranial abnormality. Initial labs showed a white blood cell count of 11.4, hemoglobin 9.1, potassium 5.2, bicarb level 19, BUN 66, creatinine 2.8, EGFR 23, proBNP 15 80. Patient had a UA which showed 2+ urine protein, otherwise normal. Respiratory panel was negative for influenza a and B, RSV, COVID. On examination today patient is alert and oriented x3, lying in the bed. Patient denies any fever, chills, nausea, vomiting, diarrhea, abdominal pain, chest pain, shortness a breath. He states that he is feeling much better today. Labs today revealed hemoglobin 8.5, bicarb 18, BUN 54, creatinine 2.4, hemoglobin A1c 5.8. PT and OT worked with him today and he was pretty unstead
[2023-08-03 11:31] LABS: Glucose Point of Care 148 mg/dl (65-105)
[2023-08-03 16:42] LABS: Glucose Point of Care 111 mg/dl (65-105)
[2023-08-03 20:37] LABS: Glucose Point of Care 143 mg/dl (65-105)
[2023-08-04] VITALS (8 sets, daily range): BP systolic 108–155; BP diastolic 60–82; PULSE 59–81; RESP 16–18; TEMP 36.3; O2SAT 80–98
[2023-08-04] MEDS: LEVOTHYROXINE SODIUM 125 MCG TABLET PO (05:13)
[2023-08-04 06:49] LABS: Albumin Level 3.8 g/dL (3.5-5.1); Anion Gap 9 mmol/L (4-12); Blood Urea Nitrogen 47 mg/dL (9-20); Calcium 9.3 mg/dL (8.4-10.2); Carbon Dioxide 24 mmol/L (22-30); Chloride 103 mmol/L (98-107); Estimated CRCL calculation 25 ml/min; Estimated Glomerular Filt Rate 28; Glucose 110 mg/dL (65-110); Magnesium 2.4 mg/dL (1.6-2.3); Phosphorus 5.1 mg/dL (2.5-4.5); Potassium 5.7 mmol/L (3.4-5.0); Sodium 136 mmol/L (137-145)
[2023-08-04 06:56] LABS: Basophils Percent Auto 0.5 % (0.2-1.2); Eosinophils Absolute Auto 0.6 K/mm3 (0-0.3); Eosinophils Percent Auto 6.4 % (0-4.4); Hematocrit 32.2 % (42.0-52.0); Hemoglobin 10.2 g/dL (14.0-18.0); Immature Granulocyte Absolute 0.03 K/mm3 (0.00-0.031); Immature Granulocyte Percent A 0.3 % (0-0.5); Lymphocytes Absolute Auto 0.68 K/mm3 (0.9-3.2); Lymphocytes Percent Auto 7.7 % (18.3-44.2); Mean Corpuscular HGB Conc 31.7 g/dl (32-36); Mean Corpuscular Hemoglobin 26.1 pg (26-34); Mean Corpuscular Volume 82.4 fl (80-100); Mean Platelet Volume 11.4 fl (7.4-10.4); Monocytes Absolute Auto 0.7 K/mm3 (0.1-0.6); Monocytes Percent Auto 7.7 % (2.6-8.5); Neutrophils Absolute Auto 6.9 K/mm3 (1.3-6.7); Neutrophils Percent Auto 77.4 % (45.5-73.1); Platelet Count Result 252 k/mm3 (150-375); Red Blood Count 3.91 M/mm3 (4.6-6.20); Red Cell Distribution Width 15.4 % (11.5-14.5); White Blood Count 8.9 K/mm3 (4.5-10.0)
[2023-08-04 08:04] LABS: Glucose Point of Care 95 mg/dl (65-105)
--- NOTE | 2023-08-04 08:20 | PM.DS ---
DS: Admitting Diagnosis Discharge Date 08/04/23 Admitting Diagnosis weakness ELIZABETH Type 2 DM DS: Discharge Diagnosis Discharge Diagnosis (1) Weakness: Code(s): R53.1 - Weakness Status: Acute (2) ELIZABETH (acute kidney injury): Code(s): N17.9 - Acute kidney failure, unspecified Status: Acute (3) Type 2 diabetes mellitus with hyperglycemia, with long-term current use of insulin: Code(s): E11.65 - Type 2 diabetes mellitus with hyperglycemia; Z79.4 - [facility] (current) use of insulin Status: Chronic (4) Atrial fibrillation and flutter: Code(s): I48.91 - Unspecified atrial fibrillation; I48.92 - Unspecified atrial flutter Status: Acute DS: Summary Hospital Course Reason for hospitalization: weakness ELIZABETH Type 2 DM Hospital Course: This is a 67-year-old male who presented on 07/31/2023 for evaluation of weakness and body aches.? Patient has had a recent fall on 07/28/2023.? Workup in the hospital included a chest x-ray which showed mild pulmonary edema.? Head CT was negative for any acute intracranial abnormality.? Initial labs showed a white blood cell count of 11.4, hemoglobin 9.1, potassium 5.2, bicarb level 19, BUN 66, creatinine 2.8, EGFR 23, proBNP 15 80.? Patient had a UA which showed 2+ urine protein, otherwise normal.? Respiratory panel was negative for influenza a and B, RSV, COVID.? On examination today patient is alert and oriented x3, lying in the bed.? Patient denies any fever, chills, nausea, vomiting, diarrhea, abdominal pain, chest pain, shortness a breath.? He states that he is feeling much better today.? Labs today revealed hemoglobin 8.5, bicarb 18, BUN 54, creatinine 2.4, hemoglobin A1c 5.8.? PT and OT worked with him today and he was pretty unsteady on his feet he may require SNF placement. 08/01:? Today patient complaining of significant left shoulder pain with decrease in ability to mobilize at the shoulder joint.? Patient has had 2 strokes affecting left upper extremity the 1st 1 several years ago the 2nd within the last couple months.? Patient reports when he fell he landed directly on his left shoulder and has been struggling in pain ever since.? No mention similar complaint in prior documentation.? No prior imaging.? X-ray ordered without significant bony abnormality findings.? Initial imaging shows pulmonary edema and cardiomegaly.? Patient is on supplemental oxygen at this time which he usually does not wear.? Difficulty working with PT and OT.? Will likely need SNF. 08/02:? Patient denies any new complaints today. Still reporting 10/10 pain in left arm.? Labs today show a hemoglobin of 10.0, sodium 136, BUN 41, creatinine 2.0, EGFR 33, magnesium 2.3.? Patient working with PT and OT and will likely need SNF placement. Echo pending We will touch base with Case coordination today. 08/03: Patient denies any new complaints at this time. Hgb 10.2, Na+ 136, K+ 5.7, BUN 47, Creatinine 2.30, eGFR 28, BG ranging 95-143, phos 5.1, Mag 2.4. Patient was given a dose of Lokelma and an amp of D50 for potassium level. Repeat potassium at 1:00 p.m. today is 4.9. We will still hold his lisinopril, potassium, Lasix for now. He is stable for discharge at this time. He needs to follow up with his primary care physician in 1 week after getting a BMP up labs. Final diagnosis: Acute kidney injury, hyperkalemia Status at Discharge Cognitive/behavioral status at discharge: Alert and oriented x3 Functional status at discharge: uses cane/walker Overall status at discharge: patient is progressing back to baseline Time Spent with Patient Time attestation: Total time spent providing and/or coordinating discharge services: Time spent: Greater than 30 minutes Exam Narrative: General: In no acute distress, well nourished Head: atraumatic, no encephalopathy Eyes: EOMI, PERRLA, sclera clear ENT: moist mucous membranes, nasal passages clear Neck: supple, no JVD, no adenopathy, trachea midline Cardiac:
[2023-08-04] MEDS: FUROSEMIDE 40 MG TABLET PO (09:01)
[2023-08-04] MEDS: ARIPiprazole 2 MG TABLET PO (09:02)
[2023-08-04] MEDS: amLODIPine BESYLATE 5 MG TABLET 10 MG PO (09:03)
[2023-08-04] MEDS: ESCITALOPRAM OXALATE 10 MG TABLET 20 MG PO (09:03)
[2023-08-04] MEDS: SPIRONOLACTONE 50 MG TABLET PO (09:03)
[2023-08-04] MEDS: GABAPENTIN 300 MG CAPSULE 600 MG PO ×3 (09:04→16:49)
[2023-08-04] MEDS: ATORVASTATIN 40 MG TABLET PO (09:04)
[2023-08-04] MEDS: DEXTROSE 50% 25 GM/50 ML SYRINGE IV PUSH (09:55)
[2023-08-04 10:05] LABS: Glucose Point of Care 138 mg/dl (65-105)
[2023-08-04] MEDS: SODIUM ZIRCONIUM CYCLOSILICATE 10 GM POWD.PACK PO (10:11)
[2023-08-04] MEDS: oxyCODONE/ACETAMINOPHEN (*CRX) 10-325 MG TABLET 1 TAB PO ×2 (10:11→16:49)
[2023-08-04 11:15] LABS: Glucose Point of Care 223 mg/dl (65-105)
[2023-08-04] MEDS: INSULIN ASPART (*BKC) 100 UNITS/ML SUB-Q (11:28)
--- NOTE | 2023-08-04 11:30 | PCNFU ---
Nutrition Follow-Up Complete: Unintentional weight loss as evidenced by pt report and noted weight change in EMR Goal: PO intake 75% of meals Pt is meeting goal. Continue with same goal Pt current nutrition is Soft and bite sized level 6, diabetic consistent carb, Ensure compact BID. Nutrition recommendation: continue with current plan of care Last recorded weight is 74.4 kg. Bowel Motility: +BM 07/31 Labs Reviewed: Hgb:10.2, HCT:32.2, NA:136, K:5.7, GFR:28, BUN:47, Cr:2.3 Meds Noted: lasix, novolog Skin: no skin issues noted Additional Notes: Pt diet changed to soft and bite sized level 6, diabetic consistent carb. Intake good at 75-100% most all meals. Ensure compact BID in place. Encourage good intake to continue. Agree with diet orders. Monitor intake, wt, labs. Follow up in 7 days.
[2023-08-04 13:05] LABS: Potassium 4.9 mmol/L (3.4-5.0)
[2023-08-04 16:34] LABS: Glucose Point of Care 136 mg/dl (65-105)
== END 2023-08-04 17:30 | disposition home health service (06) ==
LOC: ANHED 09:05 → ANH3MEDSUR 15:56
PROVIDERS: Emergency Medicine; Nurse Practitioner; Nurse Practitioner Acute Care; Student in an Organized Health Care Education/Training Program; Admitting Provider Hospitalist; Emergency Provider Emergency Medicine; PCP Family Medicine; Visit Provider Internal Medicine
DX: N17.9 Acute kidney failure, unspecified (principal); I69.354 Hemiplegia and hemiparesis following cerebral infarction affecting left non-dominant side; M25.512 Pain in left shoulder; W19.XXXA Unspecified fall, initial encounter; E11.65 Type 2 diabetes mellitus with hyperglycemia; I48.91 Unspecified atrial fibrillation; I48.92 Unspecified atrial flutter; I11.0 Hypertensive heart disease with heart failure; I50.30 Unspecified diastolic (congestive) heart failure; R94.31 Abnormal electrocardiogram [ECG] [EKG]; I25.10 Atherosclerotic heart disease of native coronary artery without angina pectoris; Z95.1 Presence of aortocoronary bypass graft; D64.9 Anemia, unspecified; R29.6 Repeated falls; Q28.2 Arteriovenous malformation of cerebral vessels; I07.1 Rheumatic tricuspid insufficiency; E11.21 Type 2 diabetes mellitus with diabetic nephropathy; E11.42 Type 2 diabetes mellitus with diabetic polyneuropathy; E03.9 Hypothyroidism, unspecified; Z20.822 Contact with and (suspected) exposure to COVID-19; F32.A Depression, unspecified; G47.33 Obstructive sleep apnea (adult) (pediatric); Z99.89 Dependence on other enabling machines and devices; M06.9 Rheumatoid arthritis, unspecified; R56.9 Unspecified convulsions; I25.2 Old myocardial infarction; Z87.891 Personal history of nicotine dependence; Z79.85 Long-term (current) use of injectable non-insulin antidiabetic drugs; Z79.82 Long term (current) use of aspirin; Z79.4 Long term (current) use of insulin; Z79.84 Long term (current) use of oral hypoglycemic drugs; Z79.891 Long term (current) use of opiate analgesic; Z79.899 Other long term (current) drug therapy
CPT/HCPCS: 36415; 70450; 71045; 73030; 80053; 80069; 81001; 82948; 83036; 83735; 83880; 84132; 85025; 85027; 87637; 92610; 93005; 93306; 96360; 97110; 97162; 97165; 97530; 97535; 99285; A9270; G0378; J1815; J7120

== ENCOUNTER 2023-09-12 15:44 | Observation (INO) | payer MEDICARE, MEDICAID, SELFPAY ==
[2023-09-12] VITALS (29 sets, daily range): BP systolic 108–179; BP diastolic 52–144; PULSE 52–72; RESP 8–18; TEMP 36.4–36.6; O2SAT 95–100
--- NOTE | ~2023-09-12 | MR_ITS ---
EXAMINATION: MR brain/brain stem wo con DATE: 09/13/2023 15:17 INDICATION: Cerebrovascular accident. TECHNIQUE: Magnetic resonance imaging (MRI) of the brain and brainstem was performed without intraven ous contrast. COMPARISON: Head CT 09/12/2023, brain MRI 07/17/2020 FINDINGS: There is a calcified mass in the right temporal lobe. There are scattered foci of old blood products in the brain, worst in the right temporal lobe, right insula, and right basal ganglia. Ther e is chronic encephalomalacia in the right temporal lobe, right insula, posterior limb right internal capsule, and right basal ganglia. There are scattered areas of nonspecific increased T2-weighted sig nal intensity in the cerebral white matter. There is no acute ischemic infarct. There is a small old infarct in the right parietal lobe. There is chronic Wallerian degeneration in the cortical spinal tr acts in the brainstem on the right. There is an old infarct in the left thalamus. The ventricles are normal in size. There is mild mucosal thickening in the paranasal sinuses. The orbits are normal. The mastoid air cells are normal. IMPRESSION: 1. Calcified mass in the right temporal lobe, likely a treated arteriovenous malformation. 2. Chronic encephalomalacia involving the right temporal lobe, right insula, posterior limb right int ernal capsule, and right basal ganglia. Small old infarct in the right parietal lobe. 3. Old infarct in the left thalamus. 4. Moderate nonspecific cerebral white matter disease, which likely represents chronic small vessel i schemic disease. Reviewed, dictated and finalized at location E. IMPRESSION: 1. Calcified mass in the right temporal lobe, likely a treated arteriovenous ma lformation. 2. Chronic encephalomalacia involving the right temporal lobe, right insula, po sterior limb right internal capsule, and right basal ganglia. Small old infarct in the right parietal lobe. 3. Old infarct in the left thalamus. 4. Moderate nonspecific cerebral white matter disease, which likely represents chronic small vessel ischemic disease.
--- NOTE | ~2023-09-12 | CT_ITS ---
EXAMINATION: CTA brain carotid DATE: 09/12/2023 18:42 INDICATION: cva TECHNIQUE: Computed tomographic angiography (CTA) of the head was performed without and with 100 mL O mnipaque-350 intravenous contrast. CTA of the neck was performed with intravenous contrast. Automated exposure control and iterative reconstruction technique were employed. The dose-length product was 1 694.86 mGy-cm. Maximum intensity projection and volume rendered 3D-reconstructions were created by [facility] technologist on a separate workstation. COMPARISON: 07/31/2023. FINDINGS: CT BRAIN: No acute large vessel infarct, intracranial hemorrhage, mass, or hydrocephalus. Stable calcified righ t temporal AVM. Moderate atrophy and chronic white matter change. Atherosclerotic intracranial calcif ication. Bilateral lens replacements. Old bilateral basal ganglia lacunar infarcts. CTA HEAD: No large vessel occlusion, aneurysm, high flow vascular malformation, nidus or extravasation. Mild sh ort segment stenosis in the basilar artery CTA NECK: Aortic arch and proximal great vessels: Mild arch calcification. Normal arch anatomy. Right common carotid, carotid bifurcation, and internal carotid artery: Small ulcerative plaque at th e bifurcation.There is 0% stenosis of the proximal right internal carotid artery relative to normal d istal artery lumen diameter (NASCET criteria). Left common carotid, carotid bifurcation, and internal carotid artery: Mild calcified plaque at the b ifurcation.There is 13% stenosis of the proximal left internal carotid artery relative to normal dist al artery lumen diameter (NASCET criteria). Vertebral arteries: Occluded right vertebral artery, with reconstitution of the small caliber intradu ral portion. Left vertebral artery is dominant. Short segment dissection of the proximal aspect of th e left vertebral artery over a length of approximately 1.5 cm. Other findings: Degenerative changes in the cervical spine.. IMPRESSION: No acute intracranial process. No large vessel intracranial occlusion, high-grade intracranial stenosis, or aneurysm. No carotid artery occlusion, dissection, or significant stenosis. Occluded right vertebral artery. 1.5 cm dissection in the proximal left vertebral artery, several centimeters from the origin. Reviewed, dictated and finalized at location K. IMPRESSION: No acute intracranial process. No large vessel intracranial occlusion, high-grade intracranial stenosis, or an eurysm. No carotid artery occlusion, dissection, or significant stenosis. Occluded right vertebral artery. 1.5 cm dissection in the proximal left vertebral artery, several centimeters fr om the origin.
--- NOTE | 2023-09-12 17:48 | ECG_ITS ---
SEE SCANNED COPY FOR CONFIRMED REPORT MTDD
[2023-09-12 18:15] LABS: Basophils Percent Auto 0.6 % (0.2-1.2); Eosinophils Absolute Auto 0.4 K/mm3 (0-0.3); Hematocrit 28.8 % (42.0-52.0); Hemoglobin 8.6 g/dL (14.0-18.0); Immature Granulocyte Absolute 0.01 K/mm3 (0.00-0.031); Immature Granulocyte Percent A 0.2 % (0-0.5); Lymphocytes Absolute Auto 0.69 K/mm3 (0.9-3.2); Lymphocytes Percent Auto 14.5 % (18.3-44.2); Mean Corpuscular HGB Conc 29.9 g/dl (32-36); Mean Corpuscular Hemoglobin 26.2 pg (26-34); Mean Corpuscular Volume 87.8 fl (80-100); Mean Platelet Volume 10.5 fl (7.4-10.4); Monocytes Absolute Auto 0.5 K/mm3 (0.1-0.6); Monocytes Percent Auto 11.1 % (2.6-8.5); Neutrophils Absolute Auto 3.1 K/mm3 (1.3-6.7); Neutrophils Percent Auto 65.6 % (45.5-73.1); Platelet Count Result 197 k/mm3 (150-375); Red Blood Count 3.28 M/mm3 (4.6-6.20); Red Cell Distribution Width 17.2 % (11.5-14.5); White Blood Count 4.8 K/mm3 (4.5-10.0)
--- NOTE | 2023-09-12 18:21 | ED.WEAKNESS ---
HPI - Weakness General Chief complaint: Weakness <Armando Barroso MD - Last Filed: 09/12/23 18:30> Stated complaint: Weakness, UTI <Armando Barroso MD - Last Filed: 09/12/23 18:30> Time Seen by Provider: 09/12/23 17:39 <Armando Barroso MD - Last Filed: 09/12/23 18:30> Source: patient <Armando Barroso MD - Last Filed: 09/12/23 18:30> Mode of arrival: EMS <Armando Barroso MD - Last Filed: 09/12/23 18:30> Limitations: no limitations <Armando Barroso MD - Last Filed: 09/12/23 18:30> History of Present Illness HPI Narrative: 67-year-old with a history of CVA was brought in from home by EMS with a complaint have marked weakness, patient states that he thinks he may be having another stroke. He says that he is unable to swallow and he is more weak on the left side. Patient states that he was unable to hold utensils. He denies any falls. Patient states that he is on subcutaneous injection on daily basis. <Armando Barroso MD - Last Filed: 09/12/23 18:30> MD Complaint: generalized weakness <Armando Barroso MD - Last Filed: 09/12/23 18:30> Onset (ago): day(s) (1) <Armando Barroso MD - Last Filed: 09/12/23 18:30> Duration: constant <Armando Barroso MD - Last Filed: 09/12/23 18:30> Location: LUE <Armando Barroso MD - Last Filed: 09/12/23 18:30> Severity: moderate <Armando Barroso MD - Last Filed: 09/12/23 18:30> Associated symptoms: denies other symptoms <Armando Barroso MD - Last Filed: 09/12/23 18:30> Related Data Home medications: Home Medications Medication Instructions Recorded Confirmed atorvastatin 40 mg tablet 40 mg PO DAILY 03/24/19 07/31/23 levothyroxine 125 mcg tablet 125 mcg PO DAILY 03/24/19 07/31/23 dulaglutide 1.5 mg/0.5 mL 3 mg subcut WEEKLY 01/20/22 07/31/23 subcutaneous pen injector (Trulicity) aspirin 81 mg chewable tablet 81 mg PO HS 02/17/22 07/31/23 escitalopram oxalate 20 mg tablet 20 mg PO DAILY 02/17/22 07/31/23 gabapentin 300 mg capsule 600 mg PO TID 09/05/22 07/31/23 amlodipine 10 mg tablet 10 mg PO DAILY 09/11/22 07/31/23 aripiprazole 2 mg tablet 2 mg PO DAILY 09/11/22 07/31/23 potassium chloride 10 mEq 10 meq PO DAILY 09/11/22 07/31/23 tablet,extended release furosemide 40 mg tablet 40 mg PO BID 11/15/22 07/31/23 carvedilol 3.125 mg tablet 3.125 mg PO BIDWM 07/31/23 07/31/23 lisinopril 30 mg tablet 40 mg PO DAILY 07/31/23 07/31/23 metformin 500 mg tablet 500 mg PO BIDWM 07/31/23 07/31/23 nortriptyline 10 mg capsule 10 mg PO HS 07/31/23 07/31/23 oxycodone-acetaminophen 10 mg-325 1 tablet PO Q6H 07/31/23 07/31/23 mg tablet spironolactone 50 mg tablet 50 mg PO DAILY 07/31/23 07/31/23 tizanidine 2 mg tablet 2 mg PO BID PRN Muscle Spasm 07/31/23 07/31/23 <Armando Barroso MD - Last Filed: 09/12/23 18:30> Allergies/Adverse reactions: Allergies Allergy/AdvReac Type Severity Reaction Status Date / Time Gadolinium-Containing AdvReac Unknown Vomiting Verified 03/03/23 01:15 Contrast Medi ioversol AdvReac Unknown Vomiting Verified 03/03/23 01:15 <Armando Barroso MD - Last Filed: 09/12/23 18:30> Review of Systems Review of Systems: All systems reviewed & are unremarkable except as noted in HPI and below <Armando Barroso MD - Last Filed: 09/12/23 18:30> Constitutional: Constitutional: Reports no additional constitutional complaints <Armando Barroso MD - Last Filed: 09/12/23 18:30> Eyes: Eyes: Reports no additional eye complaints <Armando Barroso MD - Last Filed: 09/12/23 18:30> ENT: Reports system reviewed and no additional complaints, except as documented <Armando Barroso MD - Last Filed: 09/12/23 18:30> Cardiovascular: Cardiovascular: Reports no additional cardiovascular complaints <Armando Barroso MD - Last Filed: 09/12/23 18:30> Respiratory: Respiratory: Reports no additional respiratory complaints <Armando Barroso MD - Last Filed: 09/12/23 18:30> Gastrointestinal: Gastrointestinal:
[2023-09-12 18:23] LABS: Estimated CRCL calculation 35 ml/min; Estimated Glomerular Filt Rate 31
[2023-09-12 18:30] LABS: Prothrombin Time 13.8 Seconds (11.1-14.7)
[2023-09-12 18:39] LABS: Platelet Estimate Adequate (Adequate)
[2023-09-12 18:40] LABS: Anisocytosis 2+; Hypochromasia 1+; Schistocytes None Seen
[2023-09-12 18:56] LABS: Alanine Aminotransferase 12 U/L (6-50); Albumin Level 3.7 g/dL (3.5-5.1); Alkaline Phosphatase 79 U/L (38-126); Anion Gap 6 mmol/L (4-12); Aspartate Amino Transferase 16 U/L (17-59); Bilirubin,Total 0.3 mg/dL (0.2-1.3); Blood Urea Nitrogen 22 mg/dL (9-20); Calcium 8.8 mg/dL (8.4-10.2); Carbon Dioxide 22 mmol/L (22-30); Chloride 115 mmol/L (98-107); Estimated CRCL calculation 37 ml/min; Estimated Glomerular Filt Rate 33; Glucose 129 mg/dL (65-110); Potassium 4.5 mmol/L (3.4-5.0); Sodium 143 mmol/L (137-145)
[2023-09-12 19:08] LABS: NT Pro B Type Natriuretic Pept 1780 pg/mL (19.9-100); Troponin I 0.013 ng/mL (0.000-0.034)
--- NOTE | 2023-09-12 20:06 | PC.NURSE ---
[facility] transfer line updated.
[2023-09-12 20:36] LABS: Appearance Urine Clear (Clear); Bacteria Urine None Seen /hpf; Bilirubin Urine Negative (Negative); Blood Urine Negative (Negative); Color Urine Yellow (Yellow); Glucose Urine UA 3+ mg/dL (Negative); Ketones Urine Negative (Negative); Leukocyte Esterase Ur Negative LEU/UL (Negative); Nitrate Urine Negative (Negative); Non Pathogenic Casts 0-2; Protein Urine 2+ mg/dL (Negative); RBC Urine 0-2 /hpf (0-2); Specific Grav Ur 1.027 (1.001-1.035); Squamous Epithelial Cell Urine None Seen /hpf (Few); Urobilinogen Urine 0.2 mg/dL (<2.0); WBC Urine 0-5 /hpf (0-3)
[2023-09-12 20:56] LABS: Add Urine Microscopic? YES
--- NOTE | 2023-09-12 22:09 | PC.NURSE ---
Patient's life partner called and updated on patient status at request of patient
[2023-09-12] MEDS: ASPIRIN 81 MG CHEWABLE TABLET 324 MG PO (23:42)
[2023-09-13] VITALS (66 sets, daily range): BP systolic 145–203; BP diastolic 67–90; PULSE 46–72; RESP 10–22; TEMP 36.6; O2SAT 98–100; BMI 22.6
[2023-09-13] MEDS: ATORVASTATIN 40 MG TABLET 80 MG PO (00:01)
--- NOTE | 2023-09-13 10:23 | PC.NURSE ---
update given to [facility] transfer center
[2023-09-13 10:58] LABS: Glucose Point of Care 78 mg/dl (65-105)
--- NOTE | 2023-09-13 11:37 | PC.NURSE ---
hx of diabetes. BSBS 78. orange juice given. provider aware. ok to order lunch tray
[2023-09-13 16:37] LABS: Glucose Point of Care 188 mg/dl (65-105)
--- NOTE | 2023-09-13 17:26 | PC.NURSE ---
patient unable to ambulate with walker and assist x2.
--- NOTE | 2023-09-13 18:57 | PC.NURSE ---
This patient, Romero Davis, was admitted to Medical Room 261-01. Patient/family oriented to hospital policies and general routines including ID bracelet, bed and alarms, visiting hours, pain management, procedures, bathroom and other care routines, personal items, smoking policy, room service/diet, and visiting hours. Information on how to activate the Rapid Response Team has been discussed. Patient/Family are encouraged to report perceived risks to care and to ask questions if they do not understand what they are told or what they should do.
--- NOTE | 2023-09-13 20:08 | PM.IMHP ---
H&P: HPI History of Present Illness Date/Time: 09/13/23 20:00 Chief Complaint: Weakness. Narrative: This is a 67-year-old male with history of strokes including hemorrhagic stroke, seizure disorder, hypertension, hyperlipidemia, coronary artery disease, congestive heart failure, paroxysmal atrial fibrillation, type 2 diabetes mellitus, obstructive sleep apnea, and rheumatoid arthritis who presented to the emergency department yesterday evening via EMS from home for evaluation of weakness. The patient provides the following history. The patient's was concerned that he was having another stroke because he seemed to be more weak than usual on his left side while ambulating with his walker and he thought the left side of his mouth looks like he was drooping more than usual. The patient did not appreciate those findings however he did say he was having difficulties holding his utensils with his right hand which was a new finding that day. CTA of the head and neck showed findings concerning for proximal left vertebral artery dissection and he was accepted by the Neurology team at [facility] and transfer. He has been in the ED waiting for a bed to become available since that time. NIH score has been 6 since arrival and has not changed. This evening the ED physician spoke with neurologist Dr. Rodriges who reviewed the patient's CTA and brain MRI (no new findings). Dr. Rodriges at this time does not think that the patient needs to be transferred as he feels the patient is experiencing recrudescence of previous stroke from last month at which time he was found have a new right parietal lobe and occipital lobe infarct. Additionally the vertebral artery dissection is old and stable when compared to a CTA from January 2023. Dr. Rodriges recommends continuing antiplatelet therapy and follow-up with the [facility] medicine on discharge. Attempts were made to ambulate the patient in the ED did not go well. Patient reports that he is able to ambulate with a walker at home however our equipment is different than what he uses at home and he states that is why he was unable to walk today. He is being admitted overnight due to safety concerns and for PT/OT evaluation. At the time of my evaluation he is resting comfortably. He has no new complaints nor change in his symptoms. He is most concerned about his niece who is getting next weekend and he states that he must be present for that and out of the hospital. He denies headache, vertigo, visual changes, difficulty speaking and swallowing, change in baseline left-sided weakness, paresthesias, chest pain, palpitations, shortness of breath, nausea, vomiting, diarrhea, and dysuria. Review of Systems Review of Systems: 12 systems were reviewed and are negative except for as per HPI. [facility] Past Medical History Medical History (Updated 09/13/23 @ 20:31 by Juana Crowder PA-C) Anemia Atrial fibrillation/flutter Paroxysmal, history of DC cardioversion 2013, no longer on anticoagulation due to history of intercranial bleed CAD (coronary artery disease) (~2006) The patient had 3 cardiac stents placed between 2005 and 2012. He had a CABG in 2012 with a [place]'s ring placed on the mitral valve Cerebral arteriovenous malformation (AVM) Evaluated at [facility] in 1991 and 1997. He had bleeding from the AVM prior to 2005 CHF (congestive heart failure) Echocardiogram 07/2013: Left ventricular hypertrophy with mild dilatation, severe septal hypokinesis, EF 55-60, diastolic dysfunction, dilated left atrium Prior diagnosis of dilated cardiomyopathy Chronic anemia Chronic kidney disease CVA (cerebral vascular accident) (~2014) Hemorrhagic CVA 2013. MRI brain 07/2020 performed due to ataxia: Chronic ill-defined mass in the right temporal lobe consistent with AV malformation, chronic encephalomalacia with old blood product in the right temporal lobe and adjacent right insula and right lentiform nucleus, old lacunar infarct in
[2023-09-13] MEDS: carvediloL 3.125 MG TABLET PO (21:05)
[2023-09-13] MEDS: ASPIRIN 81 MG CHEWABLE TABLET PO (21:05)
[2023-09-13] MEDS: TIZANIDINE HCL 2 MG TABLET PO (21:05)
[2023-09-13] MEDS: levETIRAcetam 250 MG TABLET 750 MG PO (21:05)
[2023-09-13] MEDS: hydrALAZINE HCL 50 MG TABLET PO (21:06)
[2023-09-13] MEDS: NORTRIPTYLINE HCL 10 MG CAPSULE PO (21:06)
[2023-09-13] MEDS: oxyCODONE/ACETAMINOPHEN (*CRX) 10-325 MG TABLET 1 TAB PO (21:06)
[2023-09-13 21:27] LABS: Glucose Point of Care 146 mg/dl (65-105)
[2023-09-13 21:45] LABS: Glucose Point of Care 134 mg/dl (65-105)
[2023-09-14] VITALS (7 sets, daily range): BP systolic 145–172; BP diastolic 62–63; PULSE 55–80; RESP 17–18; TEMP 36.6–36.8; O2SAT 99–100
[2023-09-14 05:56] LABS: Hematocrit 28.6 % (42.0-52.0); Hemoglobin 8.7 g/dL (14.0-18.0); Mean Corpuscular HGB Conc 30.4 g/dl (32-36); Mean Corpuscular Hemoglobin 26.4 pg (26-34); Mean Corpuscular Volume 86.9 fl (80-100); Mean Platelet Volume 11.2 fl (7.4-10.4); Platelet Count Result 189 k/mm3 (150-375); Red Blood Count 3.29 M/mm3 (4.6-6.20); Red Cell Distribution Width 16.6 % (11.5-14.5); White Blood Count 6.4 K/mm3 (4.5-10.0)
[2023-09-14 06:10] LABS: Alanine Aminotransferase 10 U/L (6-50); Albumin Level 3.5 g/dL (3.5-5.1); Alkaline Phosphatase 92 U/L (38-126); Anion Gap 7 mmol/L (4-12); Aspartate Amino Transferase 16 U/L (17-59); Bilirubin,Total 0.3 mg/dL (0.2-1.3); Blood Urea Nitrogen 21 mg/dL (9-20); Calcium 8.7 mg/dL (8.4-10.2); Carbon Dioxide 20 mmol/L (22-30); Chloride 113 mmol/L (98-107); Estimated CRCL calculation 30 ml/min; Estimated Glomerular Filt Rate 35; Glucose 84 mg/dL (65-110); Magnesium 2.2 mg/dL (1.6-2.3); Potassium 4.2 mmol/L (3.4-5.0); Sodium 140 mmol/L (137-145)
[2023-09-14] MEDS: GABAPENTIN 300 MG CAPSULE 600 MG PO ×2 (06:56→13:12)
[2023-09-14] MEDS: LEVOTHYROXINE SODIUM 125 MCG TABLET PO (06:56)
[2023-09-14 08:05] LABS: Glucose Point of Care 89 mg/dl (65-105)
[2023-09-14] MEDS: levETIRAcetam 250 MG TABLET 750 MG PO (08:48)
[2023-09-14] MEDS: lisinopriL 20 MG TABLET 40 MG PO (08:49)
[2023-09-14] MEDS: ESCITALOPRAM OXALATE 10 MG TABLET 20 MG PO (08:49)
[2023-09-14] MEDS: SPIRONOLACTONE 50 MG TABLET PO (08:49)
[2023-09-14] MEDS: ARIPiprazole 2 MG TABLET PO (08:50)
[2023-09-14] MEDS: ATORVASTATIN 40 MG TABLET PO (08:50)
[2023-09-14] MEDS: hydrALAZINE HCL 50 MG TABLET PO (08:50)
[2023-09-14] MEDS: EMPAGLIFLOZIN 10 MG TABLET PO (08:50)
[2023-09-14] MEDS: amLODIPine BESYLATE 5 MG TABLET 10 MG PO (08:50)
[2023-09-14] MEDS: POTASSIUM CHLORIDE 10 MEQ ER TABLET PO (08:50)
[2023-09-14] MEDS: carvediloL 3.125 MG TABLET PO (08:51)
--- NOTE | 2023-09-14 09:42 | PM.DS ---
DS: Admitting Diagnosis Discharge Date 09/14/2023 Admitting Diagnosis Generalized weakness, difficulty walking, dissection of vertebral artery, hypertension, type 2 diabetes mellitus, paroxysmal atrial fibrillation, seizure disorder, chronic kidney disease, chronic anemia DS: Discharge Diagnosis Discharge Diagnosis (1) Generalized weakness: Code(s): R53.1 - Weakness Status: Acute (2) Difficulty in walking: Code(s): R26.2 - Difficulty in walking, not elsewhere classified Status: Acute (3) Dissection of vertebral artery: Code(s): I77.74 - Dissection of vertebral artery Status: Chronic (4) Hypertension: Code(s): I10 - Essential (primary) hypertension Status: Chronic (5) Type 2 diabetes mellitus: Code(s): E11.9 - Type 2 diabetes mellitus without complications Status: Chronic (6) Paroxysmal atrial fibrillation: Code(s): I48.0 - Paroxysmal atrial fibrillation Status: Chronic (7) Seizure disorder: Code(s): G40.909 - Epilepsy, unspecified, not intractable, without status epilepticus Status: Chronic (8) Chronic kidney disease: Code(s): N18.9 - Chronic kidney disease, unspecified Status: Chronic (9) Chronic anemia: Code(s): D64.9 - Anemia, unspecified Status: Chronic DS: Summary Hospital Course Hospital Course: This is a 67-year-old male patient who was initially brought to the emergency department for concern for recurrent or worsening stroke with difficulty ambulating possibly worsened facial droop. Initial imaging showed left vertebral artery dissection so transfer to [place] was initiated. MRI completed with no new findings to support additional CVA. Update conversation [facility] Neu[facility] states that previous imaging shows same vertebral artery dissection thus no acute intervention is required. Patient was admitted to our facility to work with PT OT determine if he can return home or need facility placement. Patient refusing facility placement at this. He states that he feels better knowing that there was not any additional stroke and he thinks he just let his fear that he may have had recurrent stroke affect the way he was moving. Patient remains on aspirin, not on any other anti-platelet or anticoagulant due to prior hemorrhagic stroke and other bleeding. Status at Discharge Cognitive/behavioral status at discharge: Awake alert oriented pleasant Functional status at discharge: uses cane/walker Overall status at discharge: patient is back to baseline Time Spent with Patient Time attestation: Total time spent providing and/or coordinating discharge services: 40 minutes Time spent: Greater than 30 minutes Exam Narrative: General: Chronically ill-appearing male lying in bed in no acute distress. HEENT: Small soft, nontender, mobile growth on the right forehead. PERRL, EOMI. Sclera anicteric. Oral mucosa moist. Neck: Supple. Respiratory: Lungs are clear to auscultation bilaterally. Cardiovascular: Regular rate and rhythm with S1-S2. Soft systolic murmur at the left sternal border and apex. Gastrointestinal: Abdomen is soft, nontender, and nondistended with positive bowel sounds. Skin: Warm and dry. Extremities: No cyanosis, clubbing, or edema. Radial and pedal pulses intact. Neurological: Alert and oriented. Cranial nerves 2-12 are grossly intact. Speech is clear. Mild left sided mouth droop. Left upper extremity drift with ataxia. Weak in the left arm and leg compared to the right. Psychiatric: Pleasant and cooperative. Appropriate mood. DS: Data Data Completed and Pending Completed studies during hospitalization: Head neck CTA, brain MRI Labs on day of discharge: Labs from last 24 hours 09/14/23 09/14/23 09/13/23 08:02 05:24 21:38 WBC 6.4 RBC 3.29 L Hgb 8.7 L Hct 28.6 L MCV 86.9 MCH 26.4 MCHC 30.4 L RDW 16.6 H Plt Count 189 MPV 11.2 H Sodium 140 Potas
[2023-09-14 12:13] LABS: Glucose Point of Care 156 mg/dl (65-105)
== END 2023-09-14 15:10 | disposition home health service (06) ==
LOC: ANHED 09-13 18:13 → ANH2MED 09-13 19:32
PROVIDERS: Family Medicine; Physician Assistant; Admitting Provider General Practice; Emergency Provider Preventive Medicine Aerospace Medicine; PCP Family Medicine; Visit Provider Internal Medicine
DX: I77.74 Dissection of vertebral artery (principal); R27.0 Ataxia, unspecified; R53.1 Weakness; I48.0 Paroxysmal atrial fibrillation; I25.10 Atherosclerotic heart disease of native coronary artery without angina pectoris; I13.0 Hypertensive heart and chronic kidney disease with heart failure and stage 1 through stage 4 chronic kidney disease, or unspecified chronic kidney disease; I50.9 Heart failure, unspecified; E11.22 Type 2 diabetes mellitus with diabetic chronic kidney disease; N18.9 Chronic kidney disease, unspecified; E11.42 Type 2 diabetes mellitus with diabetic polyneuropathy; E11.21 Type 2 diabetes mellitus with diabetic nephropathy; I25.2 Old myocardial infarction; E03.9 Hypothyroidism, unspecified; G47.33 Obstructive sleep apnea (adult) (pediatric); M06.9 Rheumatoid arthritis, unspecified; G40.909 Epilepsy, unspecified, not intractable, without status epilepticus; F32.A Depression, unspecified; D64.9 Anemia, unspecified; Z79.85 Long-term (current) use of injectable non-insulin antidiabetic drugs; Z79.82 Long term (current) use of aspirin; Z79.84 Long term (current) use of oral hypoglycemic drugs; Z79.891 Long term (current) use of opiate analgesic; Z95.5 Presence of coronary angioplasty implant and graft; Z95.1 Presence of aortocoronary bypass graft; Z86.73 Personal history of transient ischemic attack (TIA), and cerebral infarction without residual deficits; Z87.891 Personal history of nicotine dependence
CPT/HCPCS: 36415; 70496; 70498; 70551; 80053; 81001; 82948; 83735; 83880; 84484; 85025; 85027; 85610; 93005; 97162; 97165; 99285; A9270; G0378; Q9967